=== PATIENT | female | born 1960 | race Caucasian/White ===

== ENCOUNTER 2022-12-17 23:36 | Inpatient (IN) | payer OTHER ==
[2022-12-17] MEDS ORDERED: NOREPINEPHRINE 4 MG in SODIUM CHLORIDE 0.9% 250 ML IV ONE (23:42)
[2022-12-17] MEDS ORDERED: SODIUM CHLORIDE 0.9% 1,000 ML IV SCH (23:45)
--- NOTE | 2022-12-18 00:39 | ED ---
General Adult HPI - General Stated complaint: Alt Mental Time Seen by Provider: 12/17/22 23:38 Source: EMS Mode of arrival: EMS Limitations: language barrier, altered mental status, physical limitation - History of Present Illness Initial comments: This is a 62-year-old female who was brought into the emergency department via EMS as a transfer patient from [facility]. The patient reportedly presented to the hospital at the outside facility for altered mental status and due to the patient's altered mental status was intubated for airway protection. The patient also central line placed as she was found to be hypotensive. The patient's lactic acid was elevated. 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 Due to the patient's altered mental status, intubated and sedated state, the patient was transferred here for further workup and admission. On arrival, the patient was found to have maggots during transport and was brought into the decontamination room immediately with event and respiratory and place. The patient remained sedated on the ventilator and denied any further signs of acute distress. No further history could be obtained at this time. - Related Data Allergies Allergy/AdvReac Type Severity Reaction Status Date / Time No Known Allergies Allergy Verified 12/18/22 00:16 Review of Systems ROS Statement: Those systems with pertinent positive or pertinent negative responses have been documented in the HPI. Limitations: ROS unobtainable due to patients medical condition (Intubated and sedated) General Exam Limitations: language barrier, altered mental status (Intubated and sedated), physical limitation General appearance: in no apparent distress, other (Intubated and sedated) Head exam: Present: atraumatic, normocephalic, normal inspection Eye exam: Present: normal appearance ENT exam: Present: normal exam, normal oropharynx, mucous membranes moist Neck exam: Present: normal inspection, full ROM Respiratory exam: Present: normal lung sounds bilaterally, other (Intubated) Cardiovascular Exam: Present: regular rate, normal rhythm, normal heart sounds GI/Abdominal exam: Present: soft, normal bowel sounds Extremities exam: Present: normal inspection, full ROM Back exam: Present: normal inspection, full ROM Neurological exam: Present: other (Intubated and sedated) Psychiatric exam: Present: other (Intubated and sedated) Skin exam: Present: warm, dry EKG Findings - EKG Comments: EKG Findings:: An EKG was obtained and was interpreted by myself showing a rate of 84, GA interval 158, QRS duration of 111 and QTC of 413. This EKG showed a normal sinus rhythm with no ST segment elevation or depression noted. Medical Decision Making - Medical Decision Making Was pt. sent in by a medical professional or institution (, [facility], [facility], urgent care, hospital, or assisted...) When possible be specific @ -Yes, transferred from [facility] Did you speak to anyone other than the patient for history (EMS, parent, family, police, friend...)? What history was obtained from this source @ -Yes, EMS who stated the patient had also mental status initially and was intubated at the outside facility. He also stated they found maggots on the patient during transport. Did you review nursing and triage notes (agree or disagree)? Why? @ -I reviewed and agree with nursing and triage notes Were old charts reviewed (outside hosp., previous admission, EMS record, old EKG, old radiological studies, urgent care reports/EKG's, assisted records)? Report findings @ -Yes, the emergency department notes at [facility] were all reviewed including all laboratory workup and imaging that was performed Differential Diagnosis (chest pain, altered mental status, abdominal pain women, abdominal pain men, vaginal bleeding, weakness, fever, dyspnea, syncope, headache, dizziness, GI bleed, back pain, seizure, CVA, palpatations, mental health)? @ -Acute altered mental status, ventilator dependent respiratory failure, metastatic carcinoma EKG interpreted by me (3pts min.). @ -As above X-rays interpreted by me (1pt min.). @ -None done CT interpreted by me (1pt min.). @ -None done U/S interpreted by me (1pt. min.). @ -None done What testing was considered but not performed or refused? (CT, X-rays, U/S, labs)? Why? @ -None What meds were considered but not given or refused? Why? @ -None Did you discuss the management of the patient with other professionals (professionals i.e. , [facility], [facility], lab, RT, psych nurse, child protective services social worker, director of religious life, teacher, head correction officer, correctional casework specialist)? Give summary @ -Yes, the ICU [facility] was contacted regarding the patient admission. The admitting physician was also contacted regarding admission. Was smoking cessation discussed for >3mins.? @ -No Was critical care preformed (if so, how long)? @ -Yes, see above Were there social determinants of health that impacted care today? How? ( Homelessness, low income, unemployed, alcoholism, drug addiction, transportation, low edu. Level, literacy, decrease access to med. care, long term, rehab)? @ -No Was there de-escalation of care discussed even if they declined (Discuss DNR or withdrawal of care, Hospice)? DNR status @ -No What co-morbidities impacted this encounter? (DM, HTN, Smoking, COPD, CAD, Cancer, CVA, ARF, Chemo, Hep., AIDS, mental health diagnosis, sleep apnea, morbid obesity)? @ -Comorbidities were unknown at this time. Was patient admitted / discharged? Hospital course, mention meds given and route, prescriptions, significant lab abnormalities, going to OR and other pertinent info. @ -The patient was seen and evaluated emergency department. Initially on arrival, the patient was brought in by EMS and was taken to the decontamination room where she was decontaminated after was found to have bugs during transport. The patient remained sedated and ventilated. All laboratory workup was reviewed and was performed at the outside facility. Imaging was also obtained and reviewed the outside facility showing likely metastatic cancer throughout the abdomen. There was no white blood cell count nor UTI on the labs were performed at the outside facility. Due to the patient's ventilated and intubated status in the setting of likely new onset metastatic disease, the patient will be admitted to the ICU for further workup and evaluation. The ICU [facility] was contacted prior to arrival of the patient and the patient's primary care physician was also contacted and accepted. The patient was admitted in serious condition. Undiagnosed new problem with uncertain prognosis? @ -No Drug Therapy requiring intensive monitoring for toxicity (Heparin, Nitro, Insulin, Cardizem)? @ -Yes, propofol and Levophed Were any procedures done? @ -No Diagnosis/symptom? @ -Ventilator dependent respiratory failure, altered mental status, likely new onset metastatic Acute, or Chronic, or Acute on Chronic? @ -Acute Uncomplicated (without systemic symptoms) or Complicated (systemic symptoms)? @ -Complicated Side effects of treatment? @ -No Exacerbation, Progression, or Severe Exacerbation? @ -No Poses a threat to life or bodily function? How? (Chest pain, [place], [place], pneumonia, PE, COPD, DKA, ARF, appy, cholecystitis, CVA, Diverticulitis, Homicidal, Suicidal, threat to staff... and all critical care pts) @ -Yes, continued respiratory failure metastatic disease can lead to . Critical Care Time Critical Care Time: Yes Total Critical Care Time: 35 Disposition Clinical Impression: AMS (altered mental status), Metastasis, Pleural effusion, Respiratory failure Disposition: ADMITTED IP TO THIS [facility] Condition: Serious Is patient prescribed a controlled substance at d/c from ED?: No Referrals: Malik Vale MD [Primary Care Provider] - 1-2 days Time of Disposition: 00:20 Decision to Admit Reason: Admit from EC Decision Date: 12/18/22 Decision Time: 00:20
[2022-12-18] MEDS ORDERED: NALOXONE 0.4 MG/ML 1 ML VIAL IV PRN (00:46)
[2022-12-18 01:50] LABS: Basophils % (A) 0 %; Eosinophils % (A) 0 %; HCT 42.9 % (34.0-46.0); HGB 13.1 gm/dL (11.4-16.0); Hypochromasia Slight; Lymphocytes # (A) 0.7 k/uL (1.0-4.8); Lymphocytes % (A) 8 %; MCH 26.3 pg (25.0-35.0); MCHC 30.5 g/dL (31.0-37.0); MCV 86.1 fL (80.0-100.0); Mean Platelet Volume 11.3; Monocytes # (A) 0.2 k/uL (0-1.0); Monocytes % (A) 2 %; Neutrophils # (A) 8.1 k/uL (1.3-7.7); Neutrophils % (A) 89 %; Platelet Count 78 k/uL (150-450); RBC 4.98 m/uL (3.80-5.40); RDW 13.9 % (11.5-15.5); WBC 9.1 k/uL (3.8-10.6)
[2022-12-18 01:56] LABS: Albumin 2.8 g/dL (3.5-5.0); Calcium 6.6 mg/dL (8.4-10.2); Magnesium 2.3 mg/dL (1.6-2.3); Potassium 4.8 mmol/L (3.5-5.1); Total Bilirubin 1.6 mg/dL (0.2-1.3); Total Protein 5.3 g/dL (6.3-8.2)
[2022-12-18 02:03] LABS: ABG Base Excess -14.1 mmol/L; ABG HCO3 14 mmol/L (21-25); ABG Oxygen Saturation 99.5 % (94-97); ABG PCO2 33 mmHg (35-45); ABG PH 7.22 (7.35-7.45); ABG PO2 273 mmHg (83-108); ABG TCO2 15 mmol/L (19-24); Allen Test Performed? Yes
[2022-12-18] MEDS: NOREPINEPHRINE 4 MG in SODIUM CHLORIDE 0.9% 250 ML IV SCH ×2 (02:30→18:24)
[2022-12-18 02:37] LABS: Large Platelets Present; RBC Morphology Normal
[2022-12-18 02:55] LABS: Glucose,Whole Blood 101 mg/dL (70-110)
[2022-12-18] MEDS ORDERED: PIPERACILLIN-TAZOBACTAM 3.375 GM in SODIUM CHLORIDE 0.9% 100 ML IVPB SCH ×2 (03:00→07:00)
[2022-12-18] MEDS: IPRATROPIUM-ALBUTEROL 3 ML NEB INHALATION SCH ×6 (03:17→23:26)
--- NOTE | 2022-12-18 03:23 | XR ---
EXAM: XR Chest, 1 View CLINICAL HISTORY: ITS.REASON XR Reason: Tube placement TECHNIQUE: Frontal view of the chest. COMPARISON: No relevant prior studies available. IMPRESSION: Cardiomegaly. Loculated mild right pleural effusion. Moderate pulmonary edema. ET tube terminates 1.6 cm from the debora. NG tube in proper position.
--- NOTE | 2022-12-18 05:05 | CT ---
EXAM: CT Chest Without Intravenous Contrast CLINICAL HISTORY: ITS.REASON CT Reason: suspected malignancy TECHNIQUE: Axial computed tomography images of the chest without intravenous contrast. CTDI is 9.7 mGy and DLP is 694 mGy-cm. This CT exam was performed using one or more of the following dose reduction techniques: automated exposure control, adjustment of the mA and/or kV according to patient size, and/or use of iterative reconstruction technique. COMPARISON: No relevant prior studies available. FINDINGS: Lungs: No mass. No consolidation. Mild pulmonary edema. Pleural space: No pneumothorax. Large right and mild left pleural effusion. Heart: Normal heart size. No pericardial effusion. Bones/joints: No acute fracture. Soft tissues: Unremarkable. Vasculature: Unremarkable. No thoracic aortic aneurysm. Lymph nodes: No enlarged lymph nodes. IMPRESSION: Bilateral pleural effusions. Mild pulmonary edema. EXAM: CT Abdomen and Pelvis Without Intravenous Contrast CLINICAL HISTORY: ITS.REASON CT Reason: suspected malignancy TECHNIQUE: Axial computed tomography images of the abdomen and pelvis without intravenous contrast. CTDI is 9.7 mGy and DLP is 694 mGy-cm. This CT exam was performed using one or more of the following dose reduction techniques: automated exposure control, adjustment of the mA and/or kV according to patient size, and/or use of iterative reconstruction technique. COMPARISON: No relevant prior studies available. FINDINGS: ABDOMEN: Liver: Unremarkable. Gallbladder and bile ducts: Unremarkable. Pancreas: No ductal dilation. Spleen: Unremarkable. Adrenals: Unremarkable. Kidneys and ureters: No obstructing stones. No hydronephrosis. Stomach and bowel: No bowel obstruction. No bowel wall thickening. Colonic diverticulosis. PELVIS: Appendix: No evidence of appendicitis. Bladder: No stones. Fournier catheter inserted. Reproductive: Unremarkable. ABDOMEN and PELVIS: Intraperitoneal space: Moderate ascites. Diffuse mesenteric nodule seen. Bones/joints: No acute fractures. Soft tissues: Unremarkable. Vasculature: No abdominal aortic aneurysm. Lymph nodes: No enlarged lymph nodes. IMPRESSION: 1. Evaluation limited without contrast. Recommend postcontrast study for better characterization. 2. Mesenteric carcinomatosis. Unknown origin. 3. Colonic diverticulosis
[2022-12-18] MEDS ORDERED: SODIUM CHLORIDE 0.9% 1,000 ML IV ONE ×2 (05:18→06:33)
[2022-12-18 05:44] LABS: Appearance,Urine Cloudy (Clear); Bacteria,Urine Rare /hpf; Bilirubin,Urine Negative (Negative); Blood,Urine Large (Negative); Color,Urine Yellow; Glucose,Urine (UA) Trace (Negative); Ketones,Urine Trace (Negative); Leukocyte Esterase,Urine Negative (Negative); Mucus,Urine Rare /hpf; Nitrite,Urine Negative (Negative); PH, Urine 5.5 (5.0-8.0); Protein,Urine 1+ (Negative); RBC,Urine 5 /hpf (0-5); Specific Gravity,Urine 1.027 (1.001-1.035); Squamous Epithelial Cell,Urine <1 /hpf (0-4); Urobilinogen,Urine <2.0 mg/dL (<2.0); WBC,Urine 16 /hpf (0-5)
[2022-12-18 05:48] LABS: ABG Base Excess -14.1 mmol/L; ABG HCO3 14 mmol/L (21-25); ABG Oxygen Saturation 97.6 % (94-97); ABG PCO2 33 mmHg (35-45); ABG PH 7.22 (7.35-7.45); ABG PO2 112 mmHg (83-108); ABG TCO2 15 mmol/L (19-24); Allen Test Performed? Yes
[2022-12-18 05:53] LABS: Amphetamine Screen,Urine Not Detected (NotDetected); Barbiturate Screen,Urine Not Detected (NotDetected); Benzodiazepines Screen,Urine Not Detected (NotDetected); Cocaine Screen,Urine Not Detected (NotDetected); Methadone Screen, Urine Not Detected (NotDetected); Opiate Screen,Urine Not Detected (NotDetected); Oxycodone Screen, Urine Not Detected (NotDetected); Phencyclidine Screen,Urine Not Detected (NotDetected); Tricyclic Antidepressant,Urine Not Detected (NotDetected); Urn Cannabinoid Scrn Not Detected (NotDetected)
[2022-12-18 06:42] LABS: Magnesium 2.2 mg/dL (1.6-2.3); Potassium 4.4 mmol/L (3.5-5.1)
[2022-12-18 06:44] LABS: Hypochromasia Marked; MCH 26.6 pg (25.0-35.0); MCV 88.5 fL (80.0-100.0); Mean Platelet Volume 11.2; RBC 4.52 m/uL (3.80-5.40); RDW 14.2 % (11.5-15.5)
[2022-12-18 06:45] LABS: Platelet Count 88 k/uL (150-450)
[2022-12-18 06:50] LABS: Calcium 6.4 mg/dL (8.4-10.2)
--- NOTE | 2022-12-18 08:06 | P.CNPUL ---
History of Present Illness Consult date: 12/18/22 Requesting physician: Prince Forte Reason for consult: other (T management) Chief complaint: Altered mental status History of present illness: I am seeing this patient in new consultation today 12/18/2022 in the intensive care unit after she was transferred from [facility]. Apparently, the patient presented to outside hospital altered and had to be intubated to protect her airway. The patient's medical history is largely unknown, I did reach out to contact the patient's family. They are poor historians, and unable to provide me with a detailed medical history or events leading up to her hospitalization in [place]. I was able to ascertain that she has been having frequent episodes of vomiting for the past month. In fact, someone in the household had contacted EMS 5 days prior, but she refused to go to the hospital. While at [facility], the patient did undergo a nonenhanced brain CT which showed no acute intracranial hemorrhage or mass effect. The patient also had a CT of the abdomen pelvis with contrast which showed extensive nodular infiltration of the greater omentum as well as peritoneal nodularity in the left upper abdomen with mild accompanying ascites. 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 The patient's uterus size was normal, but there was a distended endometrial cavity concerning for endometrial cancer. There was a distended gallbladder with no apparent calculi or bili tract dilation. Liver had fatty infiltration without any specific lesions or biliary tract dilation. There was a large right pleural effusion with atelectasis of the right lower lung and partial atelectasis of the right m iddle lung, left lung was clear without any significant effusions or infiltrates. There was gastroesophageal reflux with fluid within the esophagus. There is thickening of the gastric antrum and duodenal. No free air. No other obvious obstruction. The patient was hypotensive at the outside facility, and a right femoral central line was placed. The patient was transferred to [facility] last night in critical condition. The patient is currently intubated on mechanical ventilator with current settings of assist control, respiratory rate 18, tidal volume 400, FiO2 50%, PEEP of 5. ABGs done on these settings show a pO2 of 112, pCO2 of 33, pH of 7.22. Chest x-ray on arrival showed the ET tube approximately 1.5 cm from the debora, and this was withdrawn 2 cm. The patient does have an orogastric tube coursing below the diaphragm. There was a moderate right pleural effusion. Un fortunately, the patient did vomit and probably aspirated, the OG tube is hooked to low intermittent suction. I have added Zosyn for empiric antibiotic coverage. The patient currently has norepinephrine infusing at 0.08 mics per kilogram per minute. I've given an additional 2 L normal saline bolus patient's lactic was 15 at outside facility, and is down to 9.6. I did order a non- enhanced CT of the chest, abdomen, pelvis, the patient's renal function is poor. This redemonstrated mesenteric carcinomatosis. It also showed a large right and mild left pleural effusion and mild pulmonary edema. CBC on arrival shows a WBC count of 9.1, hemoglobin 13.1, hematocrit 42.9, platelets 78,000. BMP on admission shows a sodium 136, potassium 4.8, chloride 102, serum CO2 13, BUN 65, creatinine 2.17, glucose 129. LFTS are elevated with an AST 3691, ALT of 831, ALP 164. Normal saline infusing at 75 mL per hour. Troponins 0.317. No obvious ischemic changes of ECG. Urine output is in the order of 20 ml/hr. Urinalysis not suspicious for UTI. Urine drug screen was negative, apparently there was s uspicion of past polysubstance abuse. The patient's condition is currently critical, I have made multiple attempts to reach out to the patient's family. It is unclear if they will be coming up to the hospital later this afternoon. The patient arrived in a disheveled state with maggots in her hair. She did have multiple bruises located on her back and chest. For now she will remain on the ventilator, and be monitored in the intensive care unit. Review of Systems ROS unobtainable: due to endotracheal tube Medications and Allergies Allergies Allergy/AdvReac Type Severity Reaction Status Date / Time No Known Allergies Allergy Verified 12/18/22 09:25 Physical Exam Vitals: Vital Signs Temp Pulse Resp BP BP Pulse Ox FiO2 12/18/22 06:00 93 19 110/80 95 12/18/22 05:45 90 17 88/67 93 L 12/18/22 05:30 92 19 92/66 95 12/18/22 05:15 90 18 92/62 97 12/18/22 05:01 100 12/18/22 04:00 98 50 12/18/22 03:45 113/99 98 12/18/22 03:30 101/64 97 12/18/22 03:25 88 12/18/22 03:17 87 12/18/22 03:15 86/58 97 12/18/22 03:07 50 12/18/22 03:00 97.0 F L 90 18 88/60 97 100 12/18/22 02:30 88 18 92/59 96 12/18/22 02:22 50 12/18/22 02:15 87 18 92/76 96 12/18/22 02:00 86 18 97/62 86 L 12/18/22 01:45 57 L 18 92/58 100 12/18/22 01:30 85 18 91/57 99 12/18/22 01:15 85 18 85/55 100 12/18/22 01:06 85 18 94/57 12/18/22 01:03 18 12/18/22 01:00 85 18 92/59 100 12/18/22 00:50 85 18 98/61 98 12/18/22 00:35 100 12/18/22 00:33 100 Intake and Output 12/17/22 12/17/22 12/18/22 14:59 22:59 06:59 Intake Total 1328.709 Output Total 80 Balance 1248.709 Intake: IV 1300 Sodium Chloride 0.9% 1, 300 000 ml @ 75 mls/hr IV . [id number] [facility] Rx#:[id number] Sodium Chloride 0.9% 1, 1000 000 ml @ 999 mls/hr IV . Q1H1M [facility] Rx#:[id number] Intake, IV Titration 28.709 Amount Norepinephrine 4 mg In 28.709 Sodium Chloride 0.9% 250 ml @ 0.03 MCG/KG/MIN 7.83 mls/hr IV .Q24H [facility] Rx#: [id number] Output: Urine 80 Other: Voiding Method Indwelling Catheter Weight 68.5 kg GENERAL EXAM: Patient is sedated and synchronous with the mechanical ventilator. She does withdraw to painful stimuli, does not follow commands HEAD: Normocephalic medical EYES: Normal reaction of pupils, equal size. NOSE: Clear with pink turbinates. THROAT: No erythema or exudates. NECK: No masses, no JVD. CHEST: No chest wall deformity. LUNGS: Equal air entry with diffuse rhonchi, and diminished lung sounds at the right base. Intubated on mechanical ventilator. CVS: S1 and S2 normal with no audible murmur, regular rhythm. No extra heart sounds ABDOMEN: No hepatosplenomegaly, active bowel sounds, no guarding or rigidity. SPINE: No scoliosis or deformity SKIN: Ecchymosis right posterior back CENTRAL NERVOUS SYSTEM: No focal deficits. Sedated on propofol, not following commands. Opens eyes to painful stimuli EXTREMITIES: There is bilateral 3+ pitting edema. No clubbing, or cyanosis. Peripheral pulses are intact. Results - Laboratory Findings CBC and BMP: 12/18/22 06:04 12/18/22 06:04 ABG ABG pH 7.22 (7.35-7.45) L 12/18/22 05:45 ABG pCO2 33 mmHg (35-45) L 12/18/22 05:45 ABG pO2 112 mmHg (83-108) H 12/18/22 05:45 ABG O2 Saturation 97.6 % (94-97) H 12/18/22 05:45 Abnormal lab findings: Abnormal Labs 12/18/22 12/18/22 12/18/22 00:44 00:44 00:44 MCHC 30.5 L Plt Count 78 L Neutrophils # 8.1 H Lymphocytes # 0.7 L ABG pH ABG pCO2 ABG pO2 ABG HCO3 ABG Total CO2 ABG O2 Saturation Sodium 136 L Carbon Dioxide 13 L BUN 65 H Creatinine 2.17 H Glucose 129 H Plasma Lactic Acid Dmitriy 7.4 H* Calcium 6.6 L Total Bilirubin 1.6 H AST 3691 H ALT 831 H Alkaline Phosphatase 164 H Troponin I Total Protein 5.3 L Albumin 2.8 L Urine Appearance Urine Protein Urine Glucose (UA) Urine Ketones Urine Blood Urine WBC Urine Bacteria Urine Mucus 12/18/22 12/18/22 12/18/22 00:44 02:00 05:02 MCHC Plt Count Neutrophils # Lymphocytes # ABG pH 7.22 L ABG pCO2 33 L ABG pO2 273 H ABG HCO3 14 L ABG Total CO2 15 L ABG O2 Saturation 99.5 H Sodium Carbon Dioxide BUN Creatinine Glucose Plasma Lactic Acid Dmitriy Calcium Total Bilirubin AST ALT Alkaline Phosphatase Troponin I 0.317 H* Total Protein Albumin Urine Appearance Cloudy H Urine Protein 1+ H Urine Glucose (UA) Trace H Urine Ketones Trace H Urine Blood Large H Urine WBC 16 H Urine Bacteria Rare H Urine Mucus Rare H 12/18/22 12/18/22 05:29 05:45 MCHC Plt Count Neutrophils # Lymphocytes # ABG pH 7.22 L ABG pCO2 33 L ABG pO2 112 H ABG HCO3 14 L ABG Total CO2 15 L ABG O2 Saturation 97.6 H Sodium Carbon Dioxide BUN Creatinine Glucose Plasma Lactic Acid Dmitriy 9.6 H* Calcium Total Bilirubin AST ALT Alkaline Phosphatase Troponin I Total Protein Albumin Urine Appearance Urine Protein Urine Glucose (UA) Urine Ketones Urine Blood Urine WBC Urine Bacteria Urine Mucus - Diagnostic Findings Chest x-ray: image reviewed CT scan - chest: image reviewed Assessment and Plan Assessment: Suspected Mesenteric carcinomatosis, with CT evidence of extensive nodular infiltration of the greater omentum as well as peritoneal nodularity in the left upper abdomen with mild accompanying ascites. 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 The patient's uterus size was normal, but there was a distended endometrial cavity concerning for endometrial cancer primary. Altered mental status requiring intubation at outside facility for airway protection. Subsequent episodes of vomiting and likely aspiration. Acute hypoxemic respiratory failure, currently on the mechanical ventilator. CT shows evidence of large right sided pleural effusion, small left pleural effusion, and mild pulmonary edema Suspected acute exacerbation of congestive heart failure Suspected sepsis and septic shock refractory to fluid replacement currently on norepinephrine infusion Anion gap metabolic acidosis secondary to lactic acidemia Elevated troponins, possibly related to supply/demand mismatch. No ECG evidence of acute ischemia Acute kidney injury likely related to acute tubular necrosis and shock, creatinine currently 2.17 Elevated LFTs, CT evidence of a distended gallbladder with no apparent calculi or biliary tract dilation. Liver had fatty infiltration without any specific lesions or biliary tract dilation. Possible history of polysubstance abuse Plan: Patient's medications, labs, CAT scan reviewed Continue mechanical ventilator Withdrawal ET tube 2 cm Start the patient on empiric Zosyn Dowd cultures Continue norepinephrine infusion Trend lactic acid levels Urine drug screen was negative Consult cardiology Obtain stat transthoracic 2-D echo Consult oncology heparin for DVT prophylaxis Protonix for GI prophylaxis The patient will remain in the intensive care unit. Patient's condition is currently critical, and I have made multiple times to reach out to the family. I have personally seen and examined the patient, performed the documentation and the assessment and plan as written. Number of minutes spent on the visit:20 This is a joint evaluation that was done along with a nurse practitioner. Unfortunately, the history is very limited and the patient and the family is poor historian. Nevertheless, this patient is critically ill. She was intubated and an outside hospital and further imaging of her body showed a large right-sided pleural effusion and there is extensive noted infiltration of the omentum suspicious for peritoneal carcinomatosis. The patient also has distended endometrial cavity concerning of endometrial cancer. The CAT scan of the abdomen also showed colonic diverticulosis. The patient was in acute kidney injury probably 2 to intravascular volume depletion ongoing nausea and dehydration. Initial lactic acid level was very high and currently the lactic acid level is down to 6.2 and a creatinine at the time of admission was 2.1 and this morning is down to 1.9. Serum bicarb is at 11. Patient has hypocalcemia with a calcium level of 6.4 from this morning. Troponins at 0.3. She is on a mechanical ventilator. She has a component of metabolic acidosis with a pH of 7.22 with a pCO2 of 32 and pO2 112 and the patient is on assist-control mode rate of 18 with a tidal volume of 400 and FiO2 of 50% with a PEEP of 5. She is sedated with propofol. She is calm and comfortable and symptoms of mechanical ventilator. She is hemodynamically unstable and she is on norepinephrine which is running at 0.07 mcg/kg/m. Urine operas in order of 30 mL an hour I reviewed the records. I reviewed the CAT scan of the chest. The patient has a right sided pleural effusion which is quite large. Recommend the chest tube insertion on the right side Levaquin the right-sided pleural fluid and this will be a good opportunity to assess the pleural fluid cytology to rule out malignancy. We'll consult general surgery regarding the abdominal findings. We'll consult [facility] regarding the possibility of endometrial cancer. She may benefit from a transvaginal ultrasound to evaluate her uterus. We'll keep the patient sedated. Continue same vent setting. IV fluids are in the form of normal saline and this will be switched to bicarbonate of 75 mL an hour. We'll continue pressors for now. Condition is critical. Further recommendations are to follow based on her progress. Family will be informed. The patient is also covered with empiric antibiotics with IV Zosyn. Evaluation was done in more than 30 minutes. Time with Patient: Greater than 30
--- NOTE | 2022-12-18 08:09 | P.CRDCN ---
History of Present Illness Consult date: 12/18/22 History of present illness: History of Present Illness: The patient is a 62-year-old female who was transferred from [facility] with change in mental status, respiratory distress, hypotension. Cardiology consultation was requested because of elevated troponin. A computed tomography scan of the abdomen showed metastatic cancer of unknown duration. According to the nursing staff the history obtained from the family is very limited. No prior history is available to me. The patient is intubated and sedated. She has received IV fluid. She is in sinus mechanism. There is no evidence of atrial fibrillation or ventricular ectopic activity. No other history could be obtained. Medications: No list of medication from home isn't available Review of Systems: Could not be obtained, patient is intubated and sedated. Physical Examination: 62-year-old female, intubated and sedated. ,Blood [id number], Heart rate 90 Head: [Normocephalic.] Eyes: [Sclerae nonicteric.] Neck: [Good carotid upstroke, no bruit, no jugular venous distention.] Lungs: [Clear to auscultation. Bruises on the chest and breast] Heart: [Regular rate and rhythm, S1-S2, no S3, no rub. No murmur.] Abdomen: [Soft , positive bowel sounds no organomegaly.] Extremities: [No edema, intact distal pulses.] Labs: WBC 9.1, hemoglobin 13.1, BUN 65, creatinine 2.17. Plasma lactic acid 7.4, 9.6. AST 3691 ALT 871. Troponin 0.317. Her BUN today 65 with creatinine of 1.9. Computed tomography scan of the chest showed bilateral pleural effusion, abdominal CT revealed mesenteric carcinomatosis EKG: Sinus mechanism, left axis deviation, low voltage with nonspecific ST-T wave ch bianca Impression: 1. [ Respiratory failure, on mechanical ventilation 2. Mild troponin elevation, representing 2 myocardial injury 3. Renal failure of unknown duration 4. Abdominal malignancy, of unknown duration and primary 5. Abnormal transaminase probably related to the malignancy 6. Ecchymosis on the chest of unknown duration or etiology Plan: 1. Continue supportive care 2. Obtain an echocardiogram with Doppler 3. Further workup regarding the abdominal malignancy 4. Depending on her progress further recommendations will be made 5. Thank you for this consult we will follow with you Medications and Allergies Allergies Allergy/AdvReac Type Severity Reaction Status Date / Time No Known Allergies Allergy Verified 12/18/22 00:16 Physical Exam Vitals: Vital Signs Temp Pulse Resp BP BP Pulse Ox FiO2 12/18/22 07:40 50 12/18/22 07:30 50 12/18/22 07:20 50 12/18/22 07:10 50 12/18/22 07:00 94 20 96/65 98 50 12/18/22 06:50 50 12/18/22 06:45 97 19 101/66 95 12/18/22 06:40 50 12/18/22 06:30 96 20 98/65 98 50 12/18/22 06:20 50 12/18/22 06:15 96 19 97/66 96 12/18/22 06:10 50 12/18/22 06:00 93 19 110/80 95 50 12/18/22 05:50 50 12/18/22 05:45 90 17 88/67 93 L 12/18/22 05:40 50 12/18/22 05:30 92 19 92/66 95 50 12/18/22 05:20 50 12/18/22 05:15 90 18 92/62 97 12/18/22 05:10 50 12/18/22 05:01 100 50 12/18/22 04:00 98 50 12/18/22 03:45 113/99 98 12/18/22 03:30 101/64 97 12/18/22 03:25 88 12/18/22 03:17 87 12/18/22 03:15 86/58 97 12/18/22 03:07 50 12/18/22 03:00 97.0 F L 90 18 88/60 97 100 12/18/22 02:30 88 18 92/59 96 12/18/22 02:22 50 12/18/22 02:15 87 18 92/76 96 12/18/22 02:00 86 18 97/62 86 L 12/18/22 01:45 57 L 18 92/58 100 12/18/22 01:30 85 18 91/57 99 12/18/22 01:15 85 18 85/55 100 12/18/22 01:06 85 18 94/57 12/18/22 01:03 18 12/18/22 01:00 85 18 92/59 100 12/18/22 00:50 85 18 98/61 98 12/18/22 00:35 100 12/18/22 00:33 100 Intake and Output 12/17/22 12/18/22 12/18/22 22:59 06:59 14:59 Intake Total 1378.525 210.126 Output Total 80 35 Balance 1298.525 175.126 Intake: IV 1300 175 Sodium Chloride 0.9% 1, 300 75 000 ml @ 75 mls/hr IV . [id number] [facility] Rx#:[id number] Sodium Chloride 0.9% 1, 1000 000 ml @ 999 mls/hr IV . Q1H1M [facility] Rx#:[id number] Sodium Chloride 0.9% 1, 100 000 ml @ 999 mls/hr IV . Q1H1M [facility] Rx#:[id number] Intake, IV Titration 78.525 35.126 Amount Norepinephrine 4 mg In 55.243 Sodium Chloride 0.9% 250 ml @ 0.03 MCG/KG/MIN 7.83 mls/hr IV .Q24H [facility] Rx#: [id number] propofoL 1,000 mg In 23.282 35.126 Empty Bag 1 bag @ 15 MCG/ KG/MIN 6.021 mls/hr IV . [id number] [facility] Rx#:[id number] Output: Urine 80 35 Other: Voiding Method Indwelling Catheter Weight 68.5 kg Results 12/18/22 06:04 12/18/22 06:04 Cardiac Enzymes 12/18/22 12/18/22 Range/Units 00:44 00:44 AST 3691 H (14-36) U/L Troponin I 0.317 H* (0.000-0.034) ng/mL CBC 12/18/22 12/18/22 Range/Units 00:44 06:04 WBC 9.1 8.5 (3.8-10.6) k/uL RBC 4.98 4.52 (3.80-5.40) m/uL Hgb 13.1 12.0 (11.4-16.0) gm/dL Hct 42.9 40.0 (34.0-46.0) % Plt Count 78 L (150-450) k/uL Comprehensive Metabolic Panel 12/18/22 12/18/22 Range/Units 00:44 06:04 Sodium 136 L 136 L (137-145) mmol/L Potassium 4.8 4.4 (3.5-5.1) mmol/L Chloride 102 103 (98-107) mmol/L Carbon Dioxide 13 L 11 L (22-30) mmol/L BUN 65 H 65 H (7-17) mg/dL Creatinine 2.17 H 1.99 H (0.52-1.04) mg/dL Glucose 129 H 112 H (74-99) mg/dL Calcium 6.6 L 6.4 L* (8.4-10.2) mg/dL AST 3691 H (14-36) U/L ALT 831 H (4-34) U/L Alkaline Phosphatase 164 H (38-126) U/L Total Protein 5.3 L (6.3-8.2) g/dL Albumin 2.8 L (3.5-5.0) g/dL Current Medications Generic Name Dose Route Start Last Admin Trade Name Freq PRN Reason Stop Dose Admin Albuterol/Ipratropium 3 ml 12/18/22 04:00 12/18/22 03:17 Ipratropium-Albuterol 3 Ml Neb INHALATION 3 ml RT-Q4H RAMESH Administration Chlorhexidine Gluconate 15 ml 12/18/22 09:00 Chlorhexidine Gluconate 15 Ml Cup MUCOUS MEM BID RAMESH Heparin Sodium (Porcine) 5,000 unit 12/18/22 09:00 Heparin Sodium,Porcine/Pf 5,000 Unit/0.5 Ml Syringe SQ Q12HR RAMESH Propofol 1,000 mg/ IV Solution 100 mls @ 6.021 mls/hr 12/17/22 23:45 12/18/22 07:00 IV 20 mcg/kg/min .[id number] RAMESH 8.029 mls/hr Titration Protocol 15 MCG/KG/MIN Sodium Chloride 1,000 mls @ 75 mls/hr 12/17/22 23:45 12/17/22 23:48 Saline 0.9% IV 75 mls/hr .[id number] RAMESH Administration Norepinephrine Bitartrate 4 mg 254 mls @ 7.83 mls/hr 12/18/22 05:30 12/18/22 06:40 / Sodium Chloride IV 0.08 mcg/kg/min .Q24H RAMESH 20.879 mls/hr Titration Protocol 0.03 MCG/KG/MIN Piperacillin Sod/Tazobactam 100 mls @ 25 mls/hr 12/18/22 07:00 Sod 3.375 gm/ Sodium Chloride IVPB Q12H RAMESH Protocol Naloxone HCl 0.2 mg 12/18/22 00:46 Naloxone 0.4 Mg/Ml 1 Ml Vial IV Q2M PRN Opioid Reversal Pantoprazole Sodium 40 mg 12/18/22 09:00 Pantoprazole 40 Mg/10 Ml Vial IV DAILY [facility] Intake and Output 12/17/22 12/18/22 12/18/22 22:59 06:59 14:59 Intake Total 1378.525 210.126 Output Total 80 35 Balance 1298.525 175.126 Intake: IV 1300 175 Sodium Chloride 0.9% 1, 300 75 000 ml @ 75 mls/hr IV . [id number] [facility] Rx#:[id number] Sodium Chloride 0.9% 1, 1000 000 ml @ 999 mls/hr IV . Q1H1M [facility] Rx#:[id number] Sodium Chloride 0.9% 1, 100 000 ml @ 999 mls/hr IV . Q1H1M [facility] Rx#:[id number] Intake, IV Titration 78.525 35.126 Amount Norepinephrine 4 mg In 55.243 Sodium Chloride 0.9% 250 ml @ 0.03 MCG/KG/MIN 7.83 mls/hr IV .Q24H [facility] Rx#: [id number] propofoL 1,000 mg In 23.282 35.126 Empty Bag 1 bag @ 15 MCG/ KG/MIN 6.021 mls/hr IV . [id number] [facility] Rx#:[id number] Output: Urine 80 35 Other: Voiding Method Indwelling Catheter Weight 68.5 kg 12/18/22 06:04 12/18/22 06:04
[2022-12-18] MEDS: CHLORHEXIDINE GLUCONATE 15 ML CUP MUCOUS MEM SCH ×2 (08:55→20:59)
[2022-12-18] MEDS: PANTOPRAZOLE 40 MG/10 ML VIAL IV SCH (08:55)
[2022-12-18] MEDS ORDERED: CALCIUM GLUCONATE IN NACL 1 GM in SALINE 1 100ML.BAG IVPB ONE (09:00)
[2022-12-18 09:28] LABS: Band Neutrophils % 3 %; Monocytes # (M) 0.17 k/uL (0-1.0); Myelocytes % 1 %; Neutrophils % (M) 87 %; Nucleated Red Blood Cells 1 /100 WBC (0-0); Total Cells Counted 200
[2022-12-18 09:29] LABS: Lymphocytes # (M) 0.76 k/uL (1.0-4.8); Myelocytes # (M) 0.08 k/uL (0); WBC 8.4 k/uL (3.8-10.6)
[2022-12-18] MEDS: DEXTROSE 5% IN WATER 1,000 ML with SODIUM BICARB (1 MEQ/ML) 150 ML IV SCH (11:18)
[2022-12-18 11:36] LABS: Glucose,Whole Blood 102 mg/dL (70-110)
[2022-12-18 12:25] LABS: INR 1.7 (<1.2); Prothrombin Time 16.6 sec (9.0-12.0)
--- NOTE | 2022-12-18 12:30 | CA ---
Transthoracic Echo Report Name: Cornelia Fraser Age: 62 Gender: F : 1960 Exam Date: 12/18/2022 08:42 Exam Location: [place] [facility] Ht (in): 65 Wt (lb): 147 Ordering Physician: Randolph Goss Attending/Referring Phys: Records Management Coordinator Soraya Franz RDCS Procedure CPT: Indications: evaluate LV function Cardiac Hx: Technical Quality: Fair Contrast 1: Total Dose (mL): Contrast 2: Total Dose (mL): MEASUREMENTS (Male / Female) Normal Values 2D ECHO LV Diastolic Diameter PLAX 3.1 cm 4.2 - 5.9 / 3.9 - 5.3 cm LV Systolic Diameter PLAX 1.5 cm IVS Diastolic Thickness 1.3 cm 0.6 - 1.0 / 0.6 - 0.9 cm LVPW Diastolic Thickness 1.3 cm 0.6 - 1.0 / 0.6 - 0.9 cm LV Relative Wall Thickness 0.8 RV Internal Dim ED PLAX 2.8 cm M-MODE Aortic Root Diameter MM 3.6 cm LA Systolic Diameter MM 3.3 cm LA Ao Ratio MM 0.9 AV Cusp Separation MM 1.6 cm DOPPLER AV Peak Velocity 122.3 cm/s AV Peak Gradient 6.0 mmHg AV Mean Velocity 83.0 cm/s AV Mean Gradient 3.1 mmHg AV Velocity Time Integral 24.0 cm LVOT Peak Velocity 91.7 cm/s LVOT Peak Gradient 3.4 mmHg LVOT Velocity Time Integral 18.3 cm MV Area PHT 3.2 cm??? Mitral E Point Velocity 61.1 cm/s Mitral A Point Velocity 46.2 cm/s Mitral E to A Ratio 1.3 MV Deceleration Time 235.1 ms TR Peak Velocity 327.6 cm/s TR Peak Gradient 42.9 mmHg Right Ventricular Systolic Press 46.6 mmHg FINDINGS Left Ventricle Mildly increased left ventricular wall thickness. Left ventricular cavity size normal. Normal left ventricular systolic function with no obvious regional wall motion abnormalities. Left ventricular ejection fraction is estimated at55-60 %. Right Ventricle Normal right ventricular size and function. Mild pulmonary hypertension. Right Atrium Normal right atrial size. Left Atrium Normal left atrial size. Mitral Valve Structurally normal mitral valve. No mitral stenosis, regurgitation or prolapse. Aortic Valve No aortic valve stenosis or regurgitation. Tricuspid Valve Structurally normal tricuspid valve. Mild tricuspid regurgitation. Pulmonic Valve Trace pulmonic regurgitation. Pericardium No pericardial effusion. Aorta Normal size aortic root and proximal ascending aorta. CONCLUSIONS Normal LV systolic function Mild pulmonary hypertension Previewed by: Dr. Rei Kelly MD (Electronically Signed) Final Date: 18 December 2022 12:29
--- NOTE | 2022-12-18 15:09 | US ---
Ultrasound-guided therapeutic and diagnostic right chest tube pigtail insertion DATE OF EXAM: 12/18/2022 CLINICAL HISTORY: Large right pleural effusion The procedure was discussed with the patient's . The risks, complications, benefits, and alter natives were discussed and any questions were answered. Informed consent was obtained. The patient was placed lateral position on the bedside within the ICU and prepped and draped in the u sual sterile fashion. All elements of maximal barrier and sterile technique were utilized. Under ultrasound guidance, access into the pleural space was obtained, via 8 [place] pigtail catheter trochanters is and direct ultrasound tyler nce. 20 cc serous fluid was aspirated and sent to pathology for analysis. The patient was stable throughout the procedure and procedure was performed bedside within the ICU. IMPRESSION: 1. Successful therapeutic and diagnostic right chest tube insertion under ultrasound guidance.
--- NOTE | 2022-12-18 16:09 | P.GSCN ---
History of Present Illness Consult date: 12/18/22 Reason for Consult: 62-year-old female transferred from an outside hospital. Patient with mental status changes and debility. Patient was intubated on arrival. CAT scan was performed showing a large right pleural effusion and omental caking on abdominal CAT scan consistent with peritoneal malignancy. Patient earlier today had a thoracentesis performed with drain placement. Those results are obviously pending. Consults to pulmonary and oncology have taken place. Review of Systems ROS unobtainable: due to endotracheal tube Medications and Allergies Home Medications Medication Instructions Recorded Confirmed Type Aspirin 81 mg PO DAILY 12/18/22 12/18/22 History Atorvastatin [Lipitor] 40 mg PO DAILY 12/18/22 12/18/22 History Cetirizine HCl [Zyrtec] 10 mg PO DAILY 12/18/22 12/18/22 History hydroCHLOROthiazide [Hydrodiuril] 25 mg PO DAILY 12/18/22 12/18/22 History lisinopriL [Zestril] 20 mg PO DAILY 12/18/22 12/18/22 History Allergies Allergy/AdvReac Type Severity Reaction Status Date / Time No Known Allergies Allergy Verified 12/18/22 09:25 Surgical - Exam Vital Signs FiO2 100 12/18/22 00:33 Physical exam: General: Somewhat malnourished elderly female HEENT: Normocephalic, trachea midline Abdomen: Nontender, abdominal fullness present with some induration in the abdomen Extremities: Mild lower extremity edema Neuro: Intubated Results - Labs 12/18/22 06:04 12/18/22 06:04 Abnormal Lab Results - Last 24 Hours (Table) 12/18/22 12/18/22 12/18/22 Range/Units 00:44 00:44 00:44 MCHC 30.5 L (31.0-37.0) g/dL Plt Count 78 L (150-450) k/uL Neutrophils # 8.1 H (1.3-7.7) k/uL Lymphocytes # 0.7 L (1.0-4.8) k/uL Lymphocytes # (Manual) (1.0-4.8) k/uL Myelocytes # (Manual) (0) k/uL Nucleated RBCs (0-0) /100 WBC PT (9.0-12.0) sec INR (<1.2) ABG pH (7.35-7.45) ABG pCO2 (35-45) mmHg ABG pO2 (83-108) mmHg ABG HCO3 (21-25) mmol/L ABG Total CO2 (19-24) mmol/L ABG O2 Saturation (94-97) % Sodium 136 L (137-145) mmol/L Carbon Dioxide 13 L (22-30) mmol/L BUN 65 H (7-17) mg/dL Creatinine 2.17 H (0.52-1.04) mg/dL Glucose 129 H (74-99) mg/dL Plasma Lactic Acid Dmitriy 7.4 H* (0.7-2.0) mmol/L Calcium 6.6 L (8.4-10.2) mg/dL Total Bilirubin 1.6 H (0.2-1.3) mg/dL AST 3691 H (14-36) U/L ALT 831 H (4-34) U/L Alkaline Phosphatase 164 H (38-126) U/L Troponin I (0.000-0.034) ng/mL Total Protein 5.3 L (6.3-8.2) g/dL Albumin 2.8 L (3.5-5.0) g/dL Urine Appearance (Clear) Urine Protein (Negative) Urine Glucose (UA) (Negative) Urine Ketones (Negative) Urine Blood (Negative) Urine WBC (0-5) /hpf Urine Bacteria (None) /hpf Urine Mucus (None) /hpf 12/18/22 12/18/22 12/18/22 Range/Units 00:44 02:00 05:02 MCHC (31.0-37.0) g/dL Plt Count (150-450) k/uL Neutrophils # (1.3-7.7) k/uL Lymphocytes # (1.0-4.8) k/uL Lymphocytes # (Manual) (1.0-4.8) k/uL Myelocytes # (Manual) (0) k/uL Nucleated RBCs (0-0) /100 WBC PT (9.0-12.0) sec INR (<1.2) ABG pH 7.22 L (7.35-7.45) ABG pCO2 33 L (35-45) mmHg ABG pO2 273 H (83-108) mmHg ABG HCO3 14 L (21-25) mmol/L ABG Total CO2 15 L (19-24) mmol/L ABG O2 Saturation 99.5 H (94-97) % Sodium (137-145) mmol/L Carbon Dioxide (22-30) mmol/L BUN (7-17) mg/dL Creatinine (0.52-1.04) mg/dL Glucose (74-99) mg/dL Plasma Lactic Acid Dmitriy (0.7-2.0) mmol/L Calcium (8.4-10.2) mg/dL Total Bilirubin (0.2-1.3) mg/dL AST (14-36) U/L ALT (4-34) U/L Alkaline Phosphatase (38-126) U/L Troponin I 0.317 H* (0.000-0.034) ng/mL Total Protein (6.3-8.2) g/dL Albumin (3.5-5.0) g/dL Urine Appearance Cloudy H (Clear) Urine Protein 1+ H (Negative) Urine Glucose (UA) Trace H (Negative) Urine Ketones Trace H (Negative) Urine Blood Large H (Negative) Urine WBC 16 H (0-5) /hpf Urine Bacteria Rare H (None) /hpf Urine Mucus Rare H (None) /hpf 12/18/22 12/18/22 12/18/22 Range/Units 05:29 05:45 06:04 MCHC 30.0 L (31.0-37.0) g/dL Plt Count 88 L (150-450) k/uL Neutrophils # (1.3-7.7) k/uL Lymphocytes # (1.0-4.8) k/uL Lymphocytes # (Manual) 0.76 L (1.0-4.8) k/uL Myelocytes # (Manual) 0.08 H (0) k/uL Nucleated RBCs 1 H (0-0) /100 WBC PT (9.0-12.0) sec INR (<1.2) ABG pH 7.22 L (7.35-7.45) ABG pCO2 33 L (35-45) mmHg ABG pO2 112 H (83-108) mmHg ABG HCO3 14 L (21-25) mmol/L ABG Total CO2 15 L (19-24) mmol/L ABG O2 Saturation 97.6 H (94-97) % Sodium (137-145) mmol/L Carbon Dioxide (22-30) mmol/L BUN (7-17) mg/dL Creatinine (0.52-1.04) mg/dL Glucose (74-99) mg/dL Plasma Lactic Acid Dmitriy 9.6 H* (0.7-2.0) mmol/L Calcium (8.4-10.2) mg/dL Total Bilirubin (0.2-1.3) mg/dL AST (14-36) U/L ALT (4-34) U/L Alkaline Phosphatase (38-126) U/L Troponin I (0.000-0.034) ng/mL Total Protein (6.3-8.2) g/dL Albumin (3.5-5.0) g/dL Urine Appearance (Clear) Urine Protein (Negative) Urine Glucose (UA) (Negative) Urine Ketones (Negative) Urine Blood (Negative) Urine WBC (0-5) /hpf Urine Bacteria (None) /hpf Urine Mucus (None) /hpf 12/18/22 12/18/22 12/18/22 Range/Units 06:04 08:29 11:42 MCHC (31.0-37.0) g/dL Plt Count (150-450) k/uL Neutrophils # (1.3-7.7) k/uL Lymphocytes # (1.0-4.8) k/uL Lymphocytes # (Manual) (1.0-4.8) k/uL Myelocytes # (Manual) (0) k/uL Nucleated RBCs (0-0) /100 WBC PT (9.0-12.0) sec INR (<1.2) ABG pH (7.35-7.45) ABG pCO2 (35-45) mmHg ABG pO2 (83-108) mmHg ABG HCO3 (21-25) mmol/L ABG Total CO2 (19-24) mmol/L ABG O2 Saturation (94-97) % Sodium 136 L (137-145) mmol/L Carbon Dioxide 11 L (22-30) mmol/L BUN 65 H (7-17) mg/dL Creatinine 1.99 H (0.52-1.04) mg/dL Glucose 112 H (74-99) mg/dL Plasma Lactic Acid Dmitriy 6.2 H* 5.8 H* (0.7-2.0) mmol/L Calcium 6.4 L* (8.4-10.2) mg/dL Total Bilirubin (0.2-1.3) mg/dL AST (14-36) U/L ALT (4-34) U/L Alkaline Phosphatase (38-126) U/L Troponin I (0.000-0.034) ng/mL Total Protein (6.3-8.2) g/dL Albumin (3.5-5.0) g/dL Urine Appearance (Clear) Urine Protein (Negative) Urine Glucose (UA) (Negative) Urine Ketones (Negative) Urine Blood (Negative) Urine WBC (0-5) /hpf Urine Bacteria (None) /hpf Urine Mucus (None) /hpf 12/18/22 12/18/22 Range/Units 11:59 15:02 MCHC (31.0-37.0) g/dL Plt Count (150-450) k/uL Neutrophils # (1.3-7.7) k/uL Lymphocytes # (1.0-4.8) k/uL Lymphocytes # (Manual) (1.0-4.8) k/uL Myelocytes # (Manual) (0) k/uL Nucleated RBCs (0-0) /100 WBC PT 16.6 H (9.0-12.0) sec INR 1.7 H (<1.2) ABG pH (7.35-7.45) ABG pCO2 (35-45) mmHg ABG pO2 (83-108) mmHg ABG HCO3 (21-25) mmol/L ABG Total CO2 (19-24) mmol/L ABG O2 Saturation (94-97) % Sodium (137-145) mmol/L Carbon Dioxide (22-30) mmol/L BUN (7-17) mg/dL Creatinine (0.52-1.04) mg/dL Glucose (74-99) mg/dL Plasma Lactic Acid Dmitriy 6.7 H* (0.7-2.0) mmol/L Calcium (8.4-10.2) mg/dL Total Bilirubin (0.2-1.3) mg/dL AST (14-36) U/L ALT (4-34) U/L Alkaline Phosphatase (38-126) U/L Troponin I (0.000-0.034) ng/mL Total Protein (6.3-8.2) g/dL Albumin (3.5-5.0) g/dL Urine Appearance (Clear) Urine Protein (Negative) Urine Glucose (UA) (Negative) Urine Ketones (Negative) Urine Blood (Negative) Urine WBC (0-5) /hpf Urine Bacteria (None) /hpf Urine Mucus (None) /hpf Microbiology - Last 24 Hours (Table) 12/18/22 05:02 Urine Culture - Preliminary Urine,Voided Diabetes panel 12/18/22 12/18/22 Range/Units 00:44 06:04 Sodium 136 L 136 L (137-145) mmol/L Potassium 4.8 4.4 (3.5-5.1) mmol/L Chloride 102 103 (98-107) mmol/L Carbon Dioxide 13 L 11 L (22-30) mmol/L BUN 65 H 65 H (7-17) mg/dL Creatinine 2.17 H 1.99 H (0.52-1.04) mg/dL Glucose 129 H 112 H (74-99) mg/dL Calcium 6.6 L 6.4 L* (8.4-10.2) mg/dL AST 3691 H (14-36) U/L ALT 831 H (4-34) U/L Alkaline Phosphatase 164 H (38-126) U/L Total Protein 5.3 L (6.3-8.2) g/dL Albumin 2.8 L (3.5-5.0) g/dL Calcium panel 12/18/22 12/18/22 Range/Units 00:44 06:04 Calcium 6.6 L 6.4 L* (8.4-10.2) mg/dL Albumin 2.8 L (3.5-5.0) g/dL Pituitary panel 12/18/22 12/18/22 Range/Units 00:44 06:04 Sodium 136 L 136 L (137-145) mmol/L Potassium 4.8 4.4 (3.5-5.1) mmol/L Chloride 102 103 (98-107) mmol/L Carbon Dioxide 13 L 11 L (22-30) mmol/L BUN 65 H 65 H (7-17) mg/dL Creatinine 2.17 H 1.99 H (0.52-1.04) mg/dL Glucose 129 H 112 H (74-99) mg/dL Calcium 6.6 L 6.4 L* (8.4-10.2) mg/dL Adrenal panel 12/18/22 12/18/22 Range/Units 00:44 06:04 Sodium 136 L 136 L (137-145) mmol/L Potassium 4.8 4.4 (3.5-5.1) mmol/L Chloride 102 103 (98-107) mmol/L Carbon Dioxide 13 L 11 L (22-30) mmol/L BUN 65 H 65 H (7-17) mg/dL Creatinine 2.17 H 1.99 H (0.52-1.04) mg/dL Glucose 129 H 112 H (74-99) mg/dL Calcium 6.6 L 6.4 L* (8.4-10.2) mg/dL Total Bilirubin 1.6 H (0.2-1.3) mg/dL AST 3691 H (14-36) U/L ALT 831 H (4-34) U/L Alkaline Phosphatase 164 H (38-126) U/L Total Protein 5.3 L (6.3-8.2) g/dL Albumin 2.8 L (3.5-5.0) g/dL Assessment and Plan (1) Carcinomatosis Narrative/Plan: 62-year-old female with suspected carcinomatosis and omental cake on CAT scan. Patient had diagnostic and therapeutic thoracentesis performed. Await those studies. If needed the omentum could be biopsied percutaneously. Current Visit: Yes Status: Acute Code(s): C80.0 - DISSEMINATED MALIGNANT NEOPLASM, UNSPECIFIED SNOMED Code(s): 190049950
[2022-12-18] MEDS: ASPIRIN 81 MG PO SCH (16:46)
[2022-12-18] MEDS: ATORVASTATIN 40 MG TAB PO SCH (16:46)
[2022-12-18] MEDS: HEPARIN SODIUM,PORCINE/PF 5,000 UNIT/0.5 ML SYRINGE SQ SCH ×2 (16:47→20:59)
[2022-12-18] MEDS: PIPERACILLIN-TAZOBACTAM 3.375 GM in SODIUM CHLORIDE 0.9% 100 ML IVPB SCH ×2 (16:56→23:58)
[2022-12-18 17:51] LABS: Glucose,Whole Blood 106 mg/dL (70-110)
--- NOTE | 2022-12-18 19:34 | P.HPIM ---
History of Present Illness H&P Date: 12/18/22 Chief Complaint: Intubated This is a 62-year-old patient, being followed by Malik Vale, was transferred here from [facility]. Patient presented with a altered men pema status had to be intubated. Apparently she was having episodes of vomiting for the possible. Summary from the hospital and contacted EMS about 5 days ago but patient refused to go to the hospital. Computed tomography scan of the hospital was unremarkable. CT of the abdomen and pelvis showed extensive nodular infiltration of the greater omentum and redness peritoneal nodularity of the left upper abdomen with some ascites.. Suggestive of metastatic disease. Also distended endometrial cavity was reported. Also distended gallbladder with no calculi. Fatty infiltration of liver. Large right pleural effusion with atelectasis of the right lower lobe. Partial atelectasis of right below. Some thickening of the gastric antrum and duodenum. Patient was hypotensive. This morning patient is intubated on the ventilator. With FiO2 50% and a PEEP of 5. Patient probably aspirated after vomiting. Has been placed on Zosyn. Director Of Casework Department team earlier creatinine return to the family was unable to do so. Review of systems cannot be done patient intubated sedated Past medical history to include: Hypertension, hyperlipidemia, arthritis Social history: Cannot be obtained Physical examination: VITAL SIGNS: Afebrile, 98, 20, 98/61, 99% on the ventilator GENERAL: BMI 25.1, laying in bed intubated. EYES: Pupils equal. Conjunctiva normal. HEENT: External appearance of nose and ears normal, oral cavity ET tube. NECK: JVD unable to assess; masses not palpable. HEART: First and second heart sounds are normal; no edema. LUNGS: Respiratory rate increased; decreased breath sounds. ABDOMEN: Soft, nontender, liver spleen not palpable, no masses palpable. PSYCH: Sedated l. MUSCULOSKELETAL:No Clubbing/cyanosis;muscles-grossly intact NEUROLOGICAL: Cranial nerves grossly intact; no facial asymmetry, power and sensation grossly intact. LYMPHATICS: No lymph nodes palpable in the axilla and neck INVESTIGATIONS, reviewed in the clinical context: White count 8.4 hemoglobin 12 platelets 88 sodium 136 potassium 4.4 BUN 65 creatinine 1.99 Lactic acid 6.2 CEA antigen 5.3 EKG tracing personally reviewed by me-normal sinus rhythm. Rate 84 Chest x-ray film personally reviewed by es-oyevt-qucfp mass/infiltrate. Atelectasis. CT chest without contrast. Large right, small left pleural effusions. Mild peripheral edema. Colonic diverticulosis. Mesentric carcinomatosis. 2-D echocardiogram: EF 55-60%. Assessment and plan: -Acute hypoxic respiratory failure, multifactorial including possible pneumonia, right lower lobe collapse. Requiring ventilator assistance. -Possible aspiration pneumonia IV Zosyn -Septic shock IV fluids, levo fed -Large right pleural effusion -Metastatic mesenteric carcinoid stenosis. At this point primary unknown. Distended endometrium. -Altered mental status, multifactorial/metabolic encephalopathy/delirium -Elevated troponin from here diabetic mismatch. No clinical evidence of acute: He syndrome -Acute kidney injury, likely ATN could be from shock. Baseline creatinine not known. -Nonalcoholic fatty liver disease. -Thrombocytopenia, cause unknown -Metabolic acidosis with a contribution from kidney injury Sodium bicarbonate drip Prognosis guarded. Attempt is being made to contact family. Patient being followed by engagement executive, cardiology, E[employer]MENT[employer]ER, general surgery, oncology. Past Medical History - Past Family History Father Family Medical History: No Reported History, Unable to Obtain Medications and Allergies Home Medications Medication Instructions Recorded Confirmed Type Aspirin 81 mg PO DAILY 12/18/22 12/18/22 History Atorvastatin [Lipitor] 40 mg PO DAILY 12/18/22 12/18/22 History Cetirizine HCl [Zyrtec] 10 mg PO DAILY 12/18/22 12/18/22 History hydroCHLOROthiazide [Hydrodiuril] 25 mg PO DAILY 12/18/22 12/18/22 History lisinopriL [Zestril] 20 mg PO DAILY 12/18/22 12/18/22 History Allergies Allergy/AdvReac Type Severity Reaction Status Date / Time No Known Allergies Allergy Verified 12/18/22 09:25 Physical Exam Vitals: Vital Signs Temp Pulse Resp BP BP Pulse Ox FiO2 12/18/22 08:15 97.4 F L 93 18 104/69 98 50 12/18/22 08:00 91 18 99/68 97 50 12/18/22 07:45 90 19 101/68 98 12/18/22 07:40 50 12/18/22 07:30 91 20 97/64 97 50 12/18/22 07:20 50 12/18/22 07:15 93 21 102/68 97 12/18/22 07:10 50 12/18/22 07:00 94 20 96/65 98 50 12/18/22 06:50 50 12/18/22 06:45 97 19 101/66 95 12/18/22 06:40 50 12/18/22 06:30 96 20 98/65 98 50 12/18/22 06:20 50 12/18/22 06:15 96 19 97/66 96 12/18/22 06:10 50 12/18/22 06:00 93 19 110/80 95 50 12/18/22 05:50 50 12/18/22 05:45 90 17 88/67 93 L 12/18/22 05:40 50 12/18/22 05:30 92 19 92/66 95 50 12/18/22 05:20 50 12/18/22 05:15 90 18 92/62 97 12/18/22 05:10 50 12/18/22 05:01 100 50 12/18/22 04:00 98 50 12/18/22 03:45 113/99 98 12/18/22 03:30 101/64 97 12/18/22 03:25 88 12/18/22 03:17 87 12/18/22 03:15 86/58 97 12/18/22 03:07 50 12/18/22 03:00 97.0 F L 90 18 88/60 97 100 12/18/22 02:30 88 18 92/59 96 12/18/22 02:22 50 12/18/22 02:15 87 18 92/76 96 12/18/22 02:00 86 18 97/62 86 L 12/18/22 01:45 57 L 18 92/58 100 12/18/22 01:30 85 18 91/57 99 12/18/22 01:15 85 18 85/55 100 12/18/22 01:06 85 18 94/57 12/18/22 01:03 18 12/18/22 01:00 85 18 92/59 100 12/18/22 00:50 85 18 98/61 98 12/18/22 00:35 100 12/18/22 00:33 100 Intake and Output 12/17/22 12/18/22 12/18/22 22:59 06:59 14:59 Intake Total 1378.525 438.553 Output Total 80 85 Balance 1298.525 353.553 Intake: IV 1300 350 0.9 kvo 0 Piperacillin-Tazobactam 3 100 .375 gm In Sodium Chloride 0.9% 100 ml @ 25 mls/hr IVPB Q12H [facility] Rx# :[id number] Sodium Chloride 0.9% 1, 300 150 000 ml @ 75 mls/hr IV . [id number] RAMESH Rx#:[id number] Sodium Chloride 0.9% 1, 1000 000 ml @ 999 mls/hr IV . Q1H1M ONE Rx#:[id number] Sodium Chloride 0.9% 1, 100 000 ml @ 999 mls/hr IV . Q1H1M ONE Rx#:[id number] Intake, IV Titration 78.525 88.553 Amount Norepinephrine 4 mg In 55.243 40.714 Sodium Chloride 0.9% 250 ml @ 0.03 MCG/KG/MIN 7.83 mls/hr IV .Q24H [facility] Rx#: [id number] propofoL 1,000 mg In 23.282 47.839 Empty Bag 1 bag @ 15 MCG/ KG/MIN 6.021 mls/hr IV . [id number] [facility] Rx#:[id number] Output: Urine 80 85 Other: Voiding Method Indwelling Catheter Weight 68.5 kg Results CBC & Chem 7: 12/18/22 06:04 12/18/22 06:04 Labs: Abnormal Lab Results - Last 24 Hours (Table) 12/18/22 12/18/22 12/18/22 Range/Units 00:44 00:44 00:44 MCHC 30.5 L (31.0-37.0) g/dL Plt Count 78 L (150-450) k/uL Neutrophils # 8.1 H (1.3-7.7) k/uL Lymphocytes # 0.7 L (1.0-4.8) k/uL Lymphocytes # (Manual) (1.0-4.8) k/uL Myelocytes # (Manual) (0) k/uL Nucleated RBCs (0-0) /100 WBC ABG pH (7.35-7.45) ABG pCO2 (35-45) mmHg ABG pO2 (83-108) mmHg ABG HCO3 (21-25) mmol/L ABG Total CO2 (19-24) mmol/L ABG O2 Saturation (94-97) % Sodium 136 L (137-145) mmol/L Carbon Dioxide 13 L (22-30) mmol/L BUN 65 H (7-17) mg/dL Creatinine 2.17 H (0.52-1.04) mg/dL Glucose 129 H (74-99) mg/dL Plasma Lactic Acid Dmitriy 7.4 H* (0.7-2.0) mmol/L Calcium 6.6 L (8.4-10.2) mg/dL Total Bilirubin 1.6 H (0.2-1.3) mg/dL AST 3691 H (14-36) U/L ALT 831 H (4-34) U/L Alkaline Phosphatase 164 H (38-126) U/L Troponin I (0.000-0.034) ng/mL Total Protein 5.3 L (6.3-8.2) g/dL Albumin 2.8 L (3.5-5.0) g/dL Urine Appearance (Clear) Urine Protein (Negative) Urine Glucose (UA) (Negative) Urine Ketones (Negative) Urine Blood (Negative) Urine WBC (0-5) /hpf Urine Bacteria (None) /hpf Urine Mucus (None) /hpf 12/18/22 12/18/22 12/18/22 Range/Units 00:44 02:00 05:02 MCHC (31.0-37.0) g/dL Plt Count (150-450) k/uL Neutrophils # (1.3-7.7) k/uL Lymphocytes # (1.0-4.8) k/uL Lymphocytes # (Manual) (1.0-4.8) k/uL Myelocytes # (Manual) (0) k/uL Nucleated RBCs (0-0) /100 WBC ABG pH 7.22 L (7.35-7.45) ABG pCO2 33 L (35-45) mmHg ABG pO2 273 H (83-108) mmHg ABG HCO3 14 L (21-25) mmol/L ABG Total CO2 15 L (19-24) mmol/L ABG O2 Saturation 99.5 H (94-97) % Sodium (137-145) mmol/L Carbon Dioxide (22-30) mmol/L BUN (7-17) mg/dL Creatinine (0.52-1.04) mg/dL Glucose (74-99) mg/dL Plasma Lactic Acid Dmitriy (0.7-2.0) mmol/L Calcium (8.4-10.2) mg/dL Total Bilirubin (0.2-1.3) mg/dL AST (14-36) U/L ALT (4-34) U/L Alkaline Phosphatase (38-126) U/L Troponin I 0.317 H* (0.000-0.034) ng/mL Total Protein (6.3-8.2) g/dL Albumin (3.5-5.0) g/dL Urine Appearance Cloudy H (Clear) Urine Protein 1+ H (Negative) Urine Glucose (UA) Trace H (Negative) Urine Ketones Trace H (Negative) Urine Blood Large H (Negative) Urine WBC 16 H (0-5) /hpf Urine Bacteria Rare H (None) /hpf Urine Mucus Rare H (None) /hpf 12/18/22 12/18/22 12/18/22 Range/Units 05:29 05:45 06:04 MCHC 30.0 L (31.0-37.0) g/dL Plt Count 88 L (150-450) k/uL Neutrophils # (1.3-7.7) k/uL Lymphocytes # (1.0-4.8) k/uL Lymphocytes # (Manual) 0.76 L (1.0-4.8) k/uL Myelocytes # (Manual) 0.08 H (0) k/uL Nucleated RBCs 1 H (0-0) /100 WBC ABG pH 7.22 L (7.35-7.45) ABG pCO2 33 L (35-45) mmHg ABG pO2 112 H (83-108) mmHg ABG HCO3 14 L (21-25) mmol/L ABG Total CO2 15 L (19-24) mmol/L ABG O2 Saturation 97.6 H (94-97) % Sodium (137-145) mmol/L Carbon Dioxide (22-30) mmol/L BUN (7-17) mg/dL Creatinine (0.52-1.04) mg/dL Glucose (74-99) mg/dL Plasma Lactic Acid Dmitriy 9.6 H* (0.7-2.0) mmol/L Calcium (8.4-10.2) mg/dL Total Bilirubin (0.2-1.3) mg/dL AST (14-36) U/L ALT (4-34) U/L Alkaline Phosphatase (38-126) U/L Troponin I (0.000-0.034) ng/mL Total Protein (6.3-8.2) g/dL Albumin (3.5-5.0) g/dL Urine Appearance (Clear) Urine Protein (Negative) Urine Glucose (UA) (Negative) Urine Ketones (Negative) Urine Blood (Negative) Urine WBC (0-5) /hpf Urine Bacteria (None) /hpf Urine Mucus (None) /hpf 12/18/22 12/18/22 Range/Units 06:04 08:29 MCHC (31.0-37.0) g/dL Plt Count (150-450) k/uL Neutrophils # (1.3-7.7) k/uL Lymphocytes # (1.0-4.8) k/uL Lymphocytes # (Manual) (1.0-4.8) k/uL Myelocytes # (Manual) (0) k/uL Nucleated RBCs (0-0) /100 WBC ABG pH (7.35-7.45) ABG pCO2 (35-45) mmHg ABG pO2 (83-108) mmHg ABG HCO3 (21-25) mmol/L ABG Total CO2 (19-24) mmol/L ABG O2 Saturation (94-97) % Sodium 136 L (137-145) mmol/L Carbon Dioxide 11 L (22-30) mmol/L BUN 65 H (7-17) mg/dL Creatinine 1.99 H (0.52-1.04) mg/dL Glucose 112 H (74-99) mg/dL Plasma Lactic Acid Dmitriy 6.2 H* (0.7-2.0) mmol/L Calcium 6.4 L* (8.4-10.2) mg/dL Total Bilirubin (0.2-1.3) mg/dL AST (14-36) U/L ALT (4-34) U/L Alkaline Phosphatase (38-126) U/L Troponin I (0.000-0.034) ng/mL Total Protein (6.3-8.2) g/dL Albumin (3.5-5.0) g/dL Urine Appearance (Clear) Urine Protein (Negative) Urine Glucose (UA) (Negative) Urine Ketones (Negative) Urine Blood (Negative) Urine WBC (0-5) /hpf Urine Bacteria (None) /hpf Urine Mucus (None) /hpf
--- NOTE | 2022-12-18 22:32 | P.CONS ---
History of Present Illness - Reason for Consult Consult date: 12/18/22 mesenteric carcinomatosis Requesting physician: Randolph Goss - Chief Complaint altered mental status - History of Present Illness Patient is a 62-year-old female who is a transfer from [facility] with a history of polysubstance abuse. She initially presented to the emergency room for altered mental status and syncopal episode at which time her called EMS. Per primary RN EMS was called to home 5 days prior but patient refused to go to the hospital for further evaluation. Nursing states patient was experiencing nausea and vomiting over the last 1 month but again refused further care or evaluation at that time. At todays visit patient is in the ICU and ventilated. Chest x-ray reviewed revealed cardiomegaly. Loculated mild right pleural effusion and moderate pulmonary edema. CT chest showed bilateral pleural effusions and mild pulmonary edema. CT abdomen pelvis revealed mesenteric carcinomatosis with unknown origin and colonic diverticulosis. Lactic acid upon admission was 9.6, 6.2 today. Hemoglobin 12, WBC 8.4, platelets 88,000. Blood cultures, urine culture and sputum culture pending. Patient was started on Zosyn. Patient is afebrile. Review of Systems 10 point ROS is negative except as stated in the HPI Past Medical History Past Medical History: Hyperlipidemia, Hypertension Additional Past Medical History / Comment(s): Arthritis History of Any Multi-Drug Resistant Organisms: Unobtainable Past Surgical History: No Surgical Hx Reported, Unable to Obtain Past Anesthesia/Blood Transfusion Reactions: Unable to Obtain Past Psychological History: Unable to Obtain Smoking Status: Never smoker - Past Family History Father Family Medical History: No Reported History, Unable to Obtain Medications and Allergies Home Medications Medication Instructions Recorded Confirmed Type Aspirin 81 mg PO DAILY 12/18/22 12/18/22 History Atorvastatin [Lipitor] 40 mg PO DAILY 12/18/22 12/18/22 History Cetirizine HCl [Zyrtec] 10 mg PO DAILY 12/18/22 12/18/22 History hydroCHLOROthiazide [Hydrodiuril] 25 mg PO DAILY 12/18/22 12/18/22 History lisinopriL [Zestril] 20 mg PO DAILY 12/18/22 12/18/22 History Allergies Allergy/AdvReac Type Severity Reaction Status Date / Time No Known Allergies Allergy Verified 12/18/22 09:25 Physical Exam Vitals: Vital Signs Temp Pulse Pulse Resp BP BP Pulse Ox 12/18/22 21:15 115 H 23 91/58 100 12/18/22 21:00 114 H 20 90/58 99 12/18/22 20:45 114 H 21 87/56 99 12/18/22 20:30 113 H 20 93/62 99 12/18/22 20:15 114 H 21 80/56 100 12/18/22 20:00 98.5 F 114 H 22 82/53 98 12/18/22 19:45 115 H 22 93/58 98 12/18/22 19:31 113 H 12/18/22 19:30 115 H 23 88/55 98 12/18/22 19:20 112 H 12/18/22 19:15 111 H 20 85/54 100 12/18/22 19:00 111 H 22 87/55 100 12/18/22 18:45 112 H 22 89/58 100 12/18/22 18:30 112 H 19 93/59 100 12/18/22 18:15 112 H 21 96/66 100 12/18/22 18:00 110 H 21 90/57 98 12/18/22 17:45 106 H 20 90/62 96 12/18/22 17:30 107 H 21 92/63 97 12/18/22 17:15 107 H 20 91/64 98 12/18/22 17:00 109 H 19 93/64 99 12/18/22 16:45 107 H 19 97/64 99 12/18/22 16:30 106 H 22 90/61 98 12/18/22 16:20 12/18/22 16:15 105 H 20 91/62 98 12/18/22 16:00 99.4 F 107 H 20 93/63 99 12/18/22 15:58 12/18/22 15:45 106 H 20 93/62 99 12/18/22 15:30 105 H 21 92/61 99 12/18/22 15:15 105 H 21 94/62 99 12/18/22 15:04 105 H 12/18/22 15:00 105 H 20 93/62 97 12/18/22 14:45 102 H 20 100/80 98 12/18/22 14:30 100 14 95/68 98 12/18/22 14:25 100 95/68 98 12/18/22 14:15 104 H 21 93/57 100 12/18/22 14:00 103 H 21 84/55 100 12/18/22 13:45 105 H 20 99/57 100 12/18/22 13:30 105 H 21 95/56 100 12/18/22 13:15 105 H 20 88/54 100 12/18/22 13:00 105 H 20 89/53 100 12/18/22 12:45 105 H 20 97/61 100 12/18/22 12:30 109 H 21 85/56 100 12/18/22 12:15 105 H 19 86/58 97 12/18/22 12:00 99.2 F 105 H 19 96/58 97 12/18/22 11:45 106 H 20 83/58 97 12/18/22 11:30 105 H 19 87/56 98 12/18/22 11:20 101 H 12/18/22 11:15 101 H 19 96/60 98 12/18/22 11:10 101 H 12/18/22 11:00 104 H 18 88/54 98 12/18/22 10:45 99 19 97/63 98 12/18/22 10:30 99 19 96/60 99 12/18/22 10:15 100 21 93/61 98 12/18/22 10:00 98 20 96/65 99 12/18/22 09:45 98 20 98/61 99 12/18/22 09:30 97 19 94/63 98 12/18/22 09:15 96 20 103/61 98 12/18/22 09:00 94 19 103/70 98 12/18/22 08:45 95 18 100/67 98 12/18/22 08:30 93 19 108/67 98 12/18/22 08:15 97.4 F L 93 18 104/69 98 12/18/22 08:00 91 18 99/68 97 12/18/22 07:50 06 07:45 90 19 101/68 98 12/18/22 07:30 91 20 97/64 97 12/18/22 07:15 93 21 102/68 97 12/18/22 07:00 94 20 96/65 98 12/18/22 06:45 97 19 101/66 95 12/18/22 06:30 96 20 98/65 98 12/18/22 06:15 96 19 97/66 96 12/18/22 06:00 93 19 110/80 95 12/18/22 05:45 90 17 88/67 93 L 12/18/22 05:30 92 19 92/66 95 12/18/22 05:15 90 18 92/62 97 12/18/22 05:01 100 12/18/22 04:00 98 12/18/22 03:45 113/99 98 12/18/22 03:30 101/64 97 12/18/22 03:25 88 12/18/22 03:17 87 12/18/22 03:15 86/58 97 12/18/22 03:07 12/18/22 03:00 97.0 F L 90 18 88/60 97 12/18/22 02:30 88 18 92/59 96 12/18/22 02:22 12/18/22 02:15 87 18 92/76 96 12/18/22 02:00 86 18 97/62 86 L 12/18/22 01:45 57 L 18 92/58 100 12/18/22 01:30 85 18 91/57 99 12/18/22 01:15 85 18 85/55 100 12/18/22 01:06 85 18 94/57 12/18/22 01:03 18 12/18/22 01:00 85 18 92/59 100 12/18/22 00:50 85 18 98/61 98 12/18/22 00:35 12/18/22 00:33 FiO2 12/18/22 21:15 12/18/22 21:00 12/18/22 20:45 12/18/22 20:30 12/18/22 20:15 12/18/22 20:00 50 12/18/22 19:45 12/18/22 19:31 12/18/22 19:30 12/18/22 19:20 50 12/18/22 19:15 12/18/22 19:00 50 12/18/22 18:45 12/18/22 18:30 12/18/22 18:15 12/18/22 18:00 50 12/18/22 17:45 12/18/22 17:30 12/18/22 17:15 12/18/22 17:00 50 12/18/22 16:45 12/18/22 16:30 12/18/22 16:20 50 12/18/22 16:15 12/18/22 16:00 50 12/18/22 15:58 50 12/18/22 15:45 12/18/22 15:30 12/18/22 15:15 12/18/22 15:04 12/18/22 15:00 50 12/18/22 14:45 12/18/22 14:30 12/18/22 14:25 12/18/22 14:15 12/18/22 14:00 12/18/22 13:45 12/18/22 13:30 12/18/22 13:15 12/18/22 13:00 50 12/18/22 12:45 12/18/22 12:30 12/18/22 12:15 12/18/22 12:00 50 12/18/22 11:45 12/18/22 11:30 12/18/22 11:20 12/18/22 11:15 12/18/22 11:10 12/18/22 11:00 50 12/18/22 10:45 12/18/22 10:30 12/18/22 10:15 12/18/22 10:00 12/18/22 09:45 12/18/22 09:30 12/18/22 09:15 12/18/22 09:00 50 12/18/22 08:45 12/18/22 08:30 12/18/22 08:15 50 12/18/22 08:00 50 12/18/22 07:50 50 12/18/22 07:45 12/18/22 07:30 12/18/22 07:15 12/18/22 07:00 12/18/22 06:45 12/18/22 06:30 12/18/22 06:15 12/18/22 06:00 12/18/22 05:45 12/18/22 05:30 12/18/22 05:15 12/18/22 05:01 12/18/22 04:00 50 12/18/22 03:45 12/18/22 03:30 12/18/22 03:25 12/18/22 03:17 12/18/22 03:15 12/18/22 03:07 50 12/18/22 03:00 100 12/18/22 02:30 12/18/22 02:22 50 12/18/22 02:15 12/18/22 02:00 12/18/22 01:45 12/18/22 01:30 12/18/22 01:15 12/18/22 01:06 12/18/22 01:03 12/18/22 01:00 12/18/22 00:50 12/18/22 00:35 100 12/18/22 00:33 100 Intake and Output 12/18/22 12/18/22 12/18/22 06:59 14:59 22:59 Intake Total 2834.409 6095.715 770.158 Output Total 80 235 1465 Balance 1298.525 858.715 -694.842 Intake: IV 1300 865 630 0.9 kvo 40 80 Calcium Gluconate in NaCl 100 1 gm In Saline 1 100ml. bag @ 100 mls/hr IVPB ONCE ONE Rx#:[id number] Dextrose 5% in Water 1, 300 450 000 ml @ 75 mls/hr IV . [id number] RAMESH with Sodium Bicarb (1 Meq/ml) 150 ml Rx#:[id number] Piperacillin-Tazobactam 3 100 100 .375 gm In Sodium Chloride 0.9% 100 ml @ 25 mls/hr IVPB Q12H RAMESH Rx# :[id number] Sodium Chloride 0.9% 1, 300 225 000 ml @ 75 mls/hr IV . [id number] RAMESH Rx#:[id number] Sodium Chloride 0.9% 1, 1000 000 ml @ 999 mls/hr IV . Q1H1M ONE Rx#:[id number] Sodium Chloride 0.9% 1, 100 000 ml @ 999 mls/hr IV . Q1H1M ONE Rx#:[id number] Intake, IV Titration 78.525 228.715 140.158 Amount Norepinephrine 4 mg In 55.243 151.068 66.393 Sodium Chloride 0.9% 250 ml @ 0.03 MCG/KG/MIN 7.83 mls/hr IV .Q24H RAMESH Rx#: [id number] propofoL 1,000 mg In 23.282 77.647 73.765 Empty Bag 1 bag @ 15 MCG/ KG/MIN 6.021 mls/hr IV . [id number] [facility] Rx#:[id number] Output: Chest Tube Drainage 1180 Chest Tube Right Upper 1180 Lateral Chest Urine 80 235 285 Other: Voiding Method Indwelling Catheter Indwelling Catheter Indwelling Catheter Weight 68.5 kg - Constitutional General appearance: average body habitus, no acute distress - Respiratory ventilated - Cardiovascular tachycardia Rhythm: regular Heart sounds: normal: S1, S2 Abnormal Heart Sounds: no systolic murmur, no diastolic murmur, no rub, no S3 Gallop, no S4 Gallop, no click, no other leg Peripheral Edema: bilateral: 2+ - Gastrointestinal right sided firmness palpated on exam - Integumentary Integumentary: no cyanotic, no rash - Neurologic sedated Results CBC & Chem 7: 12/18/22 06:04 12/18/22 06:04 Labs: Abnormal Lab Results - Last 24 Hours (Table) 12/18/22 12/18/22 12/18/22 Range/Units 00:44 00:44 00:44 MCHC 30.5 L (31.0-37.0) g/dL Plt Count 78 L (150-450) k/uL Neutrophils # 8.1 H (1.3-7.7) k/uL Lymphocytes # 0.7 L (1.0-4.8) k/uL Lymphocytes # (Manual) (1.0-4.8) k/uL Myelocytes # (Manual) (0) k/uL Nucleated RBCs (0-0) /100 WBC PT (9.0-12.0) sec INR (<1.2) ABG pH (7.35-7.45) ABG pCO2 (35-45) mmHg ABG pO2 (83-108) mmHg ABG HCO3 (21-25) mmol/L ABG Total CO2 (19-24) mmol/L ABG O2 Saturation (94-97) % Sodium 136 L (137-145) mmol/L Carbon Dioxide 13 L (22-30) mmol/L BUN 65 H (7-17) mg/dL Creatinine 2.17 H (0.52-1.04) mg/dL Glucose 129 H (74-99) mg/dL Plasma Lactic Acid Dmitriy 7.4 H* (0.7-2.0) mmol/L Calcium 6.6 L (8.4-10.2) mg/dL Total Bilirubin 1.6 H (0.2-1.3) mg/dL AST 3691 H (14-36) U/L ALT 831 H (4-34) U/L Alkaline Phosphatase 164 H (38-126) U/L Troponin I (0.000-0.034) ng/mL Total Protein 5.3 L (6.3-8.2) g/dL Albumin 2.8 L (3.5-5.0) g/dL Carcinoembryonic Ag (0.0-4.9) ng/mL Urine Appearance (Clear) Urine Protein (Negative) Urine Glucose (UA) (Negative) Urine Ketones (Negative) Urine Blood (Negative) Urine WBC (0-5) /hpf Urine Bacteria (None) /hpf Urine Mucus (None) /hpf 12/18/22 12/18/22 12/18/22 Range/Units 00:44 02:00 05:02 MCHC (31.0-37.0) g/dL Plt Count (150-450) k/uL Neutrophils # (1.3-7.7) k/uL Lymphocytes # (1.0-4.8) k/uL Lymphocytes # (Manual) (1.0-4.8) k/uL Myelocytes # (Manual) (0) k/uL Nucleated RBCs (0-0) /100 WBC PT (9.0-12.0) sec INR (<1.2) ABG pH 7.22 L (7.35-7.45) ABG pCO2 33 L (35-45) mmHg ABG pO2 273 H (83-108) mmHg ABG HCO3 14 L (21-25) mmol/L ABG Total CO2 15 L (19-24) mmol/L ABG O2 Saturation 99.5 H (94-97) % Sodium (137-145) mmol/L Carbon Dioxide (22-30) mmol/L BUN (7-17) mg/dL Creatinine (0.52-1.04) mg/dL Glucose (74-99) mg/dL Plasma Lactic Acid Dmitriy (0.7-2.0) mmol/L Calcium (8.4-10.2) mg/dL Total Bilirubin (0.2-1.3) mg/dL AST (14-36) U/L ALT (4-34) U/L Alkaline Phosphatase (38-126) U/L Troponin I 0.317 H* (0.000-0.034) ng/mL Total Protein (6.3-8.2) g/dL Albumin (3.5-5.0) g/dL Carcinoembryonic Ag (0.0-4.9) ng/mL Urine Appearance Cloudy H (Clear) Urine Protein 1+ H (Negative) Urine Glucose (UA) Trace H (Negative) Urine Ketones Trace H (Negative) Urine Blood Large H (Negative) Urine WBC 16 H (0-5) /hpf Urine Bacteria Rare H (None) /hpf Urine Mucus Rare H (None) /hpf 12/18/22 12/18/22 12/18/22 Range/Units 05:29 05:45 06:04 MCHC 30.0 L (31.0-37.0) g/dL Plt Count 88 L (150-450) k/uL Neutrophils # (1.3-7.7) k/uL Lymphocytes # (1.0-4.8) k/uL Lymphocytes # (Manual) 0.76 L (1.0-4.8) k/uL Myelocytes # (Manual) 0.08 H (0) k/uL Nucleated RBCs 1 H (0-0) /100 WBC PT (9.0-12.0) sec INR (<1.2) ABG pH 7.22 L (7.35-7.45) ABG pCO2 33 L (35-45) mmHg ABG pO2 112 H (83-108) mmHg ABG HCO3 14 L (21-25) mmol/L ABG Total CO2 15 L (19-24) mmol/L ABG O2 Saturation 97.6 H (94-97) % Sodium (137-145) mmol/L Carbon Dioxide (22-30) mmol/L BUN (7-17) mg/dL Creatinine (0.52-1.04) mg/dL Glucose (74-99) mg/dL Plasma Lactic Acid Dmitriy 9.6 H* (0.7-2.0) mmol/L Calcium (8.4-10.2) mg/dL Total Bilirubin (0.2-1.3) mg/dL AST (14-36) U/L ALT (4-34) U/L Alkaline Phosphatase (38-126) U/L Troponin I (0.000-0.034) ng/mL Total Protein (6.3-8.2) g/dL Albumin (3.5-5.0) g/dL Carcinoembryonic Ag (0.0-4.9) ng/mL Urine Appearance (Clear) Urine Protein (Negative) Urine Glucose (UA) (Negative) Urine Ketones (Negative) Urine Blood (Negative) Urine WBC (0-5) /hpf Urine Bacteria (None) /hpf Urine Mucus (None) /hpf 12/18/22 12/18/22 12/18/22 Range/Units 06:04 06:04 08:29 MCHC (31.0-37.0) g/dL Plt Count (150-450) k/uL Neutrophils # (1.3-7.7) k/uL Lymphocytes # (1.0-4.8) k/uL Lymphocytes # (Manual) (1.0-4.8) k/uL Myelocytes # (Manual) (0) k/uL Nucleated RBCs (0-0) /100 WBC PT (9.0-12.0) sec INR (<1.2) ABG pH (7.35-7.45) ABG pCO2 (35-45) mmHg ABG pO2 (83-108) mmHg ABG HCO3 (21-25) mmol/L ABG Total CO2 (19-24) mmol/L ABG O2 Saturation (94-97) % Sodium 136 L (137-145) mmol/L Carbon Dioxide 11 L (22-30) mmol/L BUN 65 H (7-17) mg/dL Creatinine 1.99 H (0.52-1.04) mg/dL Glucose 112 H (74-99) mg/dL Plasma Lactic Acid Dmitriy 6.2 H* (0.7-2.0) mmol/L Calcium 6.4 L* (8.4-10.2) mg/dL Total Bilirubin (0.2-1.3) mg/dL AST (14-36) U/L ALT (4-34) U/L Alkaline Phosphatase (38-126) U/L Troponin I (0.000-0.034) ng/mL Total Protein (6.3-8.2) g/dL Albumin (3.5-5.0) g/dL Carcinoembryonic Ag 5.3 H (0.0-4.9) ng/mL Urine Appearance (Clear) Urine Protein (Negative) Urine Glucose (UA) (Negative) Urine Ketones (Negative) Urine Blood (Negative) Urine WBC (0-5) /hpf Urine Bacteria (None) /hpf Urine Mucus (None) /hpf 12/18/22 12/18/22 12/18/22 Range/Units 11:42 11:59 15:02 MCHC (31.0-37.0) g/dL Plt Count (150-450) k/uL Neutrophils # (1.3-7.7) k/uL Lymphocytes # (1.0-4.8) k/uL Lymphocytes # (Manual) (1.0-4.8) k/uL Myelocytes # (Manual) (0) k/uL Nucleated RBCs (0-0) /100 WBC PT 16.6 H (9.0-12.0) sec INR 1.7 H (<1.2) ABG pH (7.35-7.45) ABG pCO2 (35-45) mmHg ABG pO2 (83-108) mmHg ABG HCO3 (21-25) mmol/L ABG Total CO2 (19-24) mmol/L ABG O2 Saturation (94-97) % Sodium (137-145) mmol/L Carbon Dioxide (22-30) mmol/L BUN (7-17) mg/dL Creatinine (0.52-1.04) mg/dL Glucose (74-99) mg/dL Plasma Lactic Acid Dmitriy 5.8 H* 6.7 H* (0.7-2.0) mmol/L Calcium (8.4-10.2) mg/dL Total Bilirubin (0.2-1.3) mg/dL AST (14-36) U/L ALT (4-34) U/L Alkaline Phosphatase (38-126) U/L Troponin I (0.000-0.034) ng/mL Total Protein (6.3-8.2) g/dL Albumin (3.5-5.0) g/dL Carcinoembryonic Ag (0.0-4.9) ng/mL Urine Appearance (Clear) Urine Protein (Negative) Urine Glucose (UA) (Negative) Urine Ketones (Negative) Urine Blood (Negative) Urine WBC (0-5) /hpf Urine Bacteria (None) /hpf Urine Mucus (None) /hpf 12/18/22 Range/Units 18:13 MCHC (31.0-37.0) g/dL Plt Count (150-450) k/uL Neutrophils # (1.3-7.7) k/uL Lymphocytes # (1.0-4.8) k/uL Lymphocytes # (Manual) (1.0-4.8) k/uL Myelocytes # (Manual) (0) k/uL Nucleated RBCs (0-0) /100 WBC PT (9.0-12.0) sec INR (<1.2) ABG pH (7.35-7.45) ABG pCO2 (35-45) mmHg ABG pO2 (83-108) mmHg ABG HCO3 (21-25) mmol/L ABG Total CO2 (19-24) mmol/L ABG O2 Saturation (94-97) % Sodium (137-145) mmol/L Carbon Dioxide (22-30) mmol/L BUN (7-17) mg/dL Creatinine (0.52-1.04) mg/dL Glucose (74-99) mg/dL Plasma Lactic Acid Dmitriy 7.6 H* (0.7-2.0) mmol/L Calcium (8.4-10.2) mg/dL Total Bilirubin (0.2-1.3) mg/dL AST (14-36) U/L ALT (4-34) U/L Alkaline Phosphatase (38-126) U/L Troponin I (0.000-0.034) ng/mL Total Protein (6.3-8.2) g/dL Albumin (3.5-5.0) g/dL Carcinoembryonic Ag (0.0-4.9) ng/mL Urine Appearance (Clear) Urine Protein (Negative) Urine Glucose (UA) (Negative) Urine Ketones (Negative) Urine Blood (Negative) Urine WBC (0-5) /hpf Urine Bacteria (None) /hpf Urine Mucus (None) /hpf Microbiology - Last 24 Hours (Table) 12/18/22 05:52 Gram Stain - Preliminary Sputum Sputum Culture - Preliminary 12/18/22 05:02 Urine Culture - Preliminary Urine,Voided Chest x-ray: report reviewed CT scan - abdomen: report reviewed CT scan - chest: report reviewed CT scan - pelvis: report reviewed Assessment and Plan (1) AMS (altered mental status) Current Visit: Yes Status: Acute Priority: High Code(s): R41.82 - ALTERED MENTAL STATUS, UNSPECIFIED SNOMED Code(s): 416695444 (2) Carcinomatosis Current Visit: Yes Status: Acute Priority: High Code(s): C80.0 - DISSEMINATED MALIGNANT NEOPLASM, UNSPECIFIED SNOMED Code(s): 497066557 (3) Pleural effusion Current Visit: Yes Status: Acute Priority: High Code(s): J90 - PLEURAL EFFUSION, NOT ELSEWHERE CLASSIFIED SNOMED Code(s): 35253254 Plan: Mesenteric carcinomatosis: -History is unknown as patient is a transfer from [place] and no family at bedside. Per nursing pt has poor followup and has refused workups by her PCP in the past, and has limited knowledge regarding patients health history -CT chest showed bilateral pleural effusions and mild pulmonary edema. CT abdomen pelvis revealed mesenteric carcinomatosis with unknown origin and colonic diverticulosis. -Once patient is stable will obtain CT chest abdomen pelvis with contrast for better characterization and IR consult for biopsy of mesenteric nodule. Altered mental status: -Lactic acid upon admission was 9.6, 6.2 today. -Blood cultures, urine culture and sputum culture pending. Patient was started on Zosyn. Pleural effusions: -Chest x-ray reviewed revealed cardiomegaly. Loculated mild right pleural effusion and moderate pulmonary edema. CT chest showed bilateral pleural effusions and mild pulmonary edema. -Pulmonology consulted. Plan for right sided chest tube pig tail. Cytology requested -Defer to pulmonary for medical management attests: I have performed H&P and developed impression and plan of care for patient, discussed with dictator. I agree with dictated note, documented as a scribe
[2022-12-18 23:30] LABS: Glucose,Whole Blood 146 mg/dL (70-110)
[2022-12-18] MEDS: NOREPINEPHRINE 8 MG in SODIUM CHLORIDE 0.9% 250 ML IV SCH (23:30)
[2022-12-19] MEDS: IPRATROPIUM-ALBUTEROL 3 ML NEB INHALATION SCH ×5 (03:24→20:28)
[2022-12-19 05:08] LABS: Calcium 6.2 mg/dL (8.4-10.2)
[2022-12-19 05:20] LABS: Basophils % (A) 0 %; Eosinophils % (A) 0 %; HCT 39.4 % (34.0-46.0); HGB 12.2 gm/dL (11.4-16.0); Hypochromasia Marked; Lymphocytes # (A) 0.8 k/uL (1.0-4.8); Lymphocytes % (A) 11 %; MCH 27.1 pg (25.0-35.0); MCV 87.7 fL (80.0-100.0); Mean Platelet Volume 11.7; Monocytes # (A) 0.1 k/uL (0-1.0); Monocytes % (A) 2 %; Neutrophils # (A) 6.6 k/uL (1.3-7.7); Neutrophils % (A) 86 %; RDW 14.5 % (11.5-15.5); WBC 7.6 k/uL (3.8-10.6)
[2022-12-19 05:22] LABS: ABG Base Excess -12.9 mmol/L; ABG HCO3 14 mmol/L (21-25); ABG Oxygen Saturation 99.2 % (94-97); ABG PCO2 33 mmHg (35-45); ABG PH 7.25 (7.35-7.45); ABG PO2 159 mmHg (83-108); ABG TCO2 15 mmol/L (19-24); Allen Test Performed? Yes
[2022-12-19 05:27] LABS: Platelet Count 72 k/uL (150-450)
[2022-12-19 05:49] LABS: Glucose,Whole Blood 166 mg/dL (70-110)
[2022-12-19] MEDS ORDERED: CALCIUM GLUCONATE IN NACL 1 GM in SALINE 1 100ML.BAG IVPB ONE (07:30)
--- NOTE | 2022-12-19 07:54 | P.PN ---
Subjective Progress Note Date: 12/19/22 PROGRESS NOTE The patient is a 62-year-old female who was transferred from [facility] with change in mental status, respiratory distress, hypotension. Cardiology consultation was requested because of elevated troponin. A computed tomography scan of the abdomen showed metastatic cancer of unknown duration. According to the nursing staff the history obtained from the family is very limited. No prior history is available to me. The patient is intubated and sedated. She has received IV fluid. She is in sinus mechanism. There is no evidence of atrial fibrillation or ventricular ectopic activity. No other history could be obtained. December 19: The patient remains intubated and sedated, her blood pressure is on the low side. She is in sinus mechanism with no evidence of malignant arrhythmia. She underwent thoracentesis yesterday because of large right pleural effusion. She underwent an echocardiogram that showed a preserved systolic function with mild pulmonary hypertension. Her chest x-ray shows significant improvement. Medications: Aspirin, Lipitor 40 mg daily, PHYSICAL EXAMINATION: Blood pressure 90/60 heart rate 110, intubated and sedated LUNGS: Clear to auscultation anteriorly, chest tube in place HEART: Regular rate and rhythm, S1, S2. No S3. No systolic murmur ABDOMEN: Soft, positive bowel sounds, no organomegaly EXTREMETIES: No edema LAB: Hemoglobin 12.2, WBC 7.6. Potassium 4.0. BUN 63, creatinine 1.93. PH 7.25. IMPRESSION: 1. Respiratory failure on mechanical ventilation 2. Evidence of carcinomatosis, workup in progress 3. Status post chest tube placement for pleural effusion, rule out malignant effusion 4. Renal failure, unclear duration 5. Troponin elevation, representing type II myocardial infarction 6. Possible sepsis with hypotension PLAN: 1. Await fluid evaluation for possible malignancy 2. Continue supportive care 3. Prognosis is guarded 4. Depending on her progress further recommendations will be made Objective - Vital Signs Vital signs: Vital Signs Temp 98.7 F 12/19/22 00:00 Pulse 117 H 12/19/22 07:00 Resp 24 12/19/22 07:00 BP 77/49 12/19/22 07:00 Pulse Ox 99 12/19/22 07:00 FiO2 50 12/19/22 04:00 Intake & Output 12/18/22 12/19/22 12/19/22 18:59 06:59 18:59 Intake Total 5419.295 4437.642 100 Output Total 1600 1115 Balance 76.404 125.642 100 Weight 69.2 kg Intake: IV 1400 1005 0.9 kvo 100 80 Calcium Gluconate in NaCl 100 1 gm In Saline 1 100ml. bag @ 100 mls/hr IVPB ONCE ONE Rx#:[id number] Dextrose 5% in Water 1, 675 825 000 ml @ 75 mls/hr IV . [id number] [facility]ESH with Sodium Bicarb (1 Meq/ml) 150 ml Rx#:[id number] Piperacillin-Tazobactam 3 200 100 .375 gm In Sodium Chloride 0.9% 100 ml @ 25 mls/hr IVPB Q12H [facility] Rx# :[id number] Sodium Chloride 0.9% 1, 225 000 ml @ 75 mls/hr IV . [id number] [facility] Rx#:[id number] Sodium Chloride 0.9% 1, 100 000 ml @ 999 mls/hr IV . Q1H1M ONE Rx#:[id number] Intake, IV Titration 276.404 235.642 100 Amount Norepinephrine 4 mg In 198.757 138.018 Sodium Chloride 0.9% 250 ml @ 0.03 MCG/KG/MIN 7.83 mls/hr IV .Q24H [facility] Rx#: [id number] Norepinephrine 8 mg In 23.859 Sodium Chloride 0.9% 250 ml @ 0.18 MCG/KG/MIN 23. 859 mls/hr IV .[id number] [facility] Rx#:[id number] propofoL 1,000 mg In 77.647 73.765 100 Empty Bag 1 bag @ 15 MCG/ KG/MIN 6.021 mls/hr IV . [id number] [facility] Rx#:[id number] Output: Chest Tube Drainage 1180 610 Chest Tube Right Upper 1180 610 Lateral Chest Urine 420 505 Other: Voiding Method Indwelling Catheter Indwelling Catheter - Labs CBC & Chem 7: 12/19/22 03:59 12/19/22 03:49 Labs: Abnormal Lab Results - Last 24 Hours (Table) 12/18/22 12/18/22 12/18/22 Range/Units 06:04 06:04 06:04 Plt Count 88 L (150-450) k/uL Lymphocytes # (1.0-4.8) k/uL Lymphocytes # (Manual) 0.76 L (1.0-4.8) k/uL Myelocytes # (Manual) 0.08 H (0) k/uL Nucleated RBCs 1 H (0-0) /100 WBC PT (9.0-12.0) sec INR (<1.2) ABG pH (7.35-7.45) ABG pCO2 (35-45) mmHg ABG pO2 (83-108) mmHg ABG HCO3 (21-25) mmol/L ABG Total CO2 (19-24) mmol/L ABG O2 Saturation (94-97) % Carbon Dioxide (22-30) mmol/L BUN (7-17) mg/dL Creatinine (0.52-1.04) mg/dL Glucose (74-99) mg/dL POC Glucose (mg/dL) (70-110) mg/dL Plasma Lactic Acid Dmitriy (0.7-2.0) mmol/L Calcium (8.4-10.2) mg/dL Carcinoembryonic Ag 5.3 H (0.0-4.9) ng/mL CA 125 Antigen 1900.0 H (0.0-30.1) U/mL 12/18/22 12/18/22 12/18/22 Range/Units 08:29 11:42 11:59 Plt Count (150-450) k/uL Lymphocytes # (1.0-4.8) k/uL Lymphocytes # (Manual) (1.0-4.8) k/uL Myelocytes # (Manual) (0) k/uL Nucleated RBCs (0-0) /100 WBC PT 16.6 H (9.0-12.0) sec INR 1.7 H (<1.2) ABG pH (7.35-7.45) ABG pCO2 (35-45) mmHg ABG pO2 (83-108) mmHg ABG HCO3 (21-25) mmol/L ABG Total CO2 (19-24) mmol/L ABG O2 Saturation (94-97) % Carbon Dioxide (22-30) mmol/L BUN (7-17) mg/dL Creatinine (0.52-1.04) mg/dL Glucose (74-99) mg/dL POC Glucose (mg/dL) (70-110) mg/dL Plasma Lactic Acid Dmitriy 6.2 H* 5.8 H* (0.7-2.0) mmol/L Calcium (8.4-10.2) mg/dL Carcinoembryonic Ag (0.0-4.9) ng/mL CA 125 Antigen (0.0-30.1) U/mL 12/18/22 12/18/22 12/18/22 Range/Units 15:02 18:13 23:28 Plt Count (150-450) k/uL Lymphocytes # (1.0-4.8) k/uL Lymphocytes # (Manual) (1.0-4.8) k/uL Myelocytes # (Manual) (0) k/uL Nucleated RBCs (0-0) /100 WBC PT (9.0-12.0) sec INR (<1.2) ABG pH (7.35-7.45) ABG pCO2 (35-45) mmHg ABG pO2 (83-108) mmHg ABG HCO3 (21-25) mmol/L ABG Total CO2 (19-24) mmol/L ABG O2 Saturation (94-97) % Carbon Dioxide (22-30) mmol/L BUN (7-17) mg/dL Creatinine (0.52-1.04) mg/dL Glucose (74-99) mg/dL POC Glucose (mg/dL) 146 H (70-110) mg/dL Plasma Lactic Acid Dmitriy 6.7 H* 7.6 H* (0.7-2.0) mmol/L Calcium (8.4-10.2) mg/dL Carcinoembryonic Ag (0.0-4.9) ng/mL CA 125 Antigen (0.0-30.1) U/mL 12/19/22 12/19/22 12/19/22 Range/Units 03:49 03:59 05:21 Plt Count 72 L (150-450) k/uL Lymphocytes # 0.8 L (1.0-4.8) k/uL Lymphocytes # (Manual) (1.0-4.8) k/uL Myelocytes # (Manual) (0) k/uL Nucleated RBCs (0-0) /100 WBC PT (9.0-12.0) sec INR (<1.2) ABG pH 7.25 L (7.35-7.45) ABG pCO2 33 L (35-45) mmHg ABG pO2 159 H (83-108) mmHg ABG HCO3 14 L (21-25) mmol/L ABG Total CO2 15 L (19-24) mmol/L ABG O2 Saturation 99.2 H (94-97) % Carbon Dioxide 14 L (22-30) mmol/L BUN 63 H (7-17) mg/dL Creatinine 1.93 H (0.52-1.04) mg/dL Glucose 146 H (74-99) mg/dL POC Glucose (mg/dL) (70-110) mg/dL Plasma Lactic Acid Dmitriy (0.7-2.0) mmol/L Calcium 6.2 L* (8.4-10.2) mg/dL Carcinoembryonic Ag (0.0-4.9) ng/mL CA 125 Antigen (0.0-30.1) U/mL 12/19/22 Range/Units 05:47 Plt Count (150-450) k/uL Lymphocytes # (1.0-4.8) k/uL Lymphocytes # (Manual) (1.0-4.8) k/uL Myelocytes # (Manual) (0) k/uL Nucleated RBCs (0-0) /100 WBC PT (9.0-12.0) sec INR (<1.2) ABG pH (7.35-7.45) ABG pCO2 (35-45) mmHg ABG pO2 (83-108) mmHg ABG HCO3 (21-25) mmol/L ABG Total CO2 (19-24) mmol/L ABG O2 Saturation (94-97) % Carbon Dioxide (22-30) mmol/L BUN (7-17) mg/dL Creatinine (0.52-1.04) mg/dL Glucose (74-99) mg/dL POC Glucose (mg/dL) 166 H (70-110) mg/dL Plasma Lactic Acid Dmitriy (0.7-2.0) mmol/L Calcium (8.4-10.2) mg/dL Carcinoembryonic Ag (0.0-4.9) ng/mL CA 125 Antigen (0.0-30.1) U/mL Microbiology - Last 24 Hours (Table) 12/18/22 05:52 Gram Stain - Preliminary Sputum Sputum Culture - Preliminary 12/18/22 05:02 Urine Culture - Preliminary Urine,Voided
[2022-12-19] MEDS: PIPERACILLIN-TAZOBACTAM 3.375 GM in SODIUM CHLORIDE 0.9% 100 ML IVPB SCH ×3 (08:10→23:02)
[2022-12-19] MEDS: NOREPINEPHRINE 8 MG in SODIUM CHLORIDE 0.9% 250 ML IV SCH ×3 (08:10→20:35)
[2022-12-19] MEDS: ATORVASTATIN 40 MG TAB PO SCH (08:11)
[2022-12-19] MEDS: ASPIRIN 81 MG PO SCH (08:11)
[2022-12-19] MEDS: CHLORHEXIDINE GLUCONATE 15 ML CUP MUCOUS MEM SCH ×2 (08:11→20:49)
[2022-12-19] MEDS: HEPARIN SODIUM,PORCINE/PF 5,000 UNIT/0.5 ML SYRINGE SQ SCH ×2 (08:11→20:49)
[2022-12-19] MEDS: PANTOPRAZOLE 40 MG/10 ML VIAL IV SCH (08:12)
[2022-12-19] MEDS: DEXTROSE 5% IN WATER 1,000 ML with SODIUM BICARB (1 MEQ/ML) 150 ML IV SCH (08:12)
--- NOTE | 2022-12-19 09:31 | XR ---
EXAMINATION TYPE: XR chest 1V portable DATE OF EXAM: 12/19/2022 COMPARISON: 12/18/2022 HISTORY: Tube placement TECHNIQUE: Single frontal view of the chest is obtained. FINDINGS: Right-sided chest tube is seen and there is near complete resolution of right-sided pleura l effusion. No sizable pneumothorax. Hypertrophic and degenerative changes of the spine. ET tube, NG tube stable. Large calcified lymph no ania are seen in the hilum and mediastinum. Tiny left pleural effusion is seen and there is underlying COPD. IMPRESSION: 1. Near complete resolution of right-sided pleural effusion post pigtail catheter insertion.
--- NOTE | 2022-12-19 10:12 | P.PN ---
Subjective Progress Note Date: 12/19/22 I am seeing this patient in new consultation today 12/18/2022 in the intensive care unit after she was transferred from [facility]. Apparently, the patient presented to outside hospital altered and had to be intubated to protect her airway. The patient's medical history is largely unknown, I did reach out to contact the patient's family. They are poor historians, and unable to provide me with a detailed medical history or events leading up to her hospitalization in [place]. I was able to ascertain that she has been having frequent episodes of vomiting for the past month. In fact, someone in the household had contacted EMS 5 days prior, but she refused to go to the hospital. While at [facility], the patient did undergo a nonenhanced brain CT which showed no acute intracranial hemorrhage or mass effect. The patient also had a CT of the abdomen pelvis with contrast which showed extensive nodular infiltration of the greater omentum as well as peritoneal nodularity in the left upper abdomen with mild accompanying ascites. 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 The patient's uterus size was normal, but there was a distended endometrial cavity concerning for endometrial cancer. There was a distended gallbladder with no apparent calculi or bili tract dilation. Liver had fatty infiltration without any specific lesions or biliary tract dilation. There was a large right pleural effusion with atelectasis of the right lower lung and partial atelectasis of the right middle lung, left lung was clear without any significant effusions or infiltrates. There was gastroesophageal reflux with fluid within the esophagus. There is thickening of the gastric antrum and duodenal. No free air. No other obvious obstruction. The patient was hypotensive at the outside facility, and a right femoral central line was placed. The patient was transferred to [facility] last night in critical condition. The patient is currently intubated on mechanical ventilator with current settings of assist control, respiratory rate 18, tidal volume 400, FiO2 50%, PEEP of 5. ABGs done on these settings show a pO2 of 112, pCO2 of 33, pH of 7.22. Chest x-ray on arrival showed the ET tube approximately 1.5 cm from the debora, and this was withdrawn 2 cm. The patient does have an orogastric tube coursing below the diaphragm. There was a moderate right pleural effusion. Unfortunately, the patient did vomit and probably aspirated, the OG tube is hooked to low intermittent suction. I have added Zosyn for empiric antibiotic coverage. The patient currently has norepinephrine infusing at 0.08 mics per kilogram per minute. I've given an additional 2 L normal saline bolus patient's lactic was 15 at outside facility, and is down to 9.6. I did order a non- enhanced CT of the chest, abdomen, pelvis, the patient's renal function is poor. This redemonstrated mesenteric carcinomatosis. It also showed a large right and mild left pleural effusion and mild pulmonary edema. CBC on arrival shows a WBC count of 9.1, hemoglobin 13.1, hematocrit 42.9, platelets 78,000. BMP on admission shows a sodium 136, potassium 4.8, chloride 102, serum CO2 13, BUN 65, creatinine 2.17, glucose 129. LFTS are elevated with an AST 3691, ALT of 831, ALP 164. Normal saline infusing at 75 mL per hour. Troponins 0.317. No obvious ischemic changes of ECG. Urine output is in the order of 20 ml/hr. Urinalysis not suspicious for UTI. Urine drug screen was negative, apparently there was suspicion of past polysubstance abuse. The patient's condition is currently critical, I have made multiple attempts to reach out to the patient's family. It is unclear if they will be coming up to the hospital later this afternoon. The patient arrived in a disheveled state with maggots in her hair. She did have multiple bruises located on her back and chest. For now she will remain on the ventilator, and be monitored in the intensive care unit. On today's evaluation of 2022, the patient remains intubated on a mechanical ventilator. The patient is currently on propofol which is running at 30 mcg/kg/m. Nevertheless earlier this morning, the patient was taken off the propofol to evaluate her underlying mental status. She is currently off propofol and the patient is receiving a sedation holiday. She remains quite advanced on a mechanical ventilator a day rate of 18 with a tidal volume of 400 and FiO2 of 50% with a PEEP of 5. Her chest x-ray shows marked improvement elevation of the right lung. The patient had a pigtail catheter inserted yesterday into the right hemithorax and a total amount of output was 700 mL overnight and the patient without more than 1.5 L immediately after insertion. The fluid analysis still pending for now and the fluid was also sent for cytology. Meanwhile, a repeat CAT scan of the chest abdomen and pelvis was done which confirmed the presence of a large right-sided pleural effusion. There was evidence of mesenteric carcinomatosis and the etiology was unknown. There is also evidence of colonic diverticulosis. The patient remains quite acidotic and she remains in renal failure and hypotensive. Earlier this morning, the patient is on norepinephrine which is running at 0.22 mcg/kg/m and as such an arterial line will be inserted for accurate blood pressure monitoring. The patient's BUN is at 63 with a creatinine of 1.9. She remains acidotic although serum bicarb is improving and is up to 14. The patient remains on a bicarbonate infusion which is running at the rate of 75 mL an hour. She does have abnormal LFTs, AST is 3691 and ALT is a 31 with an alkaline phosphatase of 164, could be related to shock liver. CA 125 level is 1900 and this may be consistent with ovarian cancer. A consultation has been placed for OB GEN to evaluate those findings. The CEA level is 5.3. Troponins at 0.3. The patient's echocardiogram shows a preserved LV function. There was some mild mitral regurgitation. No significant pulmonary hypertension. The patient is on empiric antibiotic covera ge and she is currently on IV Zosyn. She also has a triple-lumen catheter in the right femoral vein that was inserted in an outside hospital. Objective - Vital Signs Vital signs: Vital Signs Temp 99.0 F 12/19/22 08:00 Pulse 118 H 12/19/22 09:15 Resp 21 12/19/22 09:15 BP 86/56 12/19/22 09:15 Pulse Ox 99 12/19/22 09:15 FiO2 50 12/19/22 08:22 Intake & Output 12/18/22 12/19/22 12/19/22 18:59 06:59 18:59 Intake Total 8014.198 9955.642 580.437 Output Total 1600 1115 35 Balance 76.404 125.642 545.437 Weight 69.2 kg Intake: IV 1400 1005 270 0.9 kvo 100 80 20 Calcium Gluconate in NaCl 100 100 1 gm In Saline 1 100ml. bag @ 100 mls/hr IVPB ONCE ONE Rx#:[id number] Dextrose 5% in Water 1, 675 825 150 000 ml @ 75 mls/hr IV . [id number] RAMESH with Sodium Bicarb (1 Meq/ml) 150 ml Rx#:[id number] Piperacillin-Tazobactam 3 200 100 .375 gm In Sodium Chloride 0.9% 100 ml @ 25 mls/hr IVPB Q12H [facility] Rx# :[id number] Sodium Chloride 0.9% 1, 225 000 ml @ 75 mls/hr IV . [id number] [facility] Rx#:[id number] Sodium Chloride 0.9% 1, 100 000 ml @ 999 mls/hr IV . Q1H1M ONE Rx#:[id number] Intake, IV Titration 276.404 235.642 310.437 Amount Norepinephrine 4 mg In 198.757 138.018 Sodium Chloride 0.9% 250 ml @ 0.03 MCG/KG/MIN 7.83 mls/hr IV .Q24H [facility] Rx#: [id number] Norepinephrine 8 mg In 23.859 203.243 Sodium Chloride 0.9% 250 ml @ 0.18 MCG/KG/MIN 23. 859 mls/hr IV .[id number] [facility] Rx#:[id number] propofoL 1,000 mg In 77.647 73.765 107.194 Empty Bag 1 bag @ 15 MCG/ KG/MIN 6.021 mls/hr IV . [id number] [facility] Rx#:[id number] Output: Chest Tube Drainage 1180 610 35 Chest Tube Right Upper 1180 610 35 Lateral Chest Urine 420 505 Other: Voiding Method Indwelling Catheter Indwelling Catheter Indwelling Catheter - Exam GENERAL EXAM: Patient is sedated and synchronous with the mechanical ventilator. HEAD: Normocephalic medical EYES: Normal reaction of pupils, equal size. NOSE: Clear with pink turbinates. THROAT: No erythema or exudates. NECK: No masses, no JVD. CHEST: No chest wall deformity. LUNGS: Equal air entry with diffuse rhonchi, and diminished lung sounds at the right base. Intubated on mechanical ventilator. CVS: S1 and S2 normal with no audible murmur, regular rhythm. No extra heart sounds ABDOMEN: No hepatosplenomegaly, active bowel sounds, no guarding or rigidity. SPINE: No scoliosis or deformity SKIN: Ecchymosis right posterior back CENTRAL NERVOUS SYSTEM: No focal deficits. Sedated on propofol, not following commands. Opens eyes to painful stimuli EXTREMITIES: There is bilateral 3+ pitting edema. No clubbing, or cyanosis. Peripheral pulses are intact. - Labs CBC & Chem 7: 12/19/22 03:59 12/19/22 03:49 Labs: Abnormal Lab Results - Last 24 Hours (Table) 12/18/22 12/18/22 12/18/22 Range/Units 06:04 06:04 11:42 Plt Count (150-450) k/uL Lymphocytes # (1.0-4.8) k/uL PT (9.0-12.0) sec INR (<1.2) ABG pH (7.35-7.45) ABG pCO2 (35-45) mmHg ABG pO2 (83-108) mmHg ABG HCO3 (21-25) mmol/L ABG Total CO2 (19-24) mmol/L ABG O2 Saturation (94-97) % Carbon Dioxide (22-30) mmol/L BUN (7-17) mg/dL Creatinine (0.52-1.04) mg/dL Glucose (74-99) mg/dL POC Glucose (mg/dL) (70-110) mg/dL Plasma Lactic Acid Dmitriy 5.8 H* (0.7-2.0) mmol/L Calcium (8.4-10.2) mg/dL Carcinoembryonic Ag 5.3 H (0.0-4.9) ng/mL CA 125 Antigen 1900.0 H (0.0-30.1) U/mL 12/18/22 12/18/22 12/18/22 Range/Units 11:59 15:02 18:13 Plt Count (150-450) k/uL Lymphocytes # (1.0-4.8) k/uL PT 16.6 H (9.0-12.0) sec INR 1.7 H (<1.2) ABG pH (7.35-7.45) ABG pCO2 (35-45) mmHg ABG pO2 (83-108) mmHg ABG HCO3 (21-25) mmol/L ABG Total CO2 (19-24) mmol/L ABG O2 Saturation (94-97) % Carbon Dioxide (22-30) mmol/L BUN (7-17) mg/dL Creatinine (0.52-1.04) mg/dL Glucose (74-99) mg/dL POC Glucose (mg/dL) (70-110) mg/dL Plasma Lactic Acid Dmitriy 6.7 H* 7.6 H* (0.7-2.0) mmol/L Calcium (8.4-10.2) mg/dL Carcinoembryonic Ag (0.0-4.9) ng/mL CA 125 Antigen (0.0-30.1) U/mL 12/18/22 12/19/22 12/19/22 Range/Units 23:28 03:49 03:59 Plt Count 72 L (150-450) k/uL Lymphocytes # 0.8 L (1.0-4.8) k/uL PT (9.0-12.0) sec INR (<1.2) ABG pH (7.35-7.45) ABG pCO2 (35-45) mmHg ABG pO2 (83-108) mmHg ABG HCO3 (21-25) mmol/L ABG Total CO2 (19-24) mmol/L ABG O2 Saturation (94-97) % Carbon Dioxide 14 L (22-30) mmol/L BUN 63 H (7-17) mg/dL Creatinine 1.93 H (0.52-1.04) mg/dL Glucose 146 H (74-99) mg/dL POC Glucose (mg/dL) 146 H (70-110) mg/dL Plasma Lactic Acid Dmitriy (0.7-2.0) mmol/L Calcium 6.2 L* (8.4-10.2) mg/dL Carcinoembryonic Ag (0.0-4.9) ng/mL CA 125 Antigen (0.0-30.1) U/mL 12/19/22 12/19/22 Range/Units 05:21 05:47 Plt Count (150-450) k/uL Lymphocytes # (1.0-4.8) k/uL PT (9.0-12.0) sec INR (<1.2) ABG pH 7.25 L (7.35-7.45) ABG pCO2 33 L (35-45) mmHg ABG pO2 159 H (83-108) mmHg ABG HCO3 14 L (21-25) mmol/L ABG Total CO2 15 L (19-24) mmol/L ABG O2 Saturation 99.2 H (94-97) % Carbon Dioxide (22-30) mmol/L BUN (7-17) mg/dL Creatinine (0.52-1.04) mg/dL Glucose (74-99) mg/dL POC Glucose (mg/dL) 166 H (70-110) mg/dL Plasma Lactic Acid Dmitriy (0.7-2.0) mmol/L Calcium (8.4-10.2) mg/dL Carcinoembryonic Ag (0.0-4.9) ng/mL CA 125 Antigen (0.0-30.1) U/mL Microbiology - Last 24 Hours (Table) 12/18/22 14:45 Fungal Culture - Preliminary Pleural Fluid 12/18/22 14:45 Body Fluid Culture - Preliminary Pleural Fluid 12/18/22 14:45 Anaerobic Culture - Preliminary Pleural Fluid 12/18/22 14:45 Acid Fast Bacilli Culture - Preliminary Pleural Fluid 12/18/22 05:52 Gram Stain - Preliminary Sputum Sputum Culture - Preliminary 12/18/22 05:02 Urine Culture - Preliminary Urine,Voided Assessment and Plan Assessment: Mesenteric carcinomatosis, with CT evidence of extensive nodular infiltration of the greater omentum as well as peritoneal nodularity in the left upper abdomen with mild accompanying ascites. 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 The patient's uterus size was normal, but there was a distended endometrial cavity concerning for endometrial cancer primary. At the same time, the patient's CA 125 level is at 1900 and there may be also an underlying ovarian cancer. We have consulted LOSS MITIGATION SPECIALIST. The pleural fluid was drained and the fluid cytology is still pending for now. She will need a gynecologic examination including the possibility of transvaginal ultrasound. Awaiting LOSS MITIGATION SPECIALIST evaluation. Altered mental status requiring intubation at outside facility for airway protection. Subsequent episodes of vomiting and likely aspiration. the patient is currently on IV Zosyn. Acute hypoxemic respiratory failure, currently on the mechanical ventilator. CT shows evidence of large right sided pleural effuand the patient had a pigtail catheter inserted with adequate reexpansion of the right lung. Chest x-ray from today shows adequate aeration in more than 2 L of pleural fluid was aspirated from the right lung. Awaiting fluid cytology Acute hypotension, still on pressors. No clear indication for underlying sepsis. No clear indication for cardiogenic related causes of hypotension. The patient is still on pressors. We'll insert an arterial line. We'll continue investigation. We'll check a baseline cortisol level. The patient remains on norepinephrine. Suspected sepsis and septic shock refractory to fluid replacement currently on norepinephrine infusion Anion gap metabolic acidosis secondary to lactic acidemia, improving and the serum bicarbs up to 14 and the patient continues to be in a bicarb infusion Elevated troponins, possibly related to supply/demand mismatch. No ECG evidence of acute ischemia Acute kidney injury likely related to acute tubular necrosis and shock, creais slightly improved and is down to 1.9 Elevated LFTs, CT evidence of a distended gallbladder with no apparent calculi or biliary tract dilation. Liver had fatty infiltration without any specific lesions or biliary tract dilation. consider shock liver Possible history of polysubstance abuse Plan: Continue ventilator support, she is currently on FiO2 of 50%. No other ventilator changes without for today. Keep the pigtail catheter in place and monitor the pleural fluid output Awaiting pleural fluid cytology and the rest of the labs Highly suspicion for an underlying malignancy. The patient has an elevated CA 19 level which could indicate an underlying pelvic/ovarian cancer Awaiting an LOSS MITIGATION SPECIALIST consultation Awaiting recommendations from surgery. Insert an arterial line for adequate blood pressure monitoring Continue IV Zosyn Echocardiogram was noted Sedation holiday and assess the patient's mental status Conditions of significant and will continue to follow and will make further recommendations based on her progress. Evaluation was done in more than 30 minutes. Time with Patient: Greater than 30
--- NOTE | 2022-12-19 10:41 | P.OBCN ---
History of Present Illness Consult date: 12/19/22 Requesting physician: Merritt Melissa Reason for consult: other (Possible WHEAT BUYER malignancy) History of present illness: As reported in all the previous notes on the chart, the patient was found unconscious by EMS and transported to [facility] and intubated during the process. She was then transferred to our care. Computed tomography scan done at [place] reportedly suggested an enlarged endometrial cavity but also showed mesenteric adenopathy and nodules as well as omental caking consistent with metastatic malignancy, primary unknown. The patient is unconscious and sedated and cannot provide any history about his reportedly had significant mental status changes over the last several weeks. The family has provided no additional information to this point. It is unclear whether she's sought any medical care in recent times. Currently, the patient remains intubated and unconscious and in critical condition. As noted above, imaging has suggested omental caking as well as mesenteric nodules/adenopathy. She had a pleural effusion which was drained with a chest tube and the fluid has been sent for cytology. CA 125 has been done during the process and is significantly elevated at 1900. Obstetrical and gynecologic history: Unavailable as the patient is intubated and sedated and family is unavailable for questioning. Review of Systems Confined to history of present illness. Past Medical History Past Medical History: Hyperlipidemia, Hypertension Additional Past Medical History / Comment(s): Arthritis History of Any Multi-Drug Resistant Organisms: Unobtainable Past Surgical History: No Surgical Hx Reported, Unable to Obtain Past Anesthesia/Blood Transfusion Reactions: Unable to Obtain Past Psychological History: Unable to Obtain Smoking Status: Never smoker - Past Family History Father Family Medical History: No Reported History, Unable to Obtain Medications and Allergies Home Medications Medication Instructions Recorded Confirmed Type Aspirin 81 mg PO DAILY 12/18/22 12/18/22 History Atorvastatin [Lipitor] 40 mg PO DAILY 12/18/22 12/18/22 History Cetirizine HCl [Zyrtec] 10 mg PO DAILY 12/18/22 12/18/22 History hydroCHLOROthiazide [Hydrodiuril] 25 mg PO DAILY 12/18/22 12/18/22 History lisinopriL [Zestril] 20 mg PO DAILY 12/18/22 12/18/22 History Allergies Allergy/AdvReac Type Severity Reaction Status Date / Time No Known Allergies Allergy Verified 12/18/22 09:25 Exam Vital Signs Temp Pulse Pulse Resp BP BP Pulse Ox 12/19/22 10:30 117 H 18 97 12/19/22 10:15 123 H 26 H 94/64 100 12/19/22 10:00 122 H 23 87/63 100 12/19/22 09:45 120 H 24 93/58 100 12/19/22 09:30 118 H 25 H 89/56 99 12/19/22 09:15 118 H 21 86/56 99 12/19/22 09:00 117 H 23 84/54 99 02 08:45 116 H 23 101/61 98 12/19/22 08:35 114 H 12/19/22 08:30 115 H 23 97/61 98 12/19/22 08:23 116 H 12/19/22 08:22 12/19/22 08:15 87/57 99 12/19/22 08:00 99.0 F 113 H 24 86/60 100 12/19/22 07:45 115 H 21 81/55 100 12/19/22 07:30 116 H 23 74/57 100 12/19/22 07:15 116 H 20 109/65 100 12/19/22 07:00 117 H 24 77/49 99 12/19/22 06:45 118 H 24 91/63 97 12/19/22 06:30 121 H 25 H 78/57 97 12/19/22 06:15 118 H 24 84/56 98 12/19/22 06:00 118 H 22 90/61 98 12/19/22 05:45 118 H 22 92/62 93 L 12/19/22 05:30 120 H 25 H 97/58 99 12/19/22 05:15 118 H 24 103/62 98 12/19/22 05:00 118 H 22 98/62 98 12/19/22 04:45 121 H 24 99/60 97 12/19/22 04:30 121 H 23 98/66 97 12/19/22 04:15 121 H 23 93/54 99 12/19/22 04:00 122 H 22 96/57 98 02 03:45 120 H 23 98/63 99 12/19/22 03:35 112 H 12/19/22 03:30 118 H 23 98/63 99 06 03:28 0602/23 03:25 118 H 12/19/22 03:15 117 H 20 93/61 100 12/19/22 03:00 115 H 21 91/59 100 12/19/22 02:48 116 H 24 91/59 100 12/19/22 02:30 115 H 22 91/55 100 12/19/22 02:15 117 H 30 H 93/62 100 12/19/22 02:00 118 H 21 93/58 100 12/19/22 01:45 117 H 24 93/56 100 12/19/22 01:30 117 H 21 93/57 100 12/19/22 01:15 117 H 21 84/57 100 12/19/22 01:00 117 H 27 H 85/59 100 12/19/22 00:45 118 H 24 86/55 100 12/19/22 00:30 118 H 24 79/55 100 12/19/22 00:15 120 H 24 88/60 100 12/19/22 00:00 98.7 F 123 H 23 98/66 100 12/18/22 23:45 122 H 17 98/66 98 12/18/22 23:43 122 H 12/18/22 23:30 115 H 24 95/62 97 12/18/22 23:27 115 H 12/18/22 23:15 114 H 22 95/64 98 12/18/22 23:00 112 H 21 99/63 100 12/18/22 22:45 112 H 21 89/61 100 12/18/22 22:42 112 H 21 89/61 100 12/18/22 22:30 112 H 18 90/58 100 12/18/22 22:15 112 H 20 91/65 100 12/18/22 22:00 114 H 22 101/67 100 12/18/22 21:45 115 H 19 83/56 99 12/18/22 21:30 115 H 24 83/55 99 12/18/22 21:15 115 H 23 91/58 100 12/18/22 21:00 114 H 20 90/58 99 12/18/22 20:45 114 H 21 87/56 99 12/18/22 20:30 113 H 20 93/62 99 12/18/22 20:15 114 H 21 80/56 100 12/18/22 20:00 98.5 F 114 H 22 82/53 98 12/18/22 19:45 115 H 22 93/58 98 12/18/22 19:31 113 H 12/18/22 19:30 115 H 23 88/55 98 12/18/22 19:20 112 H 12/18/22 19:15 111 H 20 85/54 100 12/18/22 19:00 111 H 22 87/55 100 12/18/22 18:45 112 H 22 89/58 100 12/18/22 18:30 112 H 19 93/59 100 12/18/22 18:15 112 H 21 96/66 100 12/18/22 18:00 110 H 21 90/57 98 12/18/22 17:45 106 H 20 90/62 96 12/18/22 17:30 107 H 21 92/63 97 12/18/22 17:15 107 H 20 91/64 98 12/18/22 17:00 109 H 19 93/64 99 12/18/22 16:45 107 H 19 97/64 99 12/18/22 16:30 106 H 22 90/61 98 12/18/22 16:20 12/18/22 16:15 105 H 20 91/62 98 12/18/22 16:00 99.4 F 107 H 20 93/63 99 12/18/22 15:58 12/18/22 15:45 106 H 20 93/62 99 12/18/22 15:30 105 H 21 92/61 99 12/18/22 15:15 105 H 21 94/62 99 12/18/22 15:04 105 H 12/18/22 15:00 105 H 20 93/62 97 12/18/22 14:45 102 H 20 100/80 98 12/18/22 14:30 100 14 95/68 98 12/18/22 14:25 100 95/68 98 12/18/22 14:15 104 H 21 93/57 100 12/18/22 14:00 103 H 21 84/55 100 12/18/22 13:45 105 H 20 99/57 100 12/18/22 13:30 105 H 21 95/56 100 12/18/22 13:15 105 H 20 88/54 100 12/18/22 13:00 105 H 20 89/53 100 12/18/22 12:45 105 H 20 97/61 100 06/01/23 12:30 109 H 21 85/56 100 12/18/22 12:15 105 H 19 86/58 97 12/18/22 12:00 99.2 F 105 H 19 96/58 97 12/18/22 11:45 106 H 20 83/58 97 12/18/22 11:30 105 H 19 87/56 98 12/18/22 11:20 101 H 12/18/22 11:15 101 H 19 96/60 98 12/18/22 11:10 101 H 12/18/22 11:00 104 H 18 88/54 98 12/18/22 10:45 99 19 97/63 98 FiO2 12/19/22 10:30 12/19/22 10:15 12/19/22 10:00 12/19/22 09:45 12/19/22 09:30 12/19/22 09:15 12/19/22 09:00 12/19/22 08:45 12/19/22 08:35 12/19/22 08:30 12/19/22 08:23 12/19/22 08:22 50 12/19/22 08:15 12/19/22 08:00 50 12/19/22 07:45 12/19/22 07:30 12/19/22 07:15 12/19/22 07:00 12/19/22 06:45 12/19/22 06:30 12/19/22 06:15 12/19/22 06:00 12/19/22 05:45 12/19/22 05:30 12/19/22 05:15 12/19/22 05:00 12/19/22 04:45 12/19/22 04:30 12/19/22 04:15 12/19/22 04:00 50 12/19/22 03:45 12/19/22 03:35 12/19/22 03:30 12/19/22 03:28 50 12/19/22 03:25 12/19/22 03:15 12/19/22 03:00 12/19/22 02:48 12/19/22 02:30 12/19/22 02:15 12/19/22 02:00 12/19/22 01:45 12/19/22 01:30 12/19/22 01:15 12/19/22 01:00 12/19/22 00:45 12/19/22 00:30 12/19/22 00:15 12/19/22 00:00 50 12/18/22 23:45 12/18/22 23:43 12/18/22 23:30 12/18/22 23:27 50 12/18/22 23:15 12/18/22 23:00 12/18/22 22:45 12/18/22 22:42 12/18/22 22:30 12/18/22 22:15 12/18/22 22:00 12/18/22 21:45 12/18/22 21:30 12/18/22 21:15 12/18/22 21:00 12/18/22 20:45 12/18/22 20:30 12/18/22 20:15 12/18/22 20:00 50 12/18/22 19:45 12/18/22 19:31 12/18/22 19:30 12/18/22 19:20 50 12/18/22 19:15 12/18/22 19:00 50 12/18/22 18:45 12/18/22 18:30 12/18/22 18:15 12/18/22 18:00 50 12/18/22 17:45 12/18/22 17:30 12/18/22 17:15 12/18/22 17:00 50 12/18/22 16:45 12/18/22 16:30 12/18/22 16:20 50 12/18/22 16:15 12/18/22 16:00 50 12/18/22 15:58 50 12/18/22 15:45 12/18/22 15:30 12/18/22 15:15 12/18/22 15:04 12/18/22 15:00 50 12/18/22 14:45 12/18/22 14:30 12/18/22 14:25 12/18/22 14:15 12/18/22 14:00 12/18/22 13:45 12/18/22 13:30 12/18/22 13:15 12/18/22 13:00 50 12/18/22 12:45 12/18/22 12:30 12/18/22 12:15 12/18/22 12:00 50 12/18/22 11:45 12/18/22 11:30 12/18/22 11:20 12/18/22 11:15 12/18/22 11:10 12/18/22 11:00 50 12/18/22 10:45 Intake and Output 12/18/22 12/19/22 12/19/22 22:59 06:59 14:59 Intake Total 974.472 848.859 665.437 Output Total 1515 965 85 Balance -540.528 -116.141 580.437 Intake: IV 715 825 355 0.9 kvo 90 50 30 Calcium Gluconate in NaCl 100 1 gm In Saline 1 100ml. bag @ 100 mls/hr IVPB ONCE ONE Rx#:[id number] Dextrose 5% in Water 1, 525 675 225 000 ml @ 75 mls/hr IV . [id number] RAMESH with Sodium Bicarb (1 Meq/ml) 150 ml Rx#:[id number] Piperacillin-Tazobactam 3 100 100 .375 gm In Sodium Chloride 0.9% 100 ml @ 25 mls/hr IVPB Q12H [facility] Rx# :[id number] Intake, IV Titration 259.472 23.859 310.437 Amount Norepinephrine 4 mg In 185.707 Sodium Chloride 0.9% 250 ml @ 0.03 MCG/KG/MIN 7.83 mls/hr IV .Q24H [facility] Rx#: [id number] Norepinephrine 8 mg In 23.859 203.243 Sodium Chloride 0.9% 250 ml @ 0.18 MCG/KG/MIN 23. 859 mls/hr IV .[id number] [facility] Rx#:[id number] propofoL 1,000 mg In 73.765 107.194 Empty Bag 1 bag @ 15 MCG/ KG/MIN 6.021 mls/hr IV . [id number] [facility] Rx#:[id number] Output: Chest Tube Drainage 1180 610 35 Chest Tube Right Upper 1180 610 35 Lateral Chest Urine 335 355 50 Other: Voiding Method Indwelling Catheter Indwelling Catheter Indwelling Catheter Weight 69.2 kg 69.2 kg Physical examination is deferred as she is being cared for from a medical perspective by the furnace builder. WHEAT BUYER exam is not indicated as the patient cannot consent at this time. Results Result Diagrams: 12/19/22 03:59 12/19/22 03:49 Abnormal Lab Results - Last 24 Hours (Table) 12/18/22 12/18/22 12/18/22 Range/Units 06:04 06:04 11:42 Plt Count (150-450) k/uL Lymphocytes # (1.0-4.8) k/uL PT (9.0-12.0) sec INR (<1.2) ABG pH (7.35-7.45) ABG pCO2 (35-45) mmHg ABG pO2 (83-108) mmHg ABG HCO3 (21-25) mmol/L ABG Total CO2 (19-24) mmol/L ABG O2 Saturation (94-97) % Carbon Dioxide (22-30) mmol/L BUN (7-17) mg/dL Creatinine (0.52-1.04) mg/dL Glucose (74-99) mg/dL POC Glucose (mg/dL) (70-110) mg/dL Plasma Lactic Acid Dmitriy 5.8 H* (0.7-2.0) mmol/L Calcium (8.4-10.2) mg/dL Carcinoembryonic Ag 5.3 H (0.0-4.9) ng/mL CA 125 Antigen 1900.0 H (0.0-30.1) U/mL 12/18/22 12/18/22 12/18/22 Range/Units 11:59 15:02 18:13 Plt Count (150-450) k/uL Lymphocytes # (1.0-4.8) k/uL PT 16.6 H (9.0-12.0) sec INR 1.7 H (<1.2) ABG pH (7.35-7.45) ABG pCO2 (35-45) mmHg ABG pO2 (83-108) mmHg ABG HCO3 (21-25) mmol/L ABG Total CO2 (19-24) mmol/L ABG O2 Saturation (94-97) % Carbon Dioxide (22-30) mmol/L BUN (7-17) mg/dL Creatinine (0.52-1.04) mg/dL Glucose (74-99) mg/dL POC Glucose (mg/dL) (70-110) mg/dL Plasma Lactic Acid Dmitriy 6.7 H* 7.6 H* (0.7-2.0) mmol/L Calcium (8.4-10.2) mg/dL Carcinoembryonic Ag (0.0-4.9) ng/mL CA 125 Antigen (0.0-30.1) U/mL 12/18/22 12/19/22 12/19/22 Range/Units 23:28 03:49 03:59 Plt Count 72 L (150-450) k/uL Lymphocytes # 0.8 L (1.0-4.8) k/uL PT (9.0-12.0) sec INR (<1.2) ABG pH (7.35-7.45) ABG pCO2 (35-45) mmHg ABG pO2 (83-108) mmHg ABG HCO3 (21-25) mmol/L ABG Total CO2 (19-24) mmol/L ABG O2 Saturation (94-97) % Carbon Dioxide 14 L (22-30) mmol/L BUN 63 H (7-17) mg/dL Creatinine 1.93 H (0.52-1.04) mg/dL Glucose 146 H (74-99) mg/dL POC Glucose (mg/dL) 146 H (70-110) mg/dL Plasma Lactic Acid Dmitriy (0.7-2.0) mmol/L Calcium 6.2 L* (8.4-10.2) mg/dL Carcinoembryonic Ag (0.0-4.9) ng/mL CA 125 Antigen (0.0-30.1) U/mL 12/19/22 12/19/22 Range/Units 05:21 05:47 Plt Count (150-450) k/uL Lymphocytes # (1.0-4.8) k/uL PT (9.0-12.0) sec INR (<1.2) ABG pH 7.25 L (7.35-7.45) ABG pCO2 33 L (35-45) mmHg ABG pO2 159 H (83-108) mmHg ABG HCO3 14 L (21-25) mmol/L ABG Total CO2 15 L (19-24) mmol/L ABG O2 Saturation 99.2 H (94-97) % Carbon Dioxide (22-30) mmol/L BUN (7-17) mg/dL Creatinine (0.52-1.04) mg/dL Glucose (74-99) mg/dL POC Glucose (mg/dL) 166 H (70-110) mg/dL Plasma Lactic Acid Dmitriy (0.7-2.0) mmol/L Calcium (8.4-10.2) mg/dL Carcinoembryonic Ag (0.0-4.9) ng/mL CA 125 Antigen (0.0-30.1) U/mL Microbiology - Last 24 Hours (Table) 12/18/22 14:45 Fungal Culture - Preliminary Pleural Fluid 12/18/22 14:45 Body Fluid Culture - Preliminary Pleural Fluid 12/18/22 14:45 Anaerobic Culture - Preliminary Pleural Fluid 12/18/22 14:45 Acid Fast Bacilli Culture - Preliminary Pleural Fluid 12/18/22 05:52 Gram Stain - Preliminary Sputum Sputum Culture - Preliminary 12/18/22 05:02 Urine Culture - Preliminary Urine,Voided Assessment and Plan (1) Carcinomatosis Current Visit: Yes Status: Acute Priority: High Code(s): C80.0 - DISSEMINATED MALIGNANT NEOPLASM, UNSPECIFIED SNOMED Code(s): 154860971 (2) Metastasis Current Visit: Yes Status: Acute Code(s): C79.9 - SECONDARY MALIGNANT NEOPLASM OF UNSPECIFIED SITE SNOMED Code(s): 268740743 Plan: While pelvic ultrasound could be considered, I do not believe that it would add anything to the current picture. She is certainly not a surgical candidate. The computed tomography scan findings as well as the elevated CA 125 are highly suggestive of primary peritoneal cancer or possibly ovarian cancer. The computed tomography scan on the chart currently demonstrates that the pelvic organs appear unremarkable making an ovarian source unlikely. I agree with Dr. Christian in that the cytology from the pleural fluid will be of value and consideration could be given for percutaneous biopsy of the omental cake. I would suspect that the diagnosis may be nonspecific under the circumstances with findings of a poorly differentiated adenocarcinoma. If gynecologic interve ntion was to be considered, it should only be undertaken in the hands of a WHEAT BUYER oncologist. At this time, the patient is not a surgical candidate in my estimation. I do not believe that benign gynecology has a role in the for the care of this patient will be happy to return if any further questions arise. We will follow in the background but discontinue seeing the patient on a daily basis. Thank you for the consult and please call me if he feels like it had any further information.
--- NOTE | 2022-12-19 10:41 | P.PCN ---
Date of Procedure: 12/19/22 Preoperative Diagnosis: Shock Postoperative Diagnosis: Shock Procedure(s) Performed: Insertion of arterial line Anesthesia: local Surgeon: Merritt Melissa Pathology: other Condition: critical Disposition: ICU Operative Findings: Indication: Hemodynamic monitoring. A time-out was completed verifying correct patient, procedure, site, positioning, and implant(s) or special equipment if applicable. Allens test was performed to ensure adequate perfusion. The patients right groin was prepped and draped in sterile fashion. 1% Lidocaine was used to anesthetize the area. An 18G Arrow arterial line was introduced into the right femoral artery. The catheter was threaded over the guide wire and the needle was removed with appropriate pulsatile blood return. Blood loss was minimal. The catheter was then sutured in place to the skin and a sterile dressing applied. Perfusion to the extremity distal to the point of catheter insertion was checked and found to be adequate. The patient tolerated the procedure well and there were no complications.
[2022-12-19 10:46] LABS: Glucose, BF Source Pleural Fluid; Glucose, Body Fluid 117 mg/dL; LDH, Body Fluid Source Pleural Fluid; T. Protein, Body Fluid Source Pleural Fluid; Total Protein, Body Fluid 4240 mg/dL
[2022-12-19 12:18] LABS: Glucose,Whole Blood 166 mg/dL (70-110)
[2022-12-19] MEDS ORDERED: SODIUM CHLORIDE 0.9% 2,000 ML IV ONE (12:45)
[2022-12-19] MEDS ORDERED: DEXTROSE 50% SYRINGE 50 ML IVP PRN ×2 (12:48)
--- NOTE | 2022-12-19 13:03 | P.PN ---
Subjective Progress Note Date: 12/19/22 CHIEF COMPLAINT: Altered mental status HISTORY OF PRESENT ILLNESS: Patient in the ICU intubated and on mechanical ventilation. Patient had A line placed this morning. She is on Levophed. CAT scan was performed showing a large right pleural effusion and omental caking on abdominal CAT scan consistent with peritoneal malignancy. Patient had thoracentesis with drain placement. Cytology results pending. Chest x-ray shows near complete resolution of right-sided pleural effusion post pigtail catheter insertion. CA 125 level is elevated and patient seen by MANAGER SAP service that felt ovarian source for cancer is unlikely. Patient also followed by critical care service and oncology. She has been tachycardic. Afebrile. WBC 7.6 hgb 12.2 platelets 72 sodium is 140 potassium is 4.0 creatinine 1.93 lactic acid 7.6 elevated liver enzymes CEA 5.3 PHYSICAL EXAM: VITAL SIGNS: Reviewed. GENERAL: no acute distress. HEENT: normocephalic. ABDOMEN: Soft. Nondistended. NEUROLOGIC: Sedated and on the vent ASSESSMENT: 1. Suspected carcinomatosis and omental cake on CAT scan. 2. Right pleural effusion status post pigtail catheter PLAN: -Follow up on cytology results from thoracentesis -If needed the omentum could be biopsied percutaneously -Continue ICU management and supportive care Physician Biodiesel Plant Superintendent note has been reviewed by physician. Signing provider agrees with the documented findings, assessment, and plan of care. I have personally seen and examined the patient, reviewed the DIETETICS PROFESSOR /PAs history, exam and MDM and agree with the assessment and plan as written. Based on total visit time, I have performed more than 50% of the visit. As above: Patient stable on the ventilator. Pathology pending from thoracentesis. Await those findings. Objective - Vital Signs Vital signs: Vital Signs Temp 99.0 F 12/19/22 08:00 Pulse 117 H 12/19/22 10:30 Resp 18 12/19/22 10:30 BP 94/64 12/19/22 10:15 Pulse Ox 97 12/19/22 10:30 FiO2 50 12/19/22 08:22 Intake & Output 12/18/22 12/19/22 12/19/22 18:59 06:59 18:59 Intake Total 8282.931 3150.642 665.437 Output Total 1600 1115 85 Balance 76.404 125.642 580.437 Weight 69.2 kg 69.2 kg Intake: IV 1400 1005 355 0.9 kvo 100 80 30 Calcium Gluconate in NaCl 100 100 1 gm In Saline 1 100ml. bag @ 100 mls/hr IVPB ONCE ONE Rx#:[id number] Dextrose 5% in Water 1, 675 825 225 000 ml @ 75 mls/hr IV . [id number] RAMESH with Sodium Bicarb (1 Meq/ml) 150 ml Rx#:[id number] Piperacillin-Tazobactam 3 200 100 .375 gm In Sodium Chloride 0.9% 100 ml @ 25 mls/hr IVPB Q12H [facility] Rx# :[id number] Sodium Chloride 0.9% 1, 225 000 ml @ 75 mls/hr IV . [id number] [facility] Rx#:[id number] Sodium Chloride 0.9% 1, 100 000 ml @ 999 mls/hr IV . Q1H1M ONE Rx#:[id number] Intake, IV Titration 276.404 235.642 310.437 Amount Norepinephrine 4 mg In 198.757 138.018 Sodium Chloride 0.9% 250 ml @ 0.03 MCG/KG/MIN 7.83 mls/hr IV .Q24H [facility] Rx#: [id number] Norepinephrine 8 mg In 23.859 203.243 Sodium Chloride 0.9% 250 ml @ 0.18 MCG/KG/MIN 23. 859 mls/hr IV .[id number] [facility] Rx#:[id number] propofoL 1,000 mg In 77.647 73.765 107.194 Empty Bag 1 bag @ 15 MCG/ KG/MIN 6.021 mls/hr IV . [id number] [facility] Rx#:[id number] Output: Chest Tube Drainage 1180 610 35 Chest Tube Right Upper 1180 610 35 Lateral Chest Urine 420 505 50 Other: Voiding Method Indwelling Catheter Indwelling Catheter Indwelling Catheter - Labs CBC & Chem 7: 12/19/22 03:59 12/19/22 03:49 Labs: Abnormal Lab Results - Last 24 Hours (Table) 12/18/22 12/18/22 12/18/22 Range/Units 06:04 06:04 11:42 Plt Count (150-450) k/uL Lymphocytes # (1.0-4.8) k/uL PT (9.0-12.0) sec INR (<1.2) ABG pH (7.35-7.45) ABG pCO2 (35-45) mmHg ABG pO2 (83-108) mmHg ABG HCO3 (21-25) mmol/L ABG Total CO2 (19-24) mmol/L ABG O2 Saturation (94-97) % Carbon Dioxide (22-30) mmol/L BUN (7-17) mg/dL Creatinine (0.52-1.04) mg/dL Glucose (74-99) mg/dL POC Glucose (mg/dL) (70-110) mg/dL Plasma Lactic Acid Dmitriy 5.8 H* (0.7-2.0) mmol/L Calcium (8.4-10.2) mg/dL Carcinoembryonic Ag 5.3 H (0.0-4.9) ng/mL CA 125 Antigen 1900.0 H (0.0-30.1) U/mL 12/18/22 12/18/22 12/18/22 Range/Units 11:59 15:02 18:13 Plt Count (150-450) k/uL Lymphocytes # (1.0-4.8) k/uL PT 16.6 H (9.0-12.0) sec INR 1.7 H (<1.2) ABG pH (7.35-7.45) ABG pCO2 (35-45) mmHg ABG pO2 (83-108) mmHg ABG HCO3 (21-25) mmol/L ABG Total CO2 (19-24) mmol/L ABG O2 Saturation (94-97) % Carbon Dioxide (22-30) mmol/L BUN (7-17) mg/dL Creatinine (0.52-1.04) mg/dL Glucose (74-99) mg/dL POC Glucose (mg/dL) (70-110) mg/dL Plasma Lactic Acid Dmitriy 6.7 H* 7.6 H* (0.7-2.0) mmol/L Calcium (8.4-10.2) mg/dL Carcinoembryonic Ag (0.0-4.9) ng/mL CA 125 Antigen (0.0-30.1) U/mL 12/18/22 12/19/22 12/19/22 Range/Units 23:28 03:49 03:59 Plt Count 72 L (150-450) k/uL Lymphocytes # 0.8 L (1.0-4.8) k/uL PT (9.0-12.0) sec INR (<1.2) ABG pH (7.35-7.45) ABG pCO2 (35-45) mmHg ABG pO2 (83-108) mmHg ABG HCO3 (21-25) mmol/L ABG Total CO2 (19-24) mmol/L ABG O2 Saturation (94-97) % Carbon Dioxide 14 L (22-30) mmol/L BUN 63 H (7-17) mg/dL Creatinine 1.93 H (0.52-1.04) mg/dL Glucose 146 H (74-99) mg/dL POC Glucose (mg/dL) 146 H (70-110) mg/dL Plasma Lactic Acid Dmitriy (0.7-2.0) mmol/L Calcium 6.2 L* (8.4-10.2) mg/dL Carcinoembryonic Ag (0.0-4.9) ng/mL CA 125 Antigen (0.0-30.1) U/mL 12/19/22 12/19/22 Range/Units 05:21 05:47 Plt Count (150-450) k/uL Lymphocytes # (1.0-4.8) k/uL PT (9.0-12.0) sec INR (<1.2) ABG pH 7.25 L (7.35-7.45) ABG pCO2 33 L (35-45) mmHg ABG pO2 159 H (83-108) mmHg ABG HCO3 14 L (21-25) mmol/L ABG Total CO2 15 L (19-24) mmol/L ABG O2 Saturation 99.2 H (94-97) % Carbon Dioxide (22-30) mmol/L BUN (7-17) mg/dL Creatinine (0.52-1.04) mg/dL Glucose (74-99) mg/dL POC Glucose (mg/dL) 166 H (70-110) mg/dL Plasma Lactic Acid Dmitriy (0.7-2.0) mmol/L Calcium (8.4-10.2) mg/dL Carcinoembryonic Ag (0.0-4.9) ng/mL CA 125 Antigen (0.0-30.1) U/mL Microbiology - Last 24 Hours (Table) 12/18/22 14:45 Fungal Culture - Preliminary Pleural Fluid 12/18/22 14:45 Body Fluid Culture - Preliminary Pleural Fluid 12/18/22 14:45 Anaerobic Culture - Preliminary Pleural Fluid 12/18/22 14:45 Acid Fast Bacilli Culture - Preliminary Pleural Fluid 12/18/22 05:52 Gram Stain - Preliminary Sputum Sputum Culture - Preliminary 12/18/22 05:02 Urine Culture - Preliminary Urine,Voided
[2022-12-19 13:13] LABS: Calcium 6.4 mg/dL (8.4-10.2)
--- NOTE | 2022-12-19 13:36 | P.PN ---
Progress Note - Text Progress Note Date: 12/19/22 Chief Complaint: Intubated This is a 62-year-old patient, being followed by Malik Vale, was transferred here from [facility]. Patient presented with a altered mental status had to be intubated. Apparently she was having episodes of vomiting for the possible. Summary from the hospital and contacted EMS about 5 days ago but patient refused to go to the hospital. Computed tomography scan of the hospital was unremarkable. CT of the abdomen and pelvis showed extensive nodular infiltration of the greater omentum and redness peritoneal nodularity of the left upper abdomen with some ascites.. Suggestive of metastatic disease. Also distended endometrial cavity was reported. Also distended gallbladder with no calculi. Fatty infiltration of liver. Large right pleural effusion with atelectasis of the right lower lobe. Partial atelectasis of right below. Some thickening of the gastric antrum and duodenum. Patient was hypotensive. Patient was decontaminated in the ER for maggots in the hair. This morning patient is intubated on the ventilator. With FiO2 50% and a PEEP of 5. Patient probably aspirated after vomiting. Has been placed on Zosyn. Service Manager team earlier creatinine return to the family was unable to do so. Admitted with acute hypoxic respiratory failure, multifactorial, pneumonia, requiring ventilator assistance. Aspiration pneumonia. Septic shock. On IV levo fed. Metastatic carcinoma. December 19: ICU. Intubated. FiO2 50 to PEEP of 5. Sinus tachycardia heart rate 120. IV norepinephrine. Patient has been off propofol. Currently full code. Nurse did update the on the phone. Hasn't been in. According to the nurse patient was doing fine up to about September, as per patient's PCP. Active Medications Albuterol/Ipratropium (Ipratropium-Albuterol 3 Ml Neb) 3 ml INHALATION RT-Q4H [facility] Last Admin: 12/19/22 11:38 Dose: 3 ml Aspirin (Aspirin 81 Mg) 81 mg PO DAILY [facility] Last Admin: 12/19/22 08:11 Dose: 81 mg Atorvastatin Calcium (Atorvastatin 40 Mg Tab) 40 mg PO DAILY [facility] Last Admin: 12/19/22 08:11 Dose: 40 mg Chlorhexidine Gluconate (Chlorhexidine Gluconate 15 Ml Cup) 15 ml MUCOUS MEM BID [facility] Last Admin: 12/19/22 08:11 Dose: 15 ml Dextrose/Water (Dextrose 50% Syringe 50 Ml) 25 ml IVP PER PROTOCOL PRN; Protocol PRN Reason: Hypoglycemia Dextrose/Water (Dextrose 50% Syringe 50 Ml) 50 ml IVP PER PROTOCOL PRN; Protocol PRN Reason: Hypoglycemia Heparin Sodium (Porcine) (Heparin Sodium,Porcine/Pf 5,000 Unit/0.5 Ml Syringe) 5,000 unit SQ Q12HR [facility] Last Admin: 12/19/22 08:11 Dose: 5,000 unit Propofol 1,000 mg/ IV Solution 100 mls @ 6.021 mls/hr IV .[id number] [facility]; Protocol Last Titration: 12/19/22 09:34 Dose: 0 mcg/kg/min, 0 mls/hr Sodium Bicarbonate 150 ml/ (Dextrose/Water) 1,150 mls @ 75 mls/hr IV .[id number] [facility] Last Admin: 12/19/22 08:12 Dose: 75 mls/hr Piperacillin Sod/Tazobactam (Sod 3.375 gm/ Sodium Chloride) 100 mls @ 25 mls/hr IVPB Q8HR [facility]; Protocol Last Admin: 12/19/22 08:10 Dose: 25 mls/hr Norepinephrine Bitartrate 8 mg (/ Sodium Chloride) 258 mls @ 23.859 mls/hr IV .[id number] [facility]; Protocol Last Titration: 12/19/22 13:11 Dose: 0.32 mcg/kg/min, 42.415 mls/hr Sodium Chloride (Saline 0.9%) 2,000 mls @ 999 mls/hr IV .Q2H1M ONE Stop: 12/19/22 14:45 Last Admin: 12/19/22 13:05 Dose: 999 mls/hr Insulin Aspart (Insulin Aspart (Novolog) 100 Unit/Ml Vial) 0 unit SQ Q6HR [facility]; Protocol Naloxone HCl (Naloxone 0.4 Mg/Ml 1 Ml Vial) 0.2 mg IV Q2M PRN PRN Reason: Opioid Reversal Pantoprazole Sodium (Pantoprazole 40 Mg/10 Ml Vial) 40 mg IV DAILY [facility] Last Admin: 12/19/22 08:12 Dose: 40 mg Past medical history to include: Hypertension, hyperlipidemia, arthritis Social history: Cannot be obtained Physical examination: VITAL SIGNS: 99, 123, 20, 106/56, 98% on the ventilator GENERAL: laying in bed intubated. EYES: Pupils equal. Conjunctiva normal. HEENT: External appearance of nose and ears normal, oral cavity ET tube. NECK: JVD unable to assess; masses not palpable. HEART: First and second heart sounds are normal; no edema. LUNGS: Respiratory rate increased; decreased breath sounds. ABDOMEN: Soft, nontender, liver spleen not palpable, no masses palpable. PSYCH: Sedated l. INVESTIGATIONS, reviewed in the clinical context: December 19: White count 7.6 hemoglobin 12.2 platelets 72 potassium 4 BUN 53 creatinine 1.93. ABG: PH 7.25 pCO2 33 pO2 159 White count 8.4 hemoglobin 12 platelets 88 sodium 136 potassium 4.4 BUN 65 creatinine 1.99 Lactic acid 6.2 CEA antigen 5.3 EKG tracing personally reviewed by me-normal sinus rhythm. Rate 84 Chest x-ray film personally reviewed by [id number] mass/infiltrate. Atelectasis. CT chest without contrast. Large right, small left pleural effusions. Mild peripheral edema. Colonic diverticulosis. Mesentric carcinomatosis. 2-D echocardiogram: EF 55-60%. Assessment and plan: -Acute hypoxic respiratory failure, multifactorial including possible pneumonia, right lower lobe collapse. Requiring ventilator assistance.: Not improving -Possible aspiration pneumonia IV Zosyn -Septic shock: Slow to respond IV fluids, levofed -Large right pleural effusion -Metastatic mesenteric carcinomatosis. point primary unknown. Distended endometrium. -Altered mental status, multifactorial/metabolic encephalopathy/delirium -Elevated troponin from hemodynamic mismatch. No clinical evidence of acute coronary syndrome -Acute kidney injury, likely ATN could be from shock. Baseline creatinine not known.: Slow to respond -Nonalcoholic fatty liver disease. -Thrombocytopenia, cause unknown, could be from sepsis -Metabolic acidosis with a contribution from kidney injury Sodium bicarbonate drip We will address CODE STATUS when families in. Continue with IV Zosyn. Levo fed. Prognosis guarded. Being followed by multiple consultants.
[2022-12-19] MEDS ORDERED: CALCIUM GLUCONATE IN NACL 2 GM in SALINE 1 100ML.BAG IVPB ONE ×2 (13:54→21:59)
[2022-12-19] MEDS ORDERED: SODIUM CHLORIDE 0.9% 1,000 ML IV ONE (15:01)
--- NOTE | 2022-12-19 15:01 | P.PN ---
Subjective Progress Note Date: 12/19/22 Principal diagnosis: mesenteric carcinomatosis At today's visit patient remains on ventilation. Spoke with primary RN who states patient's condition has worsened today. She's been experiencing hypotension and pressors have had to be increased. Patient has been off sedation and remains unresponsive. Right-sided chest tube pigtail placed yesterday, with 2.3 L of output. CA125 elevated, 1900. Objective - Vital Signs Vital signs: Vital Signs Temp 99.0 F 12/19/22 12:00 Pulse 123 H 12/19/22 13:00 Resp 21 12/19/22 13:00 BP 94/64 12/19/22 10:45 Pulse Ox 96 12/19/22 13:00 FiO2 50 12/19/22 12:00 Intake & Output 12/18/22 12/19/22 12/19/22 18:59 06:59 18:59 Intake Total 0962.560 7950.642 1161.570 Output Total 1600 1115 310 Balance 76.404 125.642 851.570 Weight 69.2 kg 71.214 kg Intake: IV 1400 1005 610 0.9 kvo 100 80 60 Calcium Gluconate in NaCl 100 100 1 gm In Saline 1 100ml. bag @ 100 mls/hr IVPB ONCE ONE Rx#:[id number] Dextrose 5% in Water 1, 675 825 450 000 ml @ 75 mls/hr IV . [id number] [facility] with Sodium Bicarb (1 Meq/ml) 150 ml Rx#:[id number] Piperacillin-Tazobactam 3 200 100 .375 gm In Sodium Chloride 0.9% 100 ml @ 25 mls/hr IVPB Q12H [facility] Rx# :[id number] Sodium Chloride 0.9% 1, 225 000 ml @ 75 mls/hr IV . [id number] [facility] Rx#:[id number] Sodium Chloride 0.9% 1, 100 000 ml @ 999 mls/hr IV . Q1H1M ONE Rx#:[id number] Intake, IV Titration 276.404 235.642 501.570 Amount Norepinephrine 4 mg In 198.757 138.018 Sodium Chloride 0.9% 250 ml @ 0.03 MCG/KG/MIN 7.83 mls/hr IV .Q24H [facility] Rx#: [id number] Norepinephrine 8 mg In 23.859 394.376 Sodium Chloride 0.9% 250 ml @ 0.18 MCG/KG/MIN 23. 859 mls/hr IV .[id number] [facility] Rx#:[id number] propofoL 1,000 mg In 77.647 73.765 107.194 Empty Bag 1 bag @ 15 MCG/ KG/MIN 6.021 mls/hr IV . [id number] [facility] Rx#:[id number] Tube Feeding 20 Other 30 Output: Chest Tube Drainage 1180 610 135 Chest Tube Right Upper 1180 610 135 Lateral Chest Urine 420 505 175 Other: Voiding Method Indwelling Catheter Indwelling Catheter Indwelling Catheter ABP, PAP, CO, CI - Last Documented Arterial Blood Pressure 113/48 - Constitutional General appearance: Present: average body habitus, no acute distress - Respiratory Details: ventilated - Cardiovascular Details: skin warm and dry - Integumentary Integumentary: Absent: cyanotic - Neurologic Neurologic Comment(s): unresponsive - Labs CBC & Chem 7: 12/19/22 03:59 12/19/22 03:49 Labs: Abnormal Lab Results - Last 24 Hours (Table) 12/18/22 12/18/22 12/18/22 Range/Units 06:04 06:04 15:02 Plt Count (150-450) k/uL Lymphocytes # (1.0-4.8) k/uL ABG pH (7.35-7.45) ABG pCO2 (35-45) mmHg ABG pO2 (83-108) mmHg ABG HCO3 (21-25) mmol/L ABG Total CO2 (19-24) mmol/L ABG O2 Saturation (94-97) % Carbon Dioxide (22-30) mmol/L BUN (7-17) mg/dL Creatinine (0.52-1.04) mg/dL Glucose (74-99) mg/dL POC Glucose (mg/dL) (70-110) mg/dL Plasma Lactic Acid Dmitriy 6.7 H* (0.7-2.0) mmol/L Calcium (8.4-10.2) mg/dL Carcinoembryonic Ag 5.3 H (0.0-4.9) ng/mL CA 125 Antigen 1900.0 H (0.0-30.1) U/mL 12/18/22 12/18/22 12/19/22 Range/Units 18:13 23:28 03:49 Plt Count (150-450) k/uL Lymphocytes # (1.0-4.8) k/uL ABG pH (7.35-7.45) ABG pCO2 (35-45) mmHg ABG pO2 (83-108) mmHg ABG HCO3 (21-25) mmol/L ABG Total CO2 (19-24) mmol/L ABG O2 Saturation (94-97) % Carbon Dioxide 14 L (22-30) mmol/L BUN 63 H (7-17) mg/dL Creatinine 1.93 H (0.52-1.04) mg/dL Glucose 146 H (74-99) mg/dL POC Glucose (mg/dL) 146 H (70-110) mg/dL Plasma Lactic Acid Dmitriy 7.6 H* (0.7-2.0) mmol/L Calcium 6.2 L* (8.4-10.2) mg/dL Carcinoembryonic Ag (0.0-4.9) ng/mL CA 125 Antigen (0.0-30.1) U/mL 12/19/22 12/19/22 12/19/22 Range/Units 03:59 05:21 05:47 Plt Count 72 L (150-450) k/uL Lymphocytes # 0.8 L (1.0-4.8) k/uL ABG pH 7.25 L (7.35-7.45) ABG pCO2 33 L (35-45) mmHg ABG pO2 159 H (83-108) mmHg ABG HCO3 14 L (21-25) mmol/L ABG Total CO2 15 L (19-24) mmol/L ABG O2 Saturation 99.2 H (94-97) % Carbon Dioxide (22-30) mmol/L BUN (7-17) mg/dL Creatinine (0.52-1.04) mg/dL Glucose (74-99) mg/dL POC Glucose (mg/dL) 166 H (70-110) mg/dL Plasma Lactic Acid Dmitriy (0.7-2.0) mmol/L Calcium (8.4-10.2) mg/dL Carcinoembryonic Ag (0.0-4.9) ng/mL CA 125 Antigen (0.0-30.1) U/mL 12/19/22 12/19/22 Range/Units 12:16 12:30 Plt Count (150-450) k/uL Lymphocytes # (1.0-4.8) k/uL ABG pH (7.35-7.45) ABG pCO2 (35-45) mmHg ABG pO2 (83-108) mmHg ABG HCO3 (21-25) mmol/L ABG Total CO2 (19-24) mmol/L ABG O2 Saturation (94-97) % Carbon Dioxide (22-30) mmol/L BUN (7-17) mg/dL Creatinine (0.52-1.04) mg/dL Glucose (74-99) mg/dL POC Glucose (mg/dL) 166 H (70-110) mg/dL Plasma Lactic Acid Dmitriy (0.7-2.0) mmol/L Calcium 6.4 L* (8.4-10.2) mg/dL Carcinoembryonic Ag (0.0-4.9) ng/mL CA 125 Antigen (0.0-30.1) U/mL Microbiology - Last 24 Hours (Table) 12/18/22 05:52 Gram Stain - Preliminary Sputum Sputum Culture - Preliminary Gram Neg Bacilli 12/18/22 05:02 Urine Culture - Final Urine,Voided 12/18/22 14:45 Fungal Culture - Preliminary Pleural Fluid 12/18/22 14:45 Body Fluid Culture - Preliminary Pleural Fluid 12/18/22 14:45 Anaerobic Culture - Preliminary Pleural Fluid 12/18/22 14:45 Acid Fast Bacilli Culture - Preliminary Pleural Fluid Assessment and Plan (1) AMS (altered mental status) Current Visit: Yes Status: Acute Priority: High Code(s): R41.82 - ALTERED MENTAL STATUS, UNSPECIFIED SNOMED Code(s): 225965896 (2) Carcinomatosis Current Visit: Yes Status: Acute Priority: High Code(s): C80.0 - DISSEMINATED MALIGNANT NEOPLASM, UNSPECIFIED SNOMED Code(s): 955214623 (3) Pleural effusion Current Visit: Yes Status: Acute Priority: High Code(s): J90 - PLEURAL EFFUSION, NOT ELSEWHERE CLASSIFIED SNOMED Code(s): 58635485 Plan: Mesenteric carcinomatosis: -History is unknown as patient is a transfer from [place] and no family at bedside. Per nursing pt has poor followup and has refused workups by her PCP in the past, and has limited knowledge regarding patients health history -CT chest showed bilateral pleural effusions and mild pulmonary edema. CT abdomen pelvis revealed mesenteric carcinomatosis with unknown origin and colonic diverticulosis. -Once patient is stable will obtain CT chest abdomen pelvis with contrast for better characterization and IR consult for biopsy of mesenteric nodule. -CEA 5.3. CA-125 elevated 1900 Altered mental status: -Lactic acid upon admission was 9.6, improved since admission -Blood cultures and urine culture pending. Sputum culture gram neg bacilli. Continues on Zosyn. Pleural effusions: -Chest x-ray reviewed revealed cardiomegaly. Loculated mild right pleural effusion and moderate pulmonary edema. CT chest showed bilateral pleural effusions and mild pulmonary edema. -Pulmonology consulted.Right sided chest tube pig tail placed yesterday, with 2.3L output. Fluid analysis pending. Cytology requested -Defer to pulmonary for medical management
[2022-12-19] MEDS ORDERED: VANCOMYCIN IV PER PHARMACY 1 EACH MISC MISCELLANE PRN (15:13)
[2022-12-19] MEDS ORDERED: VANCOMYCIN 1,250 MG in SODIUM CHLORIDE 0.9% 250 ML IVPB ONE (15:30)
[2022-12-19 18:14] LABS: Glucose,Whole Blood 166 mg/dL (70-110)
[2022-12-19] MEDS: INSULIN ASPART (NovoLOG) 100 UNIT/ML VIAL SQ SCH ×2 (18:51→23:12)
[2022-12-19 23:11] LABS: Glucose,Whole Blood 152 mg/dL (70-110)
[2022-12-20] MEDS: IPRATROPIUM-ALBUTEROL 3 ML NEB INHALATION SCH ×6 (00:32→20:19)
[2022-12-20] MEDS: NOREPINEPHRINE 8 MG in SODIUM CHLORIDE 0.9% 250 ML IV SCH ×3 (01:46→17:45)
[2022-12-20 04:03] LABS: Basophils % (A) 0 %; Eosinophils % (A) 0 %; HCT 28.9 % (34.0-46.0); HGB 9.1 gm/dL (11.4-16.0); Hypochromasia Marked; Lymphocytes # (A) 0.8 k/uL (1.0-4.8); Lymphocytes % (A) 12 %; MCH 27.2 pg (25.0-35.0); MCHC 31.3 g/dL (31.0-37.0); MCV 86.8 fL (80.0-100.0); Mean Platelet Volume 11.3; Monocytes # (A) 0.1 k/uL (0-1.0); Monocytes % (A) 1 %; Neutrophils # (A) 5.9 k/uL (1.3-7.7); Neutrophils % (A) 86 %; RBC 3.34 m/uL (3.80-5.40); RDW 14.8 % (11.5-15.5); WBC 6.9 k/uL (3.8-10.6)
[2022-12-20 04:12] LABS: Platelet Count 47 k/uL (150-450)
[2022-12-20 04:45] LABS: Potassium 3.2 mmol/L (3.5-5.1)
[2022-12-20 04:51] LABS: Calcium 6.3 mg/dL (8.4-10.2)
[2022-12-20] MEDS ORDERED: Potassium Replacement Protocol 1 EACH MISC MISCELLANE PRN (04:54)
[2022-12-20] MEDS: POTASSIUM BICARBONATE/CIT AC 20 MEQ TABLET.EFF NG-TUBE SCH ×2 (05:03→05:42)
[2022-12-20 05:09] LABS: Albumin 1.7 g/dL (3.5-5.0); Potassium 3.3 mmol/L (3.5-5.1); Total Bilirubin 0.7 mg/dL (0.2-1.3); Total Protein 3.7 g/dL (6.3-8.2)
[2022-12-20 05:10] LABS: Calcium 6.3 mg/dL (8.4-10.2)
[2022-12-20] MEDS: INSULIN ASPART (NovoLOG) 100 UNIT/ML VIAL SQ SCH ×4 (05:13→23:29)
[2022-12-20 05:48] LABS: ABG Base Excess -6.5 mmol/L; ABG HCO3 20 mmol/L (21-25); ABG Oxygen Saturation 99.5 % (94-97); ABG PCO2 44 mmHg (35-45); ABG PH 7.28 (7.35-7.45); ABG PO2 190 mmHg (83-108); ABG TCO2 22 mmol/L (19-24); Allen Test Performed? Yes
[2022-12-20] MEDS ORDERED: CALCIUM GLUCONATE IN NACL 2 GM in SALINE 1 100ML.BAG IVPB ONE (07:00)
--- NOTE | 2022-12-20 07:31 | XR ---
EXAMINATION TYPE: XR chest 1V portable DATE OF EXAM: 12/20/2022 COMPARISON: 12/19/2022 HISTORY: SOB, Follow Up FINDINGS: Indwelling tubes and catheters are unchanged. Mixed interstitial and alveolar infiltrate left mid lung zone and left lower lobe. Small left-sided p leural effusion seen. Right basilar pleural catheter without evidence for pneumothorax or sizable eff usion. Stable appearance of the cardio-mediastinal structures at this time. Pleural effusion unchanged. IMPRESSION: 1. Mixed interstitial and alveolar infiltrate left mid lung zone and left lower lobe. Small left-niyah ed pleural effusion seen. Right basilar pleural catheter without evidence for pneumothorax or sizable effusion.
[2022-12-20] MEDS: PANTOPRAZOLE 40 MG/10 ML VIAL IV SCH (08:11)
[2022-12-20] MEDS: CHLORHEXIDINE GLUCONATE 15 ML CUP MUCOUS MEM SCH ×2 (08:12→20:32)
[2022-12-20] MEDS: PIPERACILLIN-TAZOBACTAM 3.375 GM in SODIUM CHLORIDE 0.9% 100 ML IVPB SCH ×3 (08:12→23:29)
[2022-12-20] MEDS: ATORVASTATIN 40 MG TAB PO SCH (08:12)
[2022-12-20] MEDS: ASPIRIN 81 MG PO SCH (08:12)
[2022-12-20] MEDS: DEXTROSE 5% IN WATER 1,000 ML with SODIUM BICARB (1 MEQ/ML) 150 ML IV SCH ×2 (08:15→23:36)
[2022-12-20] MEDS ORDERED: VANCOMYCIN 1,250 MG in SODIUM CHLORIDE 0.9% 250 ML IVPB ONE (09:00)
--- NOTE | 2022-12-20 09:32 | P.PN ---
Subjective Progress Note Date: 12/20/22 PROGRESS NOTE The patient is a 62-year-old female who was transferred from [facility] with change in mental status, respiratory distress, hypotension. Cardiology consultation was requested because of elevated troponin. A computed tomography scan of the abdomen showed metastatic cancer of unknown duration. According to the nursing staff the history obtained from the family is very limited. No prior history is available to me. The patient is intubated and sedated. She has received IV fluid. She is in sinus mechanism. There is no evidence of atrial fibrillation or ventricular ectopic activity. No other history could be obtained. December 19: The patient remains intubated and sedated, her blood pressure is on the low side. She is in sinus mechanism with no evidence of malignant arrhythmia. She underwent thoracentesis yesterday because of large right pleural effusion. She underwent an echocardiogram that showed a preserved systolic function with mild pulmonary hypertension. Her chest x-ray shows significant improvement. December 20: The patient remains intubated. Hemodynamically stable. Continues to be in sinus mechanism. The results of her pleural fluid cytology is pending. Her CA- 125 antigen was 1900. She was evaluated by the gynecology service. Medications: Aspirin, Lipitor 40 mg daily, PHYSICAL EXAMINATION: Blood pressure 111/52 heart rate 115, intubated and sedated LUNGS: Clear to auscultation anteriorly, chest tube in place HEART: Regular rate and rhythm, S1, S2. No S3. No systolic murmur ABDOMEN: Soft, positive bowel sounds, no organomegaly EXTREMETIES: No edema LAB: Hemoglobin 12, WBC 8.4. Potassium 4.4. BUN 65, creatinine 1.99. PH 7.22. IMPRESSION: 1. Respiratory failure on mechanical ventilation 2. Evidence of carcinomatosis, workup in progress 3. Status post chest tube placement for pleural effusion, rule out malignant effusion 4. Renal failure, unclear duration 5. Troponin elevation, representing type II myocardial infarction 6. Possible sepsis with hypotension, stabilizing PLAN: 1. Await fluid evaluation for possible malignancy 2. Continue supportive care 3. Prognosis is guarded 4. From the cardiac standpoint we will see her on an as needed basis, please feel free to call us for any questions. Prognosis is guarded in view of her abdominal malignancy. Objective - Vital Signs Vital signs: Vital Signs Temp 98.0 F 12/20/22 04:00 Pulse 122 H 12/20/22 08:08 Resp 18 12/20/22 07:00 BP 94/64 12/19/22 10:45 Pulse Ox 100 12/20/22 07:00 FiO2 40 12/20/22 08:08 Intake & Output 12/19/22 12/20/22 12/20/22 18:59 06:59 18:59 Intake Total 6555.610 2959.077 266.324 Output Total 555 740 60 Balance 1342.761 786.077 206.324 Weight 71.214 kg Intake: IV 985 975 95 0.9 kvo 60 20 Calcium Gluconate in NaCl 100 1 gm In Saline 1 100ml. bag @ 100 mls/hr IVPB ONCE ONE Rx#:[id number] Dextrose 5% in Water 1, 825 975 75 000 ml @ 75 mls/hr IV . [id number] [facility] with Sodium Bicarb (1 Meq/ml) 150 ml Rx#:[id number] Intake, IV Titration 782.761 361.077 141.324 Amount Calcium Gluconate in NaCl 100 2 gm In Saline 1 100ml. bag @ 100 mls/hr IVPB ONCE ONE Rx#:[id number] Norepinephrine 8 mg In 575.567 357.304 128.680 Sodium Chloride 0.9% 250 ml @ 0.18 MCG/KG/MIN 23. 859 mls/hr IV .[id number] [facility] Rx#:[id number] propofoL 1,000 mg In 107.194 3.773 12.644 Empty Bag 1 bag @ 15 MCG/ KG/MIN 6.021 mls/hr IV . [id number] [facility] Rx#:[id number] Tube Feeding 70 190 30 Other 60 Output: Chest Tube Drainage 195 190 10 Chest Tube Right Upper 195 190 10 Lateral Chest Urine 360 550 50 Other: Voiding Method Indwelling Catheter Indwelling Catheter ABP, PAP, CO, CI - Last Documented Arterial Blood Pressure 111/52 - Labs CBC & Chem 7: 12/20/22 03:55 12/20/22 03:55 Labs: Abnormal Lab Results - Last 24 Hours (Table) 12/19/22 12/19/22 12/19/22 Range/Units 12:16 12:30 18:14 RBC (3.80-5.40) m/uL Hgb (11.4-16.0) gm/dL Hct (34.0-46.0) % Plt Count (150-450) k/uL Lymphocytes # (1.0-4.8) k/uL ABG pH (7.35-7.45) ABG pO2 (83-108) mmHg ABG HCO3 (21-25) mmol/L ABG O2 Saturation (94-97) % Potassium (3.5-5.1) mmol/L Chloride (98-107) mmol/L Carbon Dioxide (22-30) mmol/L BUN (7-17) mg/dL Creatinine (0.52-1.04) mg/dL Glucose (74-99) mg/dL POC Glucose (mg/dL) 166 H 166 H (70-110) mg/dL Calcium 6.4 L* (8.4-10.2) mg/dL Ionized Calcium Miri (4.5-5.3) mg/dL AST (14-36) U/L ALT (4-34) U/L Alkaline Phosphatase (38-126) U/L Total Protein (6.3-8.2) g/dL Albumin (3.5-5.0) g/dL 12/19/22 12/19/22 12/20/22 Range/Units 21:20 23:09 03:55 RBC 3.34 L (3.80-5.40) m/uL Hgb 9.1 L D (11.4-16.0) gm/dL Hct 28.9 L (34.0-46.0) % Plt Count 47 L (150-450) k/uL Lymphocytes # 0.8 L (1.0-4.8) k/uL ABG pH (7.35-7.45) ABG pO2 (83-108) mmHg ABG HCO3 (21-25) mmol/L ABG O2 Saturation (94-97) % Potassium (3.5-5.1) mmol/L Chloride (98-107) mmol/L Carbon Dioxide (22-30) mmol/L BUN (7-17) mg/dL Creatinine (0.52-1.04) mg/dL Glucose (74-99) mg/dL POC Glucose (mg/dL) 152 H (70-110) mg/dL Calcium (8.4-10.2) mg/dL Ionized Calcium Miri 4.0 L (4.5-5.3) mg/dL AST (14-36) U/L ALT (4-34) U/L Alkaline Phosphatase (38-126) U/L Total Protein (6.3-8.2) g/dL Albumin (3.5-5.0) g/dL 12/20/22 12/20/22 12/20/22 Range/Units 03:55 03:55 05:30 RBC (3.80-5.40) m/uL Hgb (11.4-16.0) gm/dL Hct (34.0-46.0) % Plt Count (150-450) k/uL Lymphocytes # (1.0-4.8) k/uL ABG pH (7.35-7.45) ABG pO2 (83-108) mmHg ABG HCO3 (21-25) mmol/L ABG O2 Saturation (94-97) % Potassium 3.2 L 3.3 L (3.5-5.1) mmol/L Chloride 108 H (98-107) mmol/L Carbon Dioxide 19 L 18 L (22-30) mmol/L BUN 60 H 59 H (7-17) mg/dL Creatinine 1.77 H 1.82 H (0.52-1.04) mg/dL Glucose 118 H 119 H (74-99) mg/dL POC Glucose (mg/dL) (70-110) mg/dL Calcium 6.3 L* 6.3 L* (8.4-10.2) mg/dL Ionized Calcium Miri 4.2 L (4.5-5.3) mg/dL AST 352 H (14-36) U/L ALT 214 H (4-34) U/L Alkaline Phosphatase 338 H (38-126) U/L Total Protein 3.7 L (6.3-8.2) g/dL Albumin 1.7 L (3.5-5.0) g/dL 12/20/22 Range/Units 05:44 RBC (3.80-5.40) m/uL Hgb (11.4-16.0) gm/dL Hct (34.0-46.0) % Plt Count (150-450) k/uL Lymphocytes # (1.0-4.8) k/uL ABG pH 7.28 L (7.35-7.45) ABG pO2 190 H (83-108) mmHg ABG HCO3 20 L (21-25) mmol/L ABG O2 Saturation 99.5 H (94-97) % Potassium (3.5-5.1) mmol/L Chloride (98-107) mmol/L Carbon Dioxide (22-30) mmol/L BUN (7-17) mg/dL Creatinine (0.52-1.04) mg/dL Glucose (74-99) mg/dL POC Glucose (mg/dL) (70-110) mg/dL Calcium (8.4-10.2) mg/dL Ionized Calcium Miri (4.5-5.3) mg/dL AST (14-36) U/L ALT (4-34) U/L Alkaline Phosphatase (38-126) U/L Total Protein (6.3-8.2) g/dL Albumin (3.5-5.0) g/dL Microbiology - Last 24 Hours (Table) 12/18/22 11:07 Blood Culture Gram Stain - Preliminary Blood 12/18/22 14:45 Gram Stain - Preliminary Pleural Fluid Body Fluid Culture - Preliminary 12/18/22 05:52 Gram Stain - Preliminary Sputum Sputum Culture - Preliminary Gram Neg Bacilli 12/18/22 05:02 Urine Culture - Final Urine,Voided 12/18/22 14:45 Fungal Culture - Preliminary Pleural Fluid 12/18/22 14:45 Anaerobic Culture - Preliminary Pleural Fluid 12/18/22 14:45 Acid Fast Bacilli Culture - Preliminary Pleural Fluid
--- NOTE | 2022-12-20 09:37 | P.PN ---
Subjective Progress Note Date: 12/20/22 I am seeing this patient in new consultation today 12/18/2022 in the intensive care unit after she was transferred from [facility]. Apparently, the patient presented to outside hospital altered and had to be intubated to protect her airway. The patient's medical history is largely unknown, I did reach out to contact the patient's family. They are poor historians, and unable to provide me with a detailed medical history or events leading up to her hospitalization in [place]. I was able to ascertain that she has been having frequent episodes of vomiting for the past month. In fact, someone in the household had contacted EMS 5 days prior, but she refused to go to the hospital. While at [facility], the patient did undergo a nonenhanced brain CT which showed no acute intracranial hemorrhage or mass effect. The patient also had a CT of the abdomen pelvis with contrast which showed extensive nodular infiltration of the greater omentum as well as peritoneal nodularity in the left upper abdomen with mild accompanying ascites. 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 The patient's uterus size was normal, but there was a distended endometrial cavity concerning for endometrial cancer. There was a distended gallbladder with no apparent calculi or bili tract dilation. Liver had fatty infiltration without any specific lesions or biliary tract dilation. There was a large right pleural effusion with atelectasis of the right lower lung and partial atelectasis of the right middle lung, left lung was clear without any significant effusions or infiltrates. There was gastroesophageal reflux with fluid within the esophagus. There is thickening of the gastric antrum and duodenal. No free air. No other obvious obstruction. The patient was hypotensive at the outside facility, and a right femoral central line was placed. The patient was transferred to [facility] last night in critical condition. The patient is currently intubated on mechanical ventilator with current settings of assist control, respiratory rate 18, tidal volume 400, FiO2 50%, PEEP of 5. ABGs done on these settings show a pO2 of 112, pCO2 of 33, pH of 7.22. Chest x-ray on arrival showed the ET tube approximately 1.5 cm from the debora, and this was withdrawn 2 cm. The patient does have an orogastric tube coursing below the diaphragm. There was a moderate right pleural effusion. Unfortunately, the patient did vomit and probably aspirated, the OG tube is hooked to low intermittent suction. I have added Zosyn for empiric antibiotic coverage. The patient currently has norepinephrine infusing at 0.08 mics per kilogram per minute. I've given an additional 2 L normal saline bolus patient's lactic was 15 at outside facility, and is down to 9.6. I did order a non- enhanced CT of the chest, abdomen, pelvis, the patient's renal function is poor. This redemonstrated mesenteric carcinomatosis. It also showed a large right and mild left pleural effusion and mild pulmonary edema. CBC on arrival shows a WBC count of 9.1, hemoglobin 13.1, hematocrit 42.9, platelets 78,000. BMP on admission shows a sodium 136, potassium 4.8, chloride 102, serum CO2 13, BUN 65, creatinine 2.17, glucose 129. LFTS are elevated with an AST 3691, ALT of 831, ALP 164. Normal saline infusing at 75 mL per hour. Troponins 0.317. No obvious ischemic changes of ECG. Urine output is in the order of 20 ml/hr. Urinalysis not suspicious for UTI. Urine drug screen was negative, apparently there was suspicion of past polysubstance abuse. The patient's condition is currently critical, I have made multiple attempts to reach out to the patient's family. It is unclear if they will be coming up to the hospital later this afternoon. The patient arrived in a disheveled state with maggots in her hair. She did have multiple bruises located on her back and chest. For now she will remain on the ventilator, and be monitored in the intensive care unit. On today's evaluation of 2022, the patient remains intubated on a mechanical ventilator. The patient is currently on propofol which is running at 30 mcg/kg/m. Nevertheless earlier this morning, the patient was taken off the propofol to evaluate her underlying mental status. She is currently off propofol and the patient is receiving a sedation holiday. She remains quite advanced on a mechanical ventilator a day rate of 18 with a tidal volume of 400 and FiO2 of 50% with a PEEP of 5. Her chest x-ray shows marked improvement elevation of the right lung. The patient had a pigtail catheter inserted yesterday into the right hemithorax and a total amount of output was 700 mL overnight and the patient without more than 1.5 L immediately after insertion. The fluid analysis still pending for now and the fluid was also sent for cytology. Meanwhile, a repeat CAT scan of the chest abdomen and pelvis was done which confirmed the presence of a large right-sided pleural effusion. There was evidence of mesenteric carcinomatosis and the etiology was unknown. There is also evidence of colonic diverticulosis. The patient remains quite acidotic and she remains in renal failure and hypotensive. Earlier this morning, the patient is on norepinephrine which is running at 0.22 mcg/kg/m and as such an arterial line will be inserted for accurate blood pressure monitoring. The patient's BUN is at 63 with a creatinine of 1.9. She remains acidotic although serum bicarb is improving and is up to 14. The patient remains on a bicarbonate infusion which is running at the rate of 75 mL an hour. She does have abnormal LFTs, AST is 3691 and ALT is a 31 with an alkaline phosphatase of 164, could be related to shock liver. CA 125 level is 1900 and this may be consistent with ovarian cancer. A consultation has been placed for OB GEN to evaluate those findings. The CEA level is 5.3. Troponins at 0.3. The patient's echocardiogram shows a preserved LV function. There was some mild mitral regurgitation. No significant pulmonary hypertension. The patient is on empiric antibiotic covera ge and she is currently on IV Zosyn. She also has a triple-lumen catheter in the right femoral vein that was inserted in an outside hospital. On today's evaluation of 12/20/2022, the patient remains intubated on a mechanical ventilator. She remains on propofol which is off since yesterday, and the patient has not have adequate neurological recovery. The patient remains unresponsive while being off sedatives. We decided to keep the propofol off on this patient. The CAT scan of the brain was initiated done at [facility] and was negative and I think is reasonable to repeat a CAT scan of the brain pressure the patient is not responsive off sedation. Anesthetic time, we were informed that the patient was growing gram-positive cocci in her blood at [facility]. Vancomycin was added. For now, she remains on a combination of Zosyn and vancomycin. The sputum is showing gram-negative bacillus and the chest x-rays showing clearing of the right-sided pleural effusion and ongoing infiltration of the left lung which is a combination of mixed interstitial and alveolar special in the left lower lobe. Hemodynamically, the patient received several fluid boluses yesterday and she responded nicely to the fluid bolus. She is still on norepinephrine which is running at 0.22 mcg/kg/m. She does have a central line and a arterial line was also added for better blood pressure m onitoring. She is afebrile. She is on a mechanical ventilator on this control mode at the rate of 18 with a tidal volume of 400 and FiO2 of 40% with a PEEP of 5. She is showing a pH of 7.28 with a pCO2 of 44 and pO2 190 and this was an FiO2 of 50%. Her white cell count today is at 6.9 with a hemoglobin of 9.1 and a platelet count of 47 and Rezulin electrolytes show a sodium of 140, potassium of 3.3, bicarb of 18 and a BUN of 59 and a creatinine of 1.8. LFTs are abnormal with an AST of 352, ALT of 214, alkaline phosphatase of 334. The CA on around 25 was 1900. Her blood culture in our facility was negative. The fluid cytology was sent and is still pending. The pleural fluid itself is an exudate. The output from the pigtail catheter is minimal at this point in time and there is no evidence of any air leak. The patient was started on enteral feeding for nutritional support and currently she is on vital AF at the rate of 30 mL an hour. His serum cortisol was at 50. Echocardiogram showed a preserved LV function without any signs of cardiomyopathy. CVA Objective - Vital Signs Vital signs: Vital Signs Temp 98.0 F 12/20/22 04:00 Pulse 122 H 12/20/22 08:08 Resp 18 12/20/22 07:00 BP 94/64 12/19/22 10:45 Pulse Ox 100 12/20/22 07:00 FiO2 40 12/20/22 08:08 Intake & Output 12/19/22 12/20/22 12/20/22 18:59 06:59 18:59 Intake Total 1920.872 5295.077 266.324 Output Total 555 740 60 Balance 1342.761 786.077 206.324 Weight 71.214 kg Intake: IV 985 975 95 0.9 kvo 60 20 Calcium Gluconate in NaCl 100 1 gm In Saline 1 100ml. bag @ 100 mls/hr IVPB ONCE ONE Rx#:[id number] Dextrose 5% in Water 1, 825 975 75 000 ml @ 75 mls/hr IV . [id number] RAMESH with Sodium Bicarb (1 Meq/ml) 150 ml Rx#:[id number] Intake, IV Titration 782.761 361.077 141.324 Amount Calcium Gluconate in NaCl 100 2 gm In Saline 1 100ml. bag @ 100 mls/hr IVPB ONCE ONE Rx#:[id number] Norepinephrine 8 mg In 575.567 357.304 128.680 Sodium Chloride 0.9% 250 ml @ 0.18 MCG/KG/MIN 23. 859 mls/hr IV .[id number] RAMESH Rx#:[id number] propofoL 1,000 mg In 107.194 3.773 12.644 Empty Bag 1 bag @ 15 MCG/ KG/MIN 6.021 mls/hr IV . [id number] RAMESH Rx#:[id number] Tube Feeding 70 190 30 Other 60 Output: Chest Tube Drainage 195 190 10 Chest Tube Right Upper 195 190 10 Lateral Chest Urine 360 550 50 Other: Voiding Method Indwelling Catheter Indwelling Catheter ABP, PAP, CO, CI - Last Documented Arterial Blood Pressure 111/52 - Exam GENERAL EXAM: Patient is completely unresponsive off the sedation and the propofol was discontinued approximately 24 hours ago and synchronous with the mechanical ventilator. HEAD: Normocephalic medical EYES: Normal reaction of pupils, equal size. NOSE: Clear with pink turbinates. THROAT: No erythema or exudates. NECK: No masses, no JVD. CHEST: No chest wall deformity. LUNGS: Equal air entry with diffuse rhonchi, and diminished lung sounds at the right base. Intubated on mechanical ventilator. CVS: S1 and S2 normal with no audible murmur, regular rhythm. No extra heart sounds ABDOMEN: No hepatosplenomegaly, active bowel sounds, no guarding or rigidity. SPINE: No scoliosis or deformity SKIN: Ecchymosis right posterior back CENTRAL NERVOUS SYSTEM: Patient is completely unresponsive, does not withdrawal or reactive the painful stimulation. Pupils are round 5 mm in size and reactive to light. No nystagmus. No seizure activity. Cough and a gag are present. There are very weak. Motor and sensory functions cannot be assessed. The patient is currently off sedation. No facial asymmetry. EXTREMITIES: There is bilateral 3+ pitting edema. No clubbing, or cyanosis. Peripheral pulses are intact. - Labs CBC & Chem 7: 12/20/22 03:55 12/20/22 03:55 Labs: Abnormal Lab Results - Last 24 Hours (Table) 12/19/22 12/19/22 12/19/22 Range/Units 12:16 12:30 18:14 RBC (3.80-5.40) m/uL Hgb (11.4-16.0) gm/dL Hct (34.0-46.0) % Plt Count (150-450) k/uL Lymphocytes # (1.0-4.8) k/uL ABG pH (7.35-7.45) ABG pO2 (83-108) mmHg ABG HCO3 (21-25) mmol/L ABG O2 Saturation (94-97) % Potassium (3.5-5.1) mmol/L Chloride (98-107) mmol/L Carbon Dioxide (22-30) mmol/L BUN (7-17) mg/dL Creatinine (0.52-1.04) mg/dL Glucose (74-99) mg/dL POC Glucose (mg/dL) 166 H 166 H (70-110) mg/dL Calcium 6.4 L* (8.4-10.2) mg/dL Ionized Calcium Miri (4.5-5.3) mg/dL AST (14-36) U/L ALT (4-34) U/L Alkaline Phosphatase (38-126) U/L Total Protein (6.3-8.2) g/dL Albumin (3.5-5.0) g/dL 12/19/22 12/19/22 12/20/22 Range/Units 21:20 23:09 03:55 RBC 3.34 L (3.80-5.40) m/uL Hgb 9.1 L D (11.4-16.0) gm/dL Hct 28.9 L (34.0-46.0) % Plt Count 47 L (150-450) k/uL Lymphocytes # 0.8 L (1.0-4.8) k/uL ABG pH (7.35-7.45) ABG pO2 (83-108) mmHg ABG HCO3 (21-25) mmol/L ABG O2 Saturation (94-97) % Potassium (3.5-5.1) mmol/L Chloride (98-107) mmol/L Carbon Dioxide (22-30) mmol/L BUN (7-17) mg/dL Creatinine (0.52-1.04) mg/dL Glucose (74-99) mg/dL POC Glucose (mg/dL) 152 H (70-110) mg/dL Calcium (8.4-10.2) mg/dL Ionized Calcium Miri 4.0 L (4.5-5.3) mg/dL AST (14-36) U/L ALT (4-34) U/L Alkaline Phosphatase (38-126) U/L Total Protein (6.3-8.2) g/dL Albumin (3.5-5.0) g/dL 12/20/22 12/20/22 12/20/22 Range/Units 03:55 03:55 05:30 RBC (3.80-5.40) m/uL Hgb (11.4-16.0) gm/dL Hct (34.0-46.0) % Plt Count (150-450) k/uL Lymphocytes # (1.0-4.8) k/uL ABG pH (7.35-7.45) ABG pO2 (83-108) mmHg ABG HCO3 (21-25) mmol/L ABG O2 Saturation (94-97) % Potassium 3.2 L 3.3 L (3.5-5.1) mmol/L Chloride 108 H (98-107) mmol/L Carbon Dioxide 19 L 18 L (22-30) mmol/L BUN 60 H 59 H (7-17) mg/dL Creatinine 1.77 H 1.82 H (0.52-1.04) mg/dL Glucose 118 H 119 H (74-99) mg/dL POC Glucose (mg/dL) (70-110) mg/dL Calcium 6.3 L* 6.3 L* (8.4-10.2) mg/dL Ionized Calcium Miri 4.2 L (4.5-5.3) mg/dL AST 352 H (14-36) U/L ALT 214 H (4-34) U/L Alkaline Phosphatase 338 H (38-126) U/L Total Protein 3.7 L (6.3-8.2) g/dL Albumin 1.7 L (3.5-5.0) g/dL 12/20/22 Range/Units 05:44 RBC (3.80-5.40) m/uL Hgb (11.4-16.0) gm/dL Hct (34.0-46.0) % Plt Count (150-450) k/uL Lymphocytes # (1.0-4.8) k/uL ABG pH 7.28 L (7.35-7.45) ABG pO2 190 H (83-108) mmHg ABG HCO3 20 L (21-25) mmol/L ABG O2 Saturation 99.5 H (94-97) % Potassium (3.5-5.1) mmol/L Chloride (98-107) mmol/L Carbon Dioxide (22-30) mmol/L BUN (7-17) mg/dL Creatinine (0.52-1.04) mg/dL Glucose (74-99) mg/dL POC Glucose (mg/dL) (70-110) mg/dL Calcium (8.4-10.2) mg/dL Ionized Calcium Miri (4.5-5.3) mg/dL AST (14-36) U/L ALT (4-34) U/L Alkaline Phosphatase (38-126) U/L Total Protein (6.3-8.2) g/dL Albumin (3.5-5.0) g/dL Microbiology - Last 24 Hours (Table) 12/18/22 11:07 Blood Culture Gram Stain - Preliminary Blood 12/18/22 14:45 Gram Stain - Preliminary Pleural Fluid Body Fluid Culture - Preliminary 12/18/22 05:52 Gram Stain - Preliminary Sputum Sputum Culture - Preliminary Gram Neg Bacilli 12/18/22 05:02 Urine Culture - Final Urine,Voided 12/18/22 14:45 Fungal Culture - Preliminary Pleural Fluid 12/18/22 14:45 Anaerobic Culture - Preliminary Pleural Fluid 12/18/22 14:45 Acid Fast Bacilli Culture - Preliminary Pleural Fluid Assessment and Plan Assessment: Mesenteric carcinomatosis, with CT evidence of extensive nodular infiltration of the greater omentum as well as peritoneal nodularity in the left upper abdomen with mild accompanying ascites. 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 The patient's uterus size was normal, but there was a distended endometrial cavity concerning for endometrial cancer primary. At the same time, the patient's CA 125 level is at 1900 . Possibility of primary mesenteric carcinomatosis is being considered and we are awaiting the pleural fluid cytology. Meanwhile, I consultation will be placed also for interventional radiology for a possible core biopsy of the peritoneum. I think they're services are off for the weekend and this may need to be considered to be done by Thursday if the pleural fluid cytology turns out to be negative. Sepsis with gram-positive cocci in the blood as identified in the outside hospital. The patient is currently on accommodation Zosyn and vancomycin. Gram-negative bacillus is also cultured in the sputum and there is a possibility of a left lower lobe pneumonia. Patient remains on IV fluids. The patient remains on pressors. Norepinephrine is O- dose of 0.22 mcg/kg/m. Altered mental status requiring intubation at outside facility for airway protection. Initial CAT scan of the brain is negative. Sedation was held yesterday and the patient is completely unresponsive over the past 24 hours. There is obviously concerning issue. We'll check serum ammonia level to rule out possibility of hepatic encephalopathy. We'll repeat CAT scan of the brain. We'll keep the patient also evidence for now. Acute hypoxemic respiratory failure, currently on the mechanical ventilator. CT shows evidence of large right sided pleural effuand the patient had a pigtail catheter inserted with adequate reexpansion of the right lung. Chest x-ray from today shows adequate aeration in more than 2 L of pleural fluid was aspirated from the right lung. Awaiting fluid cytology. The pleural fluid is an exudate. The repeat chest x-ray shows no significant effusion on the right. There is an infiltration of the left. Acute hypotension, still on pressors. No evidence of any cardiogenic shock. This is likely a septic event. Serum cortisols at 50. Patient remains on pressors. Metabolic acidosis of an anion gap type patient continues to be in a bicarb infusion , his serum bicarb is improving and is currently up to 18 Elevated troponins, possibly related to supply/demand mismatch. No ECG evidence of acute ischemia Acute kidney injury likely related to acute tubular necrosis and shockthe creatinine is stable Elevated abnormal LFTs, CT evidence of a distended gallbladder with no apparent calculi or biliary tract dilation. Liver had fatty infiltration without any specific lesions or biliary tract dilation. consider shock liver Acute thrombocytopenia, consider underlying DIC. Less likely, drug effect including Zosyn and heparin. Possible history of polysubstance abuse Plan: Continue ventilator support, she is currently on FiO2 of 50%. No other ventilator changes without for today. Keep the pigtail catheter in place and monitor the pleural fluid output , output is minimal at this point in time Awaiting pleural fluid cytology low the pleural fluid is an exudate, the cytology turns out to be negative, the patient may need a peritoneal biopsy Awaiting final cultures from the other facility Continue Zosyn and vancomycin Keep pressors for now Continue bicarb infusion for another 24 hours Echocardiogram showed a preserved LV function Keep the patient off sedation proceed with a CAT scan of the brain Check ammonia level Continue enteral feeding for nutritional support Monitor the liver function tests and the numbers are essentially improving Stop heparin Check a DIC profile Conditions of significant and will continue to follow and will make further recommendations based on her progress. Very poor prognosis based on the above-mentioned comorbidities. Evaluation was done in more than 30 minutes. Time with Patient: Greater than 30
[2022-12-20] MEDS: HEPARIN SODIUM,PORCINE/PF 5,000 UNIT/0.5 ML SYRINGE SQ SCH (10:05)
[2022-12-20 10:43] LABS: Ionized Calcium 4.4 mg/dL (4.5-5.3)
[2022-12-20 10:44] LABS: INR 1.1 (<1.2); Partial Thromboplastin Time 25.6 sec (22.0-30.0); Prothrombin Time 11.3 sec (9.0-12.0)
[2022-12-20 10:53] LABS: Potassium 3.7 mmol/L (3.5-5.1)
[2022-12-20 11:35] LABS: Glucose,Whole Blood 178 mg/dL (70-110)
[2022-12-20] MEDS ORDERED: POTASSIUM BICARBONATE/CIT AC 20 MEQ TABLET.EFF NG-TUBE SCH (12:00)
--- NOTE | 2022-12-20 12:39 | CT ---
EXAMINATION TYPE: CT brain wo con DATE OF EXAM: 12/20/2022 COMPARISON: None HISTORY: Altered mental status CT DLP: 1153.[address] of the brain was performed. The ventricles, basal cisterns and sulci overlying the cerebral convexities demonstrate mild enlargem ent. There is no evidence for intracranial hemorrhage or sulcal effacement. There is decreased attenuation about the periventricular white matter and deep white matter of both c erebral hemispheres, compatible with chronic small vessel ischemia. Differential diagnosis does inclu de demyelination. No mass effects are seen.No midline shift. Mucosal thickening of the sphenoid sinus, ethmoid air cell s and maxillary sinus. Osseous calvarium is intact. If symptoms persist consider MRI. IMPRESSION: 1. Age related atrophic and chronic small vessel ischemic change without acute intracranial process s een at this time.
[2022-12-20] MEDS ORDERED: SODIUM CHLORIDE 0.9% 2,000 ML IV ONE (14:34)
--- NOTE | 2022-12-20 14:48 | P.PN ---
Progress Note - Text Progress Note Date: 12/20/22 Chief Complaint: Intubated This is a 62-year-old patient, being followed by Malik Vale, was transferred here from [facility]. Patient presented with a altered mental status had to be intubated. Apparently she was having episodes of vomiting for the possible. Summary from the hospital and contacted EMS about 5 days ago but patient refused to go to the hospital. Computed tomography scan of the hospital was unremarkable. CT of the abdomen and pelvis showed extensive nodular infiltration of the greater omentum and redness peritoneal nodularity of the left upper abdomen with some ascites.. Suggestive of metastatic disease. Also distended endometrial cavity was reported. Also distended gallbladder with no calculi. Fatty infiltration of liver. Large right pleural effusion with atelectasis of the right lower lobe. Partial atelectasis of right below. Some thickening of the gastric antrum and duodenum. Patient was hypotensive. Patient was decontaminated in the ER for maggots in the hair. This morning patient is intubated on the ventilator. With FiO2 50% and a PEEP of 5. Patient probably aspirated after vomiting. Has been placed on Zosyn. [employer] team earlier creatinine return to the family was unable to do so. Admitted with acute hypoxic respiratory failure, multifactorial, pneumonia, requiring ventilator assistance. Aspiration pneumonia. Septic shock. On IV levo fed. Metastatic carcinoma. December 19: ICU. Intubated. FiO2 50 to PEEP of 5. Sinus tachycardia heart rate 120. IV norepinephrine. Patient has been off propofol. Currently full code. Nurse did update the on the phone. Hasn't been in. According to the nurse patient was doing fine up to about September, as per patient's PCP. December 20: ICU. Intubated. FiO2 40 PEEP of 5. Sinus rhythm. IV norepinephrine. No family at bedside. Remains full code. IV Zosyn. Right-sided chest tube Active Medications Albuterol/Ipratropium (Ipratropium-Albuterol 3 Ml Neb) 3 ml INHALATION RT-Q4H [facility] Last Admin: 12/20/22 11:24 Dose: Not Given Aspirin (Aspirin 81 Mg) 81 mg PO DAILY [facility] Last Admin: 12/20/22 08:12 Dose: 81 mg Atorvastatin Calcium (Atorvastatin 40 Mg Tab) 40 mg PO DAILY [facility] Last Admin: 12/20/22 08:12 Dose: 40 mg Chlorhexidine Gluconate (Chlorhexidine Gluconate 15 Ml Cup) 15 ml MUCOUS MEM BID [facility] Last Admin: 12/20/22 08:12 Dose: 15 ml Dextrose/Water (Dextrose 50% Syringe 50 Ml) 25 ml IVP PER PROTOCOL PRN; Protocol PRN Reason: Hypoglycemia Dextrose/Water (Dextrose 50% Syringe 50 Ml) 50 ml IVP PER PROTOCOL PRN; Protocol PRN Reason: Hypoglycemia Propofol 1,000 mg/ IV Solution 100 mls @ 6.021 mls/hr IV .[id number] [facility]; Protocol Last Titration: 12/20/22 08:40 Dose: 0 mcg/kg/min, 0 mls/hr Sodium Bicarbonate 150 ml/ (Dextrose/Water) 1,150 mls @ 75 mls/hr IV .[id number] [facility] Last Admin: 12/20/22 08:15 Dose: 75 mls/hr Piperacillin Sod/Tazobactam (Sod 3.375 gm/ Sodium Chloride) 100 mls @ 25 mls/hr IVPB Q8HR [facility]; Protocol Last Admin: 12/20/22 08:12 Dose: 25 mls/hr Norepinephrine Bitartrate 8 mg (/ Sodium Chloride) 258 mls @ 23.859 mls/hr IV .[id number] [facility]; Protocol Last Titration: 12/20/22 14:17 Dose: 0.3 mcg/kg/min, 39.764 mls/hr Sodium Chloride (Saline 0.9%) 2,000 mls @ 999 mls/hr IV .Q2H1M ONE Stop: 12/20/22 16:34 Insulin Aspart (Insulin Aspart (Novolog) 100 Unit/Ml Vial) 0 unit SQ Q6HR [facility]; Protocol Last Admin: 12/20/22 11:50 Dose: 2 unit Miscellaneous Information (Vancomycin Iv Per Pharmacy 1 Each [facility] 1 each MISCELLANE DIRECTED PRN; Protocol PRN Reason: Per Protocol Miscellaneous Information (Potassium Replacement Protocol 1 Each Misc) 1 each MISCELLANE DAILY PRN; Protocol PRN Reason: Per Protocol Naloxone HCl (Naloxone 0.4 Mg/Ml 1 Ml Vial) 0.2 mg IV Q2M PRN PRN Reason: Opioid Reversal Pantoprazole Sodium (Pantoprazole 40 Mg/10 Ml Vial) 40 mg IV DAILY [facility] Last Admin: 12/20/22 08:11 Dose: 40 mg Past medical history to include: Hypertension, hyperlipidemia, arthritis Social history: Cannot be obtained Physical examination: VITAL SIGNS: Afebrile, 116, 18, 89/58, 100% on ventilator GENERAL: laying in bed intubated. Right-sided chest tube EYES: Pupils equal. Conjunctiva normal. HEENT: External appearance of nose and ears normal, oral cavity ET tube. NECK: JVD unable to assess; masses not palpable. HEART: First and second heart sounds are normal; no edema. LUNGS: Respiratory rate increased; decreased breath sounds. ABDOMEN: Soft, nontender, liver spleen not palpable, no masses palpable. PSYCH: Sedated l. INVESTIGATIONS, reviewed in the clinical context: December 20: WBC 6.9 hemoglobin 9.1 platelets 47 potassium 3.3 BUN 59 creatinine 1.8 to ionized calcium 4.4 AST 352 ALT 214 albumin 1.7 December 19: White count 7.6 hemoglobin 12.2 platelets 72 potassium 4 BUN 53 creatinine 1.93. ABG: PH 7.25 pCO2 33 pO2 159 White count 8.4 hemoglobin 12 platelets 88 sodium 136 potassium 4.4 BUN 65 creatinine 1.99 Lactic acid 6.2 CEA antigen 5.3 EKG tracing personally reviewed by me-normal sinus rhythm. Rate 84 Chest x-ray film personally reviewed by [id number] mass/infiltrate. Atelectasis. CT chest without contrast. Large right, small left pleural effusions. Mild peripheral edema. Colonic diverticulosis. Mesentric carcinomatosis. 2-D echocardiogram: EF 55-60%. Assessment and plan: -Acute hypoxic respiratory failure, multifactorial including possible pneumonia, right lower lobe collapse. Requiring ventilator assistance.: Not improving -Possible aspiration pneumonia IV Zosyn -Septic shock: Slow to respond IV fluids, levofed -Large right pleural effusion Right-sided chest tube placed December 18 -Metastatic mesenteric carcinomatosis. point primary unknown. Distended endometrium. -Altered mental status, multifactorial/metabolic encephalopathy/delirium -Elevated troponin from hemodynamic mismatch. No clinical evidence of acute coronary syndrome -Acute kidney injury, likely ATN could be from shock. Baseline creatinine not known.: Slow to respond -Nonalcoholic fatty liver disease. -Thrombocytopenia, cause unknown, could be from sepsis -Metabolic acidosis with a contribution from kidney injury Sodium bicarbonate drip IV Zosyn. Levo fed. Prognosis guarded. Being followed by multiple consultants. Sodium bicarbonate drip. Right-sided chest tube.
[2022-12-20 17:23] LABS: Glucose,Whole Blood 176 mg/dL (70-110)
--- NOTE | 2022-12-20 17:54 | P.PN ---
Subjective Progress Note Date: 12/20/22 CHIEF COMPLAINT: Altered mental status HISTORY OF PRESENT ILLNESS: The patient is a 62-year-old female transferred from [facility] with altered mental status. Patient is intubated and sedated requiring maximal amount of pressors. Per nursing, family present. ROS: Hypotensive shock. History of mental status PHYSICAL EXAM: VITAL SIGNS: Reviewed CONSTITUTIONAL: Well developed and in no acute distress. EYES: Conjuctivae without sclera icterus. HEAD, EARS, NOSE, THROAT: Moist buccal mucosa. Head is atraumatic, normocephalic. Hears conversational speech. No nasal drainage. RESPIRATORY: Non-labored respirations and equal bilateral excursions. Ventilated. CARDIOVASCULAR: Palpable 2+ radial pulses. ABDOMEN: No peritonitis. MUSCULOSKELETAL: No gross deformity of the lower extremities noted. No clubbing. No cyanosis. SKIN: Good skin turgor. Well perfused. NEUROLOGIC: Cranial nerves II through XII grossly intact. No focal or lateralizing signs. PSYCH: Sedated. CLINICAL LABS: Reviewed. Potassium low at 3.3. LFTs elevated and elevated. STUDIES: CT of the abdomen and pelvis, thorax reviewed demonstrates omental caking and large right pleural effusion with compression. This is my independent interpretation. Brain CT reviewed demonstrating acute hemorrhage or ischemic changes. This is my independent interpretation. ASSESSMENT: 1. Altered mental status 2. Metastatic disease 3. Hypokalemia 4. Elevated LFTs PLAN: 1. Clinically poor prognosis with metastaic disease. 2. She is on full support and on maximum pressors. 3. She has poor prognosis. 4. Consider hospice. 5. No benefit from surgical intervention. 6. Surgery signing off. 7. Please re-consult if needed. Objective - Vital Signs Vital signs: Vital Signs Temp 98.9 F 12/20/22 16:00 Pulse 102 H 12/20/22 17:00 Resp 18 12/20/22 17:00 BP 89/58 12/20/22 17:00 Pulse Ox 100 12/20/22 17:00 FiO2 40 12/20/22 17:00 Intake & Output 12/19/22 12/20/22 12/20/22 18:59 06:59 18:59 Intake Total 9210.644 5816.077 4007.528 Output Total 555 740 365 Balance 1342.761 331.448 2610.528 Weight 71.214 kg Intake: IV 591 293 5958 0.9 kvo 60 70 Calcium Gluconate in NaCl 100 1 gm In Saline 1 100ml. bag @ 100 mls/hr IVPB ONCE ONE Rx#:[id number] Dextrose 5% in Water 1, 825 975 750 000 ml @ 75 mls/hr IV . [id number] RAMESH with Sodium Bicarb (1 Meq/ml) 150 ml Rx#:[id number] Piperacillin-Tazobactam 3 100 .375 gm In Sodium Chloride 0.9% 100 ml @ 25 mls/hr IVPB Q12H [facility] Rx# :[id number] Sodium Chloride 0.9% 2, 1998 000 ml @ 999 mls/hr IV . Q2H1M ONE Rx#:[id number] Intake, IV Titration 782.761 361.077 686.528 Amount Calcium Gluconate in NaCl 100 2 gm In Saline 1 100ml. bag @ 100 mls/hr IVPB ONCE ONE Rx#:[id number] Norepinephrine 8 mg In 575.567 357.304 423.616 Sodium Chloride 0.9% 250 ml @ 0.18 MCG/KG/MIN 23. 859 mls/hr IV .[id number] [facility] Rx#:[id number] Vancomycin 1,250 mg In 250 Sodium Chloride 0.9% 250 ml @ 125 mls/hr IVPB ONCE ONE Rx#:[id number] propofoL 1,000 mg In 107.194 3.773 12.912 Empty Bag 1 bag @ 15 MCG/ KG/MIN 6.021 mls/hr IV . [id number] [facility] Rx#:[id number] Tube Feeding 70 190 313 Other 60 90 Output: Chest Tube Drainage 195 190 170 Chest Tube Right Upper 195 190 170 Lateral Chest Urine 360 550 195 Other: Voiding Method Indwelling Catheter Indwelling Catheter Indwelling Catheter ABP, PAP, CO, CI - Last Documented Arterial Blood Pressure 101/51 - Labs CBC & Chem 7: 12/20/22 03:55 12/20/22 10:00 Labs: Abnormal Lab Results - Last 24 Hours (Table) 12/19/22 12/19/22 12/19/22 Range/Units 18:14 21:20 23:09 RBC (3.80-5.40) m/uL Hgb (11.4-16.0) gm/dL Hct (34.0-46.0) % Plt Count (150-450) k/uL Lymphocytes # (1.0-4.8) k/uL D-Dimer (<0.60) mg/L FEU ABG pH (7.35-7.45) ABG pO2 (83-108) mmHg ABG HCO3 (21-25) mmol/L ABG O2 Saturation (94-97) % Potassium (3.5-5.1) mmol/L Chloride (98-107) mmol/L Carbon Dioxide (22-30) mmol/L BUN (7-17) mg/dL Creatinine (0.52-1.04) mg/dL Glucose (74-99) mg/dL POC Glucose (mg/dL) 166 H 152 H (70-110) mg/dL Calcium (8.4-10.2) mg/dL Ionized Calcium Miri 4.0 L (4.5-5.3) mg/dL AST (14-36) U/L ALT (4-34) U/L Alkaline Phosphatase (38-126) U/L Total Protein (6.3-8.2) g/dL Albumin (3.5-5.0) g/dL 12/20/22 12/20/22 12/20/22 Range/Units 03:55 03:55 03:55 RBC 3.34 L (3.80-5.40) m/uL Hgb 9.1 L D (11.4-16.0) gm/dL Hct 28.9 L (34.0-46.0) % Plt Count 47 L (150-450) k/uL Lymphocytes # 0.8 L (1.0-4.8) k/uL D-Dimer (<0.60) mg/L FEU ABG pH (7.35-7.45) ABG pO2 (83-108) mmHg ABG HCO3 (21-25) mmol/L ABG O2 Saturation (94-97) % Potassium 3.2 L 3.3 L (3.5-5.1) mmol/L Chloride 108 H (98-107) mmol/L Carbon Dioxide 19 L 18 L (22-30) mmol/L BUN 60 H 59 H (7-17) mg/dL Creatinine 1.77 H 1.82 H (0.52-1.04) mg/dL Glucose 118 H 119 H (74-99) mg/dL POC Glucose (mg/dL) (70-110) mg/dL Calcium 6.3 L* 6.3 L* (8.4-10.2) mg/dL Ionized Calcium Miri (4.5-5.3) mg/dL AST 352 H (14-36) U/L ALT 214 H (4-34) U/L Alkaline Phosphatase 338 H (38-126) U/L Total Protein 3.7 L (6.3-8.2) g/dL Albumin 1.7 L (3.5-5.0) g/dL 12/20/22 12/20/22 12/20/22 Range/Units 05:30 05:44 09:39 RBC (3.80-5.40) m/uL Hgb (11.4-16.0) gm/dL Hct (34.0-46.0) % Plt Count (150-450) k/uL Lymphocytes # (1.0-4.8) k/uL D-Dimer 5.82 H (<0.60) mg/L FEU ABG pH 7.28 L (7.35-7.45) ABG pO2 190 H (83-108) mmHg ABG HCO3 20 L (21-25) mmol/L ABG O2 Saturation 99.5 H (94-97) % Potassium (3.5-5.1) mmol/L Chloride (98-107) mmol/L Carbon Dioxide (22-30) mmol/L BUN (7-17) mg/dL Creatinine (0.52-1.04) mg/dL Glucose (74-99) mg/dL POC Glucose (mg/dL) (70-110) mg/dL Calcium (8.4-10.2) mg/dL Ionized Calcium Miri 4.2 L (4.5-5.3) mg/dL AST (14-36) U/L ALT (4-34) U/L Alkaline Phosphatase (38-126) U/L Total Protein (6.3-8.2) g/dL Albumin (3.5-5.0) g/dL 12/20/22 12/20/22 12/20/22 Range/Units 10:00 11:33 17:22 RBC (3.80-5.40) m/uL Hgb (11.4-16.0) gm/dL Hct (34.0-46.0) % Plt Count (150-450) k/uL Lymphocytes # (1.0-4.8) k/uL D-Dimer (<0.60) mg/L FEU ABG pH (7.35-7.45) ABG pO2 (83-108) mmHg ABG HCO3 (21-25) mmol/L ABG O2 Saturation (94-97) % Potassium (3.5-5.1) mmol/L Chloride (98-107) mmol/L Carbon Dioxide (22-30) mmol/L BUN (7-17) mg/dL Creatinine (0.52-1.04) mg/dL Glucose (74-99) mg/dL POC Glucose (mg/dL) 178 H 176 H (70-110) mg/dL Calcium (8.4-10.2) mg/dL Ionized Calcium Miri 4.4 L (4.5-5.3) mg/dL AST (14-36) U/L ALT (4-34) U/L Alkaline Phosphatase (38-126) U/L Total Protein (6.3-8.2) g/dL Albumin (3.5-5.0) g/dL Microbiology - Last 24 Hours (Table) 12/18/22 05:52 Gram Stain - Final Sputum Sputum Culture - Final Pseudomonas aeruginosa Sandra albicans 12/18/22 11:07 Blood Culture Gram Stain - Preliminary Blood Blood Culture - Preliminary Coagulase Negative Staph 12/18/22 11:42 Blood Culture - Preliminary Blood 12/18/22 14:45 Gram Stain - Preliminary Pleural Fluid Body Fluid Culture - Preliminary
[2022-12-20 23:25] LABS: Glucose,Whole Blood 195 mg/dL (70-110)
[2022-12-21] MEDS: IPRATROPIUM-ALBUTEROL 3 ML NEB INHALATION SCH ×7 (00:04→23:43)
[2022-12-21] MEDS: NOREPINEPHRINE 8 MG in SODIUM CHLORIDE 0.9% 250 ML IV SCH ×2 (01:19→22:14)
[2022-12-21 05:08] LABS: Albumin 1.7 g/dL (3.5-5.0); Potassium 3.5 mmol/L (3.5-5.1); Total Bilirubin 0.5 mg/dL (0.2-1.3); Total Protein 3.4 g/dL (6.3-8.2)
[2022-12-21 05:17] LABS: Basophils % (A) 0 %; Eosinophils # (A) 0.1 k/uL (0-0.7); Eosinophils % (A) 1 %; HCT 24.4 % (34.0-46.0); HGB 7.8 gm/dL (11.4-16.0); Hypochromasia Slight; Lymphocytes # (A) 0.6 k/uL (1.0-4.8); Lymphocytes % (A) 11 %; MCH 26.8 pg (25.0-35.0); MCHC 31.7 g/dL (31.0-37.0); MCV 84.5 fL (80.0-100.0); Mean Platelet Volume 12.3; Monocytes # (A) 0.1 k/uL (0-1.0); Monocytes % (A) 2 %; Neutrophils # (A) 4.7 k/uL (1.3-7.7); Neutrophils % (A) 86 %; Platelet Count 26 k/uL (150-450); Poikilocytosis Slight; RBC 2.89 m/uL (3.80-5.40); RDW 14.9 % (11.5-15.5); WBC 5.5 k/uL (3.8-10.6)
[2022-12-21] MEDS: INSULIN ASPART (NovoLOG) 100 UNIT/ML VIAL SQ SCH ×3 (05:23→18:15)
[2022-12-21] MEDS ORDERED: Potassium Replacement Protocol 1 EACH MISC MISCELLANE PRN (05:33)
[2022-12-21] MEDS: POTASSIUM BICARBONATE/CIT AC 20 MEQ TABLET.EFF NG-TUBE SCH ×2 (05:44→06:49)
[2022-12-21 06:03] LABS: ABG Base Excess 1.3 mmol/L; ABG HCO3 26 mmol/L (21-25); ABG Oxygen Saturation 99.2 % (94-97); ABG PCO2 41 mmHg (35-45); ABG PH 7.41 (7.35-7.45); ABG PO2 142 mmHg (83-108); ABG TCO2 27 mmol/L (19-24); Allen Test Performed? Yes
--- NOTE | 2022-12-21 07:35 | XR ---
EXAMINATION TYPE: XR chest 1V portable DATE OF EXAM: 12/21/2022 COMPARISON: 12/20/2022 HISTORY: SOB, Follow Up FINDINGS: Indwelling tubes and catheters are unchanged. No change in bibasilar opacities. Stable appearance of the cardio-mediastinal structures at this time. Evidence of remote granulomatous disease with calcified hilar mediastinal lymph nodes. Pleural effusion unchanged. IMPRESSION: 1. Stable portable chest. Clinical correlation and follow up until resolution is recommended.
[2022-12-21] MEDS: ATORVASTATIN 40 MG TAB PO SCH (07:42)
[2022-12-21] MEDS: PIPERACILLIN-TAZOBACTAM 3.375 GM in SODIUM CHLORIDE 0.9% 100 ML IVPB SCH ×2 (07:42→16:58)
[2022-12-21] MEDS: PANTOPRAZOLE 40 MG/10 ML VIAL IV SCH (07:42)
[2022-12-21] MEDS: CHLORHEXIDINE GLUCONATE 15 ML CUP MUCOUS MEM SCH ×2 (07:42→20:55)
--- NOTE | 2022-12-21 10:02 | P.PN ---
Subjective Progress Note Date: 12/21/22 I am seeing this patient in new consultation today 12/18/2022 in the intensive care unit after she was transferred from [facility]. Apparently, the patient presented to outside hospital altered and had to be intubated to protect her airway. The patient's medical history is largely unknown, I did reach out to contact the patient's family. They are poor historians, and unable to provide me with a detailed medical history or events leading up to her hospitalization in [place]. I was able to ascertain that she has been having frequent episodes of vomiting for the past month. In fact, someone in the household had contacted EMS 5 days prior, but she refused to go to the hospital. While at [facility], the patient did undergo a nonenhanced brain CT which showed no acute intracranial hemorrhage or mass effect. The patient also had a CT of the abdomen pelvis with contrast which showed extensive nodular infiltration of the greater omentum as well as peritoneal nodularity in the left upper abdomen with mild accompanying ascites. 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 The patient's uterus size was normal, but there was a distended endometrial cavity concerning for endometrial cancer. There was a distended gallbladder with no apparent calculi or bili tract dilation. Liver had fatty infiltration without any specific lesions or biliary tract dilation. There was a large right pleural effusion with atelectasis of the right lower lung and partial atelectasis of the right middle lung, left lung was clear without any significant effusions or infiltrates. There was gastroesophageal reflux with fluid within the esophagus. There is thickening of the gastric antrum and duodenal. No free air. No other obvious obstruction. The patient was hypotensive at the outside facility, and a right femoral central line was placed. The patient was transferred to [facility] last night in critical condition. The patient is currently intubated on mechanical ventilator with current settings of assist control, respiratory rate 18, tidal volume 400, FiO2 50%, PEEP of 5. ABGs done on these settings show a pO2 of 112, pCO2 of 33, pH of 7.22. Chest x-ray on arrival showed the ET tube approximately 1.5 cm from the debora, and this was withdrawn 2 cm. The patient does have an orogastric tube coursing below the diaphragm. There was a moderate right pleural effusion. Unfortunately, the patient did vomit and probably aspirated, the OG tube is hooked to low intermittent suction. I have added Zosyn for empiric antibiotic coverage. The patient currently has norepinephrine infusing at 0.08 mics per kilogram per minute. I've given an additional 2 L normal saline bolus patient's lactic was 15 at outside facility, and is down to 9.6. I did order a non- enhanced CT of the chest, abdomen, pelvis, the patient's renal function is poor. This redemonstrated mesenteric carcinomatosis. It also showed a large right and mild left pleural effusion and mild pulmonary edema. CBC on arrival shows a WBC count of 9.1, hemoglobin 13.1, hematocrit 42.9, platelets 78,000. BMP on admission shows a sodium 136, potassium 4.8, chloride 102, serum CO2 13, BUN 65, creatinine 2.17, glucose 129. LFTS are elevated with an AST 3691, ALT of 831, ALP 164. Normal saline infusing at 75 mL per hour. Troponins 0.317. No obvious ischemic changes of ECG. Urine output is in the order of 20 ml/hr. Urinalysis not suspicious for UTI. Urine drug screen was negative, apparently there was suspicion of past polysubstance abuse. The patient's condition is currently critical, I have made multiple attempts to reach out to the patient's family. It is unclear if they will be coming up to the hospital later this afternoon. The patient arrived in a disheveled state with maggots in her hair. She did have multiple bruises located on her back and chest. For now she will remain on the ventilator, and be monitored in the intensive care unit. On today's evaluation of 2022, the patient remains intubated on a mechanical ventilator. The patient is currently on propofol which is running at 30 mcg/kg/m. Nevertheless earlier this morning, the patient was taken off the propofol to evaluate her underlying mental status. She is currently off propofol and the patient is receiving a sedation holiday. She remains quite advanced on a mechanical ventilator a day rate of 18 with a tidal volume of 400 and FiO2 of 50% with a PEEP of 5. Her chest x-ray shows marked improvement elevation of the right lung. The patient had a pigtail catheter inserted yesterday into the right hemithorax and a total amount of output was 700 mL overnight and the patient without more than 1.5 L immediately after insertion. The fluid analysis still pending for now and the fluid was also sent for cytology. Meanwhile, a repeat CAT scan of the chest abdomen and pelvis was done which confirmed the presence of a large right-sided pleural effusion. There was evidence of mesenteric carcinomatosis and the etiology was unknown. There is also evidence of colonic diverticulosis. The patient remains quite acidotic and she remains in renal failure and hypotensive. Earlier this morning, the patient is on norepinephrine which is running at 0.22 mcg/kg/m and as such an arterial line will be inserted for accurate blood pressure monitoring. The patient's BUN is at 63 with a creatinine of 1.9. She remains acidotic although serum bicarb is improving and is up to 14. The patient remains on a bicarbonate infusion which is running at the rate of 75 mL an hour. She does have abnormal LFTs, AST is 3691 and ALT is a 31 with an alkaline phosphatase of 164, could be related to shock liver. CA 125 level is 1900 and this may be consistent with ovarian cancer. A consultation has been placed for OB GEN to evaluate those findings. The CEA level is 5.3. Troponins at 0.3. The patient's echocardiogram shows a preserved LV function. There was some mild mitral regurgitation. No significant pulmonary hypertension. The patient is on empiric antibiotic covera ge and she is currently on IV Zosyn. She also has a triple-lumen catheter in the right femoral vein that was inserted in an outside hospital. On today's evaluation of 12/20/2022, the patient remains intubated on a mechanical ventilator. She remains on propofol which is off since yesterday, and the patient has not have adequate neurological recovery. The patient remains unresponsive while being off sedatives. We decided to keep the propofol off on this patient. The CAT scan of the brain was initiated done at [facility] and was negative and I think is reasonable to repeat a CAT scan of the brain pressure the patient is not responsive off sedation. Anesthetic time, we were informed that the patient was growing gram-positive cocci in her blood at [facility]. Vancomycin was added. For now, she remains on a combination of Zosyn and vancomycin. The sputum is showing gram-negative bacillus and the chest x-rays showing clearing of the right-sided pleural effusion and ongoing infiltration of the left lung which is a combination of mixed interstitial and alveolar special in the left lower lobe. Hemodynamically, the patient received several fluid boluses yesterday and she responded nicely to the fluid bolus. She is still on norepinephrine which is running at 0.22 mcg/kg/m. She does have a central line and a arterial line was also added for better blood pressure m onitoring. She is afebrile. She is on a mechanical ventilator on this control mode at the rate of 18 with a tidal volume of 400 and FiO2 of 40% with a PEEP of 5. She is showing a pH of 7.28 with a pCO2 of 44 and pO2 190 and this was an FiO2 of 50%. Her white cell count today is at 6.9 with a hemoglobin of 9.1 and a platelet count of 47 and Rezulin electrolytes show a sodium of 140, potassium of 3.3, bicarb of 18 and a BUN of 59 and a creatinine of 1.8. LFTs are abnormal with an AST of 352, ALT of 214, alkaline phosphatase of 334. The CA on around 25 was 1900. Her blood culture in our facility was negative. The fluid cytology was sent and is still pending. The pleural fluid itself is an exudate. The output from the pigtail catheter is minimal at this point in time and there is no evidence of any air leak. The patient was started on enteral feeding for nutritional support and currently she is on vital AF at the rate of 30 mL an hour. His serum cortisol was at 50. Echocardiogram showed a preserved LV function without any signs of cardiomyopathy. 12/21/2022, the patient remains intubated on a mechanical ventilator. There was an obvious concern over mentation yesterday and the patient was completely unresponsive. She was taken off propofol and she's been off propofol for the past 48 hours. She is showing some minimal response to repeated stimulation. She withdraws to painful stimulation for now. This is however intermittent. The pupils were unequal yesterday. Based on that, the patient was given another CAT scan of the brain that showed no acute abnormalities. Upon stimulation, she would leave that open up her eyes and she will go back to sleep. She is still very much encephalopathic and lethargic. At the same time, the patient is still hypotensive/septic. The patient is on pressors and the pressor requirements have improved as the patient was given additional fluids yesterday and norepinephrine is running at 0.08 mcg/kg/m on today's evaluation. The patient is also on IV fluids at bicarb at 75 mL an hour. On her blood work, the serum bicarb is improved and is up to 26. The blood cultures positive for diabetes- negative staph. She had another positive blood culture at [facility] with gram-positive cocci and she has pseudomonas aeruginosa in her sputum and the patient is currently on accommodation Zosyn and vancomycin. She remains on a mechanical ventilator, assist control mode at the rate of 16, tidal volume of 400, FiO2 of 40% with a PEEP of 5. The chest x-ray shows no significant effusion the right, there is some small effusion infiltration on the left and orotracheal tube is in a good location. The blood gas shows a pH of 7.41 with a pCO2 of 41 and pO2 of 142. LFTs are obviously abnormal. The CBC shows a platelet count of 26 which is currently declining and the hemoglobin is at 7.8 with a white cell count of 5.5. In terms of her coagulation profile, d-dimer was positive at 5.8, fibrinogen was at 229. PT PTT INR were essentially within normal limits. The patient has vital AF running at 40 mL an hour. Objective - Vital Signs Vital signs: Vital Signs Temp 98.2 F 12/21/22 04:00 Pulse 96 12/21/22 07:00 Resp 18 12/21/22 07:00 BP 107/66 12/21/22 02:00 Pulse Ox 100 12/21/22 07:00 FiO2 40 12/21/22 08:19 Intake & Output 12/20/22 12/21/22 12/21/22 18:59 06:59 18:59 Intake Total 4307.045 1726.913 Output Total 405 320 Balance 3902.045 1406.913 Intake: IV 3168 900 0.9 kvo 70 Dextrose 5% in Water 1, 900 900 000 ml @ 75 mls/hr IV . [id number] RAMEHS with Sodium Bicarb (1 Meq/ml) 150 ml Rx#:[id number] Piperacillin-Tazobactam 3 200 .375 gm In Sodium Chloride 0.9% 100 ml @ 25 mls/hr IVPB Q12H RAMESH Rx# :[id number] Sodium Chloride 0.9% 2, 1997 000 ml @ 999 mls/hr IV . Q2H1M ONE Rx#:[id number] Intake, IV Titration 693.045 310.913 Amount Norepinephrine 8 mg In 430.133 310.913 Sodium Chloride 0.9% 250 ml @ 0.18 MCG/KG/MIN 23. 859 mls/hr IV .[id number] [facility] Rx#:[id number] Vancomycin 1,250 mg In 250 Sodium Chloride 0.9% 250 ml @ 125 mls/hr IVPB ONCE ONE Rx#:[id number] propofoL 1,000 mg In 12.912 Empty Bag 1 bag @ 15 MCG/ KG/MIN 6.021 mls/hr IV . [id number] [facility] Rx#:[id number] Tube Feeding 356 516 Other 90 Output: Chest Tube Drainage 180 Chest Tube Right Upper 180 Lateral Chest Urine 225 320 Other: Voiding Method Indwelling Catheter Indwelling Catheter Indwelling Catheter # Bowel Movements 1 ABP, PAP, CO, CI - Last Documented Arterial Blood Pressure 103/55 - Exam GENERAL EXAM: Patient is completely unresponsive off the sedation and the propofol was discontinued approximately 24 hours ago and synchronous with the mechanical ventilator. HEAD: Normocephalic medical EYES: Normal reaction of pupils, equal size. NOSE: Clear with pink turbinates. THROAT: No erythema or exudates. NECK: No masses, no JVD. CHEST: No chest wall deformity. LUNGS: Equal air entry with diffuse rhonchi, and diminished lung sounds at the right base. Intubated on mechanical ventilator. CVS: S1 and S2 normal with no audible murmur, regular rhythm. No extra heart sounds ABDOMEN: No hepatosplenomegaly, active bowel sounds, no guarding or rigidity. SPINE: No scoliosis or deformity SKIN: Ecchymosis right posterior back CENTRAL NERVOUS SYSTEM: Patient is still unresponsive, does withdrawal TO the painful stimulation. Pupils are round 5 mm in size and reactive to light. No nystagmus. No seizure activity. Cough and a gag are present. There are very weak. Motor and sensory functions cannot be assessed. The patient is currently off sedation. No facial asymmetry. EXTREMITIES: There is bilateral 3+ pitting edema. No clubbing, or cyanosis. Peripheral pulses are intact. - Labs CBC & Chem 7: 12/21/22 04:40 12/21/22 04:40 Labs: Abnormal Lab Results - Last 24 Hours (Table) 12/20/22 12/20/22 12/20/22 Range/Units 09:39 10:00 11:33 RBC (3.80-5.40) m/uL Hgb (11.4-16.0) gm/dL Hct (34.0-46.0) % Plt Count (150-450) k/uL Lymphocytes # (1.0-4.8) k/uL D-Dimer 5.82 H (<0.60) mg/L FEU ABG pO2 (83-108) mmHg ABG HCO3 (21-25) mmol/L ABG Total CO2 (19-24) mmol/L ABG O2 Saturation (94-97) % BUN (7-17) mg/dL Creatinine (0.52-1.04) mg/dL Glucose (74-99) mg/dL POC Glucose (mg/dL) 178 H (70-110) mg/dL Calcium (8.4-10.2) mg/dL Ionized Calcium Miri 4.4 L (4.5-5.3) mg/dL AST (14-36) U/L ALT (4-34) U/L Alkaline Phosphatase (38-126) U/L Total Protein (6.3-8.2) g/dL Albumin (3.5-5.0) g/dL 12/20/22 12/20/22 12/21/22 Range/Units 17:22 23:22 04:40 RBC (3.80-5.40) m/uL Hgb (11.4-16.0) gm/dL Hct (34.0-46.0) % Plt Count (150-450) k/uL Lymphocytes # (1.0-4.8) k/uL D-Dimer (<0.60) mg/L FEU ABG pO2 (83-108) mmHg ABG HCO3 (21-25) mmol/L ABG Total CO2 (19-24) mmol/L ABG O2 Saturation (94-97) % BUN 61 H (7-17) mg/dL Creatinine 1.72 H (0.52-1.04) mg/dL Glucose 150 H (74-99) mg/dL POC Glucose (mg/dL) 176 H 195 H (70-110) mg/dL Calcium 6.0 L* (8.4-10.2) mg/dL Ionized Calcium Miri (4.5-5.3) mg/dL AST 148 H (14-36) U/L ALT 111 H (4-34) U/L Alkaline Phosphatase 466 H (38-126) U/L Total Protein 3.4 L (6.3-8.2) g/dL Albumin 1.7 L (3.5-5.0) g/dL 12/21/22 12/21/22 12/21/22 Range/Units 04:40 05:40 05:59 RBC 2.89 L (3.80-5.40) m/uL Hgb 7.8 L (11.4-16.0) gm/dL Hct 24.4 L (34.0-46.0) % Plt Count 26 L (150-450) k/uL Lymphocytes # 0.6 L (1.0-4.8) k/uL D-Dimer (<0.60) mg/L FEU ABG pO2 142 H (83-108) mmHg ABG HCO3 26 H (21-25) mmol/L ABG Total CO2 27 H (19-24) mmol/L ABG O2 Saturation 99.2 H (94-97) % BUN (7-17) mg/dL Creatinine (0.52-1.04) mg/dL Glucose (74-99) mg/dL POC Glucose (mg/dL) (70-110) mg/dL Calcium (8.4-10.2) mg/dL Ionized Calcium Miri 4.0 L (4.5-5.3) mg/dL AST (14-36) U/L ALT (4-34) U/L Alkaline Phosphatase (38-126) U/L Total Protein (6.3-8.2) g/dL Albumin (3.5-5.0) g/dL Microbiology - Last 24 Hours (Table) 12/18/22 05:52 Gram Stain - Final Sputum Sputum Culture - Final Pseudomonas aeruginosa Sandra albicans 12/18/22 11:07 Blood Culture Gram Stain - Preliminary Blood Blood Culture - Preliminary Coagulase Negative Staph 12/18/22 11:42 Blood Culture - Preliminary Blood 12/18/22 14:45 Gram Stain - Preliminary Pleural Fluid Body Fluid Culture - Preliminary Assessment and Plan Assessment: Mesenteric carcinomatosis, with CT evidence of extensive nodular infiltration of the greater omentum as well as peritoneal nodularity in the left upper abdomen with mild accompanying ascites. 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 The patient's uterus size was normal, but there was a distended endometrial cavity concerning for endometrial cancer primary. At the same time, the patient's CA 125 level is at 1900 . Possibility of primary mesenteric carcinomatosis is being considered and we are awaiting the pleural fluid cytology. Meanwhile, I consultation will be placed also for interventional radiology for a possible core biopsy of the peritoneum. I think they're services are off for the weekend and this may need to be considered to be done by Thursday if the pleural fluid cytology turns out to be negative. Sepsis with gram-positive cocci in the blood as identified in the outside hospital. The patient is currently on accommodation Zosyn and vancomycin. Gram-negative bacillus is also cultured in the sputum and there is a possibility of a left lower lobe pneumonia. Patient remains on IV fluids. The patient remains on pressors. Norepinephrine is O- dose of 0.08 mcg/kg/m. Her pressor requirements have dropped since yesterday. White cell count is still stable at 5.5. There is a drop in hemoglobin probably related to aggressive fluid resuscitation. Altered mental status requiring intubation at outside facility for airway protection. Initial CAT scan of the brain is negative. Sedation was held yesterday and the patient is completely unresponsive over the past 48 hours. The patient is currently off propofol. She withdraws to painful stimulation. Overall, she is still unresponsive and not following any commands. There was some unequal pupils noted yesterday. CAT scan with the brain was repeated and no acute abnormalities were identified. The patient remains on propofol. Acute hypoxemic respiratory failure, currently on the mechanical ventilator. CT shows evidence of large right sided pleural effuand the patient had a pigtail catheter inserted with adequate reexpansion of the right lung. Chest x-ray from today shows adequate aeration in more than 2 L of pleural fluid was aspirated from the right lung. Awaiting fluid cytology. The pleural fluid is an exudate. The repeat chest x-ray shows no significant effusion on the right. There is an infiltration of the left. Left lower lobe pneumonia with pseudomonas aeruginosa, currently on Zosyn Acute hypotension, still on pressors. No evidence of any cardiogenic shock. This is likely a septic event. Serum cortisols at 50. Patient remains on pressors. This is most likely a septic shock either related to gram-positive cocci in her blood versus gram-negative pneumonia with pseudomonas aeruginosa in her lungs. The patient is on Zosyn and vancomycin and a pressor requirements have improved Metabolic acidosis of an anion gap type patient continues to be in a bicarb infusion , his serum bicarb is improving and normalized and the serum bicarb will be discontinued Elevated troponins, possibly related to supply/demand mismatch. No ECG evidence of acute ischemia Acute kidney injury likely related to acute tubular necrosis and shockthe creatinine is stable Elevated abnormal LFTs, CT evidence of a distended gallbladder with no apparent calculi or biliary tract dilation. Liver had fatty infiltration without any specific lesions or biliary tract dilation. consider shock liver Acute thrombocytopenia, consider underlying DIC. Less likely, drug effect including Zosyn and heparin. The heparin subcu was discontinued and the patient will be taken off the baby aspirin and the patient's DIC profile essentially negative. Monitor platelet count. Check hit antibody. Possible history of polysubstance abuse Hypocalcemia Plan: Continue ventilator support, Keep the pigtail catheter in place and monitor the pleural fluid output , output is minimal at this point in time Awaiting pleural fluid cytology low the pleural fluid is an exudate, the cytology turns out to be negative, the patient may need a peritoneal biopsy Awaiting final cultures from the other facility, there is gram-positive cocci in her blood and pseudomonas aeruginosa in his sputum Continue Zosyn and vancomycin Keep pressors for now, pressor requirements have improved Stop the bicarb infusion Echocardiogram showed a preserved LV function Keep the patient off sedation and the repeat CAT scan of the brain yesterday was negative Check ammonia level was done yesterday and the level was less than 9 Continue enteral feeding for nutritional support Monitor the liver function tests and the numbers are essentially improving Stop heparin Check a DIC profile and it was negative with a low-grade DIC cannot be ruled out. Thrombocytopenia is likely consumptive. We'll check hit antibodies. Discontinue aspirin and discontinue the heparin subcu Give an additional 2 g of calcium and monitor the ionized calcium Conditions of significant and will continue to follow and will make further recommendations based on her progress. Very poor prognosis based on the above-mentioned comorbidities. Evaluation was done in more than 30 minutes. Time with Patient: Greater than 30
[2022-12-21] MEDS ORDERED: CALCIUM GLUCONATE IN NACL 2 GM in SALINE 1 100ML.BAG IVPB ONE (11:00)
--- NOTE | 2022-12-21 11:25 | XR ---
EXAMINATION TYPE: XR chest 1V portable DATE OF EXAM: 12/21/2022 COMPARISON: 01/10/2023 HISTORY: SOB, Follow Up FINDINGS: Indwelling tubes and catheters are unchanged. No change in bibasilar opacities. Stable appearance of the cardio-mediastinal structures at this time. Pleural effusion unchanged. IMPRESSION: 1. Stable portable chest. Clinical correlation and follow up until resolution is recommended.
[2022-12-21 11:28] LABS: Glucose,Whole Blood 166 mg/dL (70-110)
[2022-12-21] MEDS: ASPIRIN 81 MG PO SCH (11:53)
[2022-12-21 12:50] LABS: Phosphorus 1.5 mg/dL (2.5-4.5); Potassium 3.9 mmol/L (3.5-5.1)
[2022-12-21] MEDS ORDERED: Phosphorus Replacement Protoco 1 EACH MISC MISCELLANE PRN (13:18)
[2022-12-21 13:30] LABS: Glucose,Whole Blood 138 mg/dL (70-110)
--- NOTE | 2022-12-21 14:23 | P.PN ---
Progress Note - Text Progress Note Date: 12/21/22 Chief Complaint: Intubated This is a 62-year-old patient, being followed by Malik Vale, was transferred here from [facility]. Patient presented with a altered mental status had to be intubated. Apparently she was having episodes of vomiting for the possible. Summary from the hospital and contacted EMS about 5 days ago but patient refused to go to the hospital. Computed tomography scan of the hospital was unremarkable. CT of the abdomen and pelvis showed extensive nodular infiltration of the greater omentum and redness peritoneal nodularity of the left upper abdomen with some ascites.. Suggestive of metastatic disease. Also distended endometrial cavity was reported. Also distended gallbladder with no calculi. Fatty infiltration of liver. Large right pleural effusion with atelectasis of the right lower lobe. Partial atelectasis of right below. Some thickening of the gastric antrum and duodenum. Patient was hypotensive. Patient was decontaminated in the ER for maggots in the hair. This morning patient is intubated on the ventilator. With FiO2 50% and a PEEP of 5. Patient probably aspirated after vomiting. Has been placed on Zosyn. [employer] team earlier creatinine return to the family was unable to do so. Admitted with acute hypoxic respiratory failure, multifactorial, pneumonia, requiring ventilator assistance. Aspiration pneumonia. Septic shock. On IV levo fed. Metastatic carcinoma. December 19: ICU. Intubated. FiO2 50 to PEEP of 5. Sinus tachycardia heart rate 120. IV norepinephrine. Patient has been off propofol. Currently full code. Nurse did update the on the phone. Hasn't been in. According to the nurse patient was doing fine up to about September, as per patient's PCP. December 3: ICU. Intubated. FiO2 40 PEEP of 5. Sinus rhythm. IV norepinephrine. No family at bedside. Remains full code. IV Zosyn. Right-sided chest tube December 4r: ICU. Intubated. 40/5. Sinus rhythm. IV levo fed. Nurse informed me that has disability and does not have a right. Right-sided chest port with decreased output. OG tube feeding. Active Medications Albuterol/Ipratropium (Ipratropium-Albuterol 3 Ml Neb) 3 ml INHALATION RT-Q4H RAMESH Last Admin: 12/21/22 11:30 Dose: Not Given Aspirin (Aspirin 81 Mg) 81 mg PO DAILY [facility] Last Admin: 12/21/22 11:53 Dose: Not Given Atorvastatin Calcium (Atorvastatin 40 Mg Tab) 40 mg PO DAILY [facility] Last Admin: 12/21/22 07:42 Dose: 40 mg Chlorhexidine Gluconate (Chlorhexidine Gluconate 15 Ml Cup) 15 ml MUCOUS MEM BID [facility] Last Admin: 12/21/22 07:42 Dose: 15 ml Dextrose/Water (Dextrose 50% Syringe 50 Ml) 25 ml IVP PER PROTOCOL PRN; Protocol PRN Reason: Hypoglycemia Dextrose/Water (Dextrose 50% Syringe 50 Ml) 50 ml IVP PER PROTOCOL PRN; Protocol PRN Reason: Hypoglycemia Propofol 1,000 mg/ IV Solution 100 mls @ 6.021 mls/hr IV .[id number] [facility]; Protocol Last Admin: 12/21/22 13:41 Dose: Not Given Piperacillin Sod/Tazobactam (Sod 3.375 gm/ Sodium Chloride) 100 mls @ 25 mls/hr IVPB Q8HR [facility]; Protocol Last Admin: 12/21/22 07:42 Dose: 25 mls/hr Norepinephrine Bitartrate 8 mg (/ Sodium Chloride) 258 mls @ 23.859 mls/hr IV .[id number] [facility]; Protocol Last Titration: 12/21/22 12:48 Dose: 0.06 mcg/kg/min, 7.953 mls/hr Potassium Phosphate 10 mmol/ (Sodium Chloride) 103.3333 mls @ 50 mls/hr IV Q2H [facility] Stop: 12/21/22 19:59 Insulin Aspart (Insulin Aspart (Novolog) 100 Unit/Ml Vial) 0 unit SQ Q6HR [facility]; Protocol Last Admin: 12/21/22 13:41 Dose: Not Given Miscellaneous Information (Vancomycin Iv Per Pharmacy 1 Each Mis) 1 each MISCELLANE DIRECTED PRN; Protocol PRN Reason: Per Protocol Miscellaneous Information (Potassium Replacement Protocol 1 Each Misc) 1 each MISCELLANE DAILY PRN; Protocol PRN Reason: Per Protocol Miscellaneous Information (Phosphorus Replacement Protoco 1 Each Misc) 1 each MISCELLANE DAILY PRN; Protocol PRN Reason: Per Protocol Naloxone HCl (Naloxone 0.4 Mg/Ml 1 Ml Vial) 0.2 mg IV Q2M PRN PRN Reason: Opioid Reversal Pantoprazole Sodium (Pantoprazole 40 Mg/10 Ml Vial) 40 mg IV DAILY [facility] Last Admin: 12/21/22 07:42 Dose: 40 mg Past medical history to include: Hypertension, hyperlipidemia, arthritis Social history: Cannot be obtained Physical examination: VITAL SIGNS: 97.1, 98, 18, 102/55, 100% on the ventilator GENERAL: laying in bed intubated. Right-sided chest tube EYES: Pupils equal. Conjunctiva normal. HEENT: External appearance of nose and ears normal, oral cavity ET tube. NECK: JVD unable to assess; masses not palpable. HEART: First and second heart sounds are normal; no edema. LUNGS: Respiratory rate increased; decreased breath sounds. ABDOMEN: Soft, nontender, liver spleen not palpable, no masses palpable. PSYCH: Sedated INVESTIGATIONS, reviewed in the clinical context: December 21: WBC 5.5 hemoglobin 7.8 platelets 26 potassium 3.5 BUN 61 creatinine 1.7 to AST 148 ALT 111 albumin 1.7 December 20: WBC 6.9 hemoglobin 9.1 platelets 47 potassium 3.3 BUN 59 creatinine 1.8 to ionized calcium 4.4 AST 352 ALT 214 albumin 1.7 December 19: White count 7.6 hemoglobin 12.2 platelets 72 potassium 4 BUN 53 creatinine 1.93. ABG: PH 7.25 pCO2 33 pO2 159 White count 8.4 hemoglobin 12 platelets 88 sodium 136 potassium 4.4 BUN 65 creatinine 1.99 Lactic acid 6.2 CEA antigen 5.3 EKG tracing personally reviewed by me-normal sinus rhythm. Rate 84 Chest x-ray film personally reviewed by [id number]-dbtur mass/infiltrate. Atelectasis. CT chest without contrast. Large right, small left pleural effusions. Mild peripheral edema. Colonic diverticulosis. Mesentric carcinomatosis. 2-D echocardiogram: EF 55-60%. Assessment and plan: -Acute hypoxic respiratory failure, multifactorial including possible pneumonia, right lower lobe collapse. Requiring ventilator assistance.: Not improving -Possible aspiration pneumonia IV Zosyn -Septic shock: Slow to respond IV fluids, levofed -Large right pleural effusion Right-sided chest tube placed December 18 -Metastatic mesenteric carcinomatosis. point primary unknown. Distended endometrium. -Altered mental status, multifactorial/metabolic encephalopathy/delirium -Elevated troponin from hemodynamic mismatch. No clinical evidence of acute coronary syndrome -Acute kidney injury, likely ATN could be from shock. Baseline creatinine not known.: Slow to respond -Nonalcoholic fatty liver disease. -Thrombocytopenia, cause unknown, could be from sepsis -Metabolic acidosis with a contribution from kidney injury: Sodium bicarbonate drip -Full code IV Zosyn. Levo fed. Right-sided chest tube. Decreased output.
[2022-12-21] MEDS: POTASSIUM PHOSPHATE 10 MMOL in SODIUM CHLORIDE 0.9% 100 ML IV SCH ×3 (14:56→19:16)
[2022-12-21 18:00] LABS: Glucose,Whole Blood 162 mg/dL (70-110)
[2022-12-21] MEDS ORDERED: FUROSEMIDE 10 MG/ML 2 ML VIAL IV ONE (23:51)
[2022-12-22 00:02] LABS: Glucose,Whole Blood 158 mg/dL (70-110)
[2022-12-22] MEDS: PIPERACILLIN-TAZOBACTAM 3.375 GM in SODIUM CHLORIDE 0.9% 100 ML IVPB SCH ×3 (00:06→18:05)
[2022-12-22] MEDS: INSULIN ASPART (NovoLOG) 100 UNIT/ML VIAL SQ SCH ×4 (00:07→18:19)
[2022-12-22] MEDS: IPRATROPIUM-ALBUTEROL 3 ML NEB INHALATION SCH ×6 (04:11→23:25)
[2022-12-22 04:38] LABS: Basophils % (A) 0 %; Eosinophils # (A) 0.1 k/uL (0-0.7); Eosinophils % (A) 2 %; HGB 8.4 gm/dL (11.4-16.0); Lymphocytes # (A) 0.5 k/uL (1.0-4.8); Lymphocytes % (A) 7 %; MCH 26.6 pg (25.0-35.0); MCHC 32.4 g/dL (31.0-37.0); MCV 82.1 fL (80.0-100.0); Mean Platelet Volume 13.3; Monocytes # (A) 0.2 k/uL (0-1.0); Monocytes % (A) 3 %; Neutrophils # (A) 5.7 k/uL (1.3-7.7); Neutrophils % (A) 88 %; Poikilocytosis Slight; RBC 3.17 m/uL (3.80-5.40); RDW 15.2 % (11.5-15.5); WBC 6.5 k/uL (3.8-10.6)
[2022-12-22 04:43] LABS: African American GFR (CKD) 30 (>60 ml/min/1.73 sqM); Anion Gap 10 mmol/L; Blood Urea Nitrogen 65 mg/dL (7-17); Carbon Dioxide 25 mmol/L (22-30); Chloride 106 mmol/L (98-107); Glucose 136 mg/dL (74-99); Non-African American GFR(CKD) 26 (>60 ml/min/1.73 sqM); Potassium 4.1 mmol/L (3.5-5.1); Sodium 141 mmol/L (137-145)
[2022-12-22 04:45] LABS: Calcium 6.4 mg/dL (8.4-10.2)
[2022-12-22 04:48] LABS: Vancomycin,Random 20.7 ug/mL
[2022-12-22 05:03] LABS: Platelet Count 19 k/uL (150-450)
[2022-12-22 05:59] LABS: ABG Base Excess 1.7 mmol/L; ABG HCO3 26 mmol/L (21-25); ABG Oxygen Saturation 99.4 % (94-97); ABG PCO2 39 mmHg (35-45); ABG PH 7.44 (7.35-7.45); ABG PO2 156 mmHg (83-108); ABG TCO2 27 mmol/L (19-24); Allen Test Performed? Yes
[2022-12-22] MEDS ORDERED: CALCIUM GLUCONATE IN NACL 1 GM in SALINE 1 100ML.BAG IVPB ONE (06:02)
[2022-12-22] MEDS: CHLORHEXIDINE GLUCONATE 15 ML CUP MUCOUS MEM SCH ×2 (09:27→21:21)
[2022-12-22] MEDS: ATORVASTATIN 40 MG TAB PO SCH (09:27)
[2022-12-22] MEDS: PANTOPRAZOLE 40 MG/10 ML VIAL IV SCH (09:27)
--- NOTE | 2022-12-22 09:51 | XR ---
EXAMINATION TYPE: XR chest 1V portable DATE OF EXAM: 12/22/2022 COMPARISON: NONE HISTORY: Shortness of breath TECHNIQUE: Single frontal view of the chest is obtained. FINDINGS: Right-sided chest tube is seen and there is any right-sided pleural effusion. No sizable p neumothorax. Hypertrophic and degenerative changes of the spine. ET tube, NG tube stable. Large calci fied lymph nodes are seen in the hilum and mediastinum. Small left pleural effusion is seen and there is underlying COPD. Right-sided drainage catheter again noted. IMPRESSION: 1. Small bibasilar subsegmental consolidation and small effusion stable.
--- NOTE | 2022-12-22 12:05 | P.PN ---
Subjective Progress Note Date: 12/22/22 Principal diagnosis: Unknown malignancy, peritoneal carcinomatous Pt ventilated, no propofol, she opens eyes and tracks around the room. Objective - Vital Signs Vital signs: Vital Signs Temp 98.1 F 12/22/22 08:00 Pulse 98 12/22/22 11:36 Resp 13 12/22/22 10:00 BP 107/66 12/22/22 07:00 Pulse Ox 100 12/22/22 10:00 FiO2 35 12/22/22 11:34 Intake & Output 12/21/22 12/22/22 12/22/22 18:59 06:59 18:59 Intake Total 1280.475 695.246 321.413 Output Total 269 325 260 Balance 1011.475 370.246 61.413 Weight 71.214 kg Intake: IV 720 90 120 0.9 kvo 70 90 20 Calcium Gluconate in NaCl 100 2 gm In Saline 1 100ml. bag @ 100 mls/hr IVPB ONCE ONE Rx#:[id number] Dextrose 5% in Water 1, 150 000 ml @ 75 mls/hr IV . [id number] RAMESH with Sodium Bicarb (1 Meq/ml) 150 ml Rx#:[id number] Piperacillin-Tazobactam 3 200 100 .375 gm In Sodium Chloride 0.9% 100 ml @ 25 mls/hr IVPB Q12H [facility] Rx# :[id number] Potassium Phosphate 10 200 mmol In Sodium Chloride 0 .9% 100 ml @ 50 mls/hr IV Q2H [facility] Rx#:[id number] Intake, IV Titration 96.475 89.246 42.413 Amount Norepinephrine 8 mg In 96.475 89.246 42.413 Sodium Chloride 0.9% 250 ml @ 0.18 MCG/KG/MIN 23. 859 mls/hr IV .[id number] [facility] Rx#:[id number] Tube Feeding 344 516 129 Other 120 30 Output: Chest Tube Drainage 95 40 220 Chest Tube Right Upper 95 40 220 Lateral Chest Urine 174 285 40 Other: Voiding Method Indwelling Catheter Indwelling Catheter # Bowel Movements 1 1 ABP, PAP, CO, CI - Last Documented Arterial Blood Pressure 116/63 - Constitutional General appearance: Present: average body habitus, no acute distress - EENT EENT Comment(s): pupils 4-5mm, round, reactive Eyes: Present: anicteric sclerae, poor dentition - Respiratory Details: resp even and unlabored on vent - Cardiovascular Rhythm: regular - Peripheral edema leg Peripheral Edema: bilateral: Trace - Gastrointestinal General gastrointestinal: Present: distended, soft - Integumentary Integumentary Comment(s): petechiae and ecchymosis on the torso and extremities - Neurologic Neurologic Comment(s): pt moved foot to plantar surface stimuli - Psychiatric Psychiatric: Absent: A&O x's 3, appropriate affect, intact judgment & insight - Labs CBC & Chem 7: 12/22/22 04:20 12/22/22 04:20 Labs: Abnormal Lab Results - Last 24 Hours (Table) 12/21/22 12/21/22 12/21/22 Range/Units 10:23 13:27 17:59 RBC (3.80-5.40) m/uL Hgb (11.4-16.0) gm/dL Hct (34.0-46.0) % Plt Count (150-450) k/uL Lymphocytes # (1.0-4.8) k/uL ABG pO2 (83-108) mmHg ABG HCO3 (21-25) mmol/L ABG Total CO2 (19-24) mmol/L ABG O2 Saturation (94-97) % BUN (7-17) mg/dL Creatinine (0.52-1.04) mg/dL Glucose (74-99) mg/dL POC Glucose (mg/dL) 138 H 162 H (70-110) mg/dL Calcium (8.4-10.2) mg/dL Phosphorus 1.5 L (2.5-4.5) mg/dL 12/22/22 12/22/22 12/22/22 Range/Units 00:00 04:20 04:20 RBC 3.17 L (3.80-5.40) m/uL Hgb 8.4 L (11.4-16.0) gm/dL Hct 26.0 L (34.0-46.0) % Plt Count 19 L* (150-450) k/uL Lymphocytes # 0.5 L (1.0-4.8) k/uL ABG pO2 (83-108) mmHg ABG HCO3 (21-25) mmol/L ABG Total CO2 (19-24) mmol/L ABG O2 Saturation (94-97) % BUN 65 H (7-17) mg/dL Creatinine 1.98 H (0.52-1.04) mg/dL Glucose 136 H (74-99) mg/dL POC Glucose (mg/dL) 158 H (70-110) mg/dL Calcium 6.4 L* (8.4-10.2) mg/dL Phosphorus (2.5-4.5) mg/dL 12/22/22 Range/Units 05:55 RBC (3.80-5.40) m/uL Hgb (11.4-16.0) gm/dL Hct (34.0-46.0) % Plt Count (150-450) k/uL Lymphocytes # (1.0-4.8) k/uL ABG pO2 156 H (83-108) mmHg ABG HCO3 26 H (21-25) mmol/L ABG Total CO2 27 H (19-24) mmol/L ABG O2 Saturation 99.4 H (94-97) % BUN (7-17) mg/dL Creatinine (0.52-1.04) mg/dL Glucose (74-99) mg/dL POC Glucose (mg/dL) (70-110) mg/dL Calcium (8.4-10.2) mg/dL Phosphorus (2.5-4.5) mg/dL Microbiology - Last 24 Hours (Table) 12/18/22 11:42 Blood Culture - Preliminary Blood 12/18/22 11:07 Blood Culture Gram Stain - Final Blood Blood Culture - Final Coagulase Negative Staph 12/18/22 14:45 Gram Stain - Preliminary Pleural Fluid Body Fluid Culture - Preliminary 12/18/22 14:45 Anaerobic Culture - Preliminary Pleural Fluid 12/18/22 14:45 Acid Fast Bacilli Smear - Final Pleural Fluid Acid Fast Bacilli Culture - Preliminary - Imaging and Cardiology Chest x-ray: report reviewed CT Scan - head: report reviewed (CT of the brain without contrast no evidence for hemorrhage, or lesions. Age-related atrophic and chronic small vessel ischemic change) Assessment and Plan (1) Carcinomatosis Current Visit: Yes Status: Acute Priority: High Code(s): C80.0 - DISSEMINATED MALIGNANT NEOPLASM, UNSPECIFIED SNOMED Code(s): 489403737 (2) Pleural effusion Current Visit: Yes Status: Acute Priority: High Code(s): J90 - PLEURAL E FFUSION, NOT ELSEWHERE CLASSIFIED SNOMED Code(s): 40621106 (3) Respiratory failure Current Visit: Yes Status: Acute Priority: High Code(s): J96.90 - RESPIRATORY FAILURE, UNSP, UNSP W HYPOXIA OR HYPERCAPNIA SNOMED Code(s): 534287091 Plan: Respiratory failure -Sputum positive for Pseudomonas. Patient being followed by Pulmonary -Pt is mechanically ventilated, she is off sedation -Per Nursing, Internal Medicine is planning a meeting with the family to discuss CODE STATUS. This is certainly reasonable based on her hypoxic respiratory failure and concerns for neurological changes. Mesenteric carcinomatosis -No formal diagnosis yet. Pleural fluid cytology pending. -Ca 125 1900, CEA WNL -Patient is very private about her medical history per reports. We'll have to see what information patient wants her family to know. We also need to clarify if patient desires further workup, as it is my understanding, she has chosen not to pursue workup in the past. All of the aforementioned is dependent upon if patient is extubated. We will continue to follow along. No further testing ri ght now from an Oncology standpoint Bicytopenia -Platelets 19,000 today. Patient has significant evidence of petechiae on the torso, bruising and ecchymoses. 1 unit single donor platelets ordered. CBC in the a.m. -Hemoglobin 8.4. This is stable.
--- NOTE | 2022-12-22 12:22 | P.PN ---
Progress Note - Text Progress Note Date: 12/22/22 Patient remains on the ventilator. She is tolerating tube feeds. Cytology from the pleural fluid is still pending. No surgical plans at this time. CODE STATUS discussions are apparently already underway and family is waiting for final pathology to make determination regarding extensive care. We'll sign off. Please call if needed.
[2022-12-22 12:26] LABS: Glucose,Whole Blood 158 mg/dL (70-110)
--- NOTE | 2022-12-22 13:02 | P.PN ---
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 I am seeing this patient in new consultation today 12/18/2022 in the intensive care unit after she was transferred from [facility]. Apparently, the patient presented to outside hospital altered and had to be intubated to protect her airway. The patient's medical history is largely unknown, I did reach out to contact the patient's family. They are poor historians, and unable to provide me with a detailed medical history or events leading up to her hospitalization in [place]. I was able to ascertain that she has been having frequent episodes of vomiting for the past month. In fact, someone in the household had contacted EMS 5 days prior, but she refused to go to the hospital. While at [facility], the patient did undergo a nonenhanced brain CT which showed no acute intracranial hemorrhage or mass effect. The patient also had a CT of the abdomen pelvis with contrast which showed extensive nodular infiltration of the greater omentum as well as peritoneal nodularity in the left upper abdomen with mild accompanying ascites. 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 The patient's uterus size was normal, but there was a distended endometrial cavity concerning for endometrial cancer. There was a distended gallbladder with no apparent calculi or bili tract dilation. Liver had fatty infiltration without any specific lesions or biliary tract dilation. There was a large right pleural effusion with atelectasis of the right lower lung and partial atelectasis of the right middle lung, left lung was clear without any significant effusions or infiltrates. There was gastroesophageal reflux with fluid within the esophagus. There is thickening of the gastric antrum and duodenal. No free air. No other obvious obstruction. The patient was hypotensive at the outside facility, and a right femoral central line was placed. The patient was transferred to [facility] last night in critical condition. The patient is currently intubated on mechanical ventilator with current settings of assist control, respiratory rate 18, tidal volume 400, FiO2 50%, PEEP of 5. ABGs done on these settings show a pO2 of 112, pCO2 of 33, pH of 7.22. Chest x-ray on arrival showed the ET tube approximately 1.5 cm from the debora, and this was withdrawn 2 cm. The patient does have an orogastric tube coursing below the diaphragm. There was a moderate right pleural effusion. Unfortunately, the patient did vomit and probably aspirated, the OG tube is hooked to low intermittent suction. I have added Zosyn for empiric antibiotic coverage. The patient currently has norepinephrine infusing at 0.08 mics per ki logram per minute. I've given an additional 2 L normal saline bolus patient's lactic was 15 at outside facility, and is down to 9.6. I did order a non- enhanced CT of the chest, abdomen, pelvis, the patient's renal function is poor. This redemonstrated mesenteric carcinomatosis. It also showed a large right and mild left pleural effusion and mild pulmonary edema. CBC on arrival shows a WBC count of 9.1, hemoglobin 13.1, hematocrit 42.9, platelets 78,000. BMP on admission shows a sodium 136, potassium 4.8, chloride 102, serum CO2 13, BUN 65, creatinine 2.17, glucose 129. LFTS are elevated with an AST 3691, ALT of 831, ALP 164. Normal saline infusing at 75 mL per hour. Troponins 0.317. No obvious ischemic changes of ECG. Urine output is in the order of 20 ml/hr. Urinalysis not suspicious for UTI. Urine drug screen was negative, apparently there was suspicion of past polysubstance abuse. The patient's condition is currently critical, I have made multiple attempts to reach out to the patient's family. It is unclear if they will be coming up to the hospital later this afternoon. The patient arrived in a disheveled state with maggots in her hair. She did have multiple bruises located on her back and chest. For now she will remain on the ventilator, and be monitored in the intensive care unit. On today's evaluation of 2022, the patient remains intubated on a mechanical ventilator. The patient is currently on propofol which is running at 30 mcg/kg/m. Nevertheless earlier this morning, the patient was taken off the propofol to evaluate her underlying mental status. She is currently off propofol and the patient is receiving a sedation holiday. She remains quite a dvanced on a mechanical ventilator a day rate of 18 with a tidal volume of 400 and FiO2 of 50% with a PEEP of 5. Her chest x-ray shows marked improvement elevation of the right lung. The patient had a pigtail catheter inserted yesterday into the right hemithorax and a total amount of output was 700 mL overnight and the patient without more than 1.5 L immediately after insertion. The fluid analysis still pending for now and the fluid was also sent for cytology. Meanwhile, a repeat CAT scan of the chest abdomen and pelvis was done which confirmed the presence of a large right-sided pleural effusion. There was evidence of mesenteric carcinomatosis and the etiology was unknown. There is al so evidence of colonic diverticulosis. The patient remains quite acidotic and she remains in renal failure and hypotensive. Earlier this morning, the patient is on norepinephrine which is running at 0.22 mcg/kg/m and as such an arterial line will be inserted for accurate blood pressure monitoring. The patient's BUN is at 63 with a creatinine of 1.9. She remains acidotic although serum bicarb i s improving and is up to 14. The patient remains on a bicarbonate infusion which is running at the rate of 75 mL an hour. She does have abnormal LFTs, AST is 3691 and ALT is a 31 with an alkaline phosphatase of 164, could be related to shock liver. CA 125 level is 1900 and this may be consistent with ovarian cancer. A consultation has been placed for OB GEN to evaluate those findings. The CEA level is 5.3. Troponins at 0.3. The patient's echocardiogram shows a preserved LV function. There was some mild mitral regurgitation. No significant pulmonary hypertension. The patient is on empiric antibiotic coverage and she is currently on IV Zosyn. She also has a triple-lumen catheter in the right femoral vein that was inserted in an outside hospital. On today's evaluation of 12/20/2022, the patient remains intubated on a mechanical ventilator. She remains on propofol which is off since yesterday, and the patient has not have adequate neurological recovery. The patient remains unresponsive while being off sedatives. We decided to keep the propofol off on this patient. The CAT scan of the brain was initiated done at [facility] and was negative and I think is reasonable to repeat a CAT scan of the brain pressure the patient is not responsive off sedation. Anesthetic time, we were informed that the patient was growing gram-positive cocci in her blood at [facility]. Vancomycin was added. For now, she remains on a combination of Zosyn and vancomycin. The sputum is showing gram-negative bacillus and the chest x-rays showing clearing of the right-sided pleural effusion and ongoing infiltration of the left lung which is a combination of mixed interstitial and alveolar special in the left lower lobe. Hemodynamically, the patient received several fluid boluses yesterday and she responded nicely to the fluid bolus. She is still on norepinephrine which is running at 0.22 mcg/kg/m. She does have a central line and a arterial line was also added for better blood pressure monitoring. She is afebrile. She is on a mechanical ventilator on this control mode at the rate of 18 with a tidal volume of 400 and FiO2 of 40% with a PEEP of 5. She is showing a pH of 7.28 with a pCO2 of 44 and pO2 190 and this was an FiO2 of 50%. Her white cell count today is at 6.9 with a hemoglobin of 9.1 and a platelet count of 47 and Rezulin electrolytes show a sodium of 140, potassium of 3.3, bicarb of 18 and a BUN of 59 and a creatinine of 1.8. LFTs are abnormal with an AST of 352, ALT of 214, alkaline phosphatase of 334. The CA on around 25 was 1900. Her blood culture in our facility was negative. The fluid cytology was sent and is still pending. The pleural fluid itself is an exudate. The output from the pigtail catheter is minimal at this point in time and there is no evidence of any air leak. The patient was started on enteral feeding for nutritional support and currently she is on vital AF at the rate of 30 mL an hour. His serum cortisol was at 50. Echocardiogram showed a preserved LV function without any signs of cardiomyopathy. 12/21/2022, the patient remains intubated on a mechanical ventilator. There was an obvious concern over mentation yesterday and the patient was completely unresponsive. She was taken off propofol and she's been off propofol for the past 48 hours. She is showing some minimal response to repeated stimulation. She withdraws to painful stimulation for now. This is however intermittent. The pupils were unequal yesterday. Based on that, the patient was given another CAT scan of the brain that showed no acute abnormalities. Upon stimulation, she would leave that open up her eyes and she will go back to sleep. She is still very much encephalopathic and lethargic. At the same time, the patient is still hypotensive/septic. The patient is on pressors and the pressor requirements have improved as the patient was given additional fluids yesterday and norepinephrine is running at 0.08 mcg/kg/m on today's evaluation. The patient is also on IV fluids at bicarb at 75 mL an hour. On her blood work, the serum bicarb is improved and is up to 26. The blood cultures positive for diabetes-negative staph. She had another positive blood culture at [facility] with gram-positive cocci and she has pseudomonas aeruginosa in her sputum and the patient is currently on accommodation Zosyn and vancomycin. She remains on a mechanical ventilator, assist control mode at the rate of 16, tidal volume of 400, FiO2 of 40% with a PEEP of 5. The chest x-ray shows no significant effusion the right, there is some small effusion infiltration on the left and orotracheal tube is in a good location. The blood gas shows a pH of 7.41 with a pCO2 of 41 and pO2 of 142. LFTs are obviously abnormal. The CBC shows a platelet count of 26 which is currently declining and the hemoglobin is at 7.8 with a white cell count of 5.5. In terms of her coagulation profile, d- dimer was positive at 5.8, fibrinogen was at 229. PT PTT INR were essentially within normal limits. The patient has vital AF running at 40 mL an hour. Reevaluated today on 12/22/2022, patient remains in the ICU, intubated. Patient is on assist control rate of 18 tidal volume 400 FiO2 40% and PEEP of 5 ABG showed a pO2 of 156 pCO2 of 38 pH of 7.44. Patient remains on norepinephrine at 0.04 mcg/kg/m. Continues to have significant thrombocytopenia and petechiae/ecchymosis. Patient is off heparin for now. Platelets today are 19, 000. Pathology from the pleural effusion is pending, I suspect that the pleural effusion is malignant unless for otherwise. Patient continues to have a pigtail catheter in place. And she continues to have some drainage from the left chest tube. Off propofol, patient is showing minimal response to stimulation, she only withdraws to painful stimuli, pupils are equal and reactive. Patient is definitely encephalopathic and lethargic. And still hypotensive requiring norepinephrine. Her sputum has been positive for pseudomonas aeruginosa. And her blood cultures from [place] were positive for gram-positive cocci, however this was noted to be coagulase-negative staph. Labs today showed WBC count of 6.5 hemoglobin is 8.4 platelets are 19,000, electrolytes are normal bicarb is normal BUN is 65 creatinine 1.98, not changing much in the last few days, hence we'll hold on nephrology consultation. I have a feeling give this patient is up to have malignant pleural effusion, then there is no need for peritoneal biopsy and at that point I would definitely consider comfort care measures on this patient but that is to be addressed with family once a diagnosis is made. Objective - Vital Signs Vital signs: Vital Signs Temp 97.9 F 12/22/22 12:00 Pulse 96 12/22/22 12:30 Resp 18 12/22/22 12:30 BP 107/66 12/22/22 07:00 Pulse Ox 100 12/22/22 12:30 FiO2 35 12/22/22 12:00 Intake & Output 12/21/22 12/22/22 12/22/22 18:59 06:59 18:59 Intake Total 1280.475 695.246 321.413 Output Total 269 325 260 Balance 1011.475 370.246 61.413 Weight 71.214 kg Intake: IV 720 90 120 0.9 kvo 70 90 20 Calcium Gluconate in NaCl 100 2 gm In Saline 1 100ml. bag @ 100 mls/hr IVPB ONCE ONE Rx#:[id number] Dextrose 5% in Water 1, 150 000 ml @ 75 mls/hr IV . [id number] RAMESH with Sodium Bicarb (1 Meq/ml) 150 ml Rx#:[id number] Piperacillin-Tazobactam 3 200 100 .375 gm In Sodium Chloride 0.9% 100 ml @ 25 mls/hr IVPB Q12H RAMESH Rx# :[id number] Potassium Phosphate 10 200 mmol In Sodium Chloride 0 .9% 100 ml @ 50 mls/hr IV Q2H RAMESH Rx#:[id number] Intake, IV Titration 96.475 89.246 42.413 Amount Norepinephrine 8 mg In 96.475 89.246 42.413 Sodium Chloride 0.9% 250 ml @ 0.18 MCG/KG/MIN 23. 859 mls/hr IV .[id number] RAMESH Rx#:[id number] Tube Feeding 344 516 129 Other 120 30 Output: Chest Tube Drainage 95 40 220 Chest Tube Right Upper 95 40 220 Lateral Chest Urine 174 285 40 Other: Voiding Method Indwelling Catheter Indwelling Catheter # Bowel Movements 1 1 ABP, PAP, CO, CI - Last Documented Arterial Blood Pressure 95/51 - Exam Physical Exam: Revealed 62-year-old female intubated, mechanically ventilated, unresponsive to stimuli except opening eyes only. Head: Atraumatic, normocephalic. HEENT:[Neck is supple.] [No neck masses.] [No thyromegaly.] [No JVD.] Chest: [Symmetrical chest expansion, scattered rhonchi noted bilaterally. Cardiac Exam: [Normal S1 and S2, no S3 gallop, no murmur.] Abdomen: Soft nontender pneumonia no rebound no guarding Extremities: 2+ bipedal edema, there is evidence of petechiae and ecchymosis noted bilaterally. Neurological Exam: Opens eyes to deep painful stimuli, unresponsive, withdraws to painful stimuli. Pupils are equally reactive otherwise no gross focal deficits. No facial asymmetry Skin: Areas of ecchymosis, purpura, and petechiae noted bilaterally. - Labs CBC & Chem 7: 12/22/22 04:20 12/22/22 04:20 Labs: Abnormal Lab Results - Last 24 Hours (Table) 12/21/22 12/21/22 12/21/22 Range/Units 10:23 13:27 17:59 RBC (3.80-5.40) m/uL Hgb (11.4-16.0) gm/dL Hct (34.0-46.0) % Plt Count (150-450) k/uL Lymphocytes # (1.0-4.8) k/uL ABG pO2 (83-108) mmHg ABG HCO3 (21-25) mmol/L ABG Total CO2 (19-24) mmol/L ABG O2 Saturation (94-97) % BUN (7-17) mg/dL Creatinine (0.52-1.04) mg/dL Glucose (74-99) mg/dL POC Glucose (mg/dL) 138 H 162 H (70-110) mg/dL Calcium (8.4-10.2) mg/dL Phosphorus 1.5 L (2.5-4.5) mg/dL 12/22/22 12/22/22 12/22/22 Range/Units 00:00 04:20 04:20 RBC 3.17 L (3.80-5.40) m/uL Hgb 8.4 L (11.4-16.0) gm/dL Hct 26.0 L (34.0-46.0) % Plt Count 19 L* (150-450) k/uL Lymphocytes # 0.5 L (1.0-4.8) k/uL ABG pO2 (83-108) mmHg ABG HCO3 (21-25) mmol/L ABG Total CO2 (19-24) mmol/L ABG O2 Saturation (94-97) % BUN 65 H (7-17) mg/dL Creatinine 1.98 H (0.52-1.04) mg/dL Glucose 136 H (74-99) mg/dL POC Glucose (mg/dL) 158 H (70-110) mg/dL Calcium 6.4 L* (8.4-10.2) mg/dL Phosphorus (2.5-4.5) mg/dL 12/22/22 12/22/22 Range/Units 05:55 12:19 RBC (3.80-5.40) m/uL Hgb (11.4-16.0) gm/dL Hct (34.0-46.0) % Plt Count (150-450) k/uL Lymphocytes # (1.0-4.8) k/uL ABG pO2 156 H (83-108) mmHg ABG HCO3 26 H (21-25) mmol/L ABG Total CO2 27 H (19-24) mmol/L ABG O2 Saturation 99.4 H (94-97) % BUN (7-17) mg/dL Creatinine (0.52-1.04) mg/dL Glucose (74-99) mg/dL POC Glucose (mg/dL) 158 H (70-110) mg/dL Calcium (8.4-10.2) mg/dL Phosphorus (2.5-4.5) mg/dL Microbiology - Last 24 Hours (Table) 12/18/22 11:42 Blood Culture - Preliminary Blood 12/18/22 11:07 Blood Culture Gram Stain - Final Blood Blood Culture - Final Coagulase Negative Staph 12/18/22 14:45 Gram Stain - Preliminary Pleural Fluid Body Fluid Culture - Preliminary 12/18/22 14:45 Anaerobic Culture - Preliminary Pleural Fluid 12/18/22 14:45 Acid Fast Bacilli Smear - Final Pleural Fluid Acid Fast Bacilli Culture - Preliminary Assessment and Plan Assessment: Impression: Acute hypoxic respiratory failure secondary to sepsis and septic shock and secondary to large left pleural effusion.. Patient is still requiring pressors/norepinephrine. Mesenteric carcinomatosis may eventually require core biopsy of the peritoneum if we could not get an answer from her pleural effusion. Suspect malignant pleural effusion, cytology is pending. Acute metabolic acidosis requiring bicarbonate infusion on presentation Acute kidney injury secondary to above. Acute thrombocytopenia, DIC was ruled out, H IT panel is pending, in the meantime the patient is off heparin, and being addressed by hematology on the case. Elevated troponin possibly related to supply/demand mismatch. Possible history of substance abuse Recommendation: Continue ventilatory support Continue nutritional support Continue GI prophylaxis and continue to hold heparin Awaiting cytology from the left pleural effusion Consider peritoneal biopsy by interventional radiology unless we get an answer from the pleural effusion and then I would strongly recommend addressing with the family comfort care measures Continue antibiotics for Pseudomonas in the sputum Continue enteral feeding Continue to monitor liver enzymes Check H IT panel Overall patient is a very poor prognosis Patient is critically Will continue to follow Critical care time is over 30 minutes Time with Patient: Greater than 30
--- NOTE | 2022-12-22 14:03 | P.PN ---
Progress Note - Text Progress Note Date: 12/22/22 Chief Complaint: Intubated This is a 62-year-old patient, being followed by Malik Vale, was transferred here from [facility]. Patient presented with a altered mental status had to be intubated. Apparently she was having episodes of vomiting for the possible. Summary from the hospital and contacted EMS about 5 days ago but patient refused to go to the hospital. Computed tomography scan of the hospital was unremarkable. CT of the abdomen and pelvis showed extensive nodular infiltration of the greater omentum and redness peritoneal nodularity of the left upper abdomen with some ascites.. Suggestive of metastatic disease. Also distended endometrial cavity was reported. Also distended gallbladder with no calculi. Fatty infiltration of liver. Large right pleural effusion with atelectasis of the right lower lobe. Partial atelectasis of right below. Some thickening of the gastric antrum and duodenum. Patient was hypotensive. Patient was decontaminated in the ER for maggots in the hair. This morning patient is intubated on the ventilator. With FiO2 50% and a PEEP of 5. Patient probably aspirated after vomiting. Has been placed on Zosyn. Slurry Worker team earlier creatinine return to the family was unable to do so. Admitted with acute hypoxic respiratory failure, multifactorial, pneumonia, requiring ventilator assistance. Aspiration pneumonia. Septic shock. On IV levo fed. Metastatic carcinoma. December 19: ICU. Intubated. FiO2 50 to PEEP of 5. Sinus tachycardia heart rate 120. IV norepinephrine. Patient has been off propofol. Currently full code. Nurse did update the on the phone. Hasn't been in. According to the nurse patient was doing fine up to about September, as per patient's PCP. December 3: ICU. Intubated. FiO2 40 PEEP of 5. Sinus rhythm. IV norepinephrine. No family at bedside. Remains full code. IV Zosyn. Right-sided chest tube December: ICU. Intubated. 40/5. Sinus rhythm. IV levo fed. Nurse informed me that has disability and does not have a right. Right-sided chest port with decreased output. OG tube feeding. December 22: ICU. Intubated. FiO2 35 PEEP of 5. Sinus rhythm. 2 feeding at 53 mL hour. Does open eyes but not really following commands. Has been having petechie. Platelets down to 19. Platelets ordered. Tried to reach the list phone number to reach the . And went into voicemail Active Medications Albuterol/Ipratropium (Ipratropium-Albuterol 3 Ml Neb) 3 ml INHALATION RT-Q4H [facility] Last Admin: 12/22/22 11:36 Dose: 3 ml Atorvastatin Calcium (Atorvastatin 40 Mg Tab) 40 mg PO DAILY [facility] Last Admin: 12/22/22 09:27 Dose: 40 mg Chlorhexidine Gluconate (Chlorhexidine Gluconate 15 Ml Cup) 15 ml MUCOUS MEM BID [facility] Last Admin: 12/22/22 09:27 Dose: 15 ml Dextrose/Water (Dextrose 50% Syringe 50 Ml) 25 ml IVP PER PROTOCOL PRN; Protocol PRN Reason: Hypoglycemia Dextrose/Water (Dextrose 50% Syringe 50 Ml) 50 ml IVP PER PROTOCOL PRN; Protocol PRN Reason: Hypoglycemia Propofol 1,000 mg/ IV Solution 100 mls @ 6.021 mls/hr IV .[id number] [facility]; Protocol Last Admin: 12/22/22 02:50 Dose: Not Given Piperacillin Sod/Tazobactam (Sod 3.375 gm/ Sodium Chloride) 100 mls @ 25 mls/hr IVPB Q8HR [facility]; Protocol Last Admin: 12/22/22 09:26 Dose: 25 mls/hr Norepinephrine Bitartrate 8 mg (/ Sodium Chloride) 258 mls @ 23.859 mls/hr IV .[id number] [facility]; Protocol Last Titration: 12/22/22 09:05 Dose: 0.04 mcg/kg/min, 5.302 mls/hr Vancomycin HCl 1,250 mg/ (Sodium Chloride) 250 mls @ 125 mls/hr IVPB ONCE ONE Stop: 12/23/22 07:59 Insulin Aspart (Insulin Aspart (Novolog) 100 Unit/Ml Vial) 0 unit SQ Q6HR [facility]; Protocol Last Admin: 12/22/22 12:35 Dose: 2 unit Miscellaneous Information (Vancomycin Iv Per Pharmacy 1 Each Misc) 1 each MISCELLANE DIRECTED PRN; Protocol PRN Reason: Per Protocol Miscellaneous Information (Potassium Replacement Protocol 1 Each Misc) 1 each MISCELLANE DAILY PRN; Protocol PRN Reason: Per Protocol Miscellaneous Information (Phosphorus Replacement Protoco 1 Each Misc) 1 each MISCELLANE DAILY PRN; Protocol PRN Reason: Per Protocol Naloxone HCl (Naloxone 0.4 Mg/Ml 1 Ml Vial) 0.2 mg IV Q2M PRN PRN Reason: Opioid Reversal Pantoprazole Sodium (Pantoprazole 40 Mg/10 Ml Vial) 40 mg IV DAILY [facility] Last Admin: 12/22/22 09:27 Dose: 40 mg Past medical history to include: Hypertension, hyperlipidemia, arthritis Social history: Cannot be obtained Physical examination: VITAL SIGNS: 97.9, 99, 18, 1 22 x 66, 100% on the ventilator GENERAL: laying in bed intubated. Right-sided chest tube. Does open eyes. Scattered petechiae EYES: Pupils equal. Conjunctiva normal. HEENT: External appearance of nose and ears normal, oral cavity ET tube. NECK: JVD unable to assess; masses not palpable. HEART: First and second heart sounds are normal; no edema. LUNGS: Respiratory rate increased; decreased breath sounds. ABDOMEN: Soft, nontender, liver spleen not palpable, no masses palpable. PSYCH: Not really following commands. INVESTIGATIONS, reviewed in the clinical context: December 22: WBC 6.5 hemoglobin 8.4 platelets 19 potassium 4.1 BUN 65 creatinine 1.98 December 21: WBC 5.5 hemoglobin 7.8 platelets 26 potassium 3.5 BUN 61 creatinine 1.7 to AST 148 ALT 111 albumin 1.7 December 20: WBC 6.9 hemoglobin 9.1 platelets 47 potassium 3.3 BUN 59 creatinine 1.8 to ionized calcium 4.4 AST 352 ALT 214 albumin 1.7 December 19: White count 7.6 hemoglobin 12.2 platelets 72 potassium 4 BUN 53 creatinine 1.93. ABG: PH 7.25 pCO2 33 pO2 159 White count 8.4 hemoglobin 12 platelets 88 sodium 136 potassium 4.4 BUN 65 creatinine 1.99 Lactic acid 6.2 CEA antigen 5.3 EKG tracing personally reviewed by me-normal sinus rhythm. Rate 84 Chest x-ray film personally reviewed by [id number] mass/infiltrate. Atelectasis. CT chest without contrast. Large right, small left pleural effusions. Mild peripheral edema. Colonic diverticulosis. Mesentric carcinomatosis. 2-D echocardiogram: EF 55-60%. Assessment and plan: -Acute hypoxic respiratory failure, multifactorial including possible pneumonia, right lower lobe collapse. Requiring ventilator assistance.: Not improving -Possible aspiration pneumonia IV Zosyn -Septic shock: Slow to respond IV fluids, levofed -Large right pleural effusion Right-sided chest tube placed December 18 -Metastatic mesenteric carcinomatosis. point primary unknown. Distended endometrium. Being followed by oncology -Altered mental status, multifactorial/metabolic encephalopathy/delirium -Elevated troponin from hemodynamic mismatch. No clinical evidence of acute coronary syndrome -Acute kidney injury, likely ATN could be from shock. Baseline creatinine not known.: Slow to respond -Nonalcoholic fatty liver disease. -Hypocalcemia Receives calcium gluconate -Thrombocytopenia, severe with petechiae Platelets being transfused -Metabolic acidosis with a contribution from kidney injury: Sodium bicarbonate drip -Full code IV Zosyn. Levo fed. Right-sided chest tube. IV platelets. Remains to went. Prognosis guarded. Unable to reach the on the phone. No family is visited.
[2022-12-22 18:32] LABS: Glucose,Whole Blood 131 mg/dL (70-110)
[2022-12-23] MEDS: PIPERACILLIN-TAZOBACTAM 3.375 GM in SODIUM CHLORIDE 0.9% 100 ML IVPB SCH ×3 (00:15→16:00)
[2022-12-23] MEDS: INSULIN ASPART (NovoLOG) 100 UNIT/ML VIAL SQ SCH ×4 (00:20→17:23)
[2022-12-23 03:41] LABS: Glucose,Whole Blood 161 mg/dL (70-110)
[2022-12-23 03:56] LABS: African American GFR (CKD) 27 (>60 ml/min/1.73 sqM); Anion Gap 11 mmol/L; Blood Urea Nitrogen 73 mg/dL (7-17); Calcium 6.7 mg/dL (8.4-10.2); Carbon Dioxide 25 mmol/L (22-30); Chloride 106 mmol/L (98-107); Glucose 152 mg/dL (74-99); Non-African American GFR(CKD) 23 (>60 ml/min/1.73 sqM); Potassium 4.1 mmol/L (3.5-5.1); Sodium 142 mmol/L (137-145)
[2022-12-23] MEDS: IPRATROPIUM-ALBUTEROL 3 ML NEB INHALATION SCH ×5 (04:09→20:07)
[2022-12-23 04:32] LABS: Basophils % (A) 0 %; Eosinophils # (A) 0.1 k/uL (0-0.7); Eosinophils % (A) 1 %; HCT 24.2 % (34.0-46.0); HGB 7.9 gm/dL (11.4-16.0); Lymphocytes # (A) 0.5 k/uL (1.0-4.8); Lymphocytes % (A) 6 %; MCH 27.2 pg (25.0-35.0); MCHC 32.6 g/dL (31.0-37.0); MCV 83.2 fL (80.0-100.0); Mean Platelet Volume 13.3; Monocytes # (A) 0.3 k/uL (0-1.0); Monocytes % (A) 4 %; Neutrophils # (A) 7.6 k/uL (1.3-7.7); Neutrophils % (A) 89 %; RBC 2.91 m/uL (3.80-5.40); RDW 15.1 % (11.5-15.5); WBC 8.5 k/uL (3.8-10.6)
[2022-12-23 04:43] LABS: Platelet Count 26 k/uL (150-450)
[2022-12-23 05:23] LABS: ABG Base Excess 1.1 mmol/L; ABG HCO3 25 mmol/L (21-25); ABG PCO2 37 mmHg (35-45); ABG PH 7.44 (7.35-7.45); ABG PO2 108 mmHg (83-108); ABG TCO2 26 mmol/L (19-24)
[2022-12-23] MEDS ORDERED: VANCOMYCIN 1,250 MG in SODIUM CHLORIDE 0.9% 250 ML IVPB ONE (06:00)
[2022-12-23 06:09] LABS: Glucose,Whole Blood 161 mg/dL (70-110)
--- NOTE | 2022-12-23 08:27 | XR ---
EXAMINATION TYPE: XR chest 1V portable DATE OF EXAM: 12/23/2022 COMPARISON: 12/22/2022 HISTORY: Tube placement TECHNIQUE: Single frontal view of the chest is obtained. FINDINGS: Right-sided chest tube is seen and there is any right-sided pleural effusion. No sizable p neumothorax. Hypertrophic and degenerative changes of the spine. ET tube, NG tube stable. Large calci fied lymph nodes are seen in the hilum and mediastinum. Small left pleural effusion is seen and there is underlying COPD. Right-sided drainage catheter again noted. IMPRESSION: Stable bilateral consolidation and small pleural effusion. Underlying mild venous conges tion not excluded.
[2022-12-23] MEDS: NOREPINEPHRINE 8 MG in SODIUM CHLORIDE 0.9% 250 ML IV SCH ×3 (08:40→23:51)
[2022-12-23] MEDS: ATORVASTATIN 40 MG TAB PO SCH (08:47)
[2022-12-23] MEDS: PANTOPRAZOLE 40 MG/10 ML VIAL IV SCH (08:48)
[2022-12-23] MEDS: CHLORHEXIDINE GLUCONATE 15 ML CUP MUCOUS MEM SCH ×2 (08:48→19:42)
[2022-12-23] MEDS: SODIUM CHLORIDE 0.9% 1,000 ML IV SCH (10:43)
[2022-12-23 11:58] LABS: Glucose,Whole Blood 142 mg/dL (70-110)
[2022-12-23 12:03] VITALS: BP 93/67
--- NOTE | 2022-12-23 12:55 | P.CNNES ---
History of Present Illness Consult date: 12/23/22 Requesting physician: Jaquelin Leiva Reason for Consult: ams, unresponsive History of Present Illness: This is a 62-year-old woman who was transferred from [facility] because of altered but the status. Neurology is consulted for altered mental status and patient is unresponsive. History is obtained from medical record as well as the patient nurse. Seems at the outside hospital patient was intubated to protect her airway. Seems the patient has been having frequent episode of vomiting for the past 1 month and she refused to the hospital initially. She had a CT of the head at outside facility and was reported as negative. 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 Seems the patient has pleural effusion. She had the cytology done which is pending for a pleural effusion. She also has Pseudomonas in her sputum and is on an antibiotic for repair. Oncology is on board. According to patient nurse she's been off of sedation since 12/19 and continues to be unresponsive. She continues to be intubated on a ventilator. Some of the other workup during his hospital visit consisted of: White blood cell has been within normal range. Platelet is 90,000 and that was yesterday today is 26,000. Most recent creatinine is 2.18 and the BUN is 73. Sugar has been in the range of 140s 160s. Ionized calcium 6.7 and the calcium level has been in the range of 6ish. Ammonia level is less than 9. TSH is 2.690. Urine drug screen is not detected CT of the head 12/20 is reported as age-related atrophic and chronic small vessel ischemic change without acute intracranial process seen at this time. I personally reviewed the CT and I felt the patient has lacunar over the bilateral basilar seen suspicious otherwise there is no bleed, acute or subacute ischemia. Review of Systems Review of system is limited but the prone positive and negative as per HPI. Past Medical History Past Medical History: Hyperlipidemia, Hypertension Additional Past Medical History / Comment(s): Arthritis History of Any Multi-Drug Resistant Organisms: Unobtainable Past Surgical History: No Surgical Hx Reported, Unable to Obtain Past Anesthesia/Blood Transfusion Reactions: Unable to Obtain Past Psychological History: Unable to Obtain Smoking Status: Never smoker - Past Family History Father Family Medical History: No Reported History, Unable to Obtain Medications and Allergies Home Medications Medication Instructions Recorded Confirmed Type Aspirin 81 mg PO DAILY 12/18/22 12/18/22 History Atorvastatin [Lipitor] 40 mg PO DAILY 12/18/22 12/18/22 History Cetirizine HCl [Zyrtec] 10 mg PO DAILY 12/18/22 12/18/22 History hydroCHLOROthiazide [Hydrodiuril] 25 mg PO DAILY 12/18/22 12/18/22 History lisinopriL [Zestril] 20 mg PO DAILY 12/18/22 12/18/22 History Allergies Allergy/AdvReac Type Severity Reaction Status Date / Time No Known Allergies Allergy Verified 12/18/22 09:25 Physical Examination - Vital Signs Vital Signs: Vital Signs Temp Pulse Resp BP Pulse Ox FiO2 12/23/22 12:00 98.2 F 105 H 16 93/67 100 35 12/23/22 11:48 101 H 12/23/22 11:39 100 12/23/22 11:38 35 12/23/22 11:30 99 18 93/67 99 12/23/22 11:00 101 H 18 100 12/23/22 10:30 98 18 98 12/23/22 10:00 97 18 100 12/23/22 09:30 99 16 100 12/23/22 09:00 104 H 20 100 12/23/22 08:30 105 H 20 100 12/23/22 08:04 103 H 12/23/22 08:00 98.6 F 101 H 18 100 35 12/23/22 07:54 103 H 12/23/22 07:53 35 12/23/22 07:30 103 H 19 100 12/23/22 07:00 104 H 20 100 12/23/22 06:30 102 H 20 100 12/23/22 06:00 100 18 102/73 100 12/23/22 05:30 104 H 19 102/73 100 12/23/22 05:00 104 H 18 98/75 100 12/23/22 04:30 103 H 19 98/75 100 12/23/22 04:10 98 12/23/22 04:04 35 12/23/22 04:00 98.4 F 101 H 19 105/71 100 35 12/23/22 03:59 99 06/06/23 03:48 35 12/23/22 03:30 100 18 105/71 100 12/23/22 03:00 100 19 92/65 100 12/23/22 02:30 99 19 92/65 100 12/23/22 02:00 96 18 107/79 100 12/23/22 01:30 98 18 107/79 100 12/23/22 01:00 102 H 17 95/69 100 12/23/22 00:30 101 H 19 95/69 100 12/23/22 00:00 97.2 F L 100 18 103/73 100 35 12/22/22 23:36 99 12/22/22 23:30 100 19 103/73 100 12/22/22 23:26 99 12/22/22 23:21 35 12/22/22 23:15 97 18 103/73 100 12/22/22 23:00 98 18 104/76 99 12/22/22 22:30 98 18 104/76 100 12/22/22 22:00 99 19 100 12/22/22 21:30 101 H 21 100 12/22/22 21:00 98 25 H 95/65 100 12/22/22 20:30 97 18 95/65 100 12/22/22 20:12 93 12/22/22 20:01 92 12/22/22 20:00 96.8 F L 92 19 107/66 100 12/22/22 19:55 35 12/22/22 19:53 35 12/22/22 19:30 96 18 107/66 100 12/22/22 19:00 96 18 100 12/22/22 18:30 95 18 100 12/22/22 18:00 96 19 100 35 12/22/22 17:30 100 18 100 12/22/22 17:00 100 19 100 12/22/22 16:42 98.2 F 99 19 110/59 05 16:40 98.2 F 99 19 110/59 12/22/22 16:30 98 18 100 12/22/22 16:00 98.2 F 98 18 100 35 12/22/22 15:53 99 0605 15:39 95 35 12/22/22 15:30 99 18 100 12/22/22 15:04 98.1 F 100 19 120/64 100 06/05/23 15:00 99 16 100 12/22/22 14:43 97.8 F 101 H 18 100 12/22/22 14:35 97.6 F 100 16 113/60 100 12/22/22 14:30 100 17 100 12/22/22 14:00 101 H 16 100 12/22/22 13:30 103 H 18 100 12/22/22 13:00 97 18 100 Intake and Output 12/22/22 12/23/22 12/23/22 22:59 06:59 14:59 Intake Total 935 658.969 530.753 Output Total 138 100 140 Balance 797 558.969 390.753 Intake: IV 150 80 50 0.9 kvo 50 80 50 Piperacillin-Tazobactam 3 100 .375 gm In Sodium Chloride 0.9% 100 ml @ 25 mls/hr IVPB Q12H [facility] Rx# :[id number] Intake, IV Titration 102.969 168.753 Amount Norepinephrine 8 mg In 102.969 18.753 Sodium Chloride 0.9% 250 ml @ 0.18 MCG/KG/MIN 23. 859 mls/hr IV .[id number] [facility] Rx#:[id number] Sodium Chloride 0.9% 1, 150 000 ml @ 75 mls/hr IV . [id number] [facility] Rx#:[id number] Tube Feeding 416 416 312 Blood Product 309 Platelet Pheresis Pas 309 Psoralen Unit [id number] Other 60 60 Output: Chest Tube Drainage 30 90 Chest Tube Right Upper 30 90 Lateral Chest Urine 108 100 50 Other: Voiding Method Indwelling Catheter Indwelling Catheter Indwelling Catheter ABP, PAP, CO, CI - Last 8 Hours Arterial Blood Pressure 123/65 Arterial Blood Pressure 123/68 Arterial Blood Pressure 124/67 Arterial Blood Pressure 107/61 Arterial Blood Pressure 113/64 Arterial Blood Pressure 106/64 Arterial Blood Pressure 110/59 Arterial Blood Pressure 130/70 Arterial Blood Pressure 114/62 Arterial Blood Pressure 102/53 Arterial Blood Pressure 125/63 Arterial Blood Pressure 123/63 Arterial Blood Pressure 100/56 Arterial Blood Pressure 115/60 Arterial Blood Pressure 115/60 Physical exam; Lung: Intubated on ventilator Neuro: Examination is limited because of condition. Sedation has be off since 12/19/22. Comatose: GCS 7 (E1, VT1, M5) Pupils are round equal and reactive to light. Primary gaze seems downward bilaterally. No facial weakness. Motor: Strength: Localizing to pain and appears more right > left. Reflex: 1+ bilaterally. Plantars: Mute bilaterally. Results - Laboratory Findings CBC and BMP: 12/23/22 03:40 12/23/22 03:40 Abnormal Lab Findings: Abnormal Labs 12/18/22 12/18/22 12/18/22 00:44 00:44 00:44 RBC Hgb Hct MCHC 30.5 L Plt Count 78 L Neutrophils # 8.1 H Lymphocytes # 0.7 L Lymphocytes # (Manual) Myelocytes # (Manual) Nucleated RBCs PT INR D-Dimer ABG pH ABG pCO2 ABG pO2 ABG HCO3 ABG Total CO2 ABG O2 Saturation Sodium 136 L Potassium Chloride Carbon Dioxide 13 L BUN 65 H Creatinine 2.17 H Glucose 129 H POC Glucose (mg/dL) Plasma Lactic Acid Dmitriy 7.4 H* Calcium 6.6 L Ionized Calcium Miri Phosphorus Total Bilirubin 1.6 H AST 3691 H ALT 831 H Alkaline Phosphatase 164 H Troponin I Total Protein 5.3 L Albumin 2.8 L Carcinoembryonic Ag CA 125 Antigen Urine Appearance Urine Protein Urine Glucose (UA) Urine Ketones Urine Blood Urine WBC Urine Bacteria Urine Mucus 12/18/22 12/18/22 12/18/22 00:44 02:00 05:02 RBC Hgb Hct MCHC Plt Count Neutrophils # Lymphocytes # Lymphocytes # (Manual) Myelocytes # (Manual) Nucleated RBCs PT INR D-Dimer ABG pH 7.22 L ABG pCO2 33 L ABG pO2 273 H ABG HCO3 14 L ABG Total CO2 15 L ABG O2 Saturation 99.5 H Sodium Potassium Chloride Carbon Dioxide BUN Creatinine Glucose POC Glucose (mg/dL) Plasma Lactic Acid Dmitriy Calcium Ionized Calcium Miri Phosphorus Total Bilirubin AST ALT Alkaline Phosphatase Troponin I 0.317 H* Total Protein Albumin Carcinoembryonic Ag CA 125 Antigen Urine Appearance Cloudy H Urine Protein 1+ H Urine Glucose (UA) Trace H Urine Ketones Trace H Urine Blood Large H Urine WBC 16 H Urine Bacteria Rare H Urine Mucus Rare H 12/18/22 12/18/22 12/18/22 05:29 05:45 06:04 RBC Hgb Hct MCHC 30.0 L Plt Count 88 L Neutrophils # Lymphocytes # Lymphocytes # (Manual) 0.76 L Myelocytes # (Manual) 0.08 H Nucleated RBCs 1 H PT INR D-Dimer ABG pH 7.22 L ABG pCO2 33 L ABG pO2 112 H ABG HCO3 14 L ABG Total CO2 15 L ABG O2 Saturation 97.6 H Sodium Potassium Chloride Carbon Dioxide BUN Creatinine Glucose POC Glucose (mg/dL) Plasma Lactic Acid Dmitriy 9.6 H* Calcium Ionized Calcium Miri Phosphorus Total Bilirubin AST ALT Alkaline Phosphatase Troponin I Total Protein Albumin Carcinoembryonic Ag CA 125 Antigen Urine Appearance Urine Protein Urine Glucose (UA) Urine Ketones Urine Blood Urine WBC Urine Bacteria Urine Mucus 12/18/22 12/18/22 12/18/22 06:04 06:04 06:04 RBC Hgb Hct MCHC Plt Count Neutrophils # Lymphocytes # Lymphocytes # (Manual) Myelocytes # (Manual) Nucleated RBCs PT INR D-Dimer ABG pH ABG pCO2 ABG pO2 ABG HCO3 ABG Total CO2 ABG O2 Saturation Sodium 136 L Potassium Chloride Carbon Dioxide 11 L BUN 65 H Creatinine 1.99 H Glucose 112 H POC Glucose (mg/dL) Plasma Lactic Acid Dmitriy Calcium 6.4 L* Ionized Calcium Miri Phosphorus Total Bilirubin AST ALT Alkaline Phosphatase Troponin I Total Protein Albumin Carcinoembryonic Ag 5.3 H CA 125 Antigen 1900.0 H Urine Appearance Urine Protein Urine Glucose (UA) Urine Ketones Urine Blood Urine WBC Urine Bacteria Urine Mucus 12/18/22 12/18/22 12/18/22 08:29 11:42 11:59 RBC Hgb Hct MCHC Plt Count Neutrophils # Lymphocytes # Lymphocytes # (Manual) Myelocytes # (Manual) Nucleated RBCs PT 16.6 H INR 1.7 H D-Dimer ABG pH ABG pCO2 ABG pO2 ABG HCO3 ABG Total CO2 ABG O2 Saturation Sodium Potassium Chloride Carbon Dioxide BUN Creatinine Glucose POC Glucose (mg/dL) Plasma Lactic Acid Dmitriy 6.2 H* 5.8 H* Calcium Ionized Calcium Miri Phosphorus Total Bilirubin AST ALT Alkaline Phosphatase Troponin I Total Protein Albumin Carcinoembryonic Ag CA 125 Antigen Urine Appearance Urine Protein Urine Glucose (UA) Urine Ketones Urine Blood Urine WBC Urine Bacteria Urine Mucus 12/18/22 12/18/22 12/18/22 15:02 18:13 23:28 RBC Hgb Hct MCHC Plt Count Neutrophils # Lymphocytes # Lymphocytes # (Manual) Myelocytes # (Manual) Nucleated RBCs PT INR D-Dimer ABG pH ABG pCO2 ABG pO2 ABG HCO3 ABG Total CO2 ABG O2 Saturation Sodium Potassium Chloride Carbon Dioxide BUN Creatinine Glucose POC Glucose (mg/dL) 146 H Plasma Lactic Acid Dmitriy 6.7 H* 7.6 H* Calcium Ionized Calcium Miri Phosphorus Total Bilirubin AST ALT Alkaline Phosphatase Troponin I Total Protein Albumin Carcinoembryonic Ag CA 125 Antigen Urine Appearance Urine Protein Urine Glucose (UA) Urine Ketones Urine Blood Urine WBC Urine Bacteria Urine Mucus 12/19/22 12/19/22 12/19/22 03:49 03:59 05:21 RBC Hgb Hct MCHC Plt Count 72 L Neutrophils # Lymphocytes # 0.8 L Lymphocytes # (Manual) Myelocytes # (Manual) Nucleated RBCs PT INR D-Dimer ABG pH 7.25 L ABG pCO2 33 L ABG pO2 159 H ABG HCO3 14 L ABG Total CO2 15 L ABG O2 Saturation 99.2 H Sodium Potassium Chloride Carbon Dioxide 14 L BUN 63 H Creatinine 1.93 H Glucose 146 H POC Glucose (mg/dL) Plasma Lactic Acid Dmitriy Calcium 6.2 L* Ionized Calcium Miri Phosphorus Total Bilirubin AST ALT Alkaline Phosphatase Troponin I Total Protein Albumin Carcinoembryonic Ag CA 125 Antigen Urine Appearance Urine Protein Urine Glucose (UA) Urine Ketones Urine Blood Urine WBC Urine Bacteria Urine Mucus 12/19/22 12/19/22 12/19/22 05:47 12:16 12:30 RBC Hgb Hct MCHC Plt Count Neutrophils # Lymphocytes # Lymphocytes # (Manual) Myelocytes # (Manual) Nucleated RBCs PT INR D-Dimer ABG pH ABG pCO2 ABG pO2 ABG HCO3 ABG Total CO2 ABG O2 Saturation Sodium Potassium Chloride Carbon Dioxide BUN Creatinine Glucose POC Glucose (mg/dL) 166 H 166 H Plasma Lactic Acid Dmitriy Calcium 6.4 L* Ionized Calcium Miri Phosphorus Total Bilirubin AST ALT Alkaline Phosphatase Troponin I Total Protein Albumin Carcinoembryonic Ag CA 125 Antigen Urine Appearance Urine Protein Urine Glucose (UA) Urine Ketones Urine Blood Urine WBC Urine Bacteria Urine Mucus 12/19/22 12/19/22 12/19/22 18:14 21:20 23:09 RBC Hgb Hct MCHC Plt Count Neutrophils # Lymphocytes # Lymphocytes # (Manual) Myelocytes # (Manual) Nucleated RBCs PT INR D-Dimer ABG pH ABG pCO2 ABG pO2 ABG HCO3 ABG Total CO2 ABG O2 Saturation Sodium Potassium Chloride Carbon Dioxide BUN Creatinine Glucose POC Glucose (mg/dL) 166 H 152 H Plasma Lactic Acid Dmitriy Calcium Ionized Calcium Miri 4.0 L Phosphorus Total Bilirubin AST ALT Alkaline Phosphatase Troponin I Total Protein Albumin Carcinoembryonic Ag CA 125 Antigen Urine Appearance Urine Protein Urine Glucose (UA) Urine Ketones Urine Blood Urine WBC Urine Bacteria Urine Mucus 12/20/22 12/20/22 12/20/22 03:55 03:55 03:55 RBC 3.34 L Hgb 9.1 L D Hct 28.9 L MCHC Plt Count 47 L Neutrophils # Lymphocytes # 0.8 L Lymphocytes # (Manual) Myelocytes # (Manual) Nucleated RBCs PT INR D-Dimer ABG pH ABG pCO2 ABG pO2 ABG HCO3 ABG Total CO2 ABG O2 Saturation Sodium Potassium 3.2 L 3.3 L Chloride 108 H Carbon Dioxide 19 L 18 L BUN 60 H 59 H Creatinine 1.77 H 1.82 H Glucose 118 H 119 H POC Glucose (mg/dL) Plasma Lactic Acid Dmitriy Calcium 6.3 L* 6.3 L* Ionized Calcium Miri Phosphorus Total Bilirubin AST 352 H ALT 214 H Alkaline Phosphatase 338 H Troponin I Total Protein 3.7 L Albumin 1.7 L Carcinoembryonic Ag CA 125 Antigen Urine Appearance Urine Protein Urine Glucose (UA) Urine Ketones Urine Blood Urine WBC Urine Bacteria Urine Mucus 12/20/22 12/20/22 12/20/22 05:30 05:44 09:39 RBC Hgb Hct MCHC Plt Count Neutrophils # Lymphocytes # Lymphocytes # (Manual) Myelocytes # (Manual) Nucleated RBCs PT INR D-Dimer 5.82 H ABG pH 7.28 L ABG pCO2 ABG pO2 190 H ABG HCO3 20 L ABG Total CO2 ABG O2 Saturation 99.5 H Sodium Potassium Chloride Carbon Dioxide BUN Creatinine Glucose POC Glucose (mg/dL) Plasma Lactic Acid Dmitriy Calcium Ionized Calcium Miri 4.2 L Phosphorus Total Bilirubin AST ALT Alkaline Phosphatase Troponin I Total Protein Albumin Carcinoembryonic Ag CA 125 Antigen Urine Appearance Urine Protein Urine Glucose (UA) Urine Ketones Urine Blood Urine WBC Urine Bacteria Urine Mucus 12/20/22 12/20/22 12/20/22 10:00 11:33 17:22 RBC Hgb Hct MCHC Plt Count Neutrophils # Lymphocytes # Lymphocytes # (Manual) Myelocytes # (Manual) Nucleated RBCs PT INR D-Dimer ABG pH ABG pCO2 ABG pO2 ABG HCO3 ABG Total CO2 ABG O2 Saturation Sodium Potassium Chloride Carbon Dioxide BUN Creatinine Glucose POC Glucose (mg/dL) 178 H 176 H Plasma Lactic Acid Dmitriy Calcium Ionized Calcium Miri 4.4 L Phosphorus Total Bilirubin AST ALT Alkaline Phosphatase Troponin I Total Protein Albumin Carcinoembryonic Ag CA 125 Antigen Urine Appearance Urine Protein Urine Glucose (UA) Urine Ketones Urine Blood Urine WBC Urine Bacteria Urine Mucus 12/20/22 12/21/22 12/21/22 23:22 04:40 04:40 RBC 2.89 L Hgb 7.8 L Hct 24.4 L MCHC Plt Count 26 L Neutrophils # Lymphocytes # 0.6 L Lymphocytes # (Manual) Myelocytes # (Manual) Nucleated RBCs PT INR D-Dimer ABG pH ABG pCO2 ABG pO2 ABG HCO3 ABG Total CO2 ABG O2 Saturation Sodium Potassium Chloride Carbon Dioxide BUN 61 H Creatinine 1.72 H Glucose 150 H POC Glucose (mg/dL) 195 H Plasma Lactic Acid Dmitriy Calcium 6.0 L* Ionized Calcium Miri Phosphorus Total Bilirubin AST 148 H ALT 111 H Alkaline Phosphatase 466 H Troponin I Total Protein 3.4 L Albumin 1.7 L Carcinoembryonic Ag CA 125 Antigen Urine Appearance Urine Protein Urine Glucose (UA) Urine Ketones Urine Blood Urine WBC Urine Bacteria Urine Mucus 12/21/22 12/21/22 12/21/22 05:40 05:59 10:23 RBC Hgb Hct MCHC Plt Count Neutrophils # Lymphocytes # Lymphocytes # (Manual) Myelocytes # (Manual) Nucleated RBCs PT INR D-Dimer ABG pH ABG pCO2 ABG pO2 142 H ABG HCO3 26 H ABG Total CO2 27 H ABG O2 Saturation 99.2 H Sodium Potassium Chloride Carbon Dioxide BUN Creatinine Glucose POC Glucose (mg/dL) Plasma Lactic Acid Dmitriy Calcium Ionized Calcium Miri 4.0 L Phosphorus 1.5 L Total Bilirubin AST ALT Alkaline Phosphatase Troponin I Total Protein Albumin Carcinoembryonic Ag CA 125 Antigen Urine Appearance Urine Protein Urine Glucose (UA) Urine Ketones Urine Blood Urine WBC Urine Bacteria Urine Mucus 12/21/22 12/21/22 12/21/22 11:26 13:27 17:59 RBC Hgb Hct MCHC Plt Count Neutrophils # Lymphocytes # Lymphocytes # (Manual) Myelocytes # (Manual) Nucleated RBCs PT INR D-Dimer ABG pH ABG pCO2 ABG pO2 ABG HCO3 ABG Total CO2 ABG O2 Saturation Sodium Potassium Chloride Carbon Dioxide BUN Creatinine Glucose POC Glucose (mg/dL) 166 H 138 H 162 H Plasma Lactic Acid Dmitriy Calcium Ionized Calcium Miri Phosphorus Total Bilirubin AST ALT Alkaline Phosphatase Troponin I Total Protein Albumin Carcinoembryonic Ag CA 125 Antigen Urine Appearance Urine Protein Urine Glucose (UA) Urine Ketones Urine Blood Urine WBC Urine Bacteria Urine Mucus 12/22/22 12/22/22 12/22/22 00:00 04:20 04:20 RBC 3.17 L Hgb 8.4 L Hct 26.0 L MCHC Plt Count 19 L* Neutrophils # Lymphocytes # 0.5 L Lymphocytes # (Manual) Myelocytes # (Manual) Nucleated RBCs PT INR D-Dimer ABG pH ABG pCO2 ABG pO2 ABG HCO3 ABG Total CO2 ABG O2 Saturation Sodium Potassium Chloride Carbon Dioxide BUN 65 H Creatinine 1.98 H Glucose 136 H POC Glucose (mg/dL) 158 H Plasma Lactic Acid Dmitriy Calcium 6.4 L* Ionized Calcium Miri Phosphorus Total Bilirubin AST ALT Alkaline Phosphatase Troponin I Total Protein Albumin Carcinoembryonic Ag CA 125 Antigen Urine Appearance Urine Protein Urine Glucose (UA) Urine Ketones Urine Blood Urine WBC Urine Bacteria Urine Mucus 12/22/22 12/22/22 12/22/22 05:55 12:19 18:12 RBC Hgb Hct MCHC Plt Count Neutrophils # Lymphocytes # Lymphocytes # (Manual) Myelocytes # (Manual) Nucleated RBCs PT INR D-Dimer ABG pH ABG pCO2 ABG pO2 156 H ABG HCO3 26 H ABG Total CO2 27 H ABG O2 Saturation 99.4 H Sodium Potassium Chloride Carbon Dioxide BUN Creatinine Glucose POC Glucose (mg/dL) 158 H 131 H Plasma Lactic Acid Dmitriy Calcium Ionized Calcium Miri Phosphorus Total Bilirubin AST ALT Alkaline Phosphatase Troponin I Total Protein Albumin Carcinoembryonic Ag CA 125 Antigen Urine Appearance Urine Protein Urine Glucose (UA) Urine Ketones Urine Blood Urine WBC Urine Bacteria Urine Mucus 12/23/22 12/23/22 12/23/22 03:39 03:40 03:40 RBC 2.91 L Hgb 7.9 L Hct 24.2 L MCHC Plt Count 26 L Neutrophils # Lymphocytes # 0.5 L Lymphocytes # (Manual) Myelocytes # (Manual) Nucleated RBCs PT INR D-Dimer ABG pH ABG pCO2 ABG pO2 ABG HCO3 ABG Total CO2 ABG O2 Saturation Sodium Potassium Chloride Carbon Dioxide BUN 73 H Creatinine 2.18 H Glucose 152 H POC Glucose (mg/dL) 161 H Plasma Lactic Acid Dmitriy Calcium 6.7 L Ionized Calcium Miri Phosphorus Total Bilirubin AST ALT Alkaline Phosphatase Troponin I Total Protein Albumin Carcinoembryonic Ag CA 125 Antigen Urine Appearance Urine Protein Urine Glucose (UA) Urine Ketones Urine Blood Urine WBC Urine Bacteria Urine Mucus 12/23/22 12/23/22 12/23/22 05:06 06:07 11:56 RBC Hgb Hct MCHC Plt Count Neutrophils # Lymphocytes # Lymphocytes # (Manual) Myelocytes # (Manual) Nucleated RBCs PT INR D-Dimer ABG pH ABG pCO2 ABG pO2 ABG HCO3 ABG Total CO2 26 H ABG O2 Saturation 99.0 H Sodium Potassium Chloride Carbon Dioxide BUN Creatinine Glucose POC Glucose (mg/dL) 161 H 142 H Plasma Lactic Acid Dmitriy Calcium Ionized Calcium Miri Phosphorus Total Bilirubin AST ALT Alkaline Phosphatase Troponin I Total Protein Albumin Carcinoembryonic Ag CA 125 Antigen Urine Appearance Urine Protein Urine Glucose (UA) Urine Ketones Urine Blood Urine WBC Urine Bacteria Urine Mucus Assessment and Plan Assessment: Altered mental status seems to metabolic encephalopathy. Cannot rule out brain metastases. 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 Suspected malignant pleural effusion. cytology pending. Acute kidney injury Acute thrombocythemia Hypocalcemia Plan: Ordered repeat CT head. Also ordered routine EEG to rule out seizure. If possible once extubated to obtain MRI Brain w/ and w/o. Consider lumbar puncture to rule out brain mets/carcimatosis spread once platelets improves. Ordered TSH, vitamin B12, folate level. Will defer rest of management to other specialist. Condition is critical. The plan is discussed with her nurse. Thank you for the consultation. Time with Patient: Greater than 30
--- NOTE | 2022-12-23 13:23 | P.PN ---
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 I am seeing this patient in new consultation today 12/18/2022 in the intensive care unit after she was transferred from [facility]. Apparently, the patient presented to outside hospital altered and had to be intubated to protect her airway. The patient's medical history is largely unknown, I did reach out to contact the patient's family. They are poor historians, and unable to provide me with a detailed medical history or events leading up to her hospitalization in [place]. I was able to ascertain that she has been having frequent episodes of vomiting for the past month. In fact, someone in the household had contacted EMS 5 days prior, but she refused to go to the hospital. While at [facility], the patient did undergo a nonenhanced brain CT which showed no acute intracranial hemorrhage or mass effect. The patient also had a CT of the abdomen pelvis with contrast which showed extensive nodular infiltration of the greater omentum as well as peritoneal nodularity in the left upper abdomen with mild accompanying ascites. 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 The patient's uterus size was normal, but there was a distended endometrial cavity concerning for endometrial cancer. There was a distended gallbladder with no apparent calculi or bili tract dilation. Liver had fatty infiltration without any specific lesions or biliary tract dilation. There was a large right pleural effusion with atelectasis of the right lower lung and partial atelectasis of the right middle lung, left lung was clear without any significant effusions or infiltrates. There was gastroesophageal reflux with fluid within the esophagus. There is thickening of the gastric antrum and duodenal. No free air. No other obvious obstruction. The patient was hypotensive at the outside facility, and a right femoral central line was placed. The patient was transferred to [facility] last night in critical condition. The patient is currently intubated on mechanical ventilator with current settings of assist control, respiratory rate 18, tidal volume 400, FiO2 50%, PEEP of 5. ABGs done on these settings show a pO2 of 112, pCO2 of 33, pH of 7.22. Chest x-ray on arrival showed the ET tube approximately 1.5 cm from the deboar, and this was withdrawn 2 cm. The patient does have an orogastric tube coursing below the diaphragm. There was a moderate right pleural effusion. Unfortunately, the patient did vomit and probably aspirated, the OG tube is hooked to low intermittent suction. I have added Zosyn for empiric antibiotic coverage. The patient currently has norepinephrine infusing at 0.08 mics per ki logram per minute. I've given an additional 2 L normal saline bolus patient's lactic was 15 at outside facility, and is down to 9.6. I did order a non- enhanced CT of the chest, abdomen, pelvis, the patient's renal function is poor. This redemonstrated mesenteric carcinomatosis. It also showed a large right and mild left pleural effusion and mild pulmonary edema. CBC on arrival shows a WBC count of 9.1, hemoglobin 13.1, hematocrit 42.9, platelets 78,000. BMP on admission shows a sodium 136, potassium 4.8, chloride 102, serum CO2 13, BUN 65, creatinine 2.17, glucose 129. LFTS are elevated with an AST 3691, ALT of 831, ALP 164. Normal saline infusing at 75 mL per hour. Troponins 0.317. No obvious ischemic changes of ECG. Urine output is in the order of 20 ml/hr. Urinalysis not suspicious for UTI. Urine drug screen was negative, apparently there was suspicion of past polysubstance abuse. The patient's condition is currently critical, I have made multiple attempts to reach out to the patient's family. It is unclear if they will be coming up to the hospital later this afternoon. The patient arrived in a disheveled state with maggots in her hair. She did have multiple bruises located on her back and chest. For now she will remain on the ventilator, and be monitored in the intensive care unit. On today's evaluation of 2022, the patient remains intubated on a mechanical ventilator. The patient is currently on propofol which is running at 30 mcg/kg/m. Nevertheless earlier this morning, the patient was taken off the propofol to evaluate her underlying mental status. She is currently off propofol and the patient is receiving a sedation holiday. She remains quite a dvanced on a mechanical ventilator a day rate of 18 with a tidal volume of 400 and FiO2 of 50% with a PEEP of 5. Her chest x-ray shows marked improvement elevation of the right lung. The patient had a pigtail catheter inserted yesterday into the right hemithorax and a total amount of output was 700 mL overnight and the patient without more than 1.5 L immediately after insertion. The fluid analysis still pending for now and the fluid was also sent for cytology. Meanwhile, a repeat CAT scan of the chest abdomen and pelvis was done which confirmed the presence of a large right-sided pleural effusion. There was evidence of mesenteric carcinomatosis and the etiology was unknown. There is al so evidence of colonic diverticulosis. The patient remains quite acidotic and she remains in renal failure and hypotensive. Earlier this morning, the patient is on norepinephrine which is running at 0.22 mcg/kg/m and as such an arterial line will be inserted for accurate blood pressure monitoring. The patient's BUN is at 63 with a creatinine of 1.9. She remains acidotic although serum bicarb i s improving and is up to 14. The patient remains on a bicarbonate infusion which is running at the rate of 75 mL an hour. She does have abnormal LFTs, AST is 3691 and ALT is a 31 with an alkaline phosphatase of 164, could be related to shock liver. CA 125 level is 1900 and this may be consistent with ovarian cancer. A consultation has been placed for OB GEN to evaluate those findings. The CEA level is 5.3. Troponins at 0.3. The patient's echocardiogram shows a preserved LV function. There was some mild mitral regurgitation. No significant pulmonary hypertension. The patient is on empiric antibiotic coverage and she is currently on IV Zosyn. She also has a triple-lumen catheter in the right femoral vein that was inserted in an outside hospital. On today's evaluation of 12/20/2022, the patient remains intubated on a mechanical ventilator. She remains on propofol which is off since yesterday, and the patient has not have adequate neurological recovery. The patient remains unresponsive while being off sedatives. We decided to keep the propofol off on this patient. The CAT scan of the brain was initiated done at [facility] and was negative and I think is reasonable to repeat a CAT scan of the brain pressure the patient is not responsive off sedation. Anesthetic time, we were informed that the patient was growing gram-positive cocci in her blood at [facility]. Vancomycin was added. For now, she remains on a combination of Zosyn and vancomycin. The sputum is showing gram-negative bacillus and the chest x-rays showing clearing of the right-sided pleural effusion and ongoing infiltration of the left lung which is a combination of mixed interstitial and alveolar special in the left lower lobe. Hemodynamically, the patient received several fluid boluses yesterday and she responded nicely to the fluid bolus. She is still on norepinephrine which is running at 0.22 mcg/kg/m. She does have a central line and a arterial line was also added for better blood pressure monitoring. She is afebrile. She is on a mechanical ventilator on this control mode at the rate of 18 with a tidal volume of 400 and FiO2 of 40% with a PEEP of 5. She is showing a pH of 7.28 with a pCO2 of 44 and pO2 190 and this was an FiO2 of 50%. Her white cell count today is at 6.9 with a hemoglobin of 9.1 and a platelet count of 47 and Rezulin electrolytes show a sodium of 140, potassium of 3.3, bicarb of 18 and a BUN of 59 and a creatinine of 1.8. LFTs are abnormal with an AST of 352, ALT of 214, alkaline phosphatase of 334. The CA on around 25 was 1900. Her blood culture in our facility was negative. The fluid cytology was sent and is still pending. The pleural fluid itself is an exudate. The output from the pigtail catheter is minimal at this point in time and there is no evidence of any air leak. The patient was started on enteral feeding for nutritional support and currently she is on vital AF at the rate of 30 mL an hour. His serum cortisol was at 50. Echocardiogram showed a preserved LV function without any signs of cardiomyopathy. 12/21/2022, the patient remains intubated on a mechanical ventilator. There was an obvious concern over mentation yesterday and the patient was completely unresponsive. She was taken off propofol and she's been off propofol for the past 48 hours. She is showing some minimal response to repeated stimulation. She withdraws to painful stimulation for now. This is however intermittent. The pupils were unequal yesterday. Based on that, the patient was given another CAT scan of the brain that showed no acute abnormalities. Upon stimulation, she would leave that open up her eyes and she will go back to sleep. She is still very much encephalopathic and lethargic. At the same time, the patient is still hypotensive/septic. The patient is on pressors and the pressor requirements have improved as the patient was given additional fluids yesterday and norepinephrine is running at 0.08 mcg/kg/m on today's evaluation. The patient is also on IV fluids at bicarb at 75 mL an hour. On her blood work, the serum bicarb is improved and is up to 26. The blood cultures positive for diabetes-negative staph. She had another positive blood culture at [facility] with gram-positive cocci and she has pseudomonas aeruginosa in her sputum and the patient is currently on accommodation Zosyn and vancomycin. She remains on a mechanical ventilator, assist control mode at the rate of 16, tidal volume of 400, FiO2 of 40% with a PEEP of 5. The chest x-ray shows no significant effusion the right, there is some small effusion infiltration on the left and orotracheal tube is in a good location. The blood gas shows a pH of 7.41 with a pCO2 of 41 and pO2 of 142. LFTs are obviously abnormal. The CBC shows a platelet count of 26 which is currently declining and the hemoglobin is at 7.8 with a white cell count of 5.5. In terms of her coagulation profile, d- dimer was positive at 5.8, fibrinogen was at 229. PT PTT INR were essentially within normal limits. The patient has vital AF running at 40 mL an hour. Reevaluated today on 12/22/2022, patient remains in the ICU, intubated. Patient is on assist control rate of 18 tidal volume 400 FiO2 40% and PEEP of 5 ABG showed a pO2 of 156 pCO2 of 38 pH of 7.44. Patient remains on norepinephrine at 0.04 mcg/kg/m. Continues to have significant thrombocytopenia and petechiae/ecchymosis. Patient is off heparin for now. Platelets today are 19, 000. Pathology from the pleural effusion is pending, I suspect that the pleural effusion is malignant unless for otherwise. Patient continues to have a pigtail catheter in place. And she continues to have some drainage from the left chest tube. Off propofol, patient is showing minimal response to stimulation, she only withdraws to painful stimuli, pupils are equal and reactive. Patient is definitely encephalopathic and lethargic. And still hypotensive requiring norepinephrine. Her sputum has been positive for pseudomonas aeruginosa. And her blood cultures from [place] were positive for gram-positive cocci, however this was noted to be coagulase-negative staph. Labs today showed WBC count of 6.5 hemoglobin is 8.4 platelets are 19,000, electrolytes are normal bicarb is normal BUN is 65 creatinine 1.98, not changing much in the last few days, hence we'll hold on nephrology consultation. I have a feeling give this patient is up to have malignant pleural effusion, then there is no need for peritoneal biopsy and at that point I would definitely consider comfort care measures on this patient but that is to be addressed with family once a diagnosis is made. Reevaluated today on 65 patient is about the same, remains intubated and mechanically ventilated. Remains in the ICU. Still requiring norepinephrine at 0.02 g Q per minutes, mental status is basically about the same. Hence I consulted neurology to evaluate altered mental status, she is on assist control rate of 18 tidal volume 400 FiO2 35% PEEP of 5 ABG showed a pO2 of 108 pCO2 37 pH of 7.44 platelets remained low, patient remains off heparin, neuro consultation was done, and recommended CT of the brain possibly MRI once the patient gets extubated. Sputum is positive for Pseudomonas. Her IV fluids at 75 mL/h before 0.9 normal saline. WBC count today is 8.5 hemoglobin 7.9 and platelets are 26,000, received platelets yesterday. Basic metabolic profile is relatively normal, however her BUN is 73 creatinine 2.18 urine output is marginal hence I increased her IV fluid today we'll hold on nephrology consu ltation for now. Waiting for the results of the cytology from the pleural effusion. This remains pending, and if positive will definitely discuss the issue of comfort care with the . Objective - Vital Signs Vital signs: Vital Signs Temp 98.2 F 12/23/22 12:00 Pulse 105 H 12/23/22 12:00 Resp 16 12/23/22 12:00 BP 93/67 12/23/22 12:00 Pulse Ox 100 12/23/22 12:00 FiO2 35 12/23/22 12:00 Intake & Output 12/22/22 12/23/22 12/23/22 18:59 06:59 18:59 Intake Total 1306.413 926.969 530.753 Output Total 398 150 140 Balance 908.413 776.969 390.753 Weight 71.214 kg Intake: IV 320 110 50 0.9 kvo 120 110 50 Piperacillin-Tazobactam 3 200 .375 gm In Sodium Chloride 0.9% 100 ml @ 25 mls/hr IVPB Q12H [facility] Rx# :[id number] Intake, IV Titration 42.413 102.969 168.753 Amount Norepinephrine 8 mg In 42.413 102.969 18.753 Sodium Chloride 0.9% 250 ml @ 0.18 MCG/KG/MIN 23. 859 mls/hr IV .[id number] [facility] Rx#:[id number] Sodium Chloride 0.9% 1, 150 000 ml @ 75 mls/hr IV . [id number] [facility] Rx#:[id number] Tube Feeding 545 624 312 Blood Product 309 Platelet Pheresis Pas 309 Psoralen Unit [id number] Other 90 90 Output: Chest Tube Drainage 250 0 90 Chest Tube Right Upper 250 0 90 Lateral Chest Urine 148 150 50 Other: Voiding Method Indwelling Catheter Indwelling Catheter Indwelling Catheter # Bowel Movements 1 ABP, PAP, CO, CI - Last Documented Arterial Blood Pressure 123/65 - Exam Physical Exam: Revealed 62-year-old female intubated, opens eyes only Head: Atraumatic, normocephalic. HEENT:[Neck is supple.] [No neck masses.] [No thyromegaly.] [No JVD.] Continues to have the right pupil larger than the left pupil both are reactive to light./anisocoria Chest: [Symmetrical chest expansion, scattered rhonchi noted bilaterally. Cardiac Exam: [Normal S1 and S2, no S3 gallop, no murmur.] Abdomen: Soft nontender pneumonia no rebound no guarding Extremities: 2+ bipedal edema, there is evidence of petechiae and ecchymosis noted bilaterally. Neurological Exam: Opens eyes to deep painful stimuli, unresponsive, withdraws to painful stimuli. Pupils are equally reactive otherwise no gross focal deficits. No facial asymmetry Skin: Areas of ecchymosis, purpura, and petechiae noted bilaterally. - Labs CBC & Chem 7: 12/23/22 03:40 12/23/22 03:40 Labs: Abnormal Lab Results - Last 24 Hours (Table) 12/22/22 12/23/22 12/23/22 Range/Units 18:12 03:39 03:40 RBC 2.91 L (3.80-5.40) m/uL Hgb 7.9 L (11.4-16.0) gm/dL Hct 24.2 L (34.0-46.0) % Plt Count 26 L (150-450) k/uL Lymphocytes # 0.5 L (1.0-4.8) k/uL ABG Total CO2 (19-24) mmol/L ABG O2 Saturation (94-97) % BUN (7-17) mg/dL Creatinine (0.52-1.04) mg/dL Glucose (74-99) mg/dL POC Glucose (mg/dL) 131 H 161 H (70-110) mg/dL Calcium (8.4-10.2) mg/dL 12/23/22 12/23/22 12/23/22 Range/Units 03:40 05:06 06:07 RBC (3.80-5.40) m/uL Hgb (11.4-16.0) gm/dL Hct (34.0-46.0) % Plt Count (150-450) k/uL Lymphocytes # (1.0-4.8) k/uL ABG Total CO2 26 H (19-24) mmol/L ABG O2 Saturation 99.0 H (94-97) % BUN 73 H (7-17) mg/dL Creatinine 2.18 H (0.52-1.04) mg/dL Glucose 152 H (74-99) mg/dL POC Glucose (mg/dL) 161 H (70-110) mg/dL Calcium 6.7 L (8.4-10.2) mg/dL 12/23/22 Range/Units 11:56 RBC (3.80-5.40) m/uL Hgb (11.4-16.0) gm/dL Hct (34.0-46.0) % Plt Count (150-450) k/uL Lymphocytes # (1.0-4.8) k/uL ABG Total CO2 (19-24) mmol/L ABG O2 Saturation (94-97) % BUN (7-17) mg/dL Creatinine (0.52-1.04) mg/dL Glucose (74-99) mg/dL POC Glucose (mg/dL) 142 H (70-110) mg/dL Calcium (8.4-10.2) mg/dL Microbiology - Last 24 Hours (Table) 12/18/22 14:45 Anaerobic Culture - Final Pleural Fluid 12/18/22 11:42 Blood Culture - Preliminary Blood 12/18/22 14:45 Gram Stain - Final Pleural Fluid Body Fluid Culture - Final 12/18/22 11:07 Blood Culture Gram Stain - Final Blood Blood Culture - Final Coagulase Negative Staph Assessment and Plan Assessment: Impression: Acute hypoxic respiratory failure secondary to sepsis and septic shock and secondary to large left pleural effusion.. Patient is still requiring pressors/norepinephrine. Mesenteric carcinomatosis may eventually require core biopsy of the peritoneum if we could not get an answer from her pleural effusion. Suspect malignant pleural effusion, cytology is pending. Acute metabolic acidosis requiring bicarbonate infusion on presentation Acute kidney injury secondary to above. Acute thrombocytopenia, DIC was ruled out, H IT panel is negative for heparin-induced thrombocytopenia nonetheless we'll continue to hold heparin Elevated troponin possibly related to supply/demand mismatch. Possible history of substance abuse Altered mental status/metabolic encephalopathy being addressed by neurology on the case, CT of the brain is pending. EEG is pending. However it's felt by neurology that this is a metabolic picture, although the possibility of malignancy involving AP[employer]MENT SPECIALIST is not entirely ruled out. Recommendation: Continue ventilatory support Continue nutritional support Continue GI prophylaxis and continue to hold heparin Awaiting cytology from the left pleural effusion Consider peritoneal biopsy by interventional radiology unless we get an answer from the pleural effusion and then I would strongly recommend addressing with the family comfort care measures Continue antibiotics for Pseudomonas in the sputum Continue enteral feeding Continue to monitor liver enzymes Overall patient is a very poor prognosis Patient is critically Will continue to follow Critical care time is over 30 minutes Time with Patient: Greater than 30
--- NOTE | 2022-12-23 14:04 | CT ---
EXAMINATION TYPE: CT brain wo con DATE OF EXAM: 12/23/2022 COMPARISON: 12/20/2022 HISTORY: AMS of unknown etiology CT DLP: 2194.[address] of the brain was performed. Patient motion limits evaluation. The ventricles, basal cisterns and sulci overlying the cerebral convexities demonstrate mild enlargem ent. There is no evidence for intracranial hemorrhage or sulcal effacement. Incidental left basal ganglia calcifications redemonstrated. There is decreased attenuation about the periventricular white matter and deep white matter of both c erebral hemispheres, compatible with chronic small vessel ischemia. Differential diagnosis does inclu de demyelination. No mass effects are seen.No midline shift. Osseous calvarium is intact. If symptoms persist consider MRI. IMPRESSION: 1. Age related atrophic and chronic small vessel ischemic change without acute intracranial process s een at this time.
--- NOTE | 2022-12-23 14:29 | P.PN ---
Subjective Progress Note Date: 12/23/22 Principal diagnosis: Unknown malignancy, peritoneal carcinomatous Pt remains ventilated Objective - Vital Signs Vital signs: Vital Signs Temp 98.2 F 12/23/22 12:00 Pulse 101 H 12/23/22 13:30 Resp 19 12/23/22 13:30 BP 93/67 12/23/22 12:00 Pulse Ox 100 12/23/22 13:30 FiO2 35 12/23/22 12:00 Intake & Output 12/22/22 12/23/22 12/23/22 18:59 06:59 18:59 Intake Total 1306.413 926.969 592.753 Output Total 398 150 145 Balance 908.413 776.969 447.753 Weight 71.214 kg Intake: IV 320 110 60 0.9 kvo 120 110 60 Piperacillin-Tazobactam 3 200 .375 gm In Sodium Chloride 0.9% 100 ml @ 25 mls/hr IVPB Q12H [facility] Rx# :[id number] Intake, IV Titration 42.413 102.969 168.753 Amount Norepinephrine 8 mg In 42.413 102.969 18.753 Sodium Chloride 0.9% 250 ml @ 0.18 MCG/KG/MIN 23. 859 mls/hr IV .[id number] [facility] Rx#:[id number] Sodium Chloride 0.9% 1, 150 000 ml @ 75 mls/hr IV . [id number] [facility] Rx#:[id number] Tube Feeding 545 624 364 Blood Product 309 Platelet Pheresis Pas 309 Psoralen Unit [id number] Other 90 90 Output: Chest Tube Drainage 250 0 90 Chest Tube Right Upper 250 0 90 Lateral Chest Urine 148 150 55 Other: Voiding Method Indwelling Catheter Indwelling Catheter Indwelling Catheter # Bowel Movements 1 ABP, PAP, CO, CI - Last Documented Arterial Blood Pressure 125/72 - Constitutional General appearance: Present: no acute distress - Labs CBC & Chem 7: 12/23/22 03:40 12/23/22 03:40 Labs: Abnormal Lab Results - Last 24 Hours (Table) 12/22/22 12/23/22 12/23/22 Range/Units 18:12 03:39 03:40 RBC 2.91 L (3.80-5.40) m/uL Hgb 7.9 L (11.4-16.0) gm/dL Hct 24.2 L (34.0-46.0) % Plt Count 26 L (150-450) k/uL Lymphocytes # 0.5 L (1.0-4.8) k/uL ABG Total CO2 (19-24) mmol/L ABG O2 Saturation (94-97) % BUN (7-17) mg/dL Creatinine (0.52-1.04) mg/dL Glucose (74-99) mg/dL POC Glucose (mg/dL) 131 H 161 H (70-110) mg/dL Calcium (8.4-10.2) mg/dL 12/23/22 12/23/22 12/23/22 Range/Units 03:40 05:06 06:07 RBC (3.80-5.40) m/uL Hgb (11.4-16.0) gm/dL Hct (34.0-46.0) % Plt Count (150-450) k/uL Lymphocytes # (1.0-4.8) k/uL ABG Total CO2 26 H (19-24) mmol/L ABG O2 Saturation 99.0 H (94-97) % BUN 73 H (7-17) mg/dL Creatinine 2.18 H (0.52-1.04) mg/dL Glucose 152 H (74-99) mg/dL POC Glucose (mg/dL) 161 H (70-110) mg/dL Calcium 6.7 L (8.4-10.2) mg/dL 12/23/22 Range/Units 11:56 RBC (3.80-5.40) m/uL Hgb (11.4-16.0) gm/dL Hct (34.0-46.0) % Plt Count (150-450) k/uL Lymphocytes # (1.0-4.8) k/uL ABG Total CO2 (19-24) mmol/L ABG O2 Saturation (94-97) % BUN (7-17) mg/dL Creatinine (0.52-1.04) mg/dL Glucose (74-99) mg/dL POC Glucose (mg/dL) 142 H (70-110) mg/dL Calcium (8.4-10.2) mg/dL Microbiology - Last 24 Hours (Table) 12/18/22 14:45 Anaerobic Culture - Final Pleural Fluid 12/18/22 11:42 Blood Culture - Preliminary Blood 12/18/22 14:45 Gram Stain - Final Pleural Fluid Body Fluid Culture - Final Assessment and Plan (1) Carcinomatosis Current Visit: Yes Status: Acute Priority: High Code(s): C80.0 - DISSEMINATED MALIGNANT NEOPLASM, UNSPECIFIED SNOMED Code(s): 688346349 (2) Pleural effusion Current Visit: Yes Status: Acute Priority: High Code(s): J90 - PLEURAL EFFUSION, NOT ELSEWHERE CLASSIFIED SNOMED Code(s): 57888101 (3) Respiratory failure Current Visit: Yes Status: Acute Priority: High Code(s): J96.90 - RESPIRATORY FAILURE, UNSP, UNSP W HYPOXIA OR HYPERCAPNIA SNOMED Code(s): 315123056 Plan: Respiratory failure -Pseudomonas Infection, on antibiotics for the same. Patient being followed by Pulmonary -rremains mechanically ventilated -Per Nursing, Internal Medicine is planning a meeting with the family to discuss CODE STATUS and further plans for care once pt has been evaluated by Neurology and pleural fluid cytology is resulted. Mesenteric carcinomatosis -No formal diagnosis yet. Pleural fluid cytology pending. -Ca 125 1900, CEA WNL -No further testing right now from an Oncology standpoint. Will await cytology and family discussion Bicytopenia -Platelets 26,000 today post 1 unit single donor platelets. Continue to hold all antiplatelet, anticoagulation, no aspirin or NSAIDs. CBC monitoring daily. Transfuse for platelets less than 10,000 or if bleeding. -Hemoglobin 7.9, Slightly down today. Transfuse for hemoglobin less than 7 or if symptomatic.
[2022-12-23 16:09] LABS: Glucose,Whole Blood 158 mg/dL (70-110)
--- NOTE | 2022-12-23 17:18 | P.PN ---
Progress Note - Text Progress Note Date: 12/23/22 Chief Complaint: Intubated This is a 62-year-old patient, being followed by Malik Vale, was transferred here from [facility]. Patient presented with a altered mental status had to be intubated. Apparently she was having episodes of vomiting for the possible. Summary from the hospital and contacted EMS about 5 days ago but patient refused to go to the hospital. Computed tomography scan of the hospital was unremarkable. CT of the abdomen and pelvis showed extensive nodular infiltration of the greater omentum and redness peritoneal nodularity of the left upper abdomen with some ascites.. Suggestive of metastatic disease. Also distended endometrial cavity was reported. Also distended gallbladder with no calculi. Fatty infiltration of liver. Large right pleural effusion with atelectasis of the right lower lobe. Partial atelectasis of right below. Some thickening of the gastric antrum and duodenum. Patient was hypotensive. Patient was decontaminated in the ER for maggots in the hair. This morning patient is intubated on the ventilator. With FiO2 50% and a PEEP of 5. Patient probably aspirated after vomiting. Has been placed on Zosyn. [employer] team earlier creatinine return to the family was unable to do so. Admitted with acute hypoxic respiratory failure, multifactorial, pneumonia, requiring ventilator assistance. Aspiration pneumonia. Septic shock. On IV levo fed. Metastatic carcinoma. December 19: ICU. Intubated. FiO2 50 to PEEP of 5. Sinus tachycardia heart rate 120. IV norepinephrine. Patient has been off propofol. Currently full code. Nurse did update the on the phone. Hasn't been in. According to the nurse patient was doing fine up to about September, as per patient's PCP. December 3: ICU. Intubated. FiO2 40 PEEP of 5. Sinus rhythm. IV norepinephrine. No family at bedside. Remains full code. IV Zosyn. Right-sided chest tube December: ICU. Intubated. 40/5. Sinus rhythm. IV levo fed. Nurse informed me that has disability and does not have a right. Right-sided chest port with decreased output. OG tube feeding. December 22: ICU. Intubated. FiO2 35 PEEP of 5. Sinus rhythm. 2 feeding at 53 mL hour. Does open eyes but not really following commands. Has been having petechie. Platelets down to 19. Platelets ordered. Tried to reach the list phone number to reach the . And went into voicemail December 23: ICU. Intubated. FiO2 35 PEEP of 5. Getting 2 feeding at 55 mL an hour. Some response. Nonpurposeful. Petechiae. I finally managed to get to the on the phone. He is disabled. Really cannot get about. He started to get a ride to come to the hospital. Did tell him about the presence of carcinomatosis in the abdomen. Cytology pending. He really does not want to wish to be done ascites. But will speak to the oncologist. I addressed CODE STATUS with him. Patient made DO NOT RESUSCITATE. Patient was CT brain today. Unremarkable. Chronic changes. Cytology still pending. Spoke to nurse practitioner Trang from oncology. Total time spent today above an hour Active Medications Albuterol/Ipratropium (Ipratropium-Albuterol 3 Ml Neb) 3 ml INHALATION RT-Q4H RAMESH Last Admin: 12/23/22 15:52 Dose: Not Given Atorvastatin Calcium (Atorvastatin 40 Mg Tab) 40 mg PO DAILY RAMESH Last Admin: 12/23/22 08:47 Dose: 40 mg Chlorhexidine Gluconate (Chlorhexidine Gluconate 15 Ml Cup) 15 ml MUCOUS MEM BID RAMESH Last Admin: 12/23/22 08:48 Dose: 15 ml Dextrose/Water (Dextrose 50% Syringe 50 Ml) 25 ml IVP PER PROTOCOL PRN; Protocol PRN Reason: Hypoglycemia Dextrose/Water (Dextrose 50% Syringe 50 Ml) 50 ml IVP PER PROTOCOL PRN; Protocol PRN Reason: Hypoglycemia Propofol 1,000 mg/ IV Solution 100 mls @ 6.021 mls/hr IV .[id number] [facility]; Protocol Last Admin: 12/23/22 12:03 Dose: Not Given Piperacillin Sod/Tazobactam (Sod 3.375 gm/ Sodium Chloride) 100 mls @ 25 mls/hr IVPB Q8HR [facility]; Protocol Last Admin: 12/23/22 16:00 Dose: 25 mls/hr Norepinephrine Bitartrate 8 mg (/ Sodium Chloride) 258 mls @ 23.859 mls/hr IV .[id number] [facility]; Protocol Last Titration: 12/23/22 16:17 Dose: 0 mcg/kg/min, 0 mls/hr Sodium Chloride (Saline 0.9%) 1,000 mls @ 75 mls/hr IV .[id number] [facility] Last Admin: 12/23/22 10:43 Dose: 75 mls/hr Calcium Gluconate/Sodium (Chloride 1 gm/ IV Solution) 100 mls @ 100 mls/hr IVPB ONCE ONE Stop: 12/23/22 18:59 Insulin Aspart (Insulin Aspart (Novolog) 100 Unit/Ml Vial) 0 unit SQ Q6HR RAMESH; Protocol Last Admin: 12/23/22 11:56 Dose: Not Given Miscellaneous Information (Vancomycin Iv Per Pharmacy 1 Each [facility] [place] 1 each MISCELLANE DIRECTED PRN; Protocol PRN Reason: Per Protocol Miscellaneous Information (Potassium Replacement Protocol 1 Each [facility] [place]) 1 each MISCELLANE DAILY PRN; Protocol PRN Reason: Per Protocol Miscellaneous Information (Phosphorus Replacement Protoco 1 Each [facility] [place]) 1 each MISCELLANE DAILY PRN; Protocol PRN Reason: Per Protocol Naloxone HCl (Naloxone 0.4 Mg/Ml 1 Ml Vial) 0.2 mg IV Q2M PRN PRN Reason: Opioid Reversal Pantoprazole Sodium (Pantoprazole 40 Mg/10 Ml Vial) 40 mg IV DAILY [facility] Last Admin: 12/23/22 08:48 Dose: 40 mg Past medical history to include: Hypertension, hyperlipidemia, arthritis Social history: Cannot be obtained Physical examination: VITAL SIGNS: 88.6, 105, 24, 134/71, 99% on the ventilator GENERAL: laying in bed intubated. Right-sided chest tube. Does open eyes. Scattered petechiae EYES: Pupils equal. Conjunctiva normal. HEENT: External appearance of nose and ears normal, oral cavity ET tube. NECK: JVD unable to assess; masses not palpable. HEART: First and second heart sounds are normal; no edema. LUNGS: Respiratory rate increased; decreased breath sounds. ABDOMEN: Soft, nontender, liver spleen not palpable, no masses palpable. PSYCH: Not really following commands. INVESTIGATIONS, reviewed in the clinical context: December 23: Hemoglobin 7.9 platelets 26 potassium 4.1 creatinine 2.18 ionized calcium 4.2 December 22: WBC 6.5 hemoglobin 8.4 platelets 19 potassium 4.1 BUN 65 creatinine 1.98 December 21: WBC 5.5 hemoglobin 7.8 platelets 26 potassium 3.5 BUN 61 creatinine 1.7 to AST 148 ALT 111 albumin 1.7 December 20: WBC 6.9 hemoglobin 9.1 platelets 47 potassium 3.3 BUN 59 creatinine 1.8 to ionized calcium 4.4 AST 352 ALT 214 albumin 1.7 December 19: White count 7.6 hemoglobin 12.2 platelets 72 potassium 4 BUN 53 creatinine 1.93. ABG: PH 7.25 pCO2 33 pO2 159 White count 8.4 hemoglobin 12 platelets 88 sodium 136 potassium 4.4 BUN 65 creatinine 1.99 Lactic acid 6.2 CEA antigen 5.3 EKG tracing personally reviewed by me-normal sinus rhythm. Rate 84 Chest x-ray film personally reviewed by [id number] mass/infiltrate. Atelectasis. CT chest without contrast. Large right, small left pleural effusions. Mild peripheral edema. Colonic diverticulosis. Mesentric carcinomatosis. 2-D echocardiogram: EF 55-60%. Assessment and plan: -Acute hypoxic respiratory failure, multifactorial including possible pneumonia, right lower lobe collapse. Requiring ventilator assistance.: Not improving -Possible aspiration pneumonia IV Zosyn -Septic shock: Slow to respond IV fluids, levofed -Large right pleural effusion Right-sided chest tube placed December 18 -Metastatic mesenteric carcinomatosis. point primary unknown. Distended endometrium. Being followed by oncology. Pending cytology -Altered mental status, multifactorial/metabolic encephalopathy/delirium -Elevated troponin from hemodynamic mismatch. No clinical evidence of acute coronary syndrome -Acute kidney injury, likely ATN could be from shock. Baseline creatinine not known.: Slow to respond -Nonalcoholic fatty liver disease. -Hypocalcemia Receives calcium gluconate -Thrombocytopenia, severe with petechiae Platelets being transfused -Metabolic acidosis with a contribution from kidney injury: Better Sodium bicarbonate drip -DO NOT RESUSCITATE IV Zosyn. Spoke to the hospital the phone. CODE STATUS changed to DO NOT RESUSCITATE. He will try to get a ride the hospital tomorrow. Pending cytology. Also spoke to nurse practitioner Trang from oncology. She'll also get in touch with the patient's .
[2022-12-23] MEDS ORDERED: CALCIUM GLUCONATE IN NACL 1 GM in SALINE 1 100ML.BAG IVPB ONE (18:00)
--- NOTE | 2022-12-23 20:10 | EEG ---
ELECTROENCEPHALOGRAM REPORT CLINICAL HISTORY: This is a 62-year-old woman with altered mental status. The video EEG is obtained to evaluate for seizure epileptiform activity. RELEVANT MEDICATION: The patient is not on any antiseizure medication. EEG TYPE: A routine 21-channel EEG is performed with video using the 10/20 electrode placement system. DESCRIPTION: The patient is intubated on a ventilator. The background consists of [id number] voltage of 6 to 7 hertz activity and at times intermixed with delta activity. Also at times, the background consists of [id number] voltage of diffuse delta activity that is nonrhythmic. There is no physiological stage 2 sleep activity. There is no focal slowing. Interictal and ictal are none. ACTIVATION PROCEDURE: Photic stimulation and hyperventilation are not performed. CLINICAL INTERPRETATION: This is an abnormal routine EEG. The background slowing is suggestive of moderate encephalopathy. Otherwise, there is no focal slowing, epileptiform discharges or seizure on the EEG. Clinical correlation is recommended. MARK / SUMIT: [id number] / [email or web address]
[2022-12-23 23:36] LABS: Glucose,Whole Blood 132 mg/dL (70-110)
[2022-12-23] MEDS ORDERED: SODIUM CHLORIDE 0.9% 500 ML 500 ML IV ONE (23:57)
[2022-12-24] MEDS: PIPERACILLIN-TAZOBACTAM 3.375 GM in SODIUM CHLORIDE 0.9% 100 ML IVPB SCH ×3 (00:32→15:51)
[2022-12-24] MEDS: IPRATROPIUM-ALBUTEROL 3 ML NEB INHALATION SCH ×6 (00:32→20:14)
[2022-12-24] MEDS: SODIUM CHLORIDE 0.9% 1,000 ML IV SCH ×2 (00:32→21:25)
[2022-12-24] MEDS: INSULIN ASPART (NovoLOG) 100 UNIT/ML VIAL SQ SCH ×4 (00:33→18:29)
[2022-12-24 06:01] LABS: Glucose,Whole Blood 140 mg/dL (70-110)
[2022-12-24 06:08] LABS: ABG Base Excess -0.8 mmol/L; ABG HCO3 23 mmol/L (21-25); ABG Oxygen Saturation 96.7 % (94-97); ABG PCO2 33 mmHg (35-45); ABG PH 7.46 (7.35-7.45); ABG PO2 72 mmHg (83-108); ABG TCO2 24 mmol/L (19-24); Allen Test Performed? Yes
[2022-12-24 06:23] LABS: HCT 24.2 % (34.0-46.0); HGB 7.8 gm/dL (11.4-16.0); MCH 26.9 pg (25.0-35.0); MCHC 32.3 g/dL (31.0-37.0); MCV 83.3 fL (80.0-100.0); RBC 2.91 m/uL (3.80-5.40); RDW 15.2 % (11.5-15.5); WBC 8.9 k/uL (3.8-10.6)
[2022-12-24 06:25] LABS: Platelet Count 39 k/uL (150-450)
[2022-12-24 06:43] LABS: African American GFR (CKD) 24 (>60 ml/min/1.73 sqM); Anion Gap 10 mmol/L; Blood Urea Nitrogen 76 mg/dL (7-17); Calcium 6.7 mg/dL (8.4-10.2); Carbon Dioxide 24 mmol/L (22-30); Chloride 109 mmol/L (98-107); Glucose 135 mg/dL (74-99); Non-African American GFR(CKD) 21 (>60 ml/min/1.73 sqM); Potassium 3.9 mmol/L (3.5-5.1); Sodium 143 mmol/L (137-145)
[2022-12-24] MEDS ORDERED: POTASSIUM BICARBONATE/CIT AC 20 MEQ TABLET.EFF NG-TUBE SCH (08:00)
--- NOTE | 2022-12-24 08:19 | XR ---
EXAMINATION TYPE: XR chest 1V portable DATE OF EXAM: 12/24/2022 COMPARISON: 12/23/2022 HISTORY: Tube placement TECHNIQUE: Single frontal view of the chest is obtained. FINDINGS: Right-sided chest tube is seen and there is any right-sided pleural effusion. No sizable p neumothorax. Hypertrophic and degenerative changes of the spine. ET tube, NG tube stable. Large calci fied lymph nodes are seen in the hilum and mediastinum. Small left pleural effusion is seen and there is underlying COPD. Right-sided drainage catheter again noted. IMPRESSION: 1. Stable bilateral pleural effusion and infiltrate correlate for CHF
[2022-12-24] MEDS: PANTOPRAZOLE 40 MG/10 ML VIAL IV SCH (08:27)
[2022-12-24] MEDS: ATORVASTATIN 40 MG TAB PO SCH (08:27)
[2022-12-24] MEDS: CHLORHEXIDINE GLUCONATE 15 ML CUP MUCOUS MEM SCH ×2 (08:28→21:24)
[2022-12-24 09:09] LABS: Vancomycin,Random 26.2 ug/mL
[2022-12-24] MEDS ORDERED: FUROSEMIDE 10 MG/ML 10 ML VIAL IV STA (10:19)
[2022-12-24] MEDS: NOREPINEPHRINE 8 MG in SODIUM CHLORIDE 0.9% 250 ML IV SCH ×2 (10:52→18:30)
[2022-12-24 12:01] LABS: Glucose,Whole Blood 163 mg/dL (70-110)
--- NOTE | 2022-12-24 12:34 | P.PN ---
Subjective Progress Note Date: 12/24/22 Per the nurse patient is about the same today compared to yesterday. She was on IV propofol 15mcg/kg/min and has been held since 6am today. No improvement in her mental function. Objective - Vital Signs Vital signs: Vital Signs Temp 99.0 F 12/24/22 12:00 Pulse 100 12/24/22 12:20 Resp 23 12/24/22 12:00 BP 93/67 12/24/22 06:30 Pulse Ox 98 12/24/22 12:00 FiO2 35 12/24/22 12:16 Intake & Output 12/23/22 12/24/22 12/24/22 18:59 06:59 18:59 Intake Total 3279.280 8547 859.045 Output Total 340 245 250 Balance 967.119 4992 609.045 Weight 72.2 kg Intake: IV 60 1325 340 0.9 kvo 60 Sodium Chloride 0.9% 1, 1325 340 000 ml @ 20 mls/hr IV . Q24H RAMESH Rx#:[id number] Intake, IV Titration 558.466 75 199.045 Amount Norepinephrine 8 mg In 33.466 Sodium Chloride 0.9% 250 ml @ 0.18 MCG/KG/MIN 23. 859 mls/hr IV .[id number] RAMESH Rx#:[id number] Piperacillin-Tazobactam 3 100 .375 gm In Sodium Chloride 0.9% 100 ml @ 25 mls/hr IVPB Q8HR RAMESH Rx# :[id number] Sodium Chloride 0.9% 1, 525 75 000 ml @ 20 mls/hr IV . Q24H RAMESH Rx#:[id number] propofoL 1,000 mg In 0 99.045 Empty Bag 1 bag @ 15 MCG/ KG/MIN 6.021 mls/hr IV . [id number] RAMESH Rx#:[id number] Tube Feeding 624 416 260 Other 30 60 60 Output: Chest Tube Drainage 150 100 Chest Tube Right Upper 150 100 Lateral Chest Urine 190 245 150 Other: Voiding Method Indwelling Catheter Indwelling Catheter Indwelling Catheter ABP, PAP, CO, CI - Last Documented Arterial Blood Pressure 120/64 - Exam Physical exam; Lung: Intubated on ventilator Neuro: Examination is limited because of condition. IV Propofol 15mcg/kg/min has been held for 3 hour prior to examination. Comatose: GCS 7 (E1, VT1, M5) Pupils are round equal and reactive to light. Primary gaze seems center bilaterally. Is breathing over the vent No facial weakness. Motor: Strength: Localizing to pain and appears more right > left. Reflex: 1+ bilaterally. Plantars: Mute bilaterally. Some of the other workup during his hospital visit consisted of: Ionized calcium 6.7 and the calcium level has been in the range of 6ish. Ammonia level is less than 9. TSH is 2.690. Urine drug screen is not detected B12: 1216 Folate: 3.80 CT of the head 12/20 is reported as age-related atrophic and chronic small vessel ischemic change without acute intracranial process seen at this time. I personally reviewed the CT and I felt the patient has lacunar over the bilateral basilar seen suspicious otherwise there is no bleed, acute or subacute ischemia. Routine EEG: Is abnormal. The background slowing is suggestive of moderate encephalopathy. Otherwise, there is no focal slowing, epileptiform discharges or seizure on the EEG. - Labs CBC & Chem 7: 12/24/22 06:00 12/24/22 06:00 Labs: Abnormal Lab Results - Last 24 Hours (Table) 12/23/22 12/23/22 12/23/22 Range/Units 03:40 03:40 16:07 RBC (3.80-5.40) m/uL Hgb (11.4-16.0) gm/dL Hct (34.0-46.0) % Plt Count (150-450) k/uL ABG pH (7.35-7.45) ABG pCO2 (35-45) mmHg ABG pO2 (83-108) mmHg Chloride (98-107) mmol/L BUN (7-17) mg/dL Creatinine (0.52-1.04) mg/dL Glucose (74-99) mg/dL POC Glucose (mg/dL) 158 H (70-110) mg/dL Calcium (8.4-10.2) mg/dL Ionized Calcium Miri (4.5-5.3) mg/dL Vitamin B12 1216.0 H pg/mL Folate 3.80 L ng/mL 12/23/22 12/23/22 12/24/22 Range/Units 16:10 23:35 05:43 RBC (3.80-5.40) m/uL Hgb (11.4-16.0) gm/dL Hct (34.0-46.0) % Plt Count (150-450) k/uL ABG pH 7.46 H (7.35-7.45) ABG pCO2 33 L (35-45) mmHg ABG pO2 72 L (83-108) mmHg Chloride (98-107) mmol/L BUN (7-17) mg/dL Creatinine (0.52-1.04) mg/dL Glucose (74-99) mg/dL POC Glucose (mg/dL) 132 H (70-110) mg/dL Calcium (8.4-10.2) mg/dL Ionized Calcium Miri 4.2 L (4.5-5.3) mg/dL Vitamin B12 pg/mL Folate ng/mL 12/24/22 12/24/22 12/24/22 Range/Units 06:00 06:00 06:00 RBC 2.91 L (3.80-5.40) m/uL Hgb 7.8 L (11.4-16.0) gm/dL Hct 24.2 L (34.0-46.0) % Plt Count 39 L (150-450) k/uL ABG pH (7.35-7.45) ABG pCO2 (35-45) mmHg ABG pO2 (83-108) mmHg Chloride 109 H (98-107) mmol/L BUN 76 H (7-17) mg/dL Creatinine 2.41 H (0.52-1.04) mg/dL Glucose 135 H (74-99) mg/dL POC Glucose (mg/dL) 140 H (70-110) mg/dL Calcium 6.7 L (8.4-10.2) mg/dL Ionized Calcium Miri (4.5-5.3) mg/dL Vitamin B12 pg/mL Folate ng/mL 12/24/22 Range/Units 11:59 RBC (3.80-5.40) m/uL Hgb (11.4-16.0) gm/dL Hct (34.0-46.0) % Plt Count (150-450) k/uL ABG pH (7.35-7.45) ABG pCO2 (35-45) mmHg ABG pO2 (83-108) mmHg Chloride (98-107) mmol/L BUN (7-17) mg/dL Creatinine (0.52-1.04) mg/dL Glucose (74-99) mg/dL POC Glucose (mg/dL) 163 H (70-110) mg/dL Calcium (8.4-10.2) mg/dL Ionized Calcium Miri (4.5-5.3) mg/dL Vitamin B12 pg/mL Folate ng/mL Microbiology - Last 24 Hours (Table) 12/18/22 11:42 Blood Culture - Final Blood 12/18/22 14:45 Anaerobic Culture - Final Pleural Fluid Assessment and Plan Assessment: Altered mental status seems to metabolic encephalopathy. Cannot rule out brain metastases. EEG is moderate encephalopathy but no seizure or discharges. Suspected Mesenteric carcinomatosis CA 125 level 1900 (normal up to 30). Suspected malignant pleural effusion. cytology pending. Folate deficiency Acute kidney injury--worsening Acute thrombocythemia Hypocalcemia Plan: Repeat CT head on 12/23/22: Age-related atrophic and chronic small vessel ischemic change without acute intracranial process seen at this time. Routine EEG is moderate encephalopathy. Otherwise there is no seizure or discharges. If possible once extubated to obtain MRI Brain w/ and w/o. Consider lumbar puncture to rule out brain mets/carcimatosis spread once leny telets improves if not improving. Folate deficiency and I started her on folic acid 1mg daily. Will defer rest of management to other specialist. Condition is critical. Overall prognossis appears poor. The plan is discussed with her nurse. Dr. Tomlin will start neurology service tomorrow A.M. Time with Patient: Less than 30
--- NOTE | 2022-12-24 12:57 | P.PN ---
Progress Note - Text Progress Note Date: 12/24/22 Chief Complaint: Intubated This is a 62-year-old patient, being followed by Malik Vale, was transferred here from [facility]. Patient presented with a altered mental status had to be intubated. Apparently she was having episodes of vomiting for the possible. Summary from the hospital and contacted EMS about 5 days ago but patient refused to go to the hospital. Computed tomography scan of the hospital was unremarkable. CT of the abdomen and pelvis showed extensive nodular infiltration of the greater omentum and redness peritoneal nodularity of the left upper abdomen with some ascites.. Suggestive of metastatic disease. Also distended endometrial cavity was reported. Also distended gallbladder with no calculi. Fatty infiltration of liver. Large right pleural effusion with atelectasis of the right lower lobe. Partial atelectasis of right below. Some thickening of the gastric antrum and duodenum. Patient was hypotensive. Patient was decontaminated in the ER for maggots in the hair. This morning patient is intubated on the ventilator. With FiO2 50% and a PEEP of 5. Patient probably aspirated after vomiting. Has been placed on Zosyn. [employer] team earlier creatinine return to the family was unable to do so. Admitted with acute hypoxic respiratory failure, multifactorial, pneumonia, requiring ventilator assistance. Aspiration pneumonia. Septic shock. On IV levo fed. Metastatic carcinoma. December 19: ICU. Intubated. FiO2 50 to PEEP of 5. Sinus tachycardia heart rate 120. IV norepinephrine. Patient has been off propofol. Currently full code. Nurse did update the on the phone. Hasn't been in. According to the nurse patient was doing fine up to about September, as per patient's PCP. December 3: ICU. Intubated. FiO2 40 PEEP of 5. Sinus rhythm. IV norepinephrine. No family at bedside. Remains full code. IV Zosyn. Right-sided chest tube December: ICU. Intubated. 40/5. Sinus rhythm. IV levo fed. Nurse informed me that has disability and does not have a right. Right-sided chest port with decreased output. OG tube feeding. December 22: ICU. Intubated. FiO2 35 PEEP of 5. Sinus rhythm. 2 feeding at 53 mL hour. Does open eyes but not really following commands. Has been having petechie. Platelets down to 19. Platelets ordered. Tried to reach the list phone number to reach the . And went into voicemail December 23: ICU. Intubated. FiO2 35 PEEP of 5. Getting 2 feeding at 55 mL an hour. Some response. Nonpurposeful. Petechiae. I finally managed to get to the on the phone. He is disabled. Really cannot get about. He started to get a ride to come to the hospital. Did tell him about the presence of carcinomatosis in the abdomen. Cytology pending. He really does not want to wish to be done ascites. But will speak to the oncologist. I addressed CODE STATUS with him. Patient made DO NOT RESUSCITATE. Patient was CT brain today. Unremarkable. Chronic changes. Cytology still pending. Spoke to nurse practitioner Trang from oncology. Total time spent today above an hour December 24: ICU. Intubated. On the ventilator. Started back on propofol for restlessness. Does open eyes but not purposeful. Had some diarrhea with a rectal tube. Tube feeding at goal. Expecting the to come in today. Active Medications Albuterol/Ipratropium (Ipratropium-Albuterol 3 Ml Neb) 3 ml INHALATION RT-Q4H [facility] Last Admin: 12/24/22 12:18 Dose: 3 ml Atorvastatin Calcium (Atorvastatin 40 Mg Tab) 40 mg PO DAILY [facility] Last Admin: 12/24/22 08:27 Dose: 40 mg Chlorhexidine Gluconate (Chlorhexidine Gluconate 15 Ml Cup) 15 ml MUCOUS MEM BID [facility] Last Admin: 12/24/22 08:28 Dose: 15 ml Dextrose/Water (Dextrose 50% Syringe 50 Ml) 25 ml IVP PER PROTOCOL PRN; Protocol PRN Reason: Hypoglycemia Dextrose/Water (Dextrose 50% Syringe 50 Ml) 50 ml IVP PER PROTOCOL PRN; Protocol PRN Reason: Hypoglycemia Folic Acid (Folic Acid 1 Mg Tab) 1 mg PO DAILY [facility] Propofol 1,000 mg/ IV Solution 100 mls @ 6.021 mls/hr IV .[id number] [facility]; Protocol Last Admin: 12/24/22 11:59 Dose: 10 mcg/kg/min, 4.014 mls/hr Piperacillin Sod/Tazobactam (Sod 3.375 gm/ Sodium Chloride) 100 mls @ 25 mls/hr IVPB Q8HR [facility]; Protocol Last Admin: 12/24/22 08:28 Dose: 25 mls/hr Norepinephrine Bitartrate 8 mg (/ Sodium Chloride) 258 mls @ 23.859 mls/hr IV .[id number] [facility]; Protocol Last Admin: 12/24/22 10:52 Dose: Not Given Sodium Chloride (Saline 0.9%) 1,000 mls @ 20 mls/hr IV .Q24H [facility] Last Admin: 12/24/22 00:32 Dose: 75 mls/hr Insulin Aspart (Insulin Aspart (Novolog) 100 Unit/Ml Vial) 0 unit SQ Q6HR [facility]; Protocol Last Admin: 12/24/22 12:00 Dose: 2 unit Miscellaneous Information (Vancomycin [place] Per [place] 1 Each [facility] [place] each [place]CELLANE DIRECTED PRN; Protocol PRN Reason: Per Protocol Miscellaneous Information (Potassium Replacement Protocol 1 Each [facility] [place] 1 each M[place]CELLANE DAILY PRN; Protocol PRN Reason: Per Protocol Miscellaneous Information (Phosphorus Replacement Protoco 1 Each [facility] [place] 1 each MISCELLANE DAILY PRN; Protocol PRN Reason: Per Protocol Naloxone HCl (Naloxone 0.4 Mg/Ml 1 Ml Vial) 0.2 mg IV Q2M PRN PRN Reason: Opioid Reversal Pantoprazole Sodium (Pantoprazole 40 Mg/10 Ml Vial) 40 mg IV DAILY [facility] Last Admin: 12/24/22 08:27 Dose: 40 mg Past medical history to include: Hypertension, hyperlipidemia, arthritis Social history: Cannot be obtained Physical examination: VITAL SIGNS: 99, 102, 23, 120/64, 98% on ventilator GENERAL: laying in bed intubated. Right-sided chest tube. Does open eyes. Scattered petechiae EYES: Pupils equal. Conjunctiva normal. HEENT: External appearance of nose and ears normal, oral cavity ET tube. NECK: JVD unable to assess; masses not palpable. HEART: First and second heart sounds are normal; no edema. LUNGS: Respiratory rate increased; decreased breath sounds. ABDOMEN: Soft, nontender, liver spleen not palpable, no masses palpable. PSYCH: Not really following commands. INVESTIGATIONS, reviewed in the clinical context: December 24: WBC 8.9 hemoglobin 7.8 platelets 39 potassium 3.9 creatinine 2.41 December 23: Hemoglobin 7.9 platelets 26 potassium 4.1 creatinine 2.18 ionized calcium 4.2 December 22: WBC 6.5 hemoglobin 8.4 platelets 19 potassium 4.1 BUN 65 creatinine 1.98 December 21: WBC 5.5 hemoglobin 7.8 platelets 26 potassium 3.5 BUN 61 creatinine 1.7 to AST 148 ALT 111 albumin 1.7 December 20: WBC 6.9 hemoglobin 9.1 platelets 47 potassium 3.3 BUN 59 creatinine 1.8 to ionized calcium 4.4 AST 352 ALT 214 albumin 1.7 December 19: White count 7.6 hemoglobin 12.2 platelets 72 potassium 4 BUN 53 creatinine 1.93. ABG: PH 7.25 pCO2 33 pO2 159 White count 8.4 hemoglobin 12 platelets 88 sodium 136 potassium 4.4 BUN 65 creatinine 1.99 Sputum: Pseudomonas aeruginosa. Blood culture: Coagulase-negative staph Lactic acid 6.2 CEA antigen 5.3 EKG tracing personally reviewed by me-normal sinus rhythm. Rate 84 Chest x-ray film personally reviewed by [id number] mass/infiltrate. Atelectasis. CT chest without contrast. Large right, small left pleural effusions. Mild peripheral edema. Colonic diverticulosis. Mesentric carcinomatosis. 2-D echocardiogram: EF 55-60%. Assessment and plan: -Acute hypoxic respiratory failure, multifactorial including possible pneumonia, right lower lobe collapse. Requiring ventilator assistance.: Not improving -Possible aspiration pneumonia secondary to Pseudomonas IV Zosyn -Septic shock: Improved IV fluids, levofed -Large right pleural effusion Right-sided chest tube placed December 18 -Metastatic mesenteric carcinomatosis. point primary unknown. Distended endometrium. Being followed by oncology. Pending cytology -Altered mental status, multifactorial/metabolic encephalopathy/delirium -Elevated troponin from hemodynamic mismatch. No clinical evidence of acute coronary syndrome -Acute kidney injury, likely ATN could be from shock. Baseline creatinine not known.: Slow to respond -Nonalcoholic fatty liver disease. -Hypocalcemia Receives calcium gluconate -Thrombocytopenia, severe with petechiae Platelets transfused -Metabolic acidosis with a contribution from kidney injury: Better Sodium bicarbonate drip -DO NOT RESUSCITATE per her IV Zosyn. Cytology still pending. might come in today. Prognosis guarded.
[2022-12-24] MEDS: FOLIC ACID 1 MG TAB PO SCH (13:49)
--- NOTE | 2022-12-24 14:08 | P.PN ---
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 I am seeing this patient in new consultation today 12/18/2022 in the intensive care unit after she was transferred from [facility]. Apparently, the patient presented to outside hospital altered and had to be intubated to protect her airway. The patient's medical history is largely unknown, I did reach out to contact the patient's family. They are poor historians, and unable to provide me with a detailed medical history or events leading up to her hospitalization in [place]. I was able to ascertain that she has been having frequent episodes of vomiting for the past month. In fact, someone in the household had contacted EMS 5 days prior, but she refused to go to the hospital. While at [facility], the patient did undergo a nonenhanced brain CT which showed no acute intracranial hemorrhage or mass effect. The patient also had a CT of the abdomen pelvis with contrast which showed extensive nodular infiltration of the greater omentum as well as peritoneal nodularity in the left upper abdomen with mild accompanying ascites. 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 The patient's uterus size was normal, but there was a distended endometrial cavity concerning for endometrial cancer. There was a distended gallbladder with no apparent calculi or bili tract dilation. Liver had fatty infiltration without any specific lesions or biliary tract dilation. There was a large right pleural effusion with atelectasis of the right lower lung and partial atelectasis of the right middle lung, left lung was clear without any significant effusions or infiltrates. There was gastroesophageal reflux with fluid within the esophagus. There is thickening of the gastric antrum and duodenal. No free air. No other obvious obstruction. The patient was hypotensive at the outside facility, and a right femoral central line was placed. The patient was transferred to [facility] last night in critical condition. The patient is currently intubated on mechanical ventilator with current settings of assist control, respiratory rate 18, tidal volume 400, FiO2 50%, PEEP of 5. ABGs done on these settings show a pO2 of 112, pCO2 of 33, pH of 7.22. Chest x-ray on arrival showed the ET tube approximately 1.5 cm from the debora, and this was withdrawn 2 cm. The patient does have an orogastric tube coursing below the diaphragm. There was a moderate right pleural effusion. Unfortunately, the patient did vomit and probably aspirated, the OG tube is hooked to low intermittent suction. I have added Zosyn for empiric antibiotic coverage. The patient currently has norepinephrine infusing at 0.08 mics per ki logram per minute. I've given an additional 2 L normal saline bolus patient's lactic was 15 at outside facility, and is down to 9.6. I did order a non- enhanced CT of the chest, abdomen, pelvis, the patient's renal function is poor. This redemonstrated mesenteric carcinomatosis. It also showed a large right and mild left pleural effusion and mild pulmonary edema. CBC on arrival shows a WBC count of 9.1, hemoglobin 13.1, hematocrit 42.9, platelets 78,000. BMP on admission shows a sodium 136, potassium 4.8, chloride 102, serum CO2 13, BUN 65, creatinine 2.17, glucose 129. LFTS are elevated with an AST 3691, ALT of 831, ALP 164. Normal saline infusing at 75 mL per hour. Troponins 0.317. No obvious ischemic changes of ECG. Urine output is in the order of 20 ml/hr. Urinalysis not suspicious for UTI. Urine drug screen was negative, apparently there was suspicion of past polysubstance abuse. The patient's condition is currently critical, I have made multiple attempts to reach out to the patient's family. It is unclear if they will be coming up to the hospital later this afternoon. The patient arrived in a disheveled state with maggots in her hair. She did have multiple bruises located on her back and chest. For now she will remain on the ventilator, and be monitored in the intensive care unit. On today's evaluation of 2022, the patient remains intubated on a mechanical ventilator. The patient is currently on propofol which is running at 30 mcg/kg/m. Nevertheless earlier this morning, the patient was taken off the propofol to evaluate her underlying mental status. She is currently off propofol and the patient is receiving a sedation holiday. She remains quite a dvanced on a mechanical ventilator a day rate of 18 with a tidal volume of 400 and FiO2 of 50% with a PEEP of 5. Her chest x-ray shows marked improvement elevation of the right lung. The patient had a pigtail catheter inserted yesterday into the right hemithorax and a total amount of output was 700 mL overnight and the patient without more than 1.5 L immediately after insertion. The fluid analysis still pending for now and the fluid was also sent for cytology. Meanwhile, a repeat CAT scan of the chest abdomen and pelvis was done which confirmed the presence of a large right-sided pleural effusion. There was evidence of mesenteric carcinomatosis and the etiology was unknown. There is al so evidence of colonic diverticulosis. The patient remains quite acidotic and she remains in renal failure and hypotensive. Earlier this morning, the patient is on norepinephrine which is running at 0.22 mcg/kg/m and as such an arterial line will be inserted for accurate blood pressure monitoring. The patient's BUN is at 63 with a creatinine of 1.9. She remains acidotic although serum bicarb i s improving and is up to 14. The patient remains on a bicarbonate infusion which is running at the rate of 75 mL an hour. She does have abnormal LFTs, AST is 3691 and ALT is a 31 with an alkaline phosphatase of 164, could be related to shock liver. CA 125 level is 1900 and this may be consistent with ovarian cancer. A consultation has been placed for OB GEN to evaluate those findings. The CEA level is 5.3. Troponins at 0.3. The patient's echocardiogram shows a preserved LV function. There was some mild mitral regurgitation. No significant pulmonary hypertension. The patient is on empiric antibiotic coverage and she is currently on IV Zosyn. She also has a triple-lumen catheter in the right femoral vein that was inserted in an outside hospital. On today's evaluation of 12/20/2022, the patient remains intubated on a mechanical ventilator. She remains on propofol which is off since yesterday, and the patient has not have adequate neurological recovery. The patient remains unresponsive while being off sedatives. We decided to keep the propofol off on this patient. The CAT scan of the brain was initiated done at [facility] and was negative and I think is reasonable to repeat a CAT scan of the brain pressure the patient is not responsive off sedation. Anesthetic time, we were informed that the patient was growing gram-positive cocci in her blood at [facility]. Vancomycin was added. For now, she remains on a combination of Zosyn and vancomycin. The sputum is showing gram-negative bacillus and the chest x-rays showing clearing of the right-sided pleural effusion and ongoing infiltration of the left lung which is a combination of mixed interstitial and alveolar special in the left lower lobe. Hemodynamically, the patient received several fluid boluses yesterday and she responded nicely to the fluid bolus. She is still on norepinephrine which is running at 0.22 mcg/kg/m. She does have a central line and a arterial line was also added for better blood pressure monitoring. She is afebrile. She is on a mechanical ventilator on this control mode at the rate of 18 with a tidal volume of 400 and FiO2 of 40% with a PEEP of 5. She is showing a pH of 7.28 with a pCO2 of 44 and pO2 190 and this was an FiO2 of 50%. Her white cell count today is at 6.9 with a hemoglobin of 9.1 and a platelet count of 47 and Rezulin electrolytes show a sodium of 140, potassium of 3.3, bicarb of 18 and a BUN of 59 and a creatinine of 1.8. LFTs are abnormal with an AST of 352, ALT of 214, alkaline phosphatase of 334. The CA on around 25 was 1900. Her blood culture in our facility was negative. The fluid cytology was sent and is still pending. The pleural fluid itself is an exudate. The output from the pigtail catheter is minimal at this point in time and there is no evidence of any air leak. The patient was started on enteral feeding for nutritional support and currently she is on vital AF at the rate of 30 mL an hour. His serum cortisol was at 50. Echocardiogram showed a preserved LV function without any signs of cardiomyopathy. 12/21/2022, the patient remains intubated on a mechanical ventilator. There was an obvious concern over mentation yesterday and the patient was completely unresponsive. She was taken off propofol and she's been off propofol for the past 48 hours. She is showing some minimal response to repeated stimulation. She withdraws to painful stimulation for now. This is however intermittent. The pupils were unequal yesterday. Based on that, the patient was given another CAT scan of the brain that showed no acute abnormalities. Upon stimulation, she would leave that open up her eyes and she will go back to sleep. She is still very much encephalopathic and lethargic. At the same time, the patient is still hypotensive/septic. The patient is on pressors and the pressor requirements have improved as the patient was given additional fluids yesterday and norepinephrine is running at 0.08 mcg/kg/m on today's evaluation. The patient is also on IV fluids at bicarb at 75 mL an hour. On her blood work, the serum bicarb is improved and is up to 26. The blood cultures positive for diabetes-negative staph. She had another positive blood culture at [facility] with gram-positive cocci and she has pseudomonas aeruginosa in her sputum and the patient is currently on accommodation Zosyn and vancomycin. She remains on a mechanical ventilator, assist control mode at the rate of 16, tidal volume of 400, FiO2 of 40% with a PEEP of 5. The chest x-ray shows no significant effusion the right, there is some small effusion infiltration on the left and orotracheal tube is in a good location. The blood gas shows a pH of 7.41 with a pCO2 of 41 and pO2 of 142. LFTs are obviously abnormal. The CBC shows a platelet count of 26 which is currently declining and the hemoglobin is at 7.8 with a white cell count of 5.5. In terms of her coagulation profile, d- dimer was positive at 5.8, fibrinogen was at 229. PT PTT INR were essentially within normal limits. The patient has vital AF running at 40 mL an hour. Reevaluated today on 12/22/2022, patient remains in the ICU, intubated. Patient is on assist control rate of 18 tidal volume 400 FiO2 40% and PEEP of 5 ABG showed a pO2 of 156 pCO2 of 38 pH of 7.44. Patient remains on norepinephrine at 0.04 mcg/kg/m. Continues to have significant thrombocytopenia and petechiae/ecchymosis. Patient is off heparin for now. Platelets today are 19, 000. Pathology from the pleural effusion is pending, I suspect that the pleural effusion is malignant unless for otherwise. Patient continues to have a pigtail catheter in place. And she continues to have some drainage from the left chest tube. Off propofol, patient is showing minimal response to stimulation, she only withdraws to painful stimuli, pupils are equal and reactive. Patient is definitely encephalopathic and lethargic. And still hypotensive requiring norepinephrine. Her sputum has been positive for pseudomonas aeruginosa. And her blood cultures from [place] were positive for gram-positive cocci, however this was noted to be coagulase-negative staph. Labs today showed WBC count of 6.5 hemoglobin is 8.4 platelets are 19,000, electrolytes are normal bicarb is normal BUN is 65 creatinine 1.98, not changing much in the last few days, hence we'll hold on nephrology consultation. I have a feeling give this patient is up to have malignant pleural effusion, then there is no need for peritoneal biopsy and at that point I would definitely consider comfort care measures on this patient but that is to be addressed with family once a diagnosis is made. Reevaluated today on 12/23 patient is about the same, remains intubated and mechanically ventilated. Remains in the ICU. Still requiring norepinephrine at 0.02 g Q per minutes, mental status is basically about the same. Hence I consulted neurology to evaluate altered mental status, she is on assist control rate of 18 tidal volume 400 FiO2 35% PEEP of 5 ABG showed a pO2 of 108 pCO2 37 pH of 7.44 platelets remained low, patient remains off heparin, neuro consultation was done, and recommended CT of the brain possibly MRI once the patient gets extubated. Sputum is positive for Pseudomonas. Her IV fluids at 75 mL/h before 0.9 normal saline. WBC count today is 8.5 hemoglobin 7.9 and platelets are 26,000, received platelets yesterday. Basic metabolic profile is relatively normal, however her BUN is 73 creatinine 2.18 urine output is marginal hence I increased her IV fluid today we'll hold on nephrology cons ultation for now. Waiting for the results of the cytology from the pleural effusion. This remains pending, and if positive will definitely discuss the issue of comfort care with the . Reevaluated today on 12/24/2022, patient remains in the ICU, intubated and mechanically ventilated. She is on assist control rate of 18 tidal volume 400 FiO2 35% PEEP of 5 ABG showed a pO2 of 72 pCO2 33 pH of 7.46. Because of low urine output yesterday, patient was given 500 mL of fluid boluses, her IV fluid was increased to 75 mL per hour. Continues to have very poor urine output, and her chest x-ray is now showing evidence of fluid overload and bilateral pleural effusions, hence I'm recommending Lasix 80 mg IV push 1 and cutting down the IV fluids down to KVO. Patient remains off propofol, she is on 0.9 normal saline at 75 mL per hour. No changes were made in her ventilator settings, but I am recommending Lasix 80 mg IV push because of abnormal chest x-ray. Cytology from the pleural effusion is still pending, right-sided ache daily catheter remains in place, continues to drain fairly good amount of serosanguineous fluid. Sputum cultures were positive for Pseudomonas and Sandra. Neurologically the patient is about the same she does open eyes but she does not follow any instructions. She looks very frail and chronically ill. Her CODE STATUS was changed to DO NOT RESUSCITATE CODE STATUS by the admitting physician, I believe once we have a tissue diagnosis of malignancy, we should consider addressing the possibility of comfort care measures with the . Objective - Vital Signs Vital signs: Vital Signs Temp 99.0 F 12/24/22 12:00 Pulse 101 H 12/24/22 13:00 Resp 27 H 12/24/22 13:00 BP 93/67 12/24/22 06:30 Pulse Ox 99 12/24/22 13:00 FiO2 35 12/24/22 12:16 Intake & Output 12/23/22 12/24/22 12/24/22 18:59 06:59 18:59 Intake Total 1550.026 5114 931.045 Output Total 340 245 305 Balance 671.195 6903 626.045 Weight 72.2 kg Intake: IV 60 1325 360 0.9 kvo 60 Sodium Chloride 0.9% 1, 1325 360 000 ml @ 20 mls/hr IV . Q24H RAMESH Rx#:[id number] Intake, IV Titration 558.466 75 199.045 Amount Norepinephrine 8 mg In 33.466 Sodium Chloride 0.9% 250 ml @ 0.18 MCG/KG/MIN 23. 859 mls/hr IV .[id number] RAMESH Rx#:[id number] Piperacillin-Tazobactam 3 100 .375 gm In Sodium Chloride 0.9% 100 ml @ 25 mls/hr IVPB Q8HR RAMESH Rx# :[id number] Sodium Chloride 0.9% 1, 525 75 000 ml @ 20 mls/hr IV . Q24H RAMESH Rx#:[id number] propofoL 1,000 mg In 0 99.045 Empty Bag 1 bag @ 15 MCG/ KG/MIN 6.021 mls/hr IV . [id number] RAMESH Rx#:[id number] Tube Feeding 624 416 312 Other 30 60 60 Output: Chest Tube Drainage 150 100 Chest Tube Right Upper 150 100 Lateral Chest Urine 190 245 205 Other: Voiding Method Indwelling Catheter Indwelling Catheter Indwelling Catheter ABP, PAP, CO, CI - Last Documented Arterial Blood Pressure 105/58 - Exam Physical Exam: Revealed 62-year-old female intubated, opens eyes only, does not follow any instructions and definitely not verbal. Head: Atraumatic, normocephalic. HEENT:[Neck is supple.] [No neck masses.] [No thyromegaly.] [No JVD.] Continues to have the right pupil larger than the left pupil both are reactive to l ight./anisocoria Chest: [Symmetrical chest expansion, scattered rhonchi noted bilaterally. Right-sided pigtail catheter remains in place. Neck to toe pleural VAC. Cardiac Exam: [Normal S1 and S2, no S3 gallop, no murmur.] Abdomen: Soft nontender pneumonia no rebound no guarding Extremities: 2+ bipedal edema, there is evidence of petechiae and ecchymosis noted bilaterally. Neurological Exam: Opens eyes to deep painful stimuli, unresponsive, withdraws to painful stimuli. Pupils remain unequal Skin: Areas of ecchymosis, purpura, and petechiae noted bilaterally. - Labs CBC & Chem 7: 12/24/22 06:00 12/24/22 06:00 Labs: Abnormal Lab Results - Last 24 Hours (Table) 12/23/22 12/23/22 12/23/22 Range/Units 03:40 03:40 16:07 RBC (3.80-5.40) m/uL Hgb (11.4-16.0) gm/dL Hct (34.0-46.0) % Plt Count (150-450) k/uL ABG pH (7.35-7.45) ABG pCO2 (35-45) mmHg ABG pO2 (83-108) mmHg Chloride (98-107) mmol/L BUN (7-17) mg/dL Creatinine (0.52-1.04) mg/dL Glucose (74-99) mg/dL POC Glucose (mg/dL) 158 H (70-110) mg/dL Calcium (8.4-10.2) mg/dL Ionized Calcium Miri (4.5-5.3) mg/dL Vitamin B12 1216.0 H pg/mL Folate 3.80 L ng/mL 12/23/22 12/23/22 12/24/22 Range/Units 16:10 23:35 05:43 RBC (3.80-5.40) m/uL Hgb (11.4-16.0) gm/dL Hct (34.0-46.0) % Plt Count (150-450) k/uL ABG pH 7.46 H (7.35-7.45) ABG pCO2 33 L (35-45) mmHg ABG pO2 72 L (83-108) mmHg Chloride (98-107) mmol/L BUN (7-17) mg/dL Creatinine (0.52-1.04) mg/dL Glucose (74-99) mg/dL POC Glucose (mg/dL) 132 H (70-110) mg/dL Calcium (8.4-10.2) mg/dL Ionized Calcium Miri 4.2 L (4.5-5.3) mg/dL Vitamin B12 pg/mL Folate ng/mL 12/24/22 12/24/22 12/24/22 Range/Units 06:00 06:00 06:00 RBC 2.91 L (3.80-5.40) m/uL Hgb 7.8 L (11.4-16.0) gm/dL Hct 24.2 L (34.0-46.0) % Plt Count 39 L (150-450) k/uL ABG pH (7.35-7.45) ABG pCO2 (35-45) mmHg ABG pO2 (83-108) mmHg Chloride 109 H (98-107) mmol/L BUN 76 H (7-17) mg/dL Creatinine 2.41 H (0.52-1.04) mg/dL Glucose 135 H (74-99) mg/dL POC Glucose (mg/dL) 140 H (70-110) mg/dL Calcium 6.7 L (8.4-10.2) mg/dL Ionized Calcium Miri (4.5-5.3) mg/dL Vitamin B12 pg/mL Folate ng/mL 12/24/22 Range/Units 11:59 RBC (3.80-5.40) m/uL Hgb (11.4-16.0) gm/dL Hct (34.0-46.0) % Plt Count (150-450) k/uL ABG pH (7.35-7.45) ABG pCO2 (35-45) mmHg ABG pO2 (83-108) mmHg Chloride (98-107) mmol/L BUN (7-17) mg/dL Creatinine (0.52-1.04) mg/dL Glucose (74-99) mg/dL POC Glucose (mg/dL) 163 H (70-110) mg/dL Calcium (8.4-10.2) mg/dL Ionized Calcium Miri (4.5-5.3) mg/dL Vitamin B12 pg/mL Folate ng/mL Microbiology - Last 24 Hours (Table) 12/18/22 11:42 Blood Culture - Final Blood 12/18/22 14:45 Anaerobic Culture - Final Pleural Fluid Assessment and Plan Assessment: Impression: Acute hypoxic respiratory failure secondary to sepsis and septic shock and secondary to large rt pleural effusion. Requiring pigtail catheter placement Mesenteric carcinomatosis may eventually require core biopsy of the peritoneum if we could not get an answer from her pleural effusion. Suspect malignant pleural effusion, cytology is pending. Acute metabolic acidosis requiring bicarbonate infusion on presentation Acute kidney injury secondary to above. Acute thrombocytopenia, DIC was ruled out, H IT panel is negative for heparin- induced thrombocytopenia nonetheless we'll continue to hold heparin Elevated troponin possibly related to supply/demand mismatch. Possible history of substance abuse Altered mental status/metabolic encephalopathy being addressed by neurology on the case, CT of the brain is pending. EEG is pending. However it's felt by neurology that this is a metabolic picture, although the possibility of malignancy involving [employer] is not entirely ruled out. Failure to thrive. Recommendation: Fully agree with DO NOT RESUSCITATE CODE STATUS Continue ventilatory support Continue nutritional support Continue GI prophylaxis and continue to hold heparin Cytology from the pleural effusion is pending Consider peritoneal biopsy by interventional radiology unless we get an answer from the pleural effusion and then I would strongly recommend addressing with the family comfort care measures Continue antibiotics for Pseudomonas in the sputum Continue enteral feeding Continue to monitor liver enzymes Patient is critically ill, and prognosis is poor. Should consider comfort care measures on this patient. Will continue to follow Critical care time is over 30 minutes Time with Patient: Greater than 30
[2022-12-24 17:47] LABS: Glucose,Whole Blood 148 mg/dL (70-110)
[2022-12-25] MEDS: IPRATROPIUM-ALBUTEROL 3 ML NEB INHALATION SCH ×4 (00:01→11:19)
[2022-12-25] MEDS: PIPERACILLIN-TAZOBACTAM 3.375 GM in SODIUM CHLORIDE 0.9% 100 ML IVPB SCH (00:35)
[2022-12-25] MEDS: INSULIN ASPART (NovoLOG) 100 UNIT/ML VIAL SQ SCH ×3 (02:35→12:26)
[2022-12-25 05:33] LABS: Glucose,Whole Blood 139 mg/dL (70-110)
[2022-12-25 05:40] LABS: Basophils % (A) 0 %; Eosinophils # (A) 0.1 k/uL (0-0.7); Eosinophils % (A) 1 %; HCT 24.3 % (34.0-46.0); HGB 7.8 gm/dL (11.4-16.0); Lymphocytes # (A) 0.8 k/uL (1.0-4.8); Lymphocytes % (A) 9 %; MCH 26.2 pg (25.0-35.0); MCHC 32.2 g/dL (31.0-37.0); MCV 81.5 fL (80.0-100.0); Mean Platelet Volume 13.9; Monocytes # (A) 0.4 k/uL (0-1.0); Monocytes % (A) 5 %; Neutrophils % (A) 82 %; RBC 2.99 m/uL (3.80-5.40); RDW 15.5 % (11.5-15.5); WBC 8.5 k/uL (3.8-10.6)
[2022-12-25 05:41] LABS: Platelet Count 52 k/uL (150-450)
[2022-12-25 06:05] LABS: ABG Base Excess -1.4 mmol/L; ABG HCO3 22 mmol/L (21-25); ABG Oxygen Saturation 98.5 % (94-97); ABG PCO2 31 mmHg (35-45); ABG PH 7.47 (7.35-7.45); ABG PO2 95 mmHg (83-108); ABG TCO2 23 mmol/L (19-24); Allen Test Performed? Yes
[2022-12-25 06:33] LABS: Glucose,Whole Blood 138 mg/dL (70-110)
[2022-12-25] MEDS: NOREPINEPHRINE 8 MG in SODIUM CHLORIDE 0.9% 250 ML IV SCH (06:35)
[2022-12-25 06:45] LABS: African American GFR (CKD) 21 (>60 ml/min/1.73 sqM); Anion Gap 13 mmol/L; Blood Urea Nitrogen 84 mg/dL (7-17); Carbon Dioxide 21 mmol/L (22-30); Chloride 108 mmol/L (98-107); Glucose 124 mg/dL (74-99); Non-African American GFR(CKD) 18 (>60 ml/min/1.73 sqM); Sodium 142 mmol/L (137-145)
[2022-12-25 06:50] LABS: Vancomycin,Random 23.3 ug/mL
[2022-12-25] MEDS: CHLORHEXIDINE GLUCONATE 15 ML CUP MUCOUS MEM SCH (08:17)
[2022-12-25] MEDS: FOLIC ACID 1 MG TAB PO SCH (08:17)
[2022-12-25] MEDS: PANTOPRAZOLE 40 MG/10 ML VIAL IV SCH (08:17)
[2022-12-25] MEDS: ATORVASTATIN 40 MG TAB PO SCH (08:17)
--- NOTE | 2022-12-25 08:22 | XR ---
EXAMINATION TYPE: XR chest 1V portable DATE OF EXAM: 12/25/2022 COMPARISON: 12/24/2022 HISTORY: Shortness of breath TECHNIQUE: Single frontal view of the chest is obtained. FINDINGS: Right-sided chest tube is seen and there is any right-sided pleural effusion. No sizable p neumothorax. Hypertrophic and degenerative changes of the spine. ET tube, NG tube stable. Large calci fied lymph nodes are seen in the hilum and mediastinum. Small left pleural effusion is seen and there is underlying COPD. Right-sided drainage catheter again noted. IMPRESSION: Stable bilateral pleural effusion and consolidation correlate for CHF.
[2022-12-25 11:12] VITALS: BMI 31.1
[2022-12-25] MEDS ORDERED: PIPERACILLIN-TAZOBACTAM 3.375 GM in SODIUM CHLORIDE 0.9% 100 ML IVPB SCH (12:00)
[2022-12-25 12:27] LABS: Glucose,Whole Blood 145 mg/dL (70-110)
--- NOTE | 2022-12-25 12:31 | P.PN ---
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 I am seeing this patient in new consultation today 12/18/2022 in the intensive care unit after she was transferred from [facility]. Apparently, the patient presented to outside hospital altered and had to be intubated to protect her airway. The patient's medical history is largely unknown, I did reach out to contact the patient's family. They are poor historians, and unable to provide me with a detailed medical history or events leading up to her hospitalization in [place]. I was able to ascertain that she has been having frequent episodes of vomiting for the past month. In fact, someone in the household had contacted EMS 5 days prior, but she refused to go to the hospital. While at [facility], the patient did undergo a nonenhanced brain CT which showed no acute intracranial hemorrhage or mass effect. The patient also had a CT of the abdomen pelvis with contrast which showed extensive nodular infiltration of the greater omentum as well as peritoneal nodularity in the left upper abdomen with mild accompanying ascites. 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 The patient's uterus size was normal, but there was a distended endometrial cavity concerning for endometrial cancer. There was a distended gallbladder with no apparent calculi or bili tract dilation. Liver had fatty infiltration without any specific lesions or biliary tract dilation. There was a large right pleural effusion with atelectasis of the right lower lung and partial atelectasis of the right middle lung, left lung was clear without any significant effusions or infiltrates. There was gastroesophageal reflux with fluid within the esophagus. There is thickening of the gastric antrum and duodenal. No free air. No other obvious obstruction. The patient was hypotensive at the outside facility, and a right femoral central line was placed. The patient was transferred to [facility] last night in critical condition. The patient is currently intubated on mechanical ventilator with current settings of assist control, respiratory rate 18, tidal volume 400, FiO2 50%, PEEP of 5. ABGs done on these settings show a pO2 of 112, pCO2 of 33, pH of 7.22. Chest x-ray on arrival showed the ET tube approximately 1.5 cm from the debora, and this was withdrawn 2 cm. The patient does have an orogastric tube coursing below the diaphragm. There was a moderate right pleural effusion. Unfortunately, the patient did vomit and probably aspirated, the OG tube is hooked to low intermittent suction. I have added Zosyn for empiric antibiotic coverage. The patient currently has norepinephrine infusing at 0.08 mics per ki logram per minute. I've given an additional 2 L normal saline bolus patient's lactic was 15 at outside facility, and is down to 9.6. I did order a non- enhanced CT of the chest, abdomen, pelvis, the patient's renal function is poor. This redemonstrated mesenteric carcinomatosis. It also showed a large right and mild left pleural effusion and mild pulmonary edema. CBC on arrival shows a WBC count of 9.1, hemoglobin 13.1, hematocrit 42.9, platelets 78,000. BMP on admission shows a sodium 136, potassium 4.8, chloride 102, serum CO2 13, BUN 65, creatinine 2.17, glucose 129. LFTS are elevated with an AST 3691, ALT of 831, ALP 164. Normal saline infusing at 75 mL per hour. Troponins 0.317. No obvious ischemic changes of ECG. Urine output is in the order of 20 ml/hr. Urinalysis not suspicious for UTI. Urine drug screen was negative, apparently there was suspicion of past polysubstance abuse. The patient's condition is currently critical, I have made multiple attempts to reach out to the patient's family. It is unclear if they will be coming up to the hospital later this afternoon. The patient arrived in a disheveled state with maggots in her hair. She did have multiple bruises located on her back and chest. For now she will remain on the ventilator, and be monitored in the intensive care unit. On today's evaluation of 2022, the patient remains intubated on a mechanical ventilator. The patient is currently on propofol which is running at 30 mcg/kg/m. Nevertheless earlier this morning, the patient was taken off the propofol to evaluate her underlying mental status. She is currently off propofol and the patient is receiving a sedation holiday. She remains quite a dvanced on a mechanical ventilator a day rate of 18 with a tidal volume of 400 and FiO2 of 50% with a PEEP of 5. Her chest x-ray shows marked improvement elevation of the right lung. The patient had a pigtail catheter inserted yesterday into the right hemithorax and a total amount of output was 700 mL overnight and the patient without more than 1.5 L immediately after insertion. The fluid analysis still pending for now and the fluid was also sent for cytology. Meanwhile, a repeat CAT scan of the chest abdomen and pelvis was done which confirmed the presence of a large right-sided pleural effusion. There was evidence of mesenteric carcinomatosis and the etiology was unknown. There is al so evidence of colonic diverticulosis. The patient remains quite acidotic and she remains in renal failure and hypotensive. Earlier this morning, the patient is on norepinephrine which is running at 0.22 mcg/kg/m and as such an arterial line will be inserted for accurate blood pressure monitoring. The patient's BUN is at 63 with a creatinine of 1.9. She remains acidotic although serum bicarb i s improving and is up to 14. The patient remains on a bicarbonate infusion which is running at the rate of 75 mL an hour. She does have abnormal LFTs, AST is 3691 and ALT is a 31 with an alkaline phosphatase of 164, could be related to shock liver. CA 125 level is 1900 and this may be consistent with ovarian cancer. A consultation has been placed for OB GEN to evaluate those findings. The CEA level is 5.3. Troponins at 0.3. The patient's echocardiogram shows a preserved LV function. There was some mild mitral regurgitation. No significant pulmonary hypertension. The patient is on empiric antibiotic coverage and she is currently on IV Zosyn. She also has a triple-lumen catheter in the right femoral vein that was inserted in an outside hospital. On today's evaluation of 12/20/2022, the patient remains intubated on a mechanical ventilator. She remains on propofol which is off since yesterday, and the patient has not have adequate neurological recovery. The patient remains unresponsive while being off sedatives. We decided to keep the propofol off on this patient. The CAT scan of the brain was initiated done at [facility] and was negative and I think is reasonable to repeat a CAT scan of the brain pressure the patient is not responsive off sedation. Anesthetic time, we were informed that the patient was growing gram-positive cocci in her blood at [facility]. Vancomycin was added. For now, she remains on a combination of Zosyn and vancomycin. The sputum is showing gram-negative bacillus and the chest x-rays showing clearing of the right-sided pleural effusion and ongoing infiltration of the left lung which is a combination of mixed interstitial and alveolar special in the left lower lobe. Hemodynamically, the patient received several fluid boluses yesterday and she responded nicely to the fluid bolus. She is still on norepinephrine which is running at 0.22 mcg/kg/m. She does have a central line and a arterial line was also added for better blood pressure monitoring. She is afebrile. She is on a mechanical ventilator on this control mode at the rate of 18 with a tidal volume of 400 and FiO2 of 40% with a PEEP of 5. She is showing a pH of 7.28 with a pCO2 of 44 and pO2 190 and this was an FiO2 of 50%. Her white cell count today is at 6.9 with a hemoglobin of 9.1 and a platelet count of 47 and Rezulin electrolytes show a sodium of 140, potassium of 3.3, bicarb of 18 and a BUN of 59 and a creatinine of 1.8. LFTs are abnormal with an AST of 352, ALT of 214, alkaline phosphatase of 334. The CA on around 25 was 1900. Her blood culture in our facility was negative. The fluid cytology was sent and is still pending. The pleural fluid itself is an exudate. The output from the pigtail catheter is minimal at this point in time and there is no evidence of any air leak. The patient was started on enteral feeding for nutritional support and currently she is on vital AF at the rate of 30 mL an hour. His serum cortisol was at 50. Echocardiogram showed a preserved LV function without any signs of cardiomyopathy. 12/21/2022, the patient remains intubated on a mechanical ventilator. There was an obvious concern over mentation yesterday and the patient was completely unresponsive. She was taken off propofol and she's been off propofol for the past 48 hours. She is showing some minimal response to repeated stimulation. She withdraws to painful stimulation for now. This is however intermittent. The pupils were unequal yesterday. Based on that, the patient was given another CAT scan of the brain that showed no acute abnormalities. Upon stimulation, she would leave that open up her eyes and she will go back to sleep. She is still very much encephalopathic and lethargic. At the same time, the patient is still hypotensive/septic. The patient is on pressors and the pressor requirements have improved as the patient was given additional fluids yesterday and norepinephrine is running at 0.08 mcg/kg/m on today's evaluation. The patient is also on IV fluids at bicarb at 75 mL an hour. On her blood work, the serum bicarb is improved and is up to 26. The blood cultures positive for diabetes-negative staph. She had another positive blood culture at [facility] with gram-positive cocci and she has pseudomonas aeruginosa in her sputum and the patient is currently on accommodation Zosyn and vancomycin. She remains on a mechanical ventilator, assist control mode at the rate of 16, tidal volume of 400, FiO2 of 40% with a PEEP of 5. The chest x-ray shows no significant effusion the right, there is some small effusion infiltration on the left and orotracheal tube is in a good location. The blood gas shows a pH of 7.41 with a pCO2 of 41 and pO2 of 142. LFTs are obviously abnormal. The CBC shows a platelet count of 26 which is currently declining and the hemoglobin is at 7.8 with a white cell count of 5.5. In terms of her coagulation profile, d- dimer was positive at 5.8, fibrinogen was at 229. PT PTT INR were essentially within normal limits. The patient has vital AF running at 40 mL an hour. Reevaluated today on 12/22/2022, patient remains in the ICU, intubated. Patient is on assist control rate of 18 tidal volume 400 FiO2 40% and PEEP of 5 ABG showed a pO2 of 156 pCO2 of 38 pH of 7.44. Patient remains on norepinephrine at 0.04 mcg/kg/m. Continues to have significant thrombocytopenia and petechiae/ecchymosis. Patient is off heparin for now. Platelets today are 19, 000. Pathology from the pleural effusion is pending, I suspect that the pleural effusion is malignant unless for otherwise. Patient continues to have a pigtail catheter in place. And she continues to have some drainage from the left chest tube. Off propofol, patient is showing minimal response to stimulation, she only withdraws to painful stimuli, pupils are equal and reactive. Patient is definitely encephalopathic and lethargic. And still hypotensive requiring norepinephrine. Her sputum has been positive for pseudomonas aeruginosa. And her blood cultures from [place] were positive for gram-positive cocci, however this was noted to be coagulase-negative staph. Labs today showed WBC count of 6.5 hemoglobin is 8.4 platelets are 19,000, electrolytes are normal bicarb is normal BUN is 65 creatinine 1.98, not changing much in the last few days, hence we'll hold on nephrology consultation. I have a feeling give this patient is up to have malignant pleural effusion, then there is no need for peritoneal biopsy and at that point I would definitely consider comfort care measures on this patient but that is to be addressed with family once a diagnosis is made. Reevaluated today on 12/23 patient is about the same, remains intubated and mechanically ventilated. Remains in the ICU. Still requiring norepinephrine at 0.02 g Q per minutes, mental status is basically about the same. Hence I consulted neurology to evaluate altered mental status, she is on assist control rate of 18 tidal volume 400 FiO2 35% PEEP of 5 ABG showed a pO2 of 108 pCO2 37 pH of 7.44 platelets remained low, patient remains off heparin, neuro consultation was done, and recommended CT of the brain possibly MRI once the patient gets extubated. Sputum is positive for Pseudomonas. Her IV fluids at 75 mL/h before 0.9 normal saline. WBC count today is 8.5 hemoglobin 7.9 and platelets are 26,000, received platelets yesterday. Basic metabolic profile is relatively normal, however her BUN is 73 creatinine 2.18 urine output is marginal hence I increased her IV fluid today we'll hold on nephrology cons ultation for now. Waiting for the results of the cytology from the pleural effusion. This remains pending, and if positive will definitely discuss the issue of comfort care with the . Reevaluated today on 12/24/2022, patient remains in the ICU, intubated and mechanically ventilated. She is on assist control rate of 18 tidal volume 400 FiO2 35% PEEP of 5 ABG showed a pO2 of 72 pCO2 33 pH of 7.46. Because of low urine output yesterday, patient was given 500 mL of fluid boluses, her IV fluid was increased to 75 mL per hour. Continues to have very poor urine output, and her chest x-ray is now showing evidence of fluid overload and bilateral pleural effusions, hence I'm recommending Lasix 80 mg IV push 1 and cutting down the IV fluids down to KVO. Patient remains off propofol, she is on 0.9 normal saline at 75 mL per hour. No changes were made in her ventilator settings, but I am recommending Lasix 80 mg IV push because of abnormal chest x-ray. Cytology from the pleural effusion is still pending, right-sided ache daily catheter remains in place, continues to drain fairly good amount of serosanguineous fluid. Sputum cultures were positive for Pseudomonas and Sandra. Neurologically the patient is about the same she does open eyes but she does not follow any instructions. She looks very frail and chronically ill. Her CODE STATUS was changed to DO NOT RESUSCITATE CODE STATUS by the admitting physician, I believe once we have a tissue diagnosis of malignancy, we should consider addressing the possibility of comfort care measures with the . Reevaluated today on 12/25/2022, patient remains in the ICU, intubated and mechanically ventilated. Patient remains on assist control rate of 18 tidal volume 400 FiO2 35% PEEP of 5. She is requiring propofol at 10 mcg/kg/h, she has vital AF running at 52 mL/h, remains on multiple medications including antibiotics in the form of Zosyn. Cytology from the pleural effusion came back showing ovarian carcinoma. Patient does have peritoneal metastasis, and today I had a chance to discuss her condition with the over the phone. seems to be very inclined to consider comfort care measures, and this will be addressed today this afternoon, the plans to come and see her today. Again explained to him about the poor prognosis and terminal picture, he is agreeable to comfort care measures and he will make the final decision sometime later this afternoon. Chest x-ray basically showed stable bilateral pleural effusions and consolidation. WBC count today is 8.5 hemoglobin 7.8 platelets are up to 52,000. ABG showed a pO2 of 95 pCO2 31 pH of 7.47 and electrolytes are normal however her BUN is 84 creatinine 2.68 Objective - Vital Signs Vital signs: Vital Signs Temp 98.2 F 12/25/22 08:00 Pulse 96 12/25/22 11:31 Resp 24 12/25/22 10:00 BP 93/67 12/24/22 21:00 Pulse Ox 100 12/25/22 10:00 FiO2 35 12/25/22 11:14 Intake & Output 12/24/22 12/25/22 12/25/22 18:59 06:59 18:59 Intake Total 1559.045 716 318 Output Total 1480 240 210 Balance 79.045 476 108 Weight 85 kg 85 kg Intake: IV 460 240 80 Sodium Chloride 0.9% 1, 460 240 80 000 ml @ 20 mls/hr IV . Q24H RAMESH Rx#:[id number] Intake, IV Titration 199.045 Amount Piperacillin-Tazobactam 3 100 .375 gm In Sodium Chloride 0.9% 100 ml @ 25 mls/hr IVPB Q8HR RAMESH Rx# :[id number] propofoL 1,000 mg In 99.045 Empty Bag 1 bag @ 15 MCG/ KG/MIN 6.021 mls/hr IV . [id number] RAMESH Rx#:[id number] Tube Feeding 780 416 208 Other 120 60 30 Output: Chest Tube Drainage 285 170 Chest Tube Right Upper 285 170 Lateral Chest Urine 395 240 40 Stool 800 Other: Voiding Method Indwelling Catheter Indwelling Catheter Indwelling Catheter ABP, PAP, CO, CI - Last Documented Arterial Blood Pressure 105/63 - Exam Physical Exam: Revealed 62-year-old female intubated, opens eyes only, does not follow any instructions and definitely not verbal. Head: Atraumatic, normocephalic. HEENT:[Neck is supple.] [No neck masses.] [No thyromegaly.] [No JVD.] Continues to have the right pupil larger than the left pupil both are reactive to light./anisocoria Chest: [Symmetrical chest expansion, scattered rhonchi noted bilaterally. Right-sided pigtail catheter remains in place. Neck to toe pleural VAC. Cardiac Exam: [Normal S1 and S2, no S3 gallop, no murmur.] Abdomen: Soft nontender pneumonia no rebound no guarding Extremities: 2+ bipedal edema, there is evidence of petechiae and ecchymosis noted bilaterally. Neurological Exam: Opens eyes to deep painful stimuli, unresponsive, withdraws to painful stimuli. Pupils remain unequal Skin: Areas of ecchymosis, purpura, and petechiae noted bilaterally. - Labs CBC & Chem 7: 12/25/22 05:30 12/25/22 05:30 Labs: Abnormal Lab Results - Last 24 Hours (Table) 12/24/22 12/25/22 12/25/22 Range/Units 17:46 05:30 05:30 RBC 2.99 L (3.80-5.40) m/uL Hgb 7.8 L (11.4-16.0) gm/dL Hct 24.3 L (34.0-46.0) % Plt Count 52 L (150-450) k/uL Lymphocytes # 0.8 L (1.0-4.8) k/uL ABG pH (7.35-7.45) ABG pCO2 (35-45) mmHg ABG O2 Saturation (94-97) % Chloride 108 H (98-107) mmol/L Carbon Dioxide 21 L (22-30) mmol/L BUN 84 H (7-17) mg/dL Creatinine 2.68 H (0.52-1.04) mg/dL Glucose 124 H (74-99) mg/dL POC Glucose (mg/dL) 148 H (70-110) mg/dL Calcium 7.0 L (8.4-10.2) mg/dL 12/25/22 12/25/22 12/25/22 Range/Units 05:32 06:01 06:32 RBC (3.80-5.40) m/uL Hgb (11.4-16.0) gm/dL Hct (34.0-46.0) % Plt Count (150-450) k/uL Lymphocytes # (1.0-4.8) k/uL ABG pH 7.47 H (7.35-7.45) ABG pCO2 31 L (35-45) mmHg ABG O2 Saturation 98.5 H (94-97) % Chloride (98-107) mmol/L Carbon Dioxide (22-30) mmol/L BUN (7-17) mg/dL Creatinine (0.52-1.04) mg/dL Glucose (74-99) mg/dL POC Glucose (mg/dL) 139 H 138 H (70-110) mg/dL Calcium (8.4-10.2) mg/dL 12/25/22 Range/Units 12:25 RBC (3.80-5.40) m/uL Hgb (11.4-16.0) gm/dL Hct (34.0-46.0) % Plt Count (150-450) k/uL Lymphocytes # (1.0-4.8) k/uL ABG pH (7.35-7.45) ABG pCO2 (35-45) mmHg ABG O2 Saturation (94-97) % Chloride (98-107) mmol/L Carbon Dioxide (22-30) mmol/L BUN (7-17) mg/dL Creatinine (0.52-1.04) mg/dL Glucose (74-99) mg/dL POC Glucose (mg/dL) 145 H (70-110) mg/dL Calcium (8.4-10.2) mg/dL Microbiology - Last 24 Hours (Table) 12/18/22 11:42 Blood Culture - Final Blood Assessment and Plan Assessment: Impression: Acute hypoxic respiratory failure secondary to sepsis and septic shock and secondary to large rt pleural effusion. Requiring pigtail catheter placement Mesenteric carcinomatosis may eventually require core biopsy of the peritoneum i f we could not get an answer from her pleural effusion. Suspect malignant pleural effusion, cytology is pending. Acute metabolic acidosis requiring bicarbonate infusion on presentation Acute kidney injury secondary to above. Acute thrombocytopenia, DIC was ruled out, H IT panel is negative for heparin- induced thrombocytopenia nonetheless we'll continue to hold heparin Elevated troponin possibly related to supply/demand mismatch. Possible history of substance abuse Altered mental status/metabolic encephalopathy being addressed by neurology on the case, CT of the brain is pending. EEG is pending. However it's felt by neurology that this is a metabolic picture, although the possibility of mal ignancy involving DISTANCE EDUCATION DIRECTOR is not entirely ruled out. Failure to thrive. Stage IV metastatic ovarian cancer Recommendation: Discussed her condition with over the phone, and he seems to be inclined to consider comfort care measures and this will be addressed later this afternoon. Continue ventilatory support for now Continue nutritional support for now Continue GI prophylaxis and continue to hold heparin Cytology from the pleural effusion was reviewed and updated on the results. Continue antibiotics for now until comfort care measures are initiated. Continue enteral feeding for now. Continue to monitor liver enzymes Prognosis is extremely poor Critical care time is over 30 minutes Time with Patient: Greater than 30
[2022-12-25 12:50] VITALS: TEMP 98.4
[2022-12-25 14:04] VITALS: PULSE 99; RESP 28
[2022-12-25] MEDS ORDERED: LORazepam 2 MG/ML INJ IV PRN (14:56)
[2022-12-25] MEDS ORDERED: MORPHINE SULFATE (100 MG/2 ML) 100 MG in SODIUM CHLORIDE 0.9% 100 ML IV SCH (15:00)
[2022-12-25] MEDS ORDERED: SCOPOLAMINE 1 MG/72 HR PATCH TRANSDERM SCH (15:00)
--- NOTE | 2022-12-25 15:26 | P.PN ---
Subjective Progress Note Date: 12/25/22 Principal diagnosis: Unknown malignancy, peritoneal carcinomatous Pt remains ventilated She has been seen and assessed by Neurology Objective - Vital Signs Vital signs: Vital Signs Temp 98.4 F 12/25/22 12:00 Pulse 99 12/25/22 14:00 Resp 28 H 12/25/22 14:00 BP 93/67 12/24/22 21:00 Pulse Ox 100 12/25/22 14:00 FiO2 35 12/25/22 12:00 Intake & Output 12/24/22 12/25/22 12/25/22 18:59 06:59 18:59 Intake Total 1559.045 716 636 Output Total 1480 240 265 Balance 79.045 476 371 Weight 85 kg 85 kg Intake: IV 460 240 160 Sodium Chloride 0.9% 1, 460 240 160 000 ml @ 20 mls/hr IV . Q24H RAMESH Rx#:[id number] Intake, IV Titration 199.045 Amount Piperacillin-Tazobactam 3 100 .375 gm In Sodium Chloride 0.9% 100 ml @ 25 mls/hr IVPB Q8HR RAMESH Rx# :[id number] propofoL 1,000 mg In 99.045 Empty Bag 1 bag @ 15 MCG/ KG/MIN 6.021 mls/hr IV . [id number] RAMESH Rx#:[id number] Tube Feeding 780 416 416 Other 120 60 60 Output: Chest Tube Drainage 285 210 Chest Tube Right Upper 285 210 Lateral Chest Urine 395 240 55 Stool 800 Other: Voiding Method Indwelling Catheter Indwelling Catheter Indwelling Catheter ABP, PAP, CO, CI - Last Documented Arterial Blood Pressure 118/77 - Constitutional General appearance: Present: average body habitus - Respiratory Details: ventilated - Psychiatric Psychiatric: Absent: A&O x's 3, appropriate affect, intact judgment & insight - Labs CBC & Chem 7: 12/25/22 05:30 12/25/22 05:30 Labs: Abnormal Lab Results - Last 24 Hours (Table) 12/24/22 12/25/22 12/25/22 Range/Units 17:46 05:30 05:30 RBC 2.99 L (3.80-5.40) m/uL Hgb 7.8 L (11.4-16.0) gm/dL Hct 24.3 L (34.0-46.0) % Plt Count 52 L (150-450) k/uL Lymphocytes # 0.8 L (1.0-4.8) k/uL ABG pH (7.35-7.45) ABG pCO2 (35-45) mmHg ABG O2 Saturation (94-97) % Chloride 108 H (98-107) mmol/L Carbon Dioxide 21 L (22-30) mmol/L BUN 84 H (7-17) mg/dL Creatinine 2.68 H (0.52-1.04) mg/dL Glucose 124 H (74-99) mg/dL POC Glucose (mg/dL) 148 H (70-110) mg/dL Calcium 7.0 L (8.4-10.2) mg/dL 12/25/22 12/25/22 12/25/22 Range/Units 05:32 06:01 06:32 RBC (3.80-5.40) m/uL Hgb (11.4-16.0) gm/dL Hct (34.0-46.0) % Plt Count (150-450) k/uL Lymphocytes # (1.0-4.8) k/uL ABG pH 7.47 H (7.35-7.45) ABG pCO2 31 L (35-45) mmHg ABG O2 Saturation 98.5 H (94-97) % Chloride (98-107) mmol/L Carbon Dioxide (22-30) mmol/L BUN (7-17) mg/dL Creatinine (0.52-1.04) mg/dL Glucose (74-99) mg/dL POC Glucose (mg/dL) 139 H 138 H (70-110) mg/dL Calcium (8.4-10.2) mg/dL 12/25/22 Range/Units 12:25 RBC (3.80-5.40) m/uL Hgb (11.4-16.0) gm/dL Hct (34.0-46.0) % Plt Count (150-450) k/uL Lymphocytes # (1.0-4.8) k/uL ABG pH (7.35-7.45) ABG pCO2 (35-45) mmHg ABG O2 Saturation (94-97) % Chloride (98-107) mmol/L Carbon Dioxide (22-30) mmol/L BUN (7-17) mg/dL Creatinine (0.52-1.04) mg/dL Glucose (74-99) mg/dL POC Glucose (mg/dL) 145 H (70-110) mg/dL Calcium (8.4-10.2) mg/dL Assessment and Plan (1) Carcinomatosis Current Visit: Yes Status: Acute Priority: High Code(s): C80.0 - DISSEMINATED MALIGNANT NEOPLASM, UNSPECIFIED SNOMED Code(s): 377840291 (2) Pleural effusion Current Visit: Yes Status: Acute Priority: High Code(s): J90 - PLEURAL EFFUSION, NOT ELSEWHERE CLASSIFIED SNOMED Code(s): 10177047 (3) Respiratory failure Current Visit: Yes Status: Acute Priority: High Code(s): J96.90 - RESPIRATORY FAILURE, UNSP, UNSP W HYPOXIA OR HYPERCAPNIA SNOMED Code(s): 269621813 Plan: Respiratory failure -Pseudomonas Infection, on antibiotics for the same. 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 IHC positive for MOC 31, CK 7, CA 125, PAX- 8. Staining pattern most suggestive of nonmucinous ovarian versus a primary peritoneal o rigin. -CT CAP 12/18/22 reported the mesenteric carcinomatosis but, no distinct masses was reported -Pleural returned positive for adenocarcinoma, most consistent with RENTAL REPRESENTATIVE/malaria in origin. CT CAP 12/18/2022 reported only the mesenteric carcinomatosis, no distinct lesions or masses were reported otherwise. Patient has at least a stage III RENTAL REPRESENTATIVE malignancy, would only be able to know if there was true pleural involvement, and not leakage from the abdomen up into the lungs, is with a pleural biopsy. Unfortunately, patient is in no physical shape to undergo additional procedures. She would require significant rehabilitation to be able to undergo a surgery for stage III RENTAL REPRESENTATIVE malignancy or tolerate cancer treatment. It has been reported to me that the patient's social situation is complicated as well. There is no transportation and no social support for this pt. Treatment for cancer requires a commitment want to do so, it does require at we will transportation and social support. It is documented that comfort is going to be discussed with family. Onc agrees with the plan. Bicytopenia -Persistent but improved -Platelets up to 52,000 today. -Hemoglobin 7.8, stable.
--- NOTE | 2022-12-25 19:09 | P.DS ---
Providers Date of admission: 12/18/22 00:46 Expected date of discharge: 12/25/22 Attending physician: Carlos Allan Consults: 12/18/22 00:46 Consult Physician Stat Consulting Provider: Merritt Melissa Consult Reason/Comments: VDRF, AMS Do you want consulting provider notified?: Already Contacted 12/18/22 07:59 Consult Physician Routine Consulting Provider: Aries Conway Consult Reason/Comments: mesenteric carcinomatosis, possible endometrial primary Do you want consulting provider notified?: Yes 12/18/22 10:08 Consult Physician Routine Consulting Provider: Cornelia Peng Consult Reason/Comments: Possible Uterine CA and Vaginal Bleeding Do you want consulting provider notified?: Yes 12/23/22 09:59 Consult Physician Routine Consulting Provider: Sloan Jeronimo Consult Reason/Comments: AMS, unresponsive Do you want consulting provider notified?: Yes Primary care physician: [facility] Course: Chief Complaint: Intubated This is a 62-year-old patient, being followed by [facility], was transferred here from [facility]. Patient presented with a altered mental status had to be intubated. Apparently she was having episodes of vomiting for the possible. Summary from the hospital and contacted EMS about 5 days ago but patient refused to go to the hospital. Computed tomography scan of the hospital was unremarkable. CT of the abdomen and pelvis showed extensive nodular infiltration of the greater omentum and redness peritoneal nodularity of the left upper abdomen with some ascites.. Suggestive of metastatic disease. Also distended endometrial cavity was reported. Also distended gallbladder with no calculi. Fatty infiltration of liver. Large right pleural effusion with atelectasis of the right lower lobe. Partial atelectasis of right below. Some thickening of the gastric antrum and duodenum. Patient was hypotensive. Patient was decontaminated in the ER for maggots in the hair. This morning patient is intubated on the ventilator. With FiO2 50% and a PEEP of 5. Patient probably aspirated after vomiting. Has been placed on Zosyn. [facility] team earlier creatinine return to the family was unable to do so. Admitted with acute hypoxic respiratory failure, multifactorial, pneumonia, requiring ventilator assistance. Aspiration pneumonia. Septic shock. On IV levo fed. Metastatic carcinoma. December 19: ICU. Intubated. FiO2 50 to PEEP of 5. Sinus tachycardia heart rate 120. IV norepinephrine. Patient has been off propofol. Currently full code. Nurse did update the on the phone. Hasn't been in. According to the nurse patient was doing fine up to about September, as per patient's PCP. December 3: ICU. Intubated. FiO2 40 PEEP of 5. Sinus rhythm. IV norepinephrine. No family at bedside. Remains full code. IV Zosyn. Right-sided chest tube December: ICU. Intubated. 40/5. Sinus rhythm. IV levo fed. Nurse informed me that has disability and does not have a right. Right-sided chest port with decreased output. OG tube feeding. December 22: ICU. Intubated. FiO2 35 PEEP of 5. Sinus rhythm. 2 feeding at 53 mL hour. Does open eyes but not really following commands. Has been having petechie. Platelets down to 19. Platelets ordered. Tried to reach the list phone number to reach the . And went into voicemail December 23: ICU. Intubated. FiO2 35 PEEP of 5. Getting 2 feeding at 55 mL an hour. Some response. Nonpurposeful. Petechiae. I finally managed to get to the on the phone. He is disabled. Really cannot get about. He started to get a ride to come to the hospital. Did tell him about the presence of carcinomatosis in the abdomen. Cytology pending. He really does not want to wish to be done ascites. But will speak to the oncologist. I addressed CODE STATUS with him. Patient made DO NOT RESUSCITATE. Patient was CT brain today. Unremarkable. Chronic changes. Cytology still pending. Spoke to nurse practitioner Trang from oncology. Total time spent today above an hour December 24: ICU. Intubated. On the ventilator. Started back on propofol for restlessness. Does open eyes but not purposeful. Had some diarrhea with a rectal tube. Tube feeding at goal. Expecting the to come in today. December 25: ICU. Intubated. On the ventilator. Dr. Morrell earlier spoke to patient's on the phone. For abdominal pain. will come to try and come in this afternoon. 2 feeding. Sinus rhythm. Cytology came back showing adenocarcinoma. [employer] source Data patient was doubly extubated. Patient Past medical history to include: Hypertension, hyperlipidemia, arthritis Social history: Cannot be obtained INVESTIGATIONS, reviewed in the clinical context: Cytology: Adenocarcinoma. December 25: WBC 8.5 hemoglobin 7.8 platelets 52 potassium 4 BUN 84 creatinine 2.68 December 20: WBC 6.9 hemoglobin 9.1 platelets 47 potassium 3.3 BUN 59 creatinine 1.8 to ionized calcium 4.4 AST 352 ALT 214 albumin 1.7 December 19: White count 7.6 hemoglobin 12.2 platelets 72 potassium 4 BUN 53 creatinine 1.93. ABG: PH 7.25 pCO2 33 pO2 159 White count 8.4 hemoglobin 12 platelets 88 sodium 136 potassium 4.4 BUN 65 creatinine 1.99 Sputum: Pseudomonas aeruginosa. Blood culture: Coagulase-negative staph Lactic acid 6.2 CEA antigen 5.3 EKG tracing personally reviewed by me-normal sinus rhythm. Rate 84 Chest x-ray film personally reviewed by [id number] mass/infiltrate. Atelectasis. CT chest without contrast. Large right, small left pleural effusions. Mild peripheral edema. Colonic diverticulosis. Mesentric carcinomatosis. 2-D echocardiogram: EF 55-60%. Assessment and plan: -Acute hypoxic respiratory failure, multifactorial including possible pneumonia, right lower lobe collapse. Requiring ventilator assistance.: Not improving -Possible aspiration pneumonia secondary to Pseudomonas IV Zosyn -Septic shock: Improved IV fluids, levofed -Large right pleural effusion Right-sided chest tube placed December 18 -Metastatic mesenteric carcinomatosis. Metastatic adenocarcinoma likely source [place] -Altered mental status, multifactorial/metabolic encephalopathy/delirium -Elevated troponin from hemodynamic mismatch. No clinical evidence of acute coronary syndrome -Acute kidney injury, likely ATN could be from shock. Baseline creatinine not known.: Slow to respond -Nonalcoholic fatty liver disease. -Hypocalcemia Receives calcium gluconate -Thrombocytopenia, severe with petechiae Platelets transfused -Metabolic acidosis with a contribution from kidney injury: Better Sodium bicarbonate drip -DO NOT RESUSCITATE per her IV Zosyn. Waiting for patient to go abdominal pain/comfort care. might come in this afternoon. 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 Plan - Discharge Summary Discharge Rx Participant: No New Discharge Prescriptions: No Action Atorvastatin [Lipitor] 40 mg PO DAILY lisinopriL [Zestril] 20 mg PO DAILY hydroCHLOROthiazide [Hydrodiuril] 25 mg PO DAILY Cetirizine HCl [Zyrtec] 10 mg PO DAILY Aspirin 81 mg PO DAILY Discharge Medication List Aspirin 81 mg PO DAILY 12/18/22 [History] Atorvastatin [Lipitor] 40 mg PO DAILY 12/18/22 [History] Cetirizine HCl [Zyrtec] 10 mg PO DAILY 12/18/22 [History] hydroCHLOROthiazide [Hydrodiuril] 25 mg PO DAILY 12/18/22 [History] lisinopriL [Zestril] 20 mg PO DAILY 12/18/22 [History] Follow up Appointment(s)/Referral(s): Malik Vale MD [Primary Care Provider] - 1-2 days
== END 2022-12-25 21:00 | disposition expired | DRG 720 ==
LOC: EC 23:36 → 2SICU 12-18 00:46
PROVIDERS: ADMIT Hospitalist; ATTEND Hospitalist
DX: A41.89 Other specified sepsis (principal); C78.6 Secondary malignant neoplasm of retroperitoneum and peritoneum; D69.6 Thrombocytopenia, unspecified; C56.9 Malignant neoplasm of unspecified ovary; E53.8 Deficiency of other specified B group vitamins; E78.5 Hyperlipidemia, unspecified; E83.51 Hypocalcemia; I10 Essential (primary) hypertension; G93.41 Metabolic encephalopathy; I21.A1 Myocardial infarction type 2; R65.21 Severe sepsis with septic shock; B96.5 Pseudomonas (aeruginosa) (mallei) (pseudomallei) as the cause of diseases classified elsewhere; R62.7 Adult failure to thrive; I27.20 Pulmonary hypertension, unspecified; K76.0 Fatty (change of) liver, not elsewhere classified; Z51.5 Encounter for palliative care; Z66 Do not resuscitate; N17.0 Acute kidney failure with tubular necrosis; J69.0 Pneumonitis due to inhalation of food and vomit; J91.0 Malignant pleural effusion; R18.8 Other ascites; J96.01 Acute respiratory failure with hypoxia; J96.02 Acute respiratory failure with hypercapnia; J98.11 Atelectasis; K21.9 Gastro-esophageal reflux disease without esophagitis; E87.6 Hypokalemia; K82.8 Other specified diseases of gallbladder; M19.90 Unspecified osteoarthritis, unspecified site; B87.9 Myiasis, unspecified; Z79.82 Long term (current) use of aspirin; Z79.899 Other long term (current) drug therapy; Z28.310 Unvaccinated for COVID-19
CPT/HCPCS: 32551; 36600; 51702; 70450; 71045; 71250; 74176; 76942; 80048; 80053; 80202; 80306; 81001; 82140; 82310; 82330; 82378; 82533; 82607; 82746; 82805; 82945; 83605; 83615; 83735; 84100; 84132; 84157; 84443; 84484; 85025; 85027; 85379; 85384; 85610; 85730; 86022; 86304; 86850; 86900; 86901; 87040; 87070; 87075; 87077; 87086; 87102; 87116; 87186; 87205; 87206; 87252; 87496; 87498; 87502; 87529; 87634; 87798; 88108; 88305; 88341; 88342; 93005; 93306; 94002; 94003; 94640; 95822; 96365; 96366; 99291